=== PATIENT | female | born 1975 | race Caucasian/White ===

== ENCOUNTER → 2020-10-03 13:07 | Outpatient (BNVA) | payer OTHER, SELFPAY | PROVIDERS: PCP Nurse Practitioner Family; Referring Provider Nurse Practitioner Family; Visit Provider Orthopaedic Surgery | DX: M17.0 Bilateral primary osteoarthritis of knee (principal); S52.502D Unspecified fracture of the lower end of left radius, subsequent encounter for closed fracture with routine healing | CPT/HCPCS: 99212 ==

== ENCOUNTER → 2020-11-28 12:47 | Outpatient (REF) | payer OTHER, SELFPAY | LOC: HO.SL 12:47 | PROVIDERS: PCP Registered Nurse; Visit Provider Registered Nurse | DX: G47.30 Sleep apnea, unspecified (principal); G47.19 Other hypersomnia; J45.41 Moderate persistent asthma with (acute) exacerbation; R06.83 Snoring | CPT/HCPCS: 95806 ==

== ENCOUNTER → 2021-01-05 08:27 | Outpatient (BNVA) | payer OTHER, SELFPAY | PROVIDERS: PCP Nurse Practitioner Family; Visit Provider Internal Medicine Gastroenterology ==

== ENCOUNTER → 2021-07-06 08:27 | Outpatient (BNVA) | payer OTHER, SELFPAY | PROVIDERS: PCP Nurse Practitioner Family; Visit Provider Internal Medicine Gastroenterology ==

== ENCOUNTER → 2021-10-23 09:26 | Outpatient (BNVA) | payer OTHER, SELFPAY | PROVIDERS: PCP Nurse Practitioner Family; Visit Provider Internal Medicine Gastroenterology ==

== ENCOUNTER 2022-02-01 12:31 | Outpatient (REF) | payer OTHER, SELFPAY ==
[2022-02-01 16:07] LABS: MANUAL DIFF FLAG NO
[2022-02-01 16:33] LABS: Basophils Percent Auto 0.3 % (0-2); Eosinophils Absolute Auto 0.2 X10*3/uL (0.0-0.4); Eosinophils Percent Auto 1.9 % (0-4); Hematocrit 39.3 % (37.0-47.0); Hemoglobin 12.8 g/dl (12.0-16.0); Imm Gran Abs Auto 0.05 X10*3/uL (0.00-0.03); Imm Gran Pct Auto 0.5 % (0.0-0.4); Lymphocytes Absolute Auto 4.3 X10*3/uL (1.2-4.9); Lymphocytes Percent Auto 39.7 % (20-40); Mean Corpuscular HGB Conc 32.6 g/dl (31.0-35.0); Mean Corpuscular Hemoglobin 28.1 pg (27.0-33.0); Mean Corpuscular Volume 86.4 fL (80.0-98.0); Monocytes Absolute Auto 0.6 X10*3/uL (0.1-1.2); Monocytes Percent Auto 5.4 % (2-11); Neutrophils Absolute Auto 5.7 x10*3/uL (2.0-8.3); Neutrophils Percent Auto 52.2 % (45-73); Platelet Count 266 X10*3/uL (160-400); Red Blood Count 4.55 X10*6/uL (4.20-5.50); Red Cell Distribution Width 13.7 % (11.0-16.0); White Blood Count 10.8 X10*3/uL (4.8-10.8)
[2022-02-01 17:09] LABS: Alanine Aminotransferase 34 U/L (0-31); Albumin Level 4.6 g/dL (3.5-5.0); Alkaline Phosphatase 92 U/L (39-117); Aspartate Amino Transferase 22 U/L (5-31); Bilirubin Direct 0.3 mg/dL (0.0-0.5); Estimated Glomerular Filt Rate 42; Iron 73 mcg/dL (30-160); Percent Iron Saturation 17 % (15-50); Total Iron Binding Capacity 422 mcg/dL (228-428); Total Protein 7.8 g/dL (6.5-8.0); Unsaturated Iron Binding 349 ug/dL
[2022-02-01 17:31] LABS: Ferritin 79 ng/mL (10-250)
== END 2022-02-01 12:32 | disposition home or self-care (01) ==
LOC: HO.LAB 12:31
PROVIDERS: PCP Nurse Practitioner Family; Visit Provider Internal Medicine Gastroenterology
DX: R10.84 Generalized abdominal pain (principal); R13.14 Dysphagia, pharyngoesophageal phase; R14.0 Abdominal distension (gaseous); K59.09 Other constipation; K62.5 Hemorrhage of anus and rectum; K76.0 Fatty (change of) liver, not elsewhere classified
CPT/HCPCS: 36415; 80076; 82565; 82728; 83540; 85025; 99212

== ENCOUNTER 2022-02-05 12:11 | Day surgery (SDC) | payer OTHER, SELFPAY ==
--- NOTE | 2022-02-02 13:43 | P.CONAN_ITS ---
Documented by User: Jemma Robert NP 02/02/22 13:45 HPI - Anesthesia Eval Consult details Narrative: 46yo F for Upper Endoscopy PMFSH Active Problems Active Problems: All Active Problems (Updated 02/01/22 @ 13:27 by James Neil MD) Dysphagia, pharyngoesophageal phase (Acute) Rectal bleeding (Acute) NAFL (nonalcoholic fatty liver) (Acute) Colon cancer screening (Acute) Chronic constipation (Acute) Abdominal bloating (Acute) Generalized abdominal pain (Acute) Patellofemoral arthritis of right knee (Acute) Patellofemoral arthritis of left knee (Acute) Distal radius fracture, left (Acute) Bilateral knee pain (Acute) Past Medical History Medical History Anxiety Bilateral knee pain Depression Distal radius fracture, left Fatty liver GDM (gestational diabetes mellitus) History of Helicobacter pylori infection Hypertension Patellofemoral arthritis of left knee Patellofemoral arthritis of right knee Surgical History Surgical History H/O hand surgery History of back surgery History of eye surgery History of hemorrhoidectomy History of open reduction and internal fixation (ORIF) procedure Social History Social History Household Members: Spouse and Children Alcohol intake: current Alcohol intake frequency: does not drink Patient Tobacco Use Status: Never used Tobacco Use of substances other than those prescribed or required for medical reasons: No Are you DNR?: No Advance Directives: No Advance Directives Information Provided: Yes 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al status: unemployed 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: Right Handed and left handed Meds Allergies Allergy/AdvReac Type Severity Reaction Status Date / Time No Known Allergies Allergy Verified 02/01/22 12:34 [No Known Allergies*] Home Medications Medication Instructions Recorded Confirmed Last Taken Type emollient combination no.114 TOPICAL 09/30/20 02/01/22 Unknown History [Eucerin Advanced Repair] loratadine [Claritin] PO 09/30/20 02/01/22 Unknown History meclizine 25 mg tablet 25 mg PO DAILY 09/30/20 02/01/22 Unknown History melatonin 5 mg capsule mg PO 09/30/20 02/01/22 Unknown History meloxicam 7.5 mg tablet 7.5 mg PO DAILY 09/30/20 02/01/22 Unknown History naproxen 500 mg tablet 500 mg PO BID 09/30/20 02/01/22 Unknown History propranolol 80 mg capsule,24 80 mg PO BEDTIME 09/30/20 02/01/22 Unknown History hr,extended release albuterol sulfate 90 mcg/actuation 2 puff PO Q4-6H PRN 04/12/21 02/01/22 Unknown History aerosol inhaler atorvastatin 40 mg tablet 40 mg PO DAILY 04/12/21 02/01/22 Unknown History budesonide 90 mcg/actuation breath 2 inh PO BID 04/12/21 02/01/22 Unknown History activated powder inhaler lidocaine 5 % topical patch 0 patch TOPICAL 04/12/21 02/01/22 Unknown History loratadine 10 mg tablet 10 mg PO DAILY PRN 04/12/21 02/01/22 Unknown History melatonin 5 mg tablet 5 mg PO BEDTIME PRN 04/12/21 02/01/22 Unknown History Exam Exam Date and Time: February 02, 2022 1343 Pertinent Lab Results Pertinent Lab Results: Laboratory Tests 02/01/22 02/01/22 16:06 16:06 WBC 10.8 Hgb 12.8 Hct 39.3 Plt Count 266 Creatinine 1.34 Assessment and Plan Assessment Anesthesia Assessment: Chart Reviewed Documented by User: Marian Hernandez MD 02/05/22 13:00 [facility] Past Medical History Medical History Anxiety Bilateral knee pain Depression Distal radius fracture, left Fatty liver GDM (gestational diabetes mellitus) History of Helicobacter pylori infection Hypertension Patellofemoral arthritis of left knee Patellofemoral arthritis of right knee Surgical History Surgical History H/O hand surgery History of back surgery History of eye surgery History of hemorrhoidectomy History of open reduction and internal fixation (ORIF) procedure History of Problems with Anesthesia: No Social History Social History Household Members: Spouse and Children Alcohol intake: current Alcohol intake frequency: does not drink Patient Tobacco Use Status: Never used Tobacco Use of substances other than those prescribed or required for medical reasons: No Are you DNR?: No Advance Directives: No Advance Directives Information Provided: Yes 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al status: unemployed 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: Right Handed and left handed Meds Allergies Allergy/AdvReac Type Severity Reaction Status Date / Time No Known Allergies Allergy Verified 02/01/22 12:34 [No Known Allergies*] Home Medications Medication Instructions Recorded Confirmed Last Taken Type emollient combination no.114 TOPICAL 09/30/20 02/01/22 Unknown History [Eucerin Advanced Repair] loratadine [Claritin] PO 09/30/20 02/01/22 Unknown History meclizine 25 mg tablet 25 mg PO DAILY 09/30/20 02/01/22 Unknown History melatonin 5 mg capsule mg PO 09/30/20 02/01/22 Unknown History meloxicam 7.5 mg tablet 7.5 mg PO DAILY 09/30/20 02/01/22 Unknown History naproxen 500 mg tablet 500 mg PO BID 09/30/20 02/01/22 Unknown History propranolol 80 mg capsule,24 80 mg PO BEDTIME 09/30/20 02/01/22 Unknown History hr,extended release albuterol sulfate 90 mcg/actuation 2 puff PO Q4-6H PRN 04/12/21 02/01/22 Unknown History aerosol inhaler atorvastatin 40 mg tablet 40 mg PO DAILY 04/12/21 02/01/22 Unknown History budesonide 90 mcg/actuation breath 2 inh PO BID 04/12/21 02/01/22 Unknown History activated powder inhaler lidocaine 5 % topical patch 0 patch TOPICAL 04/12/21 02/01/22 Unknown History loratadine 10 mg tablet 10 mg PO DAILY PRN 04/12/21 02/01/22 Unknown History melatonin 5 mg tablet 5 mg PO BEDTIME PRN 04/12/21 02/01/22 Unknown History Exam Airway Mallampati Class: II TM Dist: >3cm Neck ROM: Full Loose/Missing/Broken Teeth: No Heart: RRR Lungs: CTA Assessment and Plan Final Anesthetic Review History of Problems with Anesthesia: No NPO: Yes ASA Class: III Final Preanesthetic Review: Meds/Allgs Chart Reviewed, Consent Obtained/Reviewed and Anes Risks/Benef Reviewed Procedure Risk: Low Anesthetic Plan Anesthetic Plan: MAC: Disposition: Standard PACU
[2022-02-05 12:32] VITALS: BP 122/65; PULSE 66; RESP 16; TEMP 36.6; O2SAT 97
[2022-02-05 12:34] LABS: UPreg QC Valid YES; Urine Pregnancy NEGATIVE (NEGATIVE)
[2022-02-05 12:40] VITALS: BMI 42.0
[2022-02-05] MEDS: Lactated Ringers 1,000 ML 100 ML IVCONT (12:52)
--- NOTE | 2022-02-05 12:55 | MHC.SHP ---
Pre-Procedural Eval Section A Date of Service: 02/05/22 The patient is an INPATIENT: No Changes since office visit: Yes Patient answered all questions; No Cold of Flu in the past 2 weeks, No New Medical Problems and No Changes in Medication The History & Physical has been completed within 30 days and I have reviewed it.: Yes Section B Chief Complaint: Dysphagia Allergies: Allergies Allergy/AdvReac Type Severity Reaction Status Date / Time No Known Allergies Allergy Verified 02/01/22 12:34 [No Known Allergies*] Plan I have reviewed the history and physical and performed a pertinent physical examination on my patient. No changes have occurred unless specified.
--- NOTE | 2022-02-05 12:56 | W.PM.OPN ---
Operative Note Operative Note Date of Service: 02/05/22 Narrative: Pre-op diagnosis: GERD, dysphagia, pt complains of nocturnal regurgitation with choking Post-op diagnosis:?other (GERD, dysphagia, gastritis, gastric antral nodule) Procedure: FLEXIBLE TRANSORAL UPPER GASTROINTESTINAL ENDOSCOPY WITH BIOPSIES AND ESOPHAGEAL BALLOON DILATION Consent:?Indications for the procedure and potential complications of bleeding, perforation, reaction to medications and missed diagnosis were discussed with the patient with the help of a Setswana seed core operator and informed consent was obtained. Instrument:?Olympus GIF H 190 mid size upper endoscope Monitoring: Vital signs and clinical assessment, continuous EKG monitoring, Pulse oximetry, Carbon Dioxide monitoring and blood pressure monitoring were done throughout the procedure. Procedure:?The patient was placed in the left lateral decubitis position and pre-procedure medications were administered and a bite block was placed. The endoscope was inserted into the mouth and advanced under direct vision to the third part of duodenum. A careful inspection was made as the upper endoscope was withdrawn including a retroflexed examination of the proximal stomach; Findings and interventions are described below. Findings: Larynx:? Normal Esophagus: Tortuous and mildly dilated esophagus with tertiary contractions without stricture or ring. GE junction at 36 cms. No esophagitis or Chavez's. Esophageal balloon dilation was performed with a 20 mm (60 F) CRE balloon for 60 seconds Stomach: A 1 x 2 cms elongated nodule/fold with central erosion - biopsied. Mild gastric erythema. Biopsies were obtained. Grade 2 flap valve on retroflexed examination of the cardia. Duodenum: Normal bulb and descending duodenum Intervention: Biopsies and esophageal balloon dilation as noted above Impression and Post Procedure Diagnosis: Endoscopy Findings: ESOPHAGUS: Tortuous and mildly dilated esophagus with tertiary contractions without stricture or ring. GE junction at 36 cms. No esophagitis or Chavez's. Esophageal balloon dilation was performed with a 20 mm (60 F) CRE balloon for 60 seconds STOMACH: A 1 x 2 cms elongated nodule/fold with central erosion - biopsied. Mild gastric erythema. Biopsies were obtained. Plan: Await pathology results. Start Sucralfate twice daily for acid reflux. Schedule a barium swallow to rule out severe GERD/achalasia. Patient has an appointment on 04/05/22 in the GI Clinic with James Neil M.D. Above findings were reviewed with the patient and GERD handout was given in the discharge area Surgeon: James Neil MD Anesthesia:?MAC (Dr Hernandez) Was an Traffic Coordinator used for this Procedure?:?No Traffic Coordinator:?Padmini Aranda Estimated blood loss (mL):?0 Pathology:?other (A. gastric antrum, R/O h. pylori? B. gastric nodules bx? C. proximal esophagus bxs, R/O EOE) Condition:?stable Disposition:?PACU
[2022-02-05 13:33] VITALS: BP 102/61; PULSE 71; RESP 18; TEMP 36.2; O2SAT 99
[2022-02-05 13:46] VITALS: BP 123/78; PULSE 72; RESP 18; O2SAT 99
[2022-02-05 14:01] VITALS: BP 137/78; PULSE 66; RESP 16; TEMP 36.3; O2SAT 100
[2022-02-05 14:16] VITALS: BP 142/83; PULSE 66; RESP 16; O2SAT 100
[2022-02-05] MEDS: Acetaminophen 325 MG TABLET 650 MG PO (14:16)
== END 2022-02-05 15:00 | disposition home or self-care (01) ==
PROVIDERS: Nurse Practitioner; PCP Nurse Practitioner Family; Visit Provider Internal Medicine Gastroenterology
PROC: 0DJ08ZZ Inspection of Upper Intestinal Tract, Via Natural or Artificial Opening Endoscopic (ICD-10-PCS; CPT 43235; principal; 2022-02-05 14:30)
DX: R13.10 Dysphagia, unspecified (principal); K22.89 Other specified disease of esophagus; K21.9 Gastro-esophageal reflux disease without esophagitis; K29.50 Unspecified chronic gastritis without bleeding; K31.89 Other diseases of stomach and duodenum; K76.0 Fatty (change of) liver, not elsewhere classified; R11.10 Vomiting, unspecified; F32.9 Major depressive disorder, single episode, unspecified; I10 Essential (primary) hypertension; E78.5 Hyperlipidemia, unspecified; E78.00 Pure hypercholesterolemia, unspecified; Z79.899 Other long term (current) drug therapy
CPT/HCPCS: 43249; 43239; 81025; 88305; 88342; C1726

== ENCOUNTER 2022-02-22 14:21 | Outpatient (REF) | payer OTHER, SELFPAY ==
--- NOTE | ~2022-02-22 | XR_ITS ---
EXAMINATION: UPRIGHT AP BOTH KNEES. PATELLOFEMORAL AND LATERAL VIEW OF THE RIGHT KNEE CLINICAL INFORMATION: Knee pain. COMPARISON: None. TECHNIQUE: AP upright of both knees. Lateral and patellar view of right knee axial. FINDINGS: RIGHT KNEE: Medial compartment: There are marginal osteophytes with minimal subchondral cystic changes in the medial compartment without joint space narrowing indicative of mild osteoarthritis. Lateral compartment: Normal. Patellofemoral compartment: Marginal osteophytes indicative of mild osteoarthritis. Trace joint effusion. LEFT KNEE: Limited AP upright: Marginal osteophytes about the medial compartment with small subchondral cysts indicative of mild osteoarthritis. Lateral compartment normal. Surrounding bone and soft tissues unremarkable. XR/XR knee standing BI IMPRESSION: RIGHT KNEE: Mild osteoarthritis of the patellofemoral compartment and medial compartment. LEFT KNEE LIMITED: Mild osteoarthritis of the medial compartment.
--- NOTE | ~2022-02-22 | XR_ITS ---
EXAMINATION: UPRIGHT AP BOTH KNEES. PATELLOFEMORAL AND LATERAL VIEW OF THE RIGHT KNEE CLINICAL INFORMATION: Knee pain. COMPARISON: None. TECHNIQUE: AP upright of both knees. Lateral and patellar view of right knee axial. FINDINGS: RIGHT KNEE: Medial compartment: There are marginal osteophytes with minimal subchondral cystic changes in the medial compartment without joint space narrowing indicative of mild osteoarthritis. Lateral compartment: Normal. Patellofemoral compartment: Marginal osteophytes indicative of mild osteoarthritis. Trace joint effusion. LEFT KNEE: Limited AP upright: Marginal osteophytes about the medial compartment with small subchondral cysts indicative of mild osteoarthritis. Lateral compartment normal. Surrounding bone and soft tissues unremarkable. XR/XR knee RT 2V IMPRESSION: RIGHT KNEE: Mild osteoarthritis of the patellofemoral compartment and medial compartment. LEFT KNEE LIMITED: Mild osteoarthritis of the medial compartment.
== END 2022-02-22 14:22 | disposition home or self-care (01) ==
LOC: HO.HOSX 14:21
PROVIDERS: Visit Provider Physician Assistant
DX: M17.0 Bilateral primary osteoarthritis of knee (principal)
CPT/HCPCS: 73560; 73565; 99212

== ENCOUNTER → 2022-03-09 14:29 | Outpatient (BNVA) | payer OTHER, SELFPAY | PROVIDERS: PCP Nurse Practitioner Family; Visit Provider Physician Assistant | DX: M17.0 Bilateral primary osteoarthritis of knee (principal) | CPT/HCPCS: 20610; 99212; J1040 ==

== ENCOUNTER → 2022-04-05 09:26 | Outpatient (BNVA) | payer OTHER, SELFPAY | PROVIDERS: PCP Nurse Practitioner Family; Referring Provider Nurse Practitioner Family; Visit Provider Internal Medicine Gastroenterology | DX: Z13.89 Encounter for screening for other disorder (principal) ==

== ENCOUNTER 2022-09-04 15:10 | Outpatient (REF) | payer OTHER, SELFPAY ==
--- NOTE | ~2022-09-04 | XR_ITS ---
EXAMINATION: XR LUMBOSACRAL SPINE WITH OBLIQUES CLINICAL INFORMATION: Low back pain COMPARISON: None TECHNIQUE: AP, both oblique, and lateral views of the lumbar spine. Lateral view of the lumbosacral junction. FINDINGS: There is mild straightening of lumbar lordosis. The vertebral heights and alignment is normal. There is loss of L5-S1 disc height. Rest of the disc heights are normal. No visible acute fracture, dislocation or lytic process seen. The paravertebral soft tissues are normal. XR/XR lumbar spine 4V min IMPRESSION: Degenerative disc changes L5-S1 disc level. No visible acute fracture, dislocation or subluxation seen..
== END 2022-09-04 15:11 | disposition home or self-care (01) ==
LOC: HO.XRAY 15:10
PROVIDERS: Visit Provider Registered Nurse
DX: M54.50 Low back pain, unspecified (principal)
CPT/HCPCS: 72110

== ENCOUNTER 2022-09-13 10:42 | Outpatient (REF) | payer OTHER, SELFPAY ==
--- NOTE | ~2022-09-13 | MM_ITS ---
EXAMINATION: BONE DENSITOMETRY CLINICAL INDICATION: Screening. COMPARISON: None (current study represents initial baseline exam). TECHNIQUE: Using a [employer] DXA System (software version: 13.1) manufactured by [employer], dual-energy x-ray absorptiometry was performed of the lumbar spine and left hip. The images are of good technical quality. Summary results are attached. FINDINGS: AP SPINE L1-L4: BMD 1.115 g/cm2, Z-score -1.4, T-score -0.5, normal. LEFT FEMUR, NECK: BMD 1.050 g/cm2, Z-score 0.6, T-score 0.1, normal. LEFT FEMUR, TOTAL: BMD 1.169 g/cm2, Z-score 0.9, T-score 1.3, normal. IDENTIFIED RISK FACTORS: Menopause, osteoporosis, history of fracture (adult). HISTORY OF FRACTURE: Wrist. MEDICATIONS: Vitamin D. MM/XR DEXA axial skeleton IMPRESSION: 1. DIAGNOSIS: Normal bone density based on the lowest T-score value of -0.5 in the lumbar spine applying World Health Organization criteria. 2. 10-YEAR FRACTURE RISK PREDICTION, FRAX: According to the guidelines, FRAX calculation should only be performed on patients in the osteopenia bone density category. Therefore, FRAX was not performed on this patient. 3. Treatment Recommendations: NOF guidelines recommend consideration for treatment in postmenopausal women and men age 50 and older presenting with the following: -A hip or vertebral (clinical or morphometric) fracture. -T-score less than or equal to -2.5 at the femoral neck or spine after appropriate evaluation to exclude secondary causes. -Low bone mass at the hip or spine and a 10-year fracture probability by FRAX of greater than or equal to 3% for hip fracture or greater than or equal to 20% for major osteoporotic fracture based on the [place] adapted WHO algorithm. 4. Other Recommendations: All treatment decisions require clinical judgment and consideration of individual patient factors, including patient preferences, comorbidities, previous drug use, risk factors not captured in the FRAX model (e.g. frailty, falls, vitamin D deficiency, increased bone turnover, interval significant decline in bone density) and possible under or overestimation of fracture risk by FRAX. FUTURE SCAN RECOMMENDATION: People with diagnosed cases of osteoporosis or at high risk for fracture should have regular bone mineral density tests. For patients eligible for Medicare, routine testing is allowed once every 2 years. The testing frequency can be increased to one year for patients who have rapidly progressing disease, those who are receiving or discontinuing medical therapy to restore bone mass, or have additional risk factors.
== END 2022-09-13 10:43 | disposition home or self-care (01) ==
LOC: HO.MAMMO 10:42
PROVIDERS: PCP Registered Nurse; Visit Provider Registered Nurse
DX: Z13.820 Encounter for screening for osteoporosis (principal); Z78.0 Asymptomatic menopausal state; Z87.81 Personal history of (healed) traumatic fracture
CPT/HCPCS: 77080

== ENCOUNTER → 2022-10-11 09:36 | Outpatient (BNVA) | payer OTHER, SELFPAY | PROVIDERS: PCP Registered Nurse; Visit Provider Physician Assistant | DX: M17.0 Bilateral primary osteoarthritis of knee (principal) | CPT/HCPCS: 20610; 99212; J1040 ==

== ENCOUNTER 2022-12-27 09:35 | Outpatient (REF) | payer OTHER, SELFPAY ==
--- NOTE | ~2022-12-27 | MM_ITS ---
EXAMINATION: MM SCREENING DIGITAL BREAST TOMOSYNTHESIS, BILATERAL CLINICAL INFORMATION: Screening. Asymptomatic. The lifetime risk of breast cancer based on the Tyrer-Cuzick Model is 5.1%. COMPARISON: Mammography: None TECHNIQUE: Digital breast tomosynthesis is performed in both the craniocaudal and mediolateral oblique views along with computer-aided detection (CAD). Synthesized 2D images are generated from the tomosynthesis. FINDINGS: There are scattered areas of fibroglandular density (ACR BI-RADS breast composition Category b). There are no significant masses, abnormal calcifications, or other abnormalities. A few small intramammary lymph nodes are present. MM/MM tomosynthesis screening BI IMPRESSION: No mammographic evidence of malignancy. ASSESSMENT: BI-RADS 1: Negative RECOMMENDATION: Routine annual mammography screening. This patient's information was entered into a reminder system with a target due date for their next mammogram.
== END 2022-12-27 09:36 | disposition home or self-care (01) ==
LOC: HO.MAMMO 09:35
PROVIDERS: Visit Provider Registered Nurse
DX: Z12.31 Encounter for screening mammogram for malignant neoplasm of breast (principal)
CPT/HCPCS: 77063; 77067

== ENCOUNTER 2023-01-04 21:21 | Emergency (ER) | payer OTHER, SELFPAY ==
[2023-01-04 22:16] VITALS: BP 176/101; PULSE 77; RESP 18; TEMP 36.2; O2SAT 100; BMI 39.9
== END 2023-01-04 23:57 | disposition left against medical advice (07) ==
PROVIDERS: Emergency Provider Emergency Medicine
DX: R51.9 Headache, unspecified (principal); M25.511 Pain in right shoulder
CPT/HCPCS: 99281; 99283

== ENCOUNTER 2023-01-07 16:44 | Outpatient (REF) | payer OTHER, SELFPAY ==
--- NOTE | ~2023-01-07 | XR_ITS ---
EXAMINATION: XR SHOULDER, RIGHT CLINICAL INFORMATION: Acute pain right shoulder COMPARISON: Chest radiographs 06/21/2015 TECHNIQUE: Right shoulder is imaged in 4 views. FINDINGS: No fracture, dislocation, destructive process. No visible rotator cuff calcifications. The glenohumeral joint appears normal. The acromioclavicular alignment is normal. There is some minor spurring superior lateral acromium which may be related to origin deltoid. Right lung apex is clear. XR/XR shoulder RT min 2V IMPRESSION: 1. No fracture, dislocation, destructive process. 2. No visible rotator cuff calcifications.
== END 2023-01-07 16:45 | disposition home or self-care (01) ==
LOC: HO.XRAY 16:44
PROVIDERS: PCP Student in an Organized Health Care Education/Training Program; Visit Provider Student in an Organized Health Care Education/Training Program
DX: M25.511 Pain in right shoulder (principal)
CPT/HCPCS: 73030

== ENCOUNTER → 2023-01-10 10:42 | Outpatient (BNVA) | payer OTHER, SELFPAY | PROVIDERS: PCP Student in an Organized Health Care Education/Training Program; Visit Provider Internal Medicine Gastroenterology | DX: K21.9 Gastro-esophageal reflux disease without esophagitis (principal); R14.0 Abdominal distension (gaseous); K59.09 Other constipation; K76.0 Fatty (change of) liver, not elsewhere classified; K62.5 Hemorrhage of anus and rectum; R13.14 Dysphagia, pharyngoesophageal phase; Z86.010 Personal history of colon polyps | CPT/HCPCS: 99212 ==

== ENCOUNTER 2023-01-14 16:16 | Outpatient (REF) | payer OTHER, SELFPAY ==
--- NOTE | ~2023-01-14 | XR_ITS ---
EXAMINATION: XR KNEE, RIGHT CLINICAL INFORMATION: Pain. COMPARISON: Radiograph dated 02/22/2022. TECHNIQUE: AP, lateral and sunrise views of the right knee. FINDINGS: Bones and soft tissues are normal. No fracture or joint effusion. Alignment is anatomic. Joint spaces are well maintained. There is minimal tricompartment osteoarthritic change. No abnormal soft tissue calcification. XR/XR knee RT 3V IMPRESSION: Minimal tricompartment osteoarthritic change of the right knee is seen. There is no fracture, dislocation or joint effusion.
--- NOTE | ~2023-01-14 | XR_ITS ---
EXAMINATION: XR BILATERAL HIPS WITH AP PELVIS CLINICAL INFORMATION: Right hip pain status-post fall. COMPARISON: None TECHNIQUE: AP and frog-leg lateral views of each hip and an AP view of the pelvis. FINDINGS: The bones and soft tissues are normal. No fracture. Sacroiliac and hip joints are normal. Pubic symphysis is normal. No abnormal soft tissue calcifications. XR/XR hip BI w PEL1V IMPRESSION: Normal pelvis and hips.
== END 2023-01-14 16:17 | disposition home or self-care (01) ==
LOC: HO.XRAY 16:16
PROVIDERS: PCP Registered Nurse; Visit Provider Registered Nurse
DX: M25.551 Pain in right hip (principal); M25.561 Pain in right knee
CPT/HCPCS: 73521; 73562

== ENCOUNTER 2023-01-25 19:26 | Emergency (ER) | payer OTHER, SELFPAY ==
--- NOTE | 2023-01-25 | ECG_ITS ---
Test Reason : CHEST PAIN Blood Pressure : / mmHG Vent. Rate : 079 BPM Atrial Rate : 079 BPM P-R Int : 186 ms QRS Dur : 072 ms QT Int : 362 ms P-R-T Axes : 030 017 041 degrees QTc Int : 415 ms Normal sinus rhythm Normal ECG When compared with ECG of 21-JUN-2015 22:05, No significant change was found Referred By: Generic ED Physician Electronically Signed By:JUANCARLOS GRIMM MD
--- NOTE | ~2023-01-25 | XR_ITS ---
EXAMINATION: XR CHEST CLINICAL INFORMATION: Chest pain COMPARISON: None TECHNIQUE: 2 views of the chest were obtained. FINDINGS: No significant abnormality is noted involving the heart, lungs, mediastinum, bony thorax or soft tissues. XR/XR chest 2V IMPRESSION: Unremarkable examination.
--- NOTE | 2023-01-25 19:39 | ED_ITS ---
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 but denies any change in position from sitting to laying down. She denies any fever or chills which has had some mild nausea and otherwise denies any diarrhea/abdominal pain/dysuria. <Marian Skaggs MD - Last Filed: 01/26/23 01:24> Related Data Home Medications: Home Medications Medication Instructions Recorded Confirmed emollient combination no.114 topical 09/30/20 01/10/23 [Eucerin Advanced Repair] loratadine [Claritin] PO 09/30/20 01/10/23 melatonin 5 mg capsule mg PO 09/30/20 01/10/23 meloxicam 7.5 mg tablet 7.5 mg PO DAILY 09/30/20 01/10/23 naproxen 500 mg tablet 500 mg PO BID 09/30/20 01/10/23 propranolol 80 mg capsule,24 80 mg PO BEDTIME 09/30/20 01/10/23 hr,extended release albuterol sulfate 90 mcg/actuation 2 puff PO Q4-6H PRN wheezing 04/12/21 01/10/23 aerosol inhaler atorvastatin 40 mg tablet 40 mg PO DAILY 04/12/21 01/10/23 budesonide 90 mcg/actuation breath 2 inh PO BID 04/12/21 01/10/23 activated powder inhaler lidocaine 5 % topical patch 0 patch topical 04/12/21 01/10/23 loratadine 10 mg tablet 10 mg PO DAILY PRN allergies 04/12/21 01/10/23 melatonin 5 mg tablet 5 mg PO BEDTIME PRN insomnia 04/12/21 01/10/23 bupropion HCl 150 mg 24 hr tablet, 150 mg PO DAILY 08/16/22 01/10/23 extended release Previous Rx's Medication Instructions Recorded psyllium husk 2.6 gram/4.1 gram 1 tbsp PO DAILY 30 days #480 grams 07/06/21 oral powder sucralfate 100 mg/mL oral 10 ml PO BID 30 days #600 mL 02/05/22 suspension (Carafate) cholecalciferol (vitamin D3) 250 250 mcg PO 2XW 90 days #26 caps 01/10/23 mcg (10,000 unit) capsule linaclotide 72 mcg capsule 72 mcg PO QAM 30 days #30 caps 01/10/23 (Linzess) omeprazole 20 mg capsule,delayed 20 mg PO BID 30 days #60 caps 01/10/23 release simethicone 125 mg chewable tablet 125 mg PO BID-QID PRN abdominal 01/10/23 (Gas Relief (simethicone)) distention 30 days #90 tabs ondansetron HCl 4 mg tablet 4 mg PO Q8H PRN nausea and 01/26/23 vomiting 4 days #10 tabs <Iliana Alberto CNP - Last Filed: 01/25/23 19:45> Allergies/Adverse Reactions: Allergies Allergy/AdvReac Type Severity Reaction Status Date / Time No Known Allergies Allergy Verified 01/10/23 10:46 [No Known Allergies*] <Iliana Alberto CNP - Last Filed: 01/25/23 19:45> Review of Systems Review of Systems: Pertinent positives and negatives as stated in HPI <Marian Skaggs MD - Last Filed: 01/26/23 01:24> PMFSH Past Medical History Source: nursing notes reviewed <Marian Skaggs MD - Last Filed: 01/26/23 01:24> Medical History: Medical History Anxiety Bilateral knee pain Depression Distal radius fracture, left Fatty liver GDM (gestational diabetes mellitus) History of Helicobacter pylori infection Hypertension CARITO (obstructive sleep apnea) Patellofemoral arthritis of left knee Patellofemoral arthritis of right knee <Iliana Alberto CNP - Last Filed: 01/25/23 19:45> Surgical History: Surgical History H/O hand surgery History of back surgery History of eye surgery History of hemorrhoidectomy History of open reduction and internal fixation (ORIF) procedure Hx of endoscopy <Iliana Alberto CNP - Last Filed: 01/25/23 19:45> Social History Social History: Social History Household Members: Spouse and Children Alcohol intake: current Alcohol intake frequency: does not drink Patient Tobacco Use Status: Never used Tobacco Advance Directives: No 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al status: unemployed 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: Right Handed <Iliana Alberto CNP - Last Filed: 01/25/23 19:45> Physical Exam Vital Signs: Vital Signs: Last Vital Signs Temp 97.6 F 01/25/23 19:48 Pulse 79 01/25/23 19:48 Resp 20 01/25/23 19:48 BP 134/92 H 01/25/23 19:48 Pulse Ox 96 01/25/23 19:48 O2 Del Method 01/25/23 19:48 BMI result Body Mass Index 39.4 <Iliana Alberto CNP - Last Filed: 01/25/23 19:45> Vital Signs: Last Vital Signs Temp 97.6 F 01/25/23 19:48 Pulse 79 01/25/23 19:48 Resp 20 01/25/23 19:48 BP 134/92 H 01/25/23 19:48 Pulse Ox 96 01/25/23 19:48 O2 Del Method 01/25/23 19:48 BMI result Body Mass Index 39.4 VITAL SIGNS: Reviewed. GENERAL: Elevated BMI, Well developed, well nourished, in no acute distress. HEAD: Normocephalic/atraumatic EYES: PERRLA, EOMI LUNGS: Normal breath sounds. No adventitious sounds or accessory muscle use. SpO2<96> CARDIOVASCULAR: Regular rate and rhythm without noted murmurs, no JVD or lower extremity edema. ABDOMEN: Soft, non-tender, non-distended with bowel sounds. MUSCULOSKELETAL: No tenderness, deformities, or effusions noted on gross inspection. EXTREMITIES: No cyanosis, clubbing or edema. SKIN: Inspection of the skin reveals no rashes NEUROLOGIC: Alert and oriented x 4. Strength and sensation to light touch were grossly intact x 4. <Marian Skaggs MD - Last Filed: 01/26/23 01:24> Course Course Course Narrative: This is an RME: Additional HPI, ROS, PE not included below will be deferred to primary provider. Patient is a 47-year-old female who presents emergency department for evaluation of chest pain. Reports onset of symptoms to be yesterday evening chest pain is radiating into the left arm has associated headache, nausea and vomiting, and reports elevated blood pressure. Denies any personal history of myocardial infarction, DVT/PE, anticoagulant usage. Denies any swelling to the legs, redness, recent surgery or immobilization. Plan: Labs, EKG, viral testing, CXR <Iliana Alberto CNP - Last Filed: 01/25/23 19:45> Medications Administered Discontinued Medications Generic Name Dose Route Start Last Admin Trade Name Freq PRN Reason Stop Dose Admin Acetaminophen 975 mg 01/26/23 00:53 01/26/23 01:00 Acetaminophen 325 Mg Tablet PO 01/26/23 00:54 975 mg ONCE ONE Administration Ibuprofen 400 mg 01/26/23 00:53 01/26/23 01:01 Ibuprofen 400 Mg Tablet PO 01/26/23 00:54 400 mg ONCE ONE Administration Ondansetron HCl 4 mg 01/26/23 00:56 01/26/23 01:00 Ondansetron Odt 4 Mg Tab.Rapdis TRANSLINGU 01/26/23 00:57 4 mg ONCE ONE Administration <Iliana Alberto CNP - Last Filed: 01/25/23 19:45> Medications Administered Discontinued Medications Generic Name Dose Route Start Last Admin Trade Name Freq PRN Reason Stop Dose Admin Acetaminophen 975 mg 01/26/23 00:53 01/26/23 01:00 Acetaminophen 325 Mg Tablet PO 01/26/23 00:54 975 mg ONCE ONE Administration Ibuprofen 400 mg 01/26/23 00:53 01/26/23 01:01 Ibuprofen 400 Mg Tablet PO 01/26/23 00:54 400 mg ONCE ONE Administration Ondansetron HCl 4 mg 01/26/23 00:56 01/26/23 01:00 Ondansetron Odt 4 Mg Tab.Trish CAMACHO 01/26/23 00:57 4 mg ONCE ONE Administration <Marian Skaggs MD - Last Filed: 01/26/23 01:24> Medical Decision Making Medical Decision Making MDM Narrative: 47-year-old female with history and clinical presentation after review of all investigations my interpretation is that patient may have viral illness/costochondritis, is no evidence to suggest pneumonia, cardiac ischemia a nd patient was provided with combination analgesics as well as antinausea medication. She was informed of all results and findings and otherwise discharged home in stable condition with a prescription for antinausea medication and instructions to follow-up with primary care provider. <Marian Skaggs MD - Last Filed: 01/26/23 01:24> Differential Diagnosis See the discussion above <Marian Skaggs MD - Last Filed: 01/26/23 01:24> Lab Data Please see the discussion above <Marian Skaggs MD - Last Filed: 01/26/23 01:24> Result Diagrams: 01/25/23 19:48 01/25/23 19:48 <Iliana Alberto CNP - Last Filed: 01/25/23 19:45> Labs: Lab Results 01/25/23 01/25/23 01/25/23 Range/Units 19:47 19:48 19:48 WBC 9.7 (4.8-10.8) X10*3/uL RBC 4.54 (4.20-5.50) X10*6/uL Hgb 12.8 (12.0-16.0) g/dl Hct 38.3 (37.0-47.0) % MCV 84.4 (80.0-98.0) fL MCH 28.2 (27.0-33.0) pg MCHC 33.4 (31.0-35.0) g/dl RDW 13.2 (11.0-16.0) % Plt Count 276 (160-400) X10*3/uL MPV 10.4 (9.4-12.3) fL Absolute Nucleated RBC 0.000 (0.0-0.012) X10*3/uL Nucleated RBC % (auto) 0.0 (0.0-0.2) /100WBC PT (10.0-13.1) SEC INR (0.9-1.1) Sodium 141 (135-145) mmol/L Potassium 4.2 (3.3-5.1) mmol/L Chloride 105 (96-108) mmol/L Carbon Dioxide 26 (22-29) mmol/L Anion Gap 14 (12-20) BUN 18 H (9-16) mg/dL Creatinine 0.80 (0.5-1.4) mg/dL Estim Creat Clear Calc 94.0 Estimated GFR > 60 Random Glucose 107 (60-115) mg/dL Calcium 9.7 (8.4-10.2) mg/dL Total Bilirubin 0.7 (0.0-1.0) mg/dL AST 25 (5-31) U/L ALT 35 H (0-31) U/L Alkaline Phosphatase 96 (39-117) U/L Troponin I High Sens (<3.5-17.0) ng/L Total Protein 7.3 (6.5-8.0) g/dL Albumin 4.6 (3.5-5.0) g/dL Beta HCG, Quant < 2 mIU/mL Urine Color Urine Appearance Urine pH (5.0-9.0) Ur Specific [place] (1.005-1.025) Urine Protein (Neg-Trace) mg/dL Urine Glucose (UA) (Negative) mg/dL Urine Ketones (Negative) mg/dL Urine Blood (Negative) Urine Nitrite (Negative) Ur Leukocyte Esterase (Negative) COVID-19 ([facility]) (Negative) COVID-19 Clin Com Influenza Type A (PCR) NEGATIVE (Negative) Influenza Type B (PCR) NEGATIVE (Negative) RSV RNA Qual (PCR) NEGATIVE (Negative) SARS-CoV-2 RNA (RT-PCR) NEGATIVE (Negative) 01/25/23 01/25/23 01/25/23 Range/Units 19:48 19:48 19:48 WBC (4.8-10.8) X10*3/uL RBC (4.20-5.50) X10*6/uL Hgb (12.0-16.0) g/dl Hct (37.0-47.0) % MCV (80.0-98.0) fL MCH (27.0-33.0) pg MCHC (31.0-35.0) g/dl RDW (11.0-16.0) % Plt Count (160-400) X10*3/uL MPV (9.4-12.3) fL Absolute Nucleated RBC (0.0-0.012) X10*3/uL Nucleated RBC % (auto) (0.0-0.2) /100WBC PT 10.6 (10.0-13.1) SEC INR 0.9 (0.9-1.1) Sodium (135-145) mmol/L Potassium (3.3-5.1) mmol/L Chloride (96-108) mmol/L Carbon Dioxide (22-29) mmol/L Anion Gap (12-20) BUN (9-16) mg/dL Creatinine (0.5-1.4) mg/dL Estim Creat Clear Calc Estimated GFR Random Glucose (60-115) mg/dL Calcium (8.4-10.2) mg/dL Total Bilirubin (0.0-1.0) mg/dL AST (5-31) U/L ALT (0-31) U/L Alkaline Phosphatase (39-117) U/L Troponin I High Sens < 3.5 (<3.5-17.0) ng/L Total Protein (6.5-8.0) g/dL Albumin (3.5-5.0) g/dL Beta HCG, Quant mIU/mL Urine Color Urine Appearance Urine pH (5.0-9.0) Ur Specific [place] (1.005-1.025) Urine Protein (Neg-Trace) mg/dL Urine Glucose (UA) (Negative) mg/dL Urine Ketones (Negative) mg/dL Urine Blood (Negative) Urine Nitrite (Negative) Ur Leukocyte Esterase (Negative) COVID-19 ([facility]) Negative (Negative) COVID-19 Clin Com See Note Influenza Type A (PCR) (Negative) Influenza Type B (PCR) (Negative) RSV RNA Qual (PCR) (Negative) SARS-CoV-2 RNA (RT-PCR) (Negative) 01/25/23 01/26/23 Range/Units 22:03 00:54 WBC (4.8-10.8) X10*3/uL RBC (4.20-5.50) X10*6/uL Hgb (12.0-16.0) g/dl Hct (37.0-47.0) % MCV (80.0-98.0) fL MCH (27.0-33.0) pg MCHC (31.0-35.0) g/dl RDW (11.0-16.0) % Plt Count (160-400) X10*3/uL MPV (9.4-12.3) fL Absolute Nucleated RBC (0.0-0.012) X10*3/uL Nucleated RBC % (auto) (0.0-0.2) /100WBC PT (10.0-13.1) SEC INR (0.9-1.1) Sodium (135-145) mmol/L Potassium (3.3-5.1) mmol/L Chloride (96-108) mmol/L Carbon Dioxide (22-29) mmol/L Anion Gap (12-20) BUN (9-16) mg/dL Creatinine (0.5-1.4) mg/dL Estim Creat Clear Calc Estimated GFR Random Glucose (60-115) mg/dL Calcium (8.4-10.2) mg/dL Total Bilirubin (0.0-1.0) mg/dL AST (5-31) U/L ALT (0-31) U/L Alkaline Phosphatase (39-117) U/L Troponin I High Sens < 3.5 (<3.5-17.0) ng/L Total Protein (6.5-8.0) g/dL Albumin (3.5-5.0) g/dL Beta HCG, Quant mIU/mL Urine Color Yellow Urine Appearance Clear Urine pH 6.5 (5.0-9.0) Ur Specific [place] 1.015 (1.005-1.025) Urine Protein Negative (Neg-Trace) mg/dL Urine Glucose (UA) Negative (Negative) mg/dL Urine Ketones Negative (Negative) mg/dL Urine Blood Negative (Negative) Urine Nitrite Negative (Negative) Ur Leukocyte Esterase Trace H (Negative) COVID-19 ([facility]) (Negative) COVID-19 Clin Com Influenza Type A (PCR) (Negative) Influenza Type B (PCR) (Negative) RSV RNA Qual (PCR) (Negative) SARS-CoV-2 RNA (RT-PCR) (Negative) <Iliana Alberto, ASSEMBLY LINE LEADER - Last Filed: 01/25/23 19:45> Lab Results 01/25/23 01/25/23 01/25/23 Range/Units 19:47 19:48 19:48 WBC 9.7 (4.8-10.8) X10*3/uL RBC 4.54 (4.20-5.50) X10*6/uL Hgb 12.8 (12.0-16.0) g/dl Hct 38.3 (37.0-47.0) % MCV 84.4 (80.0-98.0) fL MCH 28.2 (27.0-33.0) pg MCHC 33.4 (31.0-35.0) g/dl RDW 13.2 (11.0-16.0) % Plt Count 276 (160-400) X10*3/uL MPV 10.4 (9.4-12.3) fL Absolute Nucleated RBC 0.000 (0.0-0.012) X10*3/uL Nucleated RBC % (auto) 0.0 (0.0-0.2) /100WBC PT (10.0-13.1) SEC INR (0.9-1.1) Sodium 141 (135-145) mmol/L Potassium 4.2 (3.3-5.1) mmol/L Chloride 105 (96-108) mmol/L Carbon Dioxide 26 (22-29) mmol/L Anion Gap 14 (12-20) BUN 18 H (9-16) mg/dL Creatinine 0.80 (0.5-1.4) mg/dL Estim Creat Clear Calc 94.0 Estimated GFR > 60 Random Glucose 107 (60-115) mg/dL Calcium 9.7 (8.4-10.2) mg/dL Total Bilirubin 0.7 (0.0-1.0) mg/dL AST 25 (5-31) U/L ALT 35 H (0-31) U/L Alkaline Phosphatase 96 (39-117) U/L Troponin I High Sens (<3.5-17.0) ng/L Total Protein 7.3 (6.5-8.0) g/dL Albumin 4.6 (3.5-5.0) g/dL Beta HCG, Quant < 2 mIU/mL Urine Color Urine Appearance Urine pH (5.0-9.0) Ur Specific [place] (1.005-1.025) Urine Protein (Neg-Trace) mg/dL Urine Glucose (UA) (Negative) mg/dL Urine Ketones (Negative) mg/dL Urine Blood (Negative) Urine Nitrite (Negative) Ur Leukocyte Esterase (Negative) COVID-19 ([facility]) (Negative) COVID-19 Clin Com Influenza Type A (PCR) NEGATIVE (Negative) Influenza Type B (PCR) NEGATIVE (Negative) RSV RNA Qual (PCR) NEGATIVE (Negative) SARS-CoV-2 RNA (RT-PCR) NEGATIVE (Negative) 01/25/23 01/25/23 01/25/23 Range/Units 19:48 19:48 19:48 WBC (4.8-10.8) X10*3/uL RBC (4.20-5.50) X10*6/uL Hgb (12.0-16.0) g/dl Hct (37.0-47.0) % MCV (80.0-98.0) fL MCH (27.0-33.0) pg MCHC (31.0-35.0) g/dl RDW (11.0-16.0) % Plt Count (160-400) X10*3/uL MPV (9.4-12.3) fL Absolute Nucleated RBC (0.0-0.012) X10*3/uL Nucleated RBC % (auto) (0.0-0.2) /100WBC PT 10.6 (10.0-13.1) SEC INR 0.9 (0.9-1.1) Sodium (135-145) mmol/L Potassium (3.3-5.1) mmol/L Chloride (96-108) mmol/L Carbon Dioxide (22-29) mmol/L Anion Gap (12-20) BUN (9-16) mg/dL Creatinine (0.5-1.4) mg/dL Estim Creat Clear Calc Estimated GFR Random Glucose (60-115) mg/dL Calcium (8.4-10.2) mg/dL Total Bilirubin (0.0-1.0) mg/dL AST (5-31) U/L ALT (0-31) U/L Alkaline Phosphatase (39-117) U/L Troponin I High Sens < 3.5 (<3.5-17.0) ng/L Total Protein (6.5-8.0) g/dL Albumin (3.5-5.0) g/dL Beta HCG, Quant mIU/mL Urine Color Urine Appearance Urine pH (5.0-9.0) Ur Specific [place] (1.005-1.025) Urine Protein (Neg-Trace) mg/dL Urine Glucose (UA) (Negative) mg/dL Urine Ketones (Negative) mg/dL Urine Blood (Negative) Urine Nitrite (Negative) Ur Leukocyte Esterase (Negative) COVID-19 ([facility]) Negative (Negative) COVID-19 Clin Com See Note Influenza Type A (PCR) (Negative) Influenza Type B (PCR) (Negative) RSV RNA Qual (PCR) (Negative) SARS-CoV-2 RNA (RT-PCR) (Negative) 01/25/23 01/26/23 Range/Units 22:03 00:54 WBC (4.8-10.8) X10*3/uL RBC (4.20-5.50) X10*6/uL Hgb (12.0-16.0) g/dl Hct (37.0-47.0) % MCV (80.0-98.0) fL MCH (27.0-33.0) pg MCHC (31.0-35.0) g/dl RDW (11.0-16.0) % Plt Count (160-400) X10*3/uL MPV (9.4-12.3) fL Absolute Nucleated RBC (0.0-0.012) X10*3/uL Nucleated RBC % (auto) (0.0-0.2) /100WBC PT (10.0-13.1) SEC INR (0.9-1.1) Sodium (135-145) mmol/L Potassium (3.3-5.1) mmol/L Chloride (96-108) mmol/L Carbon Dioxide (22-29) mmol/L Anion Gap (12-20) BUN (9-16) mg/dL Creatinine (0.5-1.4) mg/dL Estim Creat Clear Calc Estimated GFR Random Glucose (60-115) mg/dL Calcium (8.4-10.2) mg/dL Total Bilirubin (0.0-1.0) mg/dL AST (5-31) U/L ALT (0-31) U/L Alkaline Phosphatase (39-117) U/L Troponin I High Sens < 3.5 (<3.5-17.0) ng/L Total Protein (6.5-8.0) g/dL Albumin (3.5-5.0) g/dL Beta HCG, Quant mIU/mL Urine Color Yellow Urine Appearance Clear Urine pH 6.5 (5.0-9.0) Ur Specific [place] 1.015 (1.005-1.025) Urine Protein Negative (Neg-Trace) mg/dL Urine Glucose (UA) Negative (Negative) mg/dL Urine Ketones Negative (Negative) mg/dL Urine Blood Negative (Negative) Urine Nitrite Negative (Negative) Ur Leukocyte Esterase Trace H (Negative) COVID-19 ([facility]) (Negative) COVID-19 Clin Com Influenza Type A (PCR) (Negative) Influenza Type B (PCR) (Negative) RSV RNA Qual (PCR) (Negative) SARS-CoV-2 RNA (RT-PCR) (Negative) <Marian Skaggs MD - Last Filed: 01/26/23 01:24> Independent Interpretation I performed an independent interpretation of an: EKG <Marian Skaggs MD - Last Filed: 01/26/23 01:24> Interpretation: Normal sinus rhythm, HR-79, no STEMI, MO/QRS/QTC is within normal limits. <Marian Skaggs MD - Last Filed: 01/26/23 01:24> Radiology Impression Radiologist Impression: My interpretation is in agreement with radiology's impression of the imaging study. <Marian Skaggs MD - Last Filed: 01/26/23 01:24> External Record Review External record reviewed: Outpatient record and Prior outpatient labs <Marian Skaggs MD - Last Filed: 01/26/23 01:24> Chronic Conditions Patient?s care impacted by: Hypertension <Marian Skaggs MD - Last Filed: 01/26/23 01:24> Critical Care Time Critical Care Time Critical Care Time: Yes <Marian Skaggs MD - Last Filed: 01/26/23 01:24> Total Critical Care Time: 30 <Marian Skaggs MD - Last Filed: 01/26/23 01:24> Attestation: I personally attest to this time spent taking care of the patient. <Marian Skaggs MD - Last Filed: 01/26/23 01:24> Discharge Plan Discharge Clinical Impression: Atypical chest pain, Acute costochondritis <Iliana Alberto CNP - Last Filed: 01/25/23 19:45> Patient Disposition: Home, Self-Care <Iliana Alberto CNP - Last Filed: 01/25/23 19:45> Instructions: Costochondritis (ED), Chest Wall Pain (ED) <Iliana Alberto CNP - Last Filed: 01/25/23 19:45> Additional Instructions: 1. Reanudar todos los medicamentos caseros seg?n lo prescrito. 2. Le dobson proporcionado medicamentos contra las n?useas y debe seguir teena dieta blanda y beber solo agua christiano los pr?ximos 1 o 2 d?as. 3. Le recomiendo encarecidamente que humza un seguimiento con hickman proveedor de atenci?n primaria el lunes por la ma?izzy. Regrese a la yosef de emergencias si los s?ntomas empeoran. 1. Resume all home medications as prescribed. 2. You have been provided with antinausea medications and should stick to a bland diet and drink only water for the next 1-2 days. 3. I strongly recommend that you follow-up with your primary care provider on Saturday morning. Return to the ER for any worsening symptoms. <Iliana Alberto CNP - Last Filed: 01/25/23 19:45> Prescriptions: New ondansetron HCl 4 mg tablet 4 mg PO Q8H PRN (Reason: nausea and vomiting) 4 Days Qty: 10 0RF No Action sucralfate [Carafate] 100 mg/mL suspension 10 ml PO BID 30 Days Qty: 600 2RF emollient combination no.114 topical propranolol 80 mg capsule,extended release 24 hr 80 mg PO BEDTIME loratadine PO meloxicam 7.5 mg tablet 7.5 mg PO DAILY melatonin 5 mg capsule PO naproxen 500 mg tablet 500 mg PO BID melatonin 5 mg tablet 5 mg PO BEDTIME PRN (Reason: insomnia) budesonide 90 mcg/actuation aerosol powdr breath activated 2 inh PO BID loratadine 10 mg tablet 10 mg PO DAILY PRN (Reason: allergies) albuterol sulfate 90 mcg/actuation HFA aerosol inhaler 2 puff PO Q4-6H PRN (Reason: wheezing) lidocaine 5 % adhesive patch,medicated 0 patch topical atorvastatin 40 mg tablet 40 mg PO DAILY psyllium husk 2.6 gram/4.1 gram powder 1 tbsp PO DAILY 30 Days Qty: 480 3RF Rx Instructions: mix into at least 8 oz of water or juice before administering bupropion HCl 150 mg tablet extended release 24 hr 150 mg PO DAILY Linzess 72 mcg capsule 72 mcg PO QAM 30 Days Qty: 30 3RF simethicone [Gas Relief (simethicone)] 125 mg tablet,chewable 125 mg PO BID-QID PRN (Reason: abdominal distention) 30 Days Qty: 90 1RF omeprazole 20 mg capsule,delayed release(DR/EC) 20 mg PO BID 30 Days Qty: 60 3RF cholecalciferol (vitamin D3) 250 mcg (10,000 unit) capsule 250 mcg PO 2XW 90 Days Qty: 26 1RF <Iliana Alberto CNP - Last Filed: 01/25/23 19:45> Referrals: Simpson,Constance, MARKETING CLERK [Primary Care Provider] - <Iliana Alberto CNP - Last Filed: 01/25/23 19:45> Print Language: Upper Sorbian <Iliana Alberto CNP - Last Filed: 01/25/23 19:45>
[2023-01-25 19:48] VITALS: BP 134/92; PULSE 79; RESP 20; TEMP 36.4; O2SAT 96; BMI 39.4
[2023-01-25 19:50] LABS: Hematocrit 38.3 % (37.0-47.0); Hemoglobin 12.8 g/dl (12.0-16.0); Mean Corpuscular HGB Conc 33.4 g/dl (31.0-35.0); Mean Corpuscular Hemoglobin 28.2 pg (27.0-33.0); Mean Corpuscular Volume 84.4 fL (80.0-98.0); Mean Platelet Volume 10.4 fL (9.4-12.3); Platelet Count 276 X10*3/uL (160-400); Red Blood Count 4.54 X10*6/uL (4.20-5.50); Red Cell Distribution Width 13.2 % (11.0-16.0); White Blood Count 9.7 X10*3/uL (4.8-10.8)
[2023-01-25 20:04] LABS: INTERNATIONAL NORM RATIO 0.9 (0.9-1.1); Prothrombin Time 10.6 SEC (10.0-13.1)
[2023-01-25 20:06] LABS: Alanine Aminotransferase 35 U/L (0-31); Albumin Level 4.6 g/dL (3.5-5.0); Alkaline Phosphatase 96 U/L (39-117); Anion Gap 14 (12-20); Aspartate Amino Transferase 25 U/L (5-31); Bilirubin Total 0.7 mg/dL (0.0-1.0); Blood Urea Nitrogen 18 mg/dL (9-16); Calcium 9.7 mg/dL (8.4-10.2); Carbon Dioxide 26 mmol/L (22-29); Chloride 105 mmol/L (96-108); Estimated Glomerular Filt Rate > 60; Glucose Random 107 mg/dL (60-115); Potassium 4.2 mmol/L (3.3-5.1); Sodium 141 mmol/L (135-145); Total Protein 7.3 g/dL (6.5-8.0)
[2023-01-25 20:20] LABS: Troponin-I High Sensitivity < 3.5 ng/L (<3.5-17.0)
[2023-01-25 20:30] LABS: COVID-19 Test Negative (Negative); IDNOW Serial# 6674DD1D
[2023-01-25 20:45] LABS: Influenza A PCR NEGATIVE (Negative); Influenza B PCR NEGATIVE (Negative); Resp Syncy Virus RNA Qual PCR NEGATIVE (Negative); SARS COV2 PCR INHOUSE NEGATIVE (Negative)
[2023-01-25 21:01] LABS: HCG Quantitative < 2 mIU/mL
[2023-01-25 22:39] LABS: Troponin-I High Sensitivity < 3.5 ng/L (<3.5-17.0)
[2023-01-26] MEDS: Ondansetron ODT 4 MG TAB.RAPDIS TRANSLINGU (01:00)
[2023-01-26] MEDS: Acetaminophen 325 MG TABLET 975 MG PO (01:00)
[2023-01-26 01:01] LABS: Appearance Urine Clear; Color Urine Yellow; Glucose Urine UA Negative (Negative); Leukocyte Esterase Urine Trace (Negative); Nitrite Urine Negative (Negative); PH 6.5 (5.0-9.0); Specific Gravity - Urine 1.015 (1.005-1.025); UMIC TRIGGER UACC YES; Urine Blood Negative (Negative); Urine Ketones Negative (Negative); Urine Protein Negative (Neg-Trace)
[2023-01-26] MEDS: Ibuprofen 400 MG TABLET PO (01:01)
[2023-01-26 01:15] LABS: Bacteria Urine None Seen (None Seen); Hyaline Casts Urine 0-2 /LPF (0-2); RBC Urine 0-2 /HPF (0-2); Squamous Epithelial Cell Urine 0-2 /HPF (0-2); WBC Urine 0-5 /HPF (0-5)
== END 2023-01-26 02:02 | disposition home or self-care (01) ==
PROVIDERS: Nurse Practitioner Family; Emergency Provider Student in an Organized Health Care Education/Training Program; PCP Registered Nurse
DX: R07.89 Other chest pain (principal); M94.0 Chondrocostal junction syndrome [Tietze]; R06.02 Shortness of breath; Z20.822 Contact with and (suspected) exposure to COVID-19; Z20.828 Contact with and (suspected) exposure to other viral communicable diseases; Z79.899 Other long term (current) drug therapy
CPT/HCPCS: 0241U; 36415; 71046; 80053; 81001; 81003; 84484; 84702; 85027; 85610; 87635; 93005; 99284

== ENCOUNTER → 2023-02-21 10:02 | Outpatient (BNVA) | payer OTHER, SELFPAY | PROVIDERS: PCP Registered Nurse; Visit Provider Internal Medicine Gastroenterology ==

== ENCOUNTER 2023-09-09 08:13 | Day surgery (SDC) | payer OTHER, SELFPAY ==
[2023-09-05 15:11] VITALS: BMI 39.9
[2023-09-05 16:42] VITALS: BMI 39.3
--- NOTE | 2023-09-06 13:48 | HO.ANESPROP2 ---
HPI - Anesthesia Eval Consult details Narrative: 48yo F for Upper Endoscopy and Colonoscopy [facility] Active Problems Active Problems: All Active Problems (Updated 01/27/23 @ 00:00 by Randy Cristina) Bilateral primary osteoarthritis of knee (Acute) GERD (gastroesophageal reflux disease) (Acute) Generalized abdominal pain (Acute) Abdominal bloating (Acute) Chronic constipation (Acute) Colon cancer screening (Acute) NAFL (nonalcoholic fatty liver) (Acute) Rectal bleeding (Acute) Dysphagia, pharyngoesophageal phase (Acute) Patellofemoral arthritis of right knee (Acute) Patellofemoral arthritis of left knee (Acute) Distal radius fracture, left (Acute) Bilateral knee pain (Acute) Past Medical History Medical History Anxiety Bilateral knee pain Depression Distal radius fracture, left Fatty liver GDM (gestational diabetes mellitus) History of Helicobacter pylori infection Hypertension CARITO (obstructive sleep apnea) Patellofemoral arthritis of left knee Patellofemoral arthritis of right knee Surgical History Surgical History H/O hand surgery History of back surgery History of eye surgery History of hemorrhoidectomy History of open reduction and internal fixation (ORIF) procedure Hx of endoscopy History of Problems with Anesthesia: No Social History Social History (Updated 09/05/23 @ 16:40 by Yesenia Michael RN) Household Members: Spouse and Children Are you a primary manager home healthcare to a significant other at home: Yes Do you presently have visiting nurse or other home services: No Alcohol intake: current Alcohol intake frequency: does not drink Patient Tobacco Use Status: Never used Tobacco Use of substances other than those prescribed or required for medical reasons: No Have you been hit, kicked, punched, or otherwise hurt by someone within the past year? 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 Allergies Allergy/AdvReac Type Severity Reaction Status Date / Time No Known Allergies Allergy Verified 02/21/23 10:04 [No Known Allergies*] Home Medications Medication Instructions Recorded Confirmed Last Taken Type emollient combination no.114 topical 09/30/20 02/21/23 Unknown History [Eucerin Advanced Repair Foot] loratadine [Claritin] PO 09/30/20 02/21/23 Unknown History melatonin 5 mg capsule mg PO 09/30/20 02/21/23 Unknown History meloxicam 7.5 mg tablet 7.5 mg PO DAILY 09/30/20 02/21/23 Unknown History naproxen 500 mg tablet 500 mg PO BID 09/30/20 02/21/23 Unknown History propranolol 80 mg capsule,24 80 mg PO BEDTIME 09/30/20 02/21/23 Unknown History hr,extended release albuterol sulfate 90 mcg/actuation 2 puff PO Q4-6H PRN wheezing 04/12/21 09/05/23 Unknown History aerosol inhaler atorvastatin 40 mg tablet 40 mg PO DAILY 04/12/21 09/05/23 Unknown History budesonide 90 mcg/actuation breath 2 inh PO BID 04/12/21 02/21/23 Unknown History activated powder inhaler lidocaine 5 % topical patch 0 patch topical 04/12/21 02/21/23 Unknown History loratadine 10 mg tablet 10 mg PO DAILY PRN allergies 04/12/21 02/21/23 Unknown History melatonin 5 mg tablet 5 mg PO BEDTIME PRN insomnia 04/12/21 09/05/23 Unknown History bupropion HCl 150 mg 24 hr tablet, 150 mg PO DAILY 08/16/22 02/21/23 Unknown History extended release Exam Exam Date and Time: September 06, 2023 1348 Height,Weight and Vital Signs: Height 5 ft 2 in Weight 97.522 kg Assessment and Plan Assessment Anesthesia Assessment: Chart Reviewed Final Anesthetic Review History of Problems with Anesthesia: No
--- NOTE | 2023-09-09 08:44 | P.CONAN_ITS ---
[facility] Active Problems Active Problems: All Active Problems (Updated 01/27/23 @ 00:00 by Randy Cristina) Bilateral primary osteoarthritis of knee (Acute) GERD (gastroesophageal reflux disease) (Acute) Generalized abdominal pain (Acute) Abdominal bloating (Acute) Chronic constipation (Acute) Colon cancer screening (Acute) NAFL (nonalcoholic fatty liver) (Acute) Rectal bleeding (Acute) Dysphagia, pharyngoesophageal phase (Acute) Patellofemoral arthritis of right knee (Acute) Patellofemoral arthritis of left knee (Acute) Distal radius fracture, left (Acute) Bilateral knee pain (Acute) Past Medical History Medical History Anxiety Bilateral knee pain Depression Distal radius fracture, left Fatty liver GDM (gestational diabetes mellitus) History of Helicobacter pylori infection Hypertension CARITO (obstructive sleep apnea) Patellofemoral arthritis of left knee Patellofemoral arthritis of right knee Functional capacity: independent ambulation Patient : No Surgical History Surgical History Hx of endoscopy H/O hand surgery History of open reduction and internal fixation (ORIF) procedure History of eye surgery History of hemorrhoidectomy History of back surgery History of Problems with Anesthesia: No Social History Social History (Updated 09/05/23 @ 16:40 by Yesenia Michael RN) Household Members: Spouse and Children Are you a primary specialist wound care to a significant other at home: Yes Do you presently have visiting nurse or other home services: No Alcohol intake: current Alcohol intake frequency: does not drink Patient Tobacco Use Status: Never used Tobacco 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al status: unemployed 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: Right Handed Meds Allergies Allergy/AdvReac Type Severity Reaction Status Date / Time No Known Allergies Allergy Verified 02/21/23 10:04 [No Known Allergies*] Active Medications: Current Medications Lactated Ringer's (Lr) 1,000 mls @ 100 mls/hr IVCONT .Q10H [facility] Home Medications Medication Instructions Recorded Confirmed Last Taken Type emollient combination no.114 topical 09/30/20 02/21/23 Unknown History [Eucerin Advanced Repair Foot] loratadine [Claritin] PO 09/30/20 02/21/23 Unknown History melatonin 5 mg capsule mg PO 09/30/20 02/21/23 Unknown History meloxicam 7.5 mg tablet 7.5 mg PO DAILY 09/30/20 02/21/23 Unknown History naproxen 500 mg tablet 500 mg PO BID 09/30/20 02/21/23 Unknown History propranolol 80 mg capsule,24 80 mg PO BEDTIME 09/30/20 02/21/23 Unknown History hr,extended release albuterol sulfate 90 mcg/actuation 2 puff PO Q4-6H PRN wheezing 04/12/21 09/05/23 Unknown History aerosol inhaler atorvastatin 40 mg tablet 40 mg PO DAILY 04/12/21 09/05/23 Unknown History budesonide 90 mcg/actuation breath 2 inh PO BID 04/12/21 02/21/23 Unknown History activated powder inhaler lidocaine 5 % topical patch 0 patch topical 04/12/21 02/21/23 Unknown History loratadine 10 mg tablet 10 mg PO DAILY PRN allergies 04/12/21 02/21/23 Unknown History melatonin 5 mg tablet 5 mg PO BEDTIME PRN insomnia 04/12/21 09/05/23 Unknown History bupropion HCl 150 mg 24 hr tablet, 150 mg PO DAILY 08/16/22 02/21/23 Unknown History extended release Exam Exam Date and Time: September 09, 2023 0844 Height,Weight and Vital Signs: Height 5 ft 2 in Weight 97.522 kg Airway Mallampati Class: IV TM Dist: >3cm Neck ROM: Full Heart: RRR Lungs: CTA Assessment and Plan Assessment Anesthesia Assessment: Anesthesia Plan Discussed Final Anesthetic Review History of Problems with Anesthesia: No ASA Class: III Final Preanesthetic Review: Meds/Allgs Chart Reviewed, Consent Obtained/Reviewed and Anes Risks/Benef Reviewed Patient Risk: Intermediate Procedure Risk: Low Anesthetic Plan Disposition: Standard PACU
[2023-09-09 08:46] VITALS: BP 145/80; PULSE 82; RESP 18; TEMP 36.7; O2SAT 99
[2023-09-09 08:47] LABS: UPreg QC Valid YES; Urine Pregnancy NEGATIVE (NEGATIVE)
[2023-09-09] MEDS: Lactated Ringers 1,000 ML 100 ML IVCONT (08:49)
--- NOTE | 2023-09-09 09:08 | MHC.SHP ---
Pre-Procedural Eval Section A Date of Service: 09/09/23 The patient is an INPATIENT: No The History & Physical has been completed within 30 days and I have reviewed it.: No Section B Chief Complaint: Dysphagia, pharyngoesophageal phase, hemorrhage Relevant Family History (Specify if Yes): No Relevant Social History: None Present Medications: see Short Stay Collaborative assessment Medical History: Significant History (Bilateral knee pain Depression Distal radius fracture, left Fatty liver GDM (gestational diabetes mellitus) History of Helicobacter pylori infection Hypertension CARITO (obstructive sleep apnea) Patellofemoral arthritis of left knee Patellofemoral arthritis of right knee) History of Previous Operations: Relevant previous surgery/procedure and date(s) (H/O hand surgery History of back surgery History of eye surgery History of hemorrhoidectomy History of open reduction and internal fixation (ORIF) procedure Hx of endoscopy) Allergies: Allergies Allergy/AdvReac Type Severity Reaction Status Date / Time No Known Allergies Allergy Verified 02/21/23 10:04 [No Known Allergies*] Review of Systems Sugical H&P ROS: Negative: Constitution, Cardiovascular, Respiratory and Gastrointestinal Exam Surgical H&P Exam: Normal: Heart, Normal: Lungs, Normal: Extremities and Normal: Abdomen Plan Diagnosis/Plan: Unchanged I have reviewed the history and physical and performed a pertinent physical examination on my patient. No changes have occurred unless specified. Time Spent With Patient Time: Total time managing care of this patient today ____ minutes.
--- NOTE | 2023-09-09 09:26 | W.PM.OPN ---
Operative Note Operative Note Date of Service: 09/09/23 Narrative: FLEXIBLE TRANSORAL UPPER GASTROINTESTINAL ENDOSCOPY WITH BIOPSIES AND ESOPHAGEAL BALLOON DILATION AND COLONOSCOPY TILL CECUM WITH BIOPSIES Pre-op diagnosis: SCREENING, DYSPHAGIA, GERD Post-op diagnosis: GERD, gastritis, colon polyp, diverticulosis, hemorrhoids? Endoscopist:? James Neil MD Anesthesia:?MAC UPPER ENDOSCOPY Consent: Indications for the procedure and potential complications of bleeding, perforation, reaction to medications and missed diagnosis were discussed with the patient and informed consent was obtained. Instrument: Olympus GIF H 190 mid size upper endoscope Monitoring: Vital signs and clinical assessment, continuous EKG monitoring, Pulse oximetry, Carbon Dioxide monitoring and blood pressure monitoring were done throughout the procedure. Procedure: The patient was placed in the left lateral decubitis position and pre-procedure medications were administered and a bite block was placed. The endoscope was inserted into the mouth and advanced under direct vision to the third part of duodenum. A careful inspection was made as the upper endoscope was withdrawn including a retroflexed examination of the proximal stomach; Findings and interventions are described below. Findings: Larynx: Normal Esophagus: Tortuous and mildly dilated esophagus with tertiary contractions without stricture or ring. GE junction at 37 cms. No esophagitis or Chavez's. Empiric esophageal balloon dilation was performed with a 20 mm (60 F) CRE balloon for 60 seconds Stomach: Mild gastric erythema. Biopsies were obtained. Grade 2 flap valve on retroflexed examination of the cardia. Duodenum: Normal bulb and descending duodenum. Biopsies obtained from 3rd part of duodenum to check for celiac sprue Intervention: Biopsies and esophageal balloon dilation as noted above COLONOSCOPY PROCEDURE NOTE Consent: Indications for the procedure and potential complications of bleeding, perforation, reaction to medications and missed diagnosis were discussed with the patient and informed consent was obtained. Instrument: Olympus PCF H 190 L variable stiffness pediatric colonoscope Monitoring: Vital signs and clinical assessment, intermittent blood pressure monitoring, continuous EKG monitoring, Pulse oximetry and Carbon Dioxide monitoring were done throughout the procedure. Colon withdrawl time was 13 minutes. Procedure: The patient was placed in the left lateral decubitis position and pre-procedure medications were administered. After a digital rectal examination of the ano-rectum, the video colonoscope was inserted into the rectum and advanced through the colon to the ICV. The colonoscope was slowly withdrawn in a retrograde panoramic fashion and the colon mucosa was carefully examined including a retroflexed view of the rectum. Findings and interventions are described below. Procedure Difficulty: colon was long and tortuous and there was recurrent loop formation. Pt was placed in the supine position and LLQ pressure was applied to intubate cecum. Cecum was visualized across the ICV Findings: Terminal Ileum: Not evaluated Cecum: Normal Ascending Colon: Normal Transverse Colon: A 2-3 mm diminutive appearing polyp - removed with a cold biopsy Descending Colon: Moderate diverticulosis Sigmoid Colon: Moderate diverticulosis Rectum: Normal Ano-rectum: Moderate internal hemorrhoids Colon preparation: Good Impression and Post Procedure Diagnosis: Endoscopy Findings: ESOPHAGUS: Tortuous and mildly dilated esophagus with tertiary contractions without stricture or ring. GE junction at 37 cms. No esophagitis or Chavez's. Empiric esophageal balloon dilation was performed with a 20 mm (60 F) CRE balloon for 60 seconds STOMACH: Mild gastric erythema. Biopsies were obtained. DUODENUM: Normal - biopsied to check for celiac sprue Colonoscopy Findings: One small polyp removed Moderate diverticulosis seen in the left colon Moderate hemorrhoids on retroflexed exam. Plan: Await pathology results Patient has an appointment on 09/26/23 in the [facility] with James Neil M.D. Repeat Colonoscopy interval based on path results - in 5 years if polyps are adenomatous and 10 years if polyps are hyperplastic (adult colonoscope for future colonoscopies). Above findings were reviewed with the patient and colon polyps and diverticulosis handouts were given in the discharge area ADDENDUM: Biopsies showed: A. Small bowel, biopsy: Small bowel mucosa within normal limits; preserved villous architecture and no increased intraepithelial lymphocytes seen. B. Stomach, biopsy: Gastric antral mucosa with mild reactive gastropathy; negative for Helicobacter pylori, intestinal metaplasia and dysplasia. C. Colon, transverse, polypectomy: Clinically polypoid colonic mucosa noted; negative for a hyperplastic or neoplastic process.
[2023-09-09 10:03] VITALS: BP 128/86; PULSE 78; RESP 20; TEMP 36.1; O2SAT 100
[2023-09-09 10:18] VITALS: BP 152/104; PULSE 79; RESP 20; O2SAT 98
[2023-09-09 10:32] VITALS: BP 130/102; PULSE 79; RESP 20; O2SAT 97
--- NOTE | 2023-09-09 10:34 | HO.POSTANES ---
Post Anesthesia Evaluation Post Anesthesia Evaluation Date of Service: 09/09/23 Vital Signs: Vital Signs Temp Pulse Resp BP Pulse Ox O2 Del Method O2 Flow Rate 09/09/23 10:32 79 20 130/102 H 97 Room Air 09/09/23 10:18 79 20 152/104 H 98 Room Air 09/09/23 10:03 97 F 78 20 128/86 100 Nasal Cannula 3 09/09/23 08:46 98.1 F 82 18 145/80 H 99 Room Air Anesthesia: Monitored Mental Status: Awake Pain Control: Satisfactory Nausea/Vomiting: None Hydration: Adequate Anesthesia-Related Issues: No Anes. Related Issues
[2023-09-09 10:45] VITALS: BP 151/89; PULSE 75; RESP 20; O2SAT 97
[2023-09-09 11:00] VITALS: BP 165/92; PULSE 72; RESP 20; TEMP 36.2; O2SAT 97
--- NOTE | 2023-09-09 12:08 | HO.POSTANES ---
Post Anesthesia Evaluation Post Anesthesia Evaluation Date of Service: 09/09/23 Vital Signs: Vital Signs Temp Pulse Resp BP Pulse Ox O2 Del Method O2 Flow Rate 09/09/23 11:00 97.1 F 72 20 165/92 H 97 Room Air 09/09/23 10:45 75 20 151/89 H 97 Room Air 09/09/23 10:32 79 20 130/102 H 97 Room Air 09/09/23 10:18 79 20 152/104 H 98 Room Air 09/09/23 10:03 97 F 78 20 128/86 100 Nasal Cannula 3 09/09/23 08:46 98.1 F 82 18 145/80 H 99 Room Air Anesthesia: Monitored Mental Status: Awake Pain Control: Satisfactory Nausea/Vomiting: None Hydration: Adequate Anesthesia-Related Issues: No Anes. Related Issues
== END 2023-09-09 11:35 | disposition home or self-care (01) ==
PROVIDERS: Nurse Practitioner; Visit Provider Internal Medicine Gastroenterology
PROC: (CPT 45380; principal; 2023-09-09 10:10)
DX: Z12.11 Encounter for screening for malignant neoplasm of colon (principal); K63.5 Polyp of colon; K57.30 Diverticulosis of large intestine without perforation or abscess without bleeding; K64.8 Other hemorrhoids; K59.09 Other constipation; K62.5 Hemorrhage of anus and rectum; R13.14 Dysphagia, pharyngoesophageal phase; K21.9 Gastro-esophageal reflux disease without esophagitis; K29.70 Gastritis, unspecified, without bleeding; K76.0 Fatty (change of) liver, not elsewhere classified; R14.0 Abdominal distension (gaseous); I10 Essential (primary) hypertension; E78.00 Pure hypercholesterolemia, unspecified; R42 Dizziness and giddiness; G47.33 Obstructive sleep apnea (adult) (pediatric); F32.A Depression, unspecified; Z79.899 Other long term (current) drug therapy; Z98.890 Other specified postprocedural states
CPT/HCPCS: 45380; 43249; 43239; 81025; 88305; 88342; C1726; J1100

== ENCOUNTER → 2023-09-09 08:13 | Outpatient (BNV) | payer OTHER, SELFPAY | PROVIDERS: Visit Provider Internal Medicine Gastroenterology | DX: Z12.11 Encounter for screening for malignant neoplasm of colon (principal); K63.5 Polyp of colon; K57.90 Diverticulosis of intestine, part unspecified, without perforation or abscess without bleeding; K64.8 Other hemorrhoids; R13.10 Dysphagia, unspecified; K21.9 Gastro-esophageal reflux disease without esophagitis; K29.70 Gastritis, unspecified, without bleeding | CPT/HCPCS: 43239; 43249; 45380 ==

== ENCOUNTER 2023-11-05 11:13 | Outpatient (AMB) | payer OTHER, SELFPAY ==
--- NOTE | 2023-11-05 11:23 | MHC.OFFVIS ---
Intake Vital Signs 11/05/23 11:24 Height 5 ft 2 in Weight 215 lb BMI 39.3 BP 136/82 Blood Pressure Location Lt brachial Position Sitting Pulse 82 Intake Visit Reasons: EGD/Colonoscopy results and bloating Intake Note: Patient follow up for EGD/Colonoscopy results. Patient cc: gerd, constipation,abdominal discomfort and swallowing problems. Personnel Research Psychologist Required: Yes Personnel Research Psychologist Name: Edy [id number] Accompanied by: Spouse Allergies No Known Allergies [No Known Allergies*] Allergy (Verified 11/05/23 11:22) Medication List - Last Reconciled 11/05/23 by James Neil MD albuterol sulfate 90 mcg/actuation 2 puffs PO Q4-6H PRN atorvastatin 40 mg PO DAILY budesonide 90 mcg/actuation 2 inhalations PO BID bupropion HCl 150 mg PO DAILY cholecalciferol (vitamin D3) 250 mcg PO 2XW 90 days emollient combination no.114 (Eucerin Advanced Repair Foot) topical lidocaine 5% 0 patches topical linaclotide (Linzess) 72 mcg PO QAM 30 days loratadine 10 mg PO DAILY PRN loratadine (Claritin) PO melatonin mg PO melatonin 5 mg PO BEDTIME PRN meloxicam 7.5 mg PO DAILY naproxen 500 mg PO BID omeprazole 20 mg PO BID 30 days ondansetron HCl 4 mg PO Q8H PRN 4 days propranolol ER 80 mg PO BEDTIME psyllium husk 1 tbsp PO DAILY 30 days simethicone (Gas Relief (simethicone)) 125 mg PO BID-QID PRN 30 days sucralfate (Carafate) 10 mL PO BID 30 days HPI EGD/Colonoscopy results and bloating HPI Details GI CLINIC VISIT FOR THIS 48-YEAR-OLD CITIZEN OF [place] FOR EVALUATION OF DYSPHAGIA AND FOLLOWUP ABDOMINAL PAIN AND BLOATING. ?CHRONIC ILLNESSES:?hyperlipidemia, depression, vertigo, GERD, hypercholesteroemia, anxiety, HTN ?[facility]?Reviewed 08/27/19 NORMAL CBC, PLT 209, NORMAL LFTS EXCEPT ELEVATED ALT OF 49 ? H PYLORI STOOL ANTIGEN WAS POSITIVE. ? 06/11 SEROLOGIES FOR CELIAC SPRUE WAS NEGATIVE AND STOOL OCCULT BLOOD X 3 WAS NEGATIVE. ?IMAGING STUDIES: 01/22/2020 ABDOMINAL ULTRASOUND SHOWED: ? LIVER: Diffusely increased hepatic parenchymal echogenicity with a few ? areas of focal fatty sparing. Otherwise no discrete hepatic mass. ? GALLBLADDER: Normal. The gallbladder is physiologically distended ? without evidence of stones, sludge, polyps, wall thickening or ? pericholecystic fluid. ?ENDOSCOPIC STUDIES: 09/09/23 EGD AND COLON SHOWED: Endoscopy Findings: ESOPHAGUS: Tortuous and mildly dilated esophagus with tertiary contractions without stricture or ring. GE junction at 37 cms. No esophagitis or Chavez's. Empiric esophageal balloon dilation was performed with a 20 mm (60 F) CRE balloon for 60 seconds STOMACH: Mild gastric erythema. Biopsies were obtained. DUODENUM: Normal - biopsied to check for celiac sprue Colonoscopy Findings: One small polyp removed Moderate diverticulosis seen in the left colon Moderate hemorrhoids on retroflexed exam. Plan: Repeat Colonoscopy interval based on path results - in 5 years if polyps are adenomatous and 10 years if polyps are hyperplastic (adult colonoscope for future colonoscopies). Above findings were reviewed with the patient and colon polyps and diverticulosis handouts were given in the discharge area ADDENDUM: Biopsies showed: A. Small bowel, biopsy: Small bowel mucosa within normal limits; preserved villous architecture and no increased intraepithelial lymphocytes seen. B. Stomach, biopsy: Gastric antral mucosa with mild reactive gastropathy; negative for Helicobacter pylori, intestinal metaplasia and dysplasia. C. Colon, transverse, polypectomy: Clinically polypoid colonic mucosa noted; negative for a hyperplastic or neoplastic process 02/05/22 EGD SHOWED: ESOPHAGUS: Tortuous and mildly dilated esophagus with tertiary contractions without stricture or ring. GE junction at 36 cms. No esophagitis or Chavez's. Esophageal balloon dilation was performed with a 20 mm (60 F) CRE balloon for 60 seconds STOMACH: A 1 x 2 cms elongated nodule/fold with central erosion - biopsied. Mild gastric erythema. Biopsies were obtained. Plan:? Start Sucralfate twice daily for acid reflux. Schedule a barium swallow to rule out severe GERD/achalasia. A.? Stomach, antrum, biopsy:? Gastric antral mucosa with mild chronic inactive gastritis; negative for Helicobacter pylori, intestinal metaplasia and dysplasia. B.? Stomach, nodules, biopsy:? Gastric antral mucosa with reactive gastropathy and patchy mild chronic inflammation; negative for Helicobacter pylori, intestinal metaplasia and dysplasia.? C.? Esophagus, proximal, biopsy:? Squamous mucosa within normal limits; negative for inflammation (including eosinophils), fungal organisms, intestinal metaplasia and dysplasia. ?TODAY'S VISIT: Pt is accompanied by her Patient cc: gerd, constipation,abdominal discomfort and swallowing problems. 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 Feels something pushing when she is sitting or lying down. Pt feels Linzess is too strong - not taking it since she has diarrhea. She would like to try a different medication for constipation PAST VISITS Taking a lower dose of Linzess and continues to have diarrhea with upto 3 BMs a day (sometimes more and sometimes less) Pt was advised to take the Linzess every other day. Notes diarrhea since she started using the Linzess - has multiple BMs from the morning till 3 pm and stops after 3 pm. Having a lot of gas and bloating. Symptoms are affecting her daily life and she is unable to go out. Throat symptoms are better Intermittent dysphagia associated with intake of solid food (mostly meat and chicken) Denies change in constipation. EGD and biopsy results were reviewed with the patient. Noted some pain for a few days after the EGD. Dysphagia has improved since EGD and dilation - only notes mild intermittent dysphagia. Sucralfate is helping with heartburn. Missed appt for barium swallow since she had COVID infection - pt advised to hold off barium swallow for now and reschedule if she noted symptoms of recurrent dysphagia. Having dysphagia with solids or liquids for the past month. Location of dysphagia - Points to the throat Notes frequent symptoms, even with water with some throat pain. Feels the food is still in the throat after she eats. Denies symptoms of dysphagia in the past. Also notes worsening heartburn No change in appetite or wt I am depressed due to bleeding. Stopped taking Senna since she felt it was causing the bleeding. Rectal bleeding subsided when she stopped taking the Senna I am still constipated and I am not bleeding any more Has a BM 1-2 times a day Fibre pills hurts her gastritis a lot. Has a lot of heartburn. Intermittent rectal bleeding associated with straining [facility] Medical History (Updated 11/05/23 @ 11:51 by James Neil MD) CARITO (obstructive sleep apnea) History of Helicobacter pylori infection Patellofemoral arthritis of right knee Patellofemoral arthritis of left knee Distal radius fracture, left Bilateral knee pain Fatty liver GDM (gestational diabetes mellitus) Hypertension Anxiety Depression Surgical History History of esophagogastroduodenoscopy (EGD) Hx of colonoscopy Hx of endoscopy H/O hand surgery History of open reduction and internal fixation (ORIF) procedure History of eye surgery History of hemorrhoidectomy History of back surgery Social History Household Members: Spouse and Children Are you a primary career manager to a significant other at home: Yes Do you presently have visiting nurse or other home services: No Alcohol intake: current Alcohol intake frequency: does not drink Patient Tobacco Use Status: Never used Tobacco 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al status: unemployed 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: Right Handed Review of Systems Const All systems reviewed & are unremarkable except as noted in HPI and below Physical Exam Vital Signs: Last Vital Signs Pulse 82 11/05/23 11:24 BP 136/82 11/05/23 11:24 BMI result Body Mass Index 39.3 Const General: healthy appearing and no acute distress Nutritional Appearance: obese Orientation/consciousness: patient oriented x3 Limitations: language barrier HEENT Head: Yes normal to inspection Ears: hearing grossly normal bilaterally Eyes Sclerae: sclerae normal Pupils: Equal, round and reactive pupils present Neck Neck: Yes normal visual inspection Chest Chest palpation & inspection: normal inspection of the chest Resp Effort & Inspection: normal respiratory effort Auscultation: clear to auscultation bilaterally Cardio Palpation: normal PMI Rate: regular rate Rhythm: regular rhythm Heart sounds: S1 normal heart sound present, S2 normal heart sound present and no murmurs GI Palpation (GI): Soft to palpation, nontender and No hepatosplenomegaly present Auscultation: normal bowel sounds Rectal Exam - Female: deferred Skin General skin exam: no rashes or lesions noted Neuro General: patient oriented x3, gait normal and moves all extremities Cranial nerves: Yes Equal, round and reactive pupils present Psych Appearance: grossly normal Mental Status: mental status grossly normal Assessment & Plan Assessment & Plan (1) GERD (gastroesophageal reflux disease): Code(s): K21.9 - Gastro-esophageal reflux disease without esophagitis (2) Generalized abdominal pain: Code(s): R10.84 - Generalized abdominal pain (3) Abdominal bloating: Code(s): R14.0 - Abdominal distension (gaseous) (4) Chronic constipation: Code(s): K59.09 - Other constipation (5) Colon cancer screening: Comment: 06/20/20 Two polyps were removed during colonoscopy. Colon prep was fair to poor - 60% to 70% of the mucosa was visualized. Pt was advised to have a stool FIT test checked. If FIT test is negative, repeat colonoscopy can be performed in 5 yrs with more aggressive prep and advice to pt to follow prep instructions - action set in [facility] Code(s): Z12.11 - Encounter for screening for malignant neoplasm of colon (6) NAFL (nonalcoholic fatty liver): Code(s): K76.0 - Fatty (change of) liver, not elsewhere classified (7) Rectal bleeding: Code(s): K62.5 - Hemorrhage of anus and rectum (8) Dysphagia, pharyngoesophageal phase: Code(s): R13.14 - Dysphagia, pharyngoesophageal phase Plan 48 YF with hyperlipidemia, depression, vertigo, GERD, hypercholesteroemia, anxiety, HTN seen for evaluation of abdominal pain with bloating, persistent Helicobacter pylori infection and chronic constipation. Abdominal pain and bloating is likely due to Helicobacter pylori gastritis, constipation predominant IBS, small bowel bacterial overgrowth or peptic ulcer disease associated with NSAID use. Patient was advised to stop ibuprofen and switch to acetaminophen. Pt was re- treated for H Pylori infection in Nov, 2019. 06/20/2020 EGD?showed diffuse gastric erythema and multiple 10-12 mm benign appearing nodules with central erosion. Gastric biopsies were negative for Helicobacter pylori and duodenal biopsies were negative for celiac sprue. Two polyps were removed during same-day colonoscopy - biopsies showed prominent lymphoid aggregate without dysplasia. Colon prep was fair to poor - 60% to 70% of the mucosa was visualized. Repeat Colonoscopy is advised in 3 yrs (05/2023) with more aggressive prep and advice to pt to follow prep instructions. Pt complains of worsening heartburn and dysphagia to solids and liquids for the past month. 01/2022 upper endoscopy was performed and findings as noted above Offered further evaluation with a barium swallow in patient would like to hold off for now and follow her symptoms.? 07/2022 Pt was advised a trail of Linzess 145 mcg daily for constipation. 01/10/23 Notes diarrhea since she started using the Linzess - has multiple BMs from the morning till 3 pm and stops after 3 pm. Having a lot of gas and bloating. Symptoms are effecting her daily life and she is unable to go out. Pt advised to decrease Linzess to 72 mcg daily (from 145 mcg) and take simethicone for gas and bloating 02/21/23 Pt was advised to: 1. Take Linzess 72 mcg every other day 2. Increase Simethicone to 2 tab TID for bloating. 3. Schedule an EGD (dysphagia) and colonoscopy since prep during last colonoscopy was suboptimal 11/05/23 Continues to have constipation - has a BM once a week Notes bleeding after a BM. Feels something pushing when she is sitting or lying down. Pt feels Linzess is too strong - not taking it since she has diarrhea. She would like to try a different medication for constipation - she was switched to Trulance 3 mg daily Patient will be scheduled for a barium swallow for evaluation of dysphagia - no stricture was seen on recent EGD. Patient was advised to use hydrocortisone cream for hemorrhoids. FOLLOW-UP IN 6 weeks Orders: Orders [place] barium swallow Today R13.14 - Dysphagia, pharyngoesophageal phase Medications: New cholecalciferol (vitamin D3) 250 mcg PO 2XW 26 caps 1RF 90 days E55.9 - Vitamin D deficiency, unspecified plecanatide (Trulance) 3 mg PO DAILY 30 tabs 0RF 30 days K59.09 - Other constipation hydrocortisone 2.5% 1 appl [place] BID-QID PRN 30 grams 0RF hemorrhoids 15 days K64.8 - Other hemorrhoids Changed From omeprazole 20 mg PO BID 30 days 60 caps 3RF K21.9 - Gastro-esophageal reflux disease without esophagitis To omeprazole 20 mg PO BID 180 caps 1RF 90 days K21.9 - Gastro-esophageal reflux disease without esophagitis Coding Level of Care Code Est Pt Level 4 (37419) Diagnoses GERD (gastroesophageal reflux disease) K21.9 Generalized abdominal pain R10.84 Abdominal bloating R14.0 Chronic constipation K59.09 Colon cancer screening Z12.11 NAFL (nonalcoholic fatty liver) K76.0 Rectal bleeding K62.5 Dysphagia, pharyngoesophageal phase R13.14 Time Spent (min) 21
[2023-11-05 11:24] VITALS: BP 136/82; PULSE 82; BMI 39.3
== END 2023-11-05 12:33 | disposition home or self-care (01) ==
PROVIDERS: Visit Provider Internal Medicine Gastroenterology
DX: K21.9 Gastro-esophageal reflux disease without esophagitis (principal); R10.84 Generalized abdominal pain; R14.0 Abdominal distension (gaseous); K59.09 Other constipation; Z12.11 Encounter for screening for malignant neoplasm of colon; K76.0 Fatty (change of) liver, not elsewhere classified; K62.5 Hemorrhage of anus and rectum; R13.14 Dysphagia, pharyngoesophageal phase
CPT/HCPCS: 99214

== ENCOUNTER → 2023-11-05 11:13 | Outpatient (BNVA) | payer OTHER, SELFPAY | PROVIDERS: Visit Provider Internal Medicine Gastroenterology | DX: Z12.11 Encounter for screening for malignant neoplasm of colon (principal); K21.9 Gastro-esophageal reflux disease without esophagitis; K59.09 Other constipation; K76.0 Fatty (change of) liver, not elsewhere classified; K62.5 Hemorrhage of anus and rectum; R10.84 Generalized abdominal pain; R14.0 Abdominal distension (gaseous); R13.14 Dysphagia, pharyngoesophageal phase | CPT/HCPCS: 99212 ==

== ENCOUNTER 2024-01-16 08:24 | Outpatient (REF) | payer MEDICAID, OTHER, SELFPAY ==
[2024-01-16 11:20] LABS: MANUAL DIFF FLAG NO
[2024-01-16 11:36] LABS: Basophils Percent Auto 0.4 % (0-2); Eosinophils Absolute Auto 0.2 X10*3/uL (0.0-0.4); Hematocrit 40.2 % (37.0-47.0); Hemoglobin 13.2 g/dl (12.0-16.0); Imm Gran Abs Auto 0.02 X10*3/uL (0.00-0.03); Imm Gran Pct Auto 0.3 % (0.0-0.4); Lymphocytes Absolute Auto 2.6 X10*3/uL (1.2-4.9); Lymphocytes Percent Auto 37.4 % (20-40); Mean Corpuscular HGB Conc 32.8 g/dl (31.0-35.0); Mean Corpuscular Hemoglobin 27.8 pg (27.0-33.0); Mean Corpuscular Volume 84.8 fL (80.0-98.0); Mean Platelet Volume 11.1 fL (9.4-12.3); Monocytes Absolute Auto 0.6 X10*3/uL (0.1-1.2); Neutrophils Absolute Auto 3.5 x10*3/uL (2.0-8.3); Neutrophils Percent Auto 49.9 % (45-73); Platelet Count 210 X10*3/uL (160-400); Red Blood Count 4.74 X10*6/uL (4.20-5.50); Red Cell Distribution Width 13.2 % (11.0-16.0)
[2024-01-16 11:50] LABS: Estimated Average Glucose 111 mg/dL; Hemoglobin A1c % 5.5 % (<6.0)
[2024-01-16 12:01] LABS: Alanine Aminotransferase 26 U/L (0-31); Albumin Level 4.4 g/dL (3.5-5.0); Alkaline Phosphatase 89 U/L (39-117); Anion Gap 12 (12-20); Aspartate Amino Transferase 20 U/L (5-31); Bilirubin Total 0.6 mg/dL (0.0-1.0); Blood Urea Nitrogen 17 mg/dL (9-16); Calcium 9.6 mg/dL (8.4-10.2); Carbon Dioxide 26 mmol/L (22-29); Chloride 109 mmol/L (96-108); Cholesterol 224 mg/dL (<200); Estimated Glomerular Filt Rate > 60; Glucose Random 114 mg/dL (60-115); HDL Cholesterol 46 mg/dL (>40); LDL Cholesterol Calculated 121 mg/dL (<100); Potassium 3.8 mmol/L (3.3-5.1); Sodium 143 mmol/L (135-145); Total Protein 7.7 g/dL (6.5-8.0); Triglycerides 285 mg/dL (<150)
[2024-01-16 12:07] LABS: TSH reflex Free T4 3.88 uIU/mL (0.32-4.0); Vitamin D 25-OH Total 49.8 ng/mL (>30)
== END 2024-01-16 08:25 | disposition home or self-care (01) ==
LOC: HO.HHCL 08:24
PROVIDERS: Visit Provider Registered Nurse
DX: E66.01 Morbid (severe) obesity due to excess calories (principal); R73.03 Prediabetes; Z68.41 Body mass index [BMI] 40.0-44.9, adult
CPT/HCPCS: 36415; 80053; 80061; 82306; 83036; 84443; 85025

== ENCOUNTER 2024-01-30 11:58 | Outpatient (AMB) | payer OTHER, SELFPAY ==
--- NOTE | 2024-01-30 12:27 | MHC.OFFVIS ---
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 General Road Production Manager Name: [facility] [place] Accompanied by: Self / Same As Patient Allergies No Known Allergies [No Known Allergies*] Allergy (Verified 01/30/24 12:26) Medication List - Last Reconciled 01/30/24 by James Neil MD albuterol sulfate 90 mcg/actuation 2 puffs PO Q4-6H PRN atorvastatin 40 mg PO DAILY budesonide 90 mcg/actuation 2 inhalations PO BID bupropion HCl 150 mg PO DAILY cholecalciferol (vitamin D3) 250 mcg PO 2XW 90 days emollient combination no.114 (Eucerin Advanced Repair Foot) topical hydrocortisone 2.5% 1 appl [place] BID-QID PRN 15 days lidocaine 5% 0 patches topical linaclotide (Linzess) 72 mcg PO QAM 30 days loratadine 10 mg PO DAILY PRN loratadine (Claritin) PO melatonin 5 mg PO BEDTIME PRN meloxicam 7.5 mg PO DAILY naproxen 500 mg PO BID olmesartan 5 mg PO QAM omeprazole 20 mg PO BID 90 days ondansetron HCl 4 mg PO Q8H PRN 4 days plecanatide (Trulance) 3 mg PO DAILY 30 days propranolol ER 80 mg PO BEDTIME psyllium husk 1 tbsp PO DAILY 30 days simethicone (Gas Relief (simethicone)) 125 mg PO BID-QID PRN 30 days sucralfate (Carafate) 10 mL PO BID 30 days HPI abdominal bloating HPI Details GI CLINIC VISIT FOR THIS 48-YEAR-OLD RWANDAN-SPEAKING FEMALE FOR EVALUATION OF DYSPHAGIA AND FOLLOWUP ABDOMINAL PAIN AND BLOATING. ?CHRONIC ILLNESSES:?hyperlipidemia, depression, vertigo, GERD, hypercholesteroemia, anxiety, HTN ?[facility]:?Reviewed 08/27/19 NORMAL CBC, PLT 209, NORMAL LFTS EXCEPT ELEVATED ALT OF 49 ? H PYLORI STOOL ANTIGEN WAS POSITIVE. ? 06/11 SEROLOGIES FOR CELIAC SPRUE WAS NEGATIVE AND STOOL OCCULT BLOOD X 3 WAS NEGATIVE. ?IMAGING STUDIES: 01/22/2020 ABDOMINAL ULTRASOUND SHOWED: ? LIVER: Diffusely increased hepatic parenchymal echogenicity with a few ? areas of focal fatty sparing. Otherwise no discrete hepatic mass. ? GALLBLADDER: Normal. The gallbladder is physiologically distended ? without evidence of stones, sludge, polyps, wall thickening or ? pericholecystic fluid. ?ENDOSCOPIC STUDIES: 09/09/23 EGD AND COLON SHOWED: Endoscopy Findings: ESOPHAGUS: Tortuous and mildly dilated esophagus with tertiary contractions without stricture or ring. GE junction at 37 cms. No esophagitis or Chavez's. Empiric esophageal balloon dilation was performed with a 20 mm (60 F) CRE balloon for 60 seconds STOMACH: Mild gastric erythema. Biopsies were obtained. DUODENUM: Normal - biopsied to check for celiac sprue Colonoscopy Findings: One small polyp removed Moderate diverticulosis seen in the left colon Moderate hemorrhoids on retroflexed exam. Plan: Repeat Colonoscopy interval based on path results - in 5 years if polyps are adenomatous and 10 years if polyps are hyperplastic (adult colonoscope for future colonoscopies). Above findings were reviewed with the patient and colon polyps and diverticulosis handouts were given in the discharge area ADDENDUM: Biopsies showed: A. Small bowel, biopsy: Small bowel mucosa within normal limits; preserved villous architecture and no increased intraepithelial lymphocytes seen. B. Stomach, biopsy: Gastric antral mucosa with mild reactive gastropathy; negative for Helicobacter pylori, intestinal metaplasia and dysplasia. C. Colon, transverse, polypectomy: Clinically polypoid colonic mucosa noted; negative for a hyperplastic or neoplastic process 02/05/22 EGD SHOWED: ESOPHAGUS: Tortuous and mildly dilated esophagus with tertiary contractions without stricture or ring. GE junction at 36 cms. No esophagitis or Chavez's. Esophageal balloon dilation was performed with a 20 mm (60 F) CRE balloon for 60 seconds STOMACH: A 1 x 2 cms elongated nodule/fold with central erosion - biopsied. Mild gastric erythema. Biopsies were obtained. Plan:? Start Sucralfate twice daily for acid reflux. Schedule a barium swallow to rule out severe GERD/achalasia. A.? Stomach, antrum, biopsy:? Gastric antral mucosa with mild chronic inactive gastritis; negative for Helicobacter pylori, intestinal metaplasia and dysplasia. B.? Stomach, nodules, biopsy:? Gastric antral mucosa with reactive gastropathy and patchy mild chronic inflammation; negative for Helicobacter pylori, intestinal metaplasia and dysplasia.? C.? Esophagus, proximal, biopsy:? Squamous mucosa within normal limits; negative for inflammation (including eosinophils), fungal organisms, intestinal metaplasia and dysplasia. 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 Has not received Trulance from the pharmacy yet - I will ask GI RN to FU Feels bloated. Has a small BM daily in the morning. Has hard stools associated with straining PAST VISITS Pt is accompanied by her Patient cc: gerd, constipation,abdominal discomfort and swallowing problems. 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 Feels something pushing when she is sitting or lying down. Pt feels Linzess is too strong - not taking it since she has diarrhea. She would like to try a different medication for constipation Taking a lower dose of Linzess and continues to have diarrhea with upto 3 BMs a day (sometimes more and sometimes less) Pt was advised to take the Linzess every other day. Notes diarrhea since she started using the Linzess - has multiple BMs from the morning till 3 pm and stops after 3 pm. Having a lot of gas and bloating. Symptoms are affecting her daily life and she is unable to go out. Throat symptoms are better Intermittent dysphagia associated with intake of solid food (mostly meat and chicken) Denies change in constipation. EGD and biopsy results were reviewed with the patient. Noted some pain for a few days after the EGD. Dysphagia has improved since EGD and dilation - only notes mild intermittent dysphagia. Sucralfate is helping with heartburn. Missed appt for barium swallow since she had COVID infection - pt advised to hold off barium swallow for now and reschedule if she noted symptoms of recurrent dysphagia. Having dysphagia with solids or liquids for the past month. Location of dysphagia - Points to the throat Notes frequent symptoms, even with water with some throat pain. Feels the food is still in the throat after she eats. Denies symptoms of dysphagia in the past. Also notes worsening heartburn No change in appetite or wt I am depressed due to bleeding. Stopped taking Senna since she felt it was causing the bleeding. Rectal bleeding subsided when she stopped taking the Senna I am still constipated and I am not bleeding any more Has a BM 1-2 times a day Fibre pills hurts her gastritis a lot. Has a lot of heartburn. Intermittent rectal bleeding associated with straining PFSH Medical History (System 01/17/24 @ 07:52 by Nicole Best) CARITO (obstructive sleep apnea) History of Helicobacter pylori infection Patellofemoral arthritis of right knee Patellofemoral arthritis of left knee Distal radius fracture, left Bilateral knee pain Fatty liver GDM (gestational diabetes mellitus) Hypertension Anxiety Depression Surgical History History of esophagogastroduodenoscopy (EGD) Hx of colonoscopy Hx of endoscopy H/O hand surgery History of open reduction and internal fixation (ORIF) procedure History of eye surgery History of hemorrhoidectomy History of back surgery Social History Household Members: Spouse and Children 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 home: Yes Do you presently have visiting nurse or other home services: No Alcohol intake: current Alcohol intake frequency: does not drink Patient Tobacco Use Status: Never used Tobacco 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al status: unemployed 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: Right Handed Review of Systems Const All systems reviewed & are unremarkable except as noted in HPI and below Physical Exam Vital Signs: Last Vital Signs Pulse 86 01/30/24 12:28 BP 148/99 H 01/30/24 12:28 BMI result Body Mass Index 40.2 Const General: healthy appearing and no acute distress Nutritional Appearance: obese Orientation/consciousness: patient oriented x3 Limitations: language barrier HEENT Head: Yes normal to inspection Ears: hearing grossly normal bilaterally Eyes Sclerae: sclerae normal Pupils: Equal, round and reactive pupils present Neck Neck: Yes normal visual inspection Chest Chest palpation & inspection: normal inspection of the chest Resp Effort & Inspection: normal respiratory effort Auscultation: clear to auscultation bilaterally Cardio Palpation: normal PMI Rate: regular rate Rhythm: regular rhythm Heart sounds: S1 normal heart sound present, S2 normal heart sound present and no murmurs GI Palpation (GI): Soft to palpation, nontender and No hepatosplenomegaly present Auscultation: normal bowel sounds Rectal Exam - Female: deferred Skin General skin exam: no rashes or lesions noted Neuro General: patient oriented x3, gait normal and moves all extremities Cranial nerves: Yes Equal, round and reactive pupils present Psych Appearance: grossly normal Mental Status: mental status grossly normal Assessment & Plan Assessment & Plan (1) Hemorrhoids, internal, with bleeding: Code(s): K64.8 - Other hemorrhoids (2) GERD (gastroesophageal reflux disease): Code(s): K21.9 - Gastro-esophageal reflux disease without esophagitis (3) Generalized abdominal pain: Code(s): R10.84 - Generalized abdominal pain (4) Abdominal bloating: Code(s): R14.0 - Abdominal distension (gaseous) (5) Chronic constipation: Code(s): K59.09 - Other constipation (6) Colon cancer screening: Comment: 06/20/20 Two polyps were removed during colonoscopy. Colon prep was fair to poor - 60% to 70% of the mucosa was visualized. Pt was advised to have a stool FIT test checked. If FIT test is negative, repeat colonoscopy can be performed in 5 yrs with more aggressive prep and advice to pt to follow prep instructions - action set in [facility] Code(s): Z12.11 - Encounter for screening for malignant neoplasm of colon (7) NAFL (nonalcoholic fatty liver): Code(s): K76.0 - Fatty (change of) liver, not elsewhere classified (8) Rectal bleeding: Code(s): K62.5 - Hemorrhage of anus and rectum (9) Dysphagia, pharyngoesophageal phase: Code(s): R13.14 - Dysphagia, pharyngoesophageal phase Plan 48 YF with hyperlipidemia, depression, vertigo, GERD, hypercholesteroemia, anxiety, HTN seen for evaluation of abdominal pain with bloating, persistent Helicobacter pylori infection and chronic constipation. Abdominal pain and bloating is likely due to Helicobacter pylori gastritis, constipation predominant IBS, small bowel bacterial overgrowth or peptic ulcer disease associated with NSAID use. Patient was advised to stop ibuprofen and switch to acetaminophen. Pt was re- treated for H Pylori infection in Nov, 2019. 06/20/2020 EGD?showed diffuse gastric erythema and multiple 10-12 mm benign appearing nodules with central erosion. Gastric biopsies were negative for Helicobacter pylori and duodenal biopsies were negative for celiac sprue. Two polyps were removed during same-day colonoscopy - biopsies showed prominent lymphoid aggregate without dysplasia. Colon prep was fair to poor - 60% to 70% of the mucosa was visualized. Repeat Colonoscopy is advised in 3 yrs (05/2023) with more aggressive prep and advice to pt to follow prep instructions. Pt complains of worsening heartburn and dysphagia to solids and liquids for the past month. 01/2022 upper endoscopy was performed and findings as noted above Offered further evaluation with a barium swallow in patient would like to hold off for now and follow her symptoms.? 07/2022 Pt was advised a trail of Linzess 145 mcg daily for constipation. 01/10/23 Notes diarrhea since she started using the Linzess - has multiple BMs from the morning till 3 pm and stops after 3 pm. Having a lot of gas and bloating. Symptoms are effecting her daily life and she is unable to go out. Pt advised to decrease Linzess to 72 mcg daily (from 145 mcg) and take simethicone for gas and bloating 02/21/23 Pt was advised to: 1. Take Linzess 72 mcg every other day 2. Increase Simethicone to 2 tab TID for bloating. 3. Schedule an EGD (dysphagia) and colonoscopy since prep during last colonoscopy was suboptimal 11/05/23 Continues to have constipation - has a BM once a week Notes bleeding after a BM. Feels something pushing when she is sitting or lying down. Pt feels Linzess is too strong - not taking it since she has diarrhea. She would like to try a different medication for constipation - she was switched to Trulance 3 mg daily Patient will be scheduled for a barium swallow for evaluation of dysphagia - no stricture was seen on recent EGD. Patient was advised to use hydrocortisone cream for hemorrhoids. 01/30/24 Has not received Trulance from the pharmacy yet - I will ask GI RN to FU Feels bloated. Has a small BM daily in the morning. Has hard stools associated with straining Pt was advised to start a clear liquid diet in the am and take Dulcolax 2 tab PO in the am (pt reports good results with Dulcolax in the past). FOLLOW-UP IN 3 months Medications: New bisacodyl (Dulcolax (bisacodyl)) Take 2 tablets at 12 pm once 10 mg (2 x 5 mg) PO ONCE 1 day PRN 4 tabs 0RF constipation Refilled cholecalciferol (vitamin D3) 250 mcg PO 2XW 90 days 26 caps 1RF E55.9 - Vitamin D deficiency, unspecified Coding Level of Care Code Est Pt Level 4 (77749) Diagnoses Hemorrhoids, internal, with bleeding K64.8 GERD (gastroesophageal reflux disease) K21.9 Generalized abdominal pain R10.84 Abdominal bloating R14.0 Chronic constipation K59.09 Colon cancer screening Z12.11 NAFL (nonalcoholic fatty liver) K76.0 Rectal bleeding K62.5 Dysphagia, pharyngoesophageal phase R13.14 Time Spent (min) 18
[2024-01-30 12:28] VITALS: BP 148/99; PULSE 86; BMI 40.2
== END 2024-01-30 13:06 | disposition home or self-care (01) ==
PROVIDERS: Visit Provider Internal Medicine Gastroenterology
DX: K64.8 Other hemorrhoids (principal); K21.9 Gastro-esophageal reflux disease without esophagitis; R10.84 Generalized abdominal pain; R14.0 Abdominal distension (gaseous); K59.09 Other constipation; Z12.11 Encounter for screening for malignant neoplasm of colon; K76.0 Fatty (change of) liver, not elsewhere classified; K62.5 Hemorrhage of anus and rectum; R13.14 Dysphagia, pharyngoesophageal phase
CPT/HCPCS: 99214

== ENCOUNTER → 2024-01-30 11:58 | Outpatient (BNVA) | payer OTHER, SELFPAY | PROVIDERS: Visit Provider Internal Medicine Gastroenterology | DX: Z12.11 Encounter for screening for malignant neoplasm of colon (principal); K64.8 Other hemorrhoids; K21.9 Gastro-esophageal reflux disease without esophagitis; K59.09 Other constipation; K76.0 Fatty (change of) liver, not elsewhere classified; K62.5 Hemorrhage of anus and rectum; R10.84 Generalized abdominal pain; R14.0 Abdominal distension (gaseous); R13.14 Dysphagia, pharyngoesophageal phase | CPT/HCPCS: 99212 ==

== ENCOUNTER 2024-03-19 09:07 | Outpatient (AMB) | payer OTHER, SELFPAY ==
--- NOTE | 2024-03-19 09:18 | A.OFFVIS_ITS ---
Vital Signs 03/19/24 09:25 Height 5 ft 2 in Weight 220 lb BMI 40.2 Intake Visit Reasons: O/V B/L knee s/p injection 10/11/22 Intake Note: Radha a 48 year old female who presents today for a follow up of bilateral knee, last injection 10/11/22. Patient reports she no longer wants injections and would like to discuss surgical intervention. Xrays updated in office. Patient will bring in medication list next visit. Allergies No Known Allergies [No Known Allergies*] Allergy (Verified 03/19/24 09:26) Medication List - Last Reconciled 03/19/24 by Carlene Manning PA-C albuterol sulfate 90 mcg/actuation 2 puffs PO Q4-6H PRN atorvastatin 40 mg PO DAILY bisacodyl (Dulcolax (bisacodyl)) 10 mg (2 x 5 mg) PO ONCE PRN 1 day budesonide 90 mcg/actuation 2 inhalations PO BID bupropion HCl XL 150 mg PO DAILY cholecalciferol (vitamin D3) 250 mcg PO 2XW 90 days emollient combination no.114 (Eucerin Advanced Repair Foot) topical hydrocortisone 2.5% 1 appl [place] BID-QID PRN 15 days linaclotide (Linzess) 72 mcg PO QAM 30 days loratadine 10 mg PO DAILY PRN loratadine (Claritin) PO melatonin 5 mg PO BEDTIME PRN meloxicam 7.5 mg PO DAILY naproxen 500 mg PO BID olmesartan 5 mg PO QAM omeprazole 20 mg PO BID 90 days ondansetron HCl 4 mg PO Q8H PRN 4 days plecanatide (Trulance) 3 mg PO DAILY 30 days propranolol ER 80 mg PO BEDTIME simethicone (Gas Relief (simethicone)) 125 mg PO BID-QID PRN 30 days HPI HPI O/V B/L knee s/p injection 10/11/22: Details: 48-year-old female who returns to the office today for a follow-up of bilateral knee pain. She had her last bilateral knee injection on 10/11/22 which did not provide her any relief. She currently states she has pain and discomfort in her bilateral knees which comes with walking long distances and stair use. She also reports she is unable to walk straight and has to walk sideways due to the pain. She would like to discuss about surgical intervention. [facility] Medical History (System 01/17/24 @ 07:52 by Nicole Best) CARITO (obstructive sleep apnea) History of Helicobacter pylori infection Patellofemoral arthritis of right knee Patellofemoral arthritis of left knee Distal radius fracture, left Bilateral knee pain Fatty liver GDM (gestational diabetes mellitus) Hypertension Anxiety Depression Surgical History History of esophagogastroduodenoscopy (EGD) Hx of colonoscopy Hx of endoscopy H/O hand surgery History of open reduction and internal fixation (ORIF) procedure History of eye surgery History of hemorrhoidectomy History of back surgery Social History Household Members: Spouse and Children 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 She has significant pain with ROM anlong the patella. Crepitus present. Results Reviewed Results Reviewed: Xrays were obtained in the office today and personally reviewed by me of bilat knee show diffuse degenerative changes. Assessment & Plan Assessment & Plan (1) Patellofemoral arthritis of right knee: Code(s): M17.11 - Unilateral primary osteoarthritis, right knee Category: Medical (2) Patellofemoral arthritis of left knee: Code(s): M17.12 - Unilateral primary osteoarthritis, left knee Category: Medical Plan She is quite adamant about having a surgical intervention. I did explain that given her age, she is on the younger side for having a TKA. I recommended her to see pain management to discuss about having a geniculate injection which she is not interested in, therefore I did set up an appointment with Dr. Duenas to dis cuss other treatment options. Orders: Orders XR knee RT 3V Today M17.11 - Unilateral primary osteoarthritis, right knee Patient Instructions: Scribed for Carlene Manning PA-C, by Lewis Guzman, senior medical billing specialist, on 03/19/2024 at 9:30 AM SUSAN. Jose Maria Mcclure-Cara Manning PA-C, have personally reviewed and agree with the information entered by the scribe. Coding Level of Care Code Est Pt Level 3 (65421) Diagnoses Patellofemoral arthritis of right knee M17.11 Patellofemoral arthritis of left knee M17.12
[2024-03-19 09:25] VITALS: BMI 40.2
== END 2024-03-19 09:40 | disposition home or self-care (01) ==
PROVIDERS: Visit Provider Physician Assistant
DX: M17.0 Bilateral primary osteoarthritis of knee (principal)
CPT/HCPCS: 99213

== ENCOUNTER 2024-03-19 09:39 | Outpatient (REF) | payer OTHER, SELFPAY ==
--- NOTE | ~2024-03-19 | XR_ITS ---
EXAMINATION: XR LEFT KNEE XR RIGHT KNEE CLINICAL INFORMATION: Unilateral primary osteoarthritis right knee, pain in left knee. COMPARISON: 01/14/2023, 02/22/2022. TECHNIQUE: AP standing, lateral and sunrise views of each knee. FINDINGS: RIGHT KNEE: Moderate narrowing of the medial compartment. No significant joint effusion. Tiny tricompartmental osteophytes. LEFT KNEE: Moderate narrowing of the medial compartment with small medial marginal osteophytes. Tiny lateral marginal and posterior patellar osteophytes. XR/XR knee LT 3V IMPRESSION: Moderate degenerative changes bilateral knees.
--- NOTE | ~2024-03-19 | XR_ITS ---
EXAMINATION: XR LEFT KNEE XR RIGHT KNEE CLINICAL INFORMATION: Unilateral primary osteoarthritis right knee, pain in left knee. COMPARISON: 01/14/2023, 02/22/2022. TECHNIQUE: AP standing, lateral and sunrise views of each knee. FINDINGS: RIGHT KNEE: Moderate narrowing of the medial compartment. No significant joint effusion. Tiny tricompartmental osteophytes. LEFT KNEE: Moderate narrowing of the medial compartment with small medial marginal osteophytes. Tiny lateral marginal and posterior patellar osteophytes. XR/XR knee RT 3V IMPRESSION: Moderate degenerative changes bilateral knees.
== END 2024-03-19 09:40 | disposition home or self-care (01) ==
LOC: HO.HOSX 09:39
PROVIDERS: Visit Provider Physician Assistant
DX: M17.0 Bilateral primary osteoarthritis of knee (principal)
CPT/HCPCS: 73562; 99212

== ENCOUNTER 2024-03-25 17:14 | Emergency (ER) | payer OTHER, SELFPAY ==
--- NOTE | 2024-03-25 | ECG_ITS ---
Test Reason : CHEST PAIN Blood Pressure : / mmHG Vent. Rate : 081 BPM Atrial Rate : 081 BPM P-R Int : 166 ms QRS Dur : 070 ms QT Int : 392 ms P-R-T Axes : 018 012 022 degrees QTc Int : 455 ms Normal sinus rhythm Normal ECG When compared with ECG of 25-JAN-2023 19:31, No significant change was found Referred By: Generic ED Physician Electronically Signed By:VI YU
[2024-03-25 17:34] LABS: MANUAL DIFF FLAG NO
[2024-03-25 17:36] LABS: Basophils Percent Auto 0.4 % (0-2); Eosinophils Absolute Auto 0.2 X10*3/uL (0.0-0.4); Eosinophils Percent Auto 2.6 % (0-4); Hematocrit 37.5 % (37.0-47.0); Hemoglobin 12.7 g/dl (12.0-16.0); Imm Gran Abs Auto 0.02 X10*3/uL (0.00-0.03); Imm Gran Pct Auto 0.3 % (0.0-0.4); Lymphocytes Absolute Auto 2.6 X10*3/uL (1.2-4.9); Mean Corpuscular HGB Conc 33.9 g/dl (31.0-35.0); Mean Corpuscular Hemoglobin 28.6 pg (27.0-33.0); Mean Corpuscular Volume 84.5 fL (80.0-98.0); Mean Platelet Volume 10.3 fL (9.4-12.3); Monocytes Absolute Auto 0.7 X10*3/uL (0.1-1.2); Monocytes Percent Auto 8.9 % (2-11); Neutrophils Absolute Auto 4.2 x10*3/uL (2.0-8.3); Neutrophils Percent Auto 53.8 % (45-73); Platelet Count 243 X10*3/uL (160-400); Red Blood Count 4.44 X10*6/uL (4.20-5.50); Red Cell Distribution Width 13.3 % (11.0-16.0); White Blood Count 7.7 X10*3/uL (4.8-10.8)
[2024-03-25 17:46] VITALS: BP 174/113; PULSE 87; RESP 18; TEMP 36.1; O2SAT 99; BMI 40.0
--- NOTE | 2024-03-25 17:46 | ED.GENADULT ---
HPI - General Adult General Chief complaint: General Medical Stated complaint: chest pain, high bp, referred by PCP Time Seen by Provider: 03/25/24 21:07 Source: patient Mode of arrival: ambulatory Limitations: language barrier (Croatian-speaking director of logistics utilized) History of Present Illness HPI narrative: Patient is a 48-year-old female who presents emergency department multiple complaints. She states that she had a routine appointment with her primary care doctor today. She expressed her doctor that since yesterday she has been experiencing intermittent dizziness described as feeling weak and tired, nausea without vomiting, intermittent frontal headache, diffuse anterior chest pain, right shoulder pain, body aches. She reports that all of her symptoms in addition to elevated blood pressure reading at her doctor's office prompted their concern and she was advised to come to the emergency department. She does admit that she has not been taking her blood pressure medications for at least 2 days, she quotes I think I may have misplaced it?, she is unaware of the name of the medication that she takes. She denies any known sick contacts. Related Data Home Medications ?Medication ?Instructions ?Recorded ?Confirmed emollient combination no.114 topical 09/30/20 03/19/24 [Eucerin Advanced Repair Foot] loratadine [Claritin] PO 09/30/20 03/19/24 meloxicam 7.5 mg tablet 7.5 mg PO DAILY 09/30/20 03/19/24 naproxen 500 mg tablet 500 mg PO BID 09/30/20 03/19/24 propranolol 80 mg capsule,24 80 mg PO BEDTIME 09/30/20 03/19/24 hr,extended release albuterol sulfate 90 mcg/actuation 2 puff PO Q4-6H PRN wheezing 04/12/21 03/19/24 aerosol inhaler atorvastatin 40 mg tablet 40 mg PO DAILY 04/12/21 03/19/24 budesonide 90 mcg/actuation breath 2 inh PO BID 04/12/21 03/19/24 activated powder inhaler loratadine 10 mg tablet 10 mg PO DAILY PRN allergies 04/12/21 03/19/24 melatonin 5 mg tablet 5 mg PO BEDTIME PRN insomnia 04/12/21 03/19/24 bupropion HCl 150 mg 24 hr tablet, 150 mg PO DAILY 08/16/22 03/19/24 extended release olmesartan 5 mg tablet 5 mg PO QAM 01/30/24 03/19/24 Previous Rx's ?Medication ?Instructions ?Recorded linaclotide 72 mcg capsule 72 mcg PO QAM 30 days #30 caps 01/10/23 (Linzess) simethicone 125 mg chewable tablet 125 mg PO BID-QID PRN abdominal 01/10/23 (Gas Relief (simethicone)) distention 30 days #90 tabs ondansetron HCl 4 mg tablet 4 mg PO Q8H PRN nausea and 01/26/23 vomiting 4 days #10 tabs hydrocortisone 2.5 % topical cream 1 appl TN BID-QID PRN hemorrhoids 11/05/23 with perineal applicator 15 days #30 grams omeprazole 20 mg capsule,delayed 20 mg PO BID 90 days #180 caps 11/05/23 release plecanatide 3 mg tablet (Trulance) 3 mg PO DAILY 30 days #30 tabs 11/05/23 bisacodyl 5 mg tablet,delayed 10 mg (2 x 5 mg) PO ONCE PRN 01/30/24 release (Dulcolax (bisacodyl)) constipation 1 day #4 tabs cholecalciferol (vitamin D3) 250 250 mcg PO 2XW 90 days #26 caps 01/30/24 mcg (10,000 unit) capsule Allergies Allergy/AdvReac Type Severity Reaction Status Date / Time No Known Allergies Allergy Verified 03/25/24 17:49 [No Known Allergies*] Review of Systems Review of Systems: Yes all other systems are reviewed and are negative PMFSH Past Medical History Attestation statement: The following information was validated with the patient. Source: old records reviewed Medical History CARITO (obstructive sleep apnea) History of Helicobacter pylori infection Patellofemoral arthritis of right knee Patellofemoral arthritis of left knee Distal radius fracture, left Bilateral knee pain Fatty liver GDM (gestational diabetes mellitus) Hypertension Anxiety Depression Surgical History History of esophagogastroduodenoscopy (EGD) Hx of colonoscopy Hx of endoscopy H/O hand surgery History of open reduction and internal fixation (ORIF) procedure History of eye surgery History of hemorrhoidectomy History of back surgery Social History Social History Household Members: Spouse and Children Are you a primary care asst to a significant other at home: Yes Do you presently have visiting nurse or other home services: No Alcohol intake: current Alcohol intake frequency: does not drink Patient Tobacco Use Status: Never used Tobacco Smoked in Last 30 Days: No Use of substances other than those prescribed or required for medical reasons: No Advance Directives: No Advance Directives Information Provided: No Do you have a plan to hurt others: No Plan Patient : No 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al status: unemployed 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: Right Handed Physical Exam ED Vital Signs: Vital Signs - 24 hr 03/25/24 17:46 03/25/24 20:45 03/25/24 22:09 Temperature 97 F 97.9 F Pulse Rate 87 87 Respiratory Rate 18 16 Blood Pressure 174/113 H 178/99 H 167/89 H Pulse Oximetry 99 99 Oxygen Delivery Method Room Air Room Air BMI result Body Mass Index 40.0 Appearance: Alert.?Oriented to person, place and time. No acute distress.?Normal affect. Eyes: Pupils equal, round and reactive to light.? ENT: Pharynx normal.?? Neck: Normal inspection.? Neck supple.?? CVS: Heart sounds normal. Normal heart rate and rhythm.? Pulses normal.?? Respiratory: No respiratory distress.? Lung sounds clear to auscultation bilaterally?? Abdomen: Soft and non-tender. Normoactive bowel sounds. ? Skin: Skin warm and dry.? Normal skin color.? Extremities: No lower extremity edema.? No calf ttp. Right scapular tenderness upon palpation, particularly with movement of the right upper extremity. Neuro: Moves all extremities spontaneously. Sensation intact bilaterally. CN II-XII intact. No focal neuro deficits. Ambulates with normal steady gait. Course Course Course Narrative: RME- 48 year old female presents for evaluation of chest pain, back pain, and headache. She reports that she lost her BP meds and has not taken them in two days. Medications Administered Discontinued Medications Generic Name Dose Route Start Last Admin Trade Name Freq PRN Reason Stop Dose Admin Acetaminophen 975 mg 03/25/24 21:45 03/25/24 22:09 Acetaminophen 325 Mg Tablet PO 03/25/24 21:46 975 mg ONCE ONE Administration Valsartan 20 mg 03/25/24 21:46 03/25/24 22:09 Valsartan 40 Mg Tablet PO 03/25/24 21:47 20 mg ONCE ONE Administration Protocol Medical Decision Making Medical Decision Making [facility] Narrative: Patient is a 48-year-old female with past medical history of CARITO, hypertension, anxiety, depression who presents emergency department for evaluation of multiple complaints in addition to hypertension in the setting of recently not taking her antihypertensive medication as per HPI. At the time my examination she appears overall well, though she does seem fatigued. She has no focal neurological deficits, no red flag symptoms to suggest acute intracranial pathology as source of headache. Her abdominal examination is benign, clinically have low suspicion for cholecystitis/ cholelithiasis to suggest a referred pain biliary etiology to be cause for right scapular pain. Was exacerbated with movement of arm, and tender upon palpation, suspect this is most likely musculoskeletal in etiology. I reviewed labs obtained prior to my assumption of care; she has no leukocytosis or anemia. No electrolyte derangement. No MARIA M. Transaminases and lipase are within normal range. Initial troponin her negative, EKG revealing normal sinus rhythm with ventricular rate of 81, QTC 455, no ST elevation, no ST depression, no T-wave inversion, delta troponin negative, unlikely ACS as etiology for symptoms. Viral panel is negative. She states her primary care provider sent a refill for her antihypertensive, I do note that she takes olmesartan 10 mg daily, olmesartan unavailable at this hospital, therefore she was provided with a single dose of valsartan 20 mg orally has approved equivalent through [facility] [place]. Suspect viral syndrome as etiology for her no symptoms since yesterday, discussed conservative treatment, outpatient follow-up with her primary care provider and worrisome signs and symptoms that would warrant re-evaluation in the emergency department. Differential Diagnosis Differential Diagnoses: The differential diagnosis associated with the presentation includes (See narrative above) Admission/Observation Consideration of admission/observation: Escalation of care including admission/observation considered (See narrative above) Lab Data MDM Lab Attestation statement: I reviewed the patient's lab results. (See narrative above) 03/25/24 17:28 03/25/24 17:28 Labs: Lab Results 03/25/24 03/25/24 03/25/24 Range/Units 17:28 21:07 21:28 WBC 7.7 (4.8-10.8) X10*3/uL RBC 4.44 (4.20-5.50) X10*6/uL Hgb 12.7 (12.0-16.0) g/dl Hct 37.5 (37.0-47.0) % MCV 84.5 (80.0-98.0) fL MCH 28.6 (27.0-33.0) pg MCHC 33.9 (31.0-35.0) g/dl RDW 13.3 (11.0-16.0) % Plt Count 243 (160-400) X10*3/uL MPV 10.3 (9.4-12.3) fL Immature Gran % (Auto) 0.3 (0.0-0.4) % Neut % (Auto) 53.8 (45-73) % Lymph % (Auto) 34.0 (20-40) % Mchenry % (Auto) 8.9 (2-11) % Eos % (Auto) 2.6 (0-4) % Baso % (Auto) 0.4 (0-2) % Lymph # (Auto) 2.6 (1.2-4.9) X10*3/uL Mchenry # (Auto) 0.7 (0.1-1.2) X10*3/uL Eos # (Auto) 0.2 (0.0-0.4) X10*3/uL Baso # (Auto) 0.0 (0.0-0.2) X10*3/uL Abs Immat Gran (auto) 0.02 (0.00-0.03) X10*3/uL Absolute Neuts (auto) 4.2 (2.0-8.3) x10*3/uL Absolute Nucleated RBC 0.000 (0.0-0.012) X10*3/uL Nucleated RBC % (auto) 0.0 (0.0-0.2) /100WBC PT 10.4 L (11.1-13.3) SEC INR 0.9 (0.9-1.1) Sodium 143 (135-145) mmol/L Potassium 3.7 (3.3-5.1) mmol/L Chloride 106 (96-108) mmol/L Carbon Dioxide 27 (22-29) mmol/L Anion Gap 14 (12-20) BUN 17 H (9-16) mg/dL Creatinine 0.86 (0.5-1.4) mg/dL Estim Creat Clear Calc 90.4 Estimated GFR > 60 Random Glucose 110 (60-115) mg/dL Calcium 10.0 (8.4-10.2) mg/dL Magnesium 2.3 (1.6-2.6) mg/dL Total Bilirubin 0.5 (0.0-1.0) mg/dL AST 22 (5-31) U/L ALT 31 (0-31) U/L Alkaline Phosphatase 97 (39-117) U/L Troponin I High Sens < 2.7 < 2.7 (<3.5-17.0) ng/L Total Protein 7.8 (6.5-8.0) g/dL Albumin 4.4 (3.5-5.0) g/dL Lipase 26 (8-78) U/L Influenza Type A (PCR) NEGATIVE (Negative) Influenza Type B (PCR) NEGATIVE (Negative) RSV RNA Qual (PCR) NEGATIVE (Negative) SARS-CoV-2 RNA (RT-PCR) NEGATIVE (Negative) Independent Interpretation I performed an independent interpretation of an: EKG (See narrative above) Independent Historian Clinical information obtained from an independent historian. History obtained from or confirmed by: Other (Daughter present who confirms history) External Record Review External record reviewed: Outpatient record Discharge Plan Discharge Clinical Impression: Acute viral syndrome, Hypertension Patient Disposition: Home, Self-Care Instructions: Hypertension (ED), Viral Syndrome (ED) Additional Instructions: Your blood work today was overall very reassuring. We checked troponin, a marker for damage to your heart muscle which was normal twice, and your EKG does not show any evidence of a heart attack. This is very reassuring. Your testing today for COVID, flu, and RSV were negative. Please be sure that you are staying well hydrated over the next few days, you may use Tylenol as needed for management of your headache. Continue taking your high blood pressure medication as prescribed by your primary care doctor. Contact their office tomorrow to arrange for a follow-up visit. You may return back to emergency department with any new or worsening symptoms or concerns. Prescriptions: No Action ondansetron HCl 4 mg tablet 4 mg PO Q8H PRN (Reason: nausea and vomiting) 4 Days Qty: 10 0RF emollient combination no.114 topical propranolol 80 mg capsule,extended release 24 hr 80 mg PO BEDTIME loratadine PO meloxicam 7.5 mg tablet 7.5 mg PO DAILY naproxen 500 mg tablet 500 mg PO BID melatonin 5 mg tablet 5 mg PO BEDTIME PRN (Reason: insomnia) budesonide 90 mcg/actuation aerosol powdr breath activated 2 inh PO BID loratadine 10 mg tablet 10 mg PO DAILY PRN (Reason: allergies) albuterol sulfate 90 mcg/actuation HFA aerosol inhaler 2 puff PO Q4-6H PRN (Reason: wheezing) atorvastatin 40 mg tablet 40 mg PO DAILY bupropion HCl 150 mg tablet extended release 24 hr 150 mg PO DAILY Linzess 72 mcg capsule 72 mcg PO QAM 30 Days Qty: 30 3RF simethicone [Gas Relief (simethicone)] 125 mg tablet,chewable 125 mg PO BID-QID PRN (Reason: abdominal distention) 30 Days Qty: 90 1RF Trulance 3 mg tablet 3 mg PO DAILY 30 Days Qty: 30 0RF omeprazole 20 mg capsule,delayed release(DR/EC) 20 mg PO BID 90 Days Qty: 180 1RF hydrocortisone 2.5 % cream with perineal applicator 1 appl TN BID-QID PRN (Reason: hemorrhoids) 15 Days Qty: 30 0RF olmesartan 5 mg tablet 5 mg PO QAM cholecalciferol (vitamin D3) 250 mcg (10,000 unit) capsule 250 mcg PO 2XW 90 Days Qty: 26 1RF bisacodyl [Dulcolax (bisacodyl)] 5 mg tablet,delayed release (DR/EC) 10 mg PO ONCE PRN (Reason: constipation) 1 Days Qty: 4 0RF Rx Instructions: Take 2 tablets at 12 pm once Referrals: Physician,Unknown J [Primary Care Provider] - Print Language: Croatian
[2024-03-25 17:49] LABS: INTERNATIONAL NORM RATIO 0.9 (0.9-1.1); Prothrombin Time 10.4 SEC (11.1-13.3)
[2024-03-25 17:51] LABS: Alanine Aminotransferase 31 U/L (0-31); Albumin Level 4.4 g/dL (3.5-5.0); Alkaline Phosphatase 97 U/L (39-117); Anion Gap 14 (12-20); Aspartate Amino Transferase 22 U/L (5-31); Bilirubin Total 0.5 mg/dL (0.0-1.0); Blood Urea Nitrogen 17 mg/dL (9-16); Carbon Dioxide 27 mmol/L (22-29); Chloride 106 mmol/L (96-108); Creatinine Clr Calc Pharmacy 90.4; Estimated Glomerular Filt Rate > 60; Glucose Random 110 mg/dL (60-115); Lipase 26 U/L (8-78); Magnesium 2.3 mg/dL (1.6-2.6); Potassium 3.7 mmol/L (3.3-5.1); Sodium 143 mmol/L (135-145); Total Protein 7.8 g/dL (6.5-8.0)
[2024-03-25 18:00] LABS: Troponin-I High Sensitivity < 2.7 ng/L (<3.5-17.0)
[2024-03-25 20:45] VITALS: BP 178/99; PULSE 87; RESP 16; TEMP 36.6; O2SAT 99
[2024-03-25 21:49] LABS: Troponin-I High Sensitivity < 2.7 ng/L (<3.5-17.0)
[2024-03-25 22:09] VITALS: BP 167/89
[2024-03-25] MEDS: Acetaminophen 325 MG TABLET 975 MG PO (22:09)
[2024-03-25] MEDS: Valsartan 40 MG TABLET 20 MG PO (22:09)
[2024-03-25 22:14] LABS: Influenza A PCR NEGATIVE (Negative); Influenza B PCR NEGATIVE (Negative); Resp Syncy Virus RNA Qual PCR NEGATIVE (Negative); SARS COV2 PCR INHOUSE NEGATIVE (Negative)
[2024-03-25 22:44] VITALS: BP 162/90; PULSE 67; RESP 16; TEMP 36.6; O2SAT 97
[2024-03-25 22:56] VITALS: BP 162/90; PULSE 67; RESP 16; TEMP 36.6; O2SAT 97
== END 2024-03-25 22:58 | disposition home or self-care (01) ==
PROVIDERS: Nurse Practitioner Family; Emergency Provider Emergency Medicine
DX: B34.9 Viral infection, unspecified (principal); I10 Essential (primary) hypertension; Z79.02 Long term (current) use of antithrombotics/antiplatelets; Z79.899 Other long term (current) drug therapy; Z03.818 Encounter for observation for suspected exposure to other biological agents ruled out
CPT/HCPCS: 0241U; 36415; 80053; 83690; 83735; 84484; 85025; 85610; 93005; 99283; 99285

== ENCOUNTER → 2024-03-25 17:19 | Outpatient (BNV) | payer OTHER, SELFPAY | PROVIDERS: Emergency Provider Emergency Medicine; Visit Provider Internal Medicine | DX: R07.9 Chest pain, unspecified (principal) | CPT/HCPCS: 93010 ==

== ENCOUNTER 2024-04-02 13:58 | Outpatient (AMB) | payer OTHER, SELFPAY ==
--- NOTE | 2024-04-02 14:06 | A.OFFVIS_ITS ---
Intake Visit Reasons: O/V B/L knee discuss surgery Intake Note: Evon is a 76 year old female who presents today as a new patient with complaints of left knee pain. Patient reports that injections are no longer helpful and she would like to discuss surgical intervention. Allergies No Known Allergies [No Known Allergies*] Allergy (Verified 03/25/24 17:49) HPI HPI O/V B/L knee discuss surgery: Details: Evon is a 76 year old female who presents today as a new patient with complaints of left knee pain. Patient reports that injections are no longer helpful and she would like to discuss surgical intervention. She reports a situation worsening right knee pain. There is also left knee pain but the right seems worse than the left. She describes a situation where she can not extend her flexed knee and in order to do so much sit down and manipulate her knee. This causes pain and she is unable to engage in daily activities for fear of this happening fear of falling. [facility] Medical History CARITO (obstructive sleep apnea) History of Helicobacter pylori infection Patellofemoral arthritis of right knee Patellofemoral arthritis of left knee Distal radius fracture, left Bilateral knee pain Fatty liver GDM (gestational diabetes mellitus) Hypertension Anxiety Depression Surgical History History of esophagogastroduodenoscopy (EGD) Hx of colonoscopy Hx of endoscopy H/O hand surgery History of open reduction and internal fixation (ORIF) procedure History of eye surgery History of hemorrhoidectomy History of back surgery Social History Household Members: Spouse and Children Are you a primary care director to a significant other at home: Yes Do you presently have visiting nurse or other home services: No Alcohol intake: current Alcohol intake frequency: does not drink Patient Tobacco Use Status: Never used Tobacco 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al status: unemployed 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: Right Handed Physical Exam Const General: cooperative, healthy appearing, no acute distress, well developed and alert HEENT Head: Yes normal to inspection, Yes normocephalic and Yes atraumatic Mouth: moist mucous membranes Eyes General: appearance normal, both eyes and all related structures EOM: EOMs intact bilaterally Chest Other: no audible wheezing. Resp Other: No audible wheezing Effort & Inspection: normal respiratory effort Back/Spine/Pelvis Cervical Spine: normal cervical lordosis Skin General skin exam: no rashes or lesions noted Neuro General: no focal motor deficits Extrem Other: Tenderness to palpation medial compartment bilateral knees positive medial Sam's. Negative Sridhar's. Mild bilateral knee effusions. Psych Appearance: grossly normal and well kempt Mental Status: mental status grossly normal Speech and movement: Normal speech and movement present Affect: normal affect Attitude: cooperative Results Reviewed Results Reviewed: I personally reviewed relevant radiographs. There is mild right knee osteoarthritis and bqwy-zl-[id number] left knee osteoarthritis. This is affecting medial and patellofemoral compartments predominantly. Assessment & Plan Assessment & Plan (1) Locking of right knee: Code(s): M23.91 - Unspecified internal derangement of right knee Category: Medical Plan: This is a 48-year-old woman with bilateral knee osteoarthritis. It is mild on right [id number] on the left. Her primary complaint however is locking of the knee. She is difficulty extending it from 90 degrees of flexion into terminal extension. This is not all the time it happens several times throughout the month. She discussed her diagnosis of arthritis but also the mechanical symptoms are worrisome and I recommend an MRI of the right knee. (2) Bilateral primary osteoarthritis of knee: Code(s): M17.0 - Bilateral primary osteoarthritis of knee Category: Medical Plan Orders: Orders MR knee RT wo con Today M23.91 - Unspecified internal derangement of right knee Coding Level of Care Code Est Pt Level 4 (02386) Diagnoses Locking of right knee M23.91 Bilateral primary osteoarthritis of knee M17.0
== END 2024-04-02 16:25 | disposition home or self-care (01) ==
PROVIDERS: Visit Provider Orthopaedic Surgery
DX: M23.91 Unspecified internal derangement of right knee (principal); M17.0 Bilateral primary osteoarthritis of knee
CPT/HCPCS: 99213

== ENCOUNTER → 2024-04-02 13:58 | Outpatient (BNVA) | payer OTHER, SELFPAY | PROVIDERS: Visit Provider Orthopaedic Surgery | DX: M17.0 Bilateral primary osteoarthritis of knee (principal); M23.91 Unspecified internal derangement of right knee | CPT/HCPCS: 99212 ==

== ENCOUNTER 2024-04-27 13:06 | Outpatient (REF) | payer OTHER, SELFPAY ==
[2024-04-27 16:01] LABS: MANUAL DIFF FLAG NO
[2024-04-27 16:16] LABS: Basophils Percent Auto 0.3 % (0-2); Eosinophils Absolute Auto 0.3 X10*3/uL (0.0-0.4); Eosinophils Percent Auto 3.3 % (0-4); Hematocrit 38.2 % (37.0-47.0); Hemoglobin 12.7 g/dl (12.0-16.0); Imm Gran Abs Auto 0.02 X10*3/uL (0.00-0.03); Imm Gran Pct Auto 0.3 % (0.0-0.4); Lymphocytes Percent Auto 39.5 % (20-40); Mean Corpuscular HGB Conc 33.2 g/dl (31.0-35.0); Mean Corpuscular Hemoglobin 28.6 pg (27.0-33.0); Mean Platelet Volume 10.7 fL (9.4-12.3); Monocytes Absolute Auto 0.6 X10*3/uL (0.1-1.2); Neutrophils Absolute Auto 3.6 x10*3/uL (2.0-8.3); Neutrophils Percent Auto 48.6 % (45-73); Platelet Count 254 X10*3/uL (160-400); Red Blood Count 4.44 X10*6/uL (4.20-5.50); Red Cell Distribution Width 13.6 % (11.0-16.0); White Blood Count 7.5 X10*3/uL (4.8-10.8)
[2024-04-27 16:39] LABS: Alanine Aminotransferase 30 U/L (0-31); Albumin Level 4.4 g/dL (3.5-5.0); Alkaline Phosphatase 89 U/L (39-117); Anion Gap 10 (12-20); Aspartate Amino Transferase 24 U/L (5-31); Bilirubin Total 0.6 mg/dL (0.0-1.0); Blood Urea Nitrogen 17 mg/dL (9-16); Calcium 9.7 mg/dL (8.4-10.2); Carbon Dioxide 28 mmol/L (22-29); Chloride 108 mmol/L (96-108); Estimated Glomerular Filt Rate > 60; Glucose Random 108 mg/dL (60-115); Potassium 3.4 mmol/L (3.3-5.1); Sodium 143 mmol/L (135-145); Total Protein 7.5 g/dL (6.5-8.0)
[2024-04-27 16:46] LABS: Vitamin D 25-OH Total 40.2 ng/mL (>30)
[2024-04-27 17:00] LABS: Folate 12.2 ng/mL (> or = 4.0); Vitamin B12 503 pg/mL (200-900)
[2024-04-27 17:28] LABS: CT PCR NOT DETECTED (Not Detect.); NG PCR NOT DETECTED (Not Detect.)
[2024-05-08 03:49] LABS: HPV mRNA E6/E7 rflx Not Detected (Not Detected)
== END 2024-04-27 13:07 | disposition home or self-care (01) ==
LOC: HO.HHCL 13:06
PROVIDERS: Visit Provider Registered Nurse
DX: I10 Essential (primary) hypertension (principal); Z12.4 Encounter for screening for malignant neoplasm of cervix; R60.0 Localized edema
CPT/HCPCS: 0353U; 36415; 80053; 82306; 82607; 82746; 85025; 87624; 88142

== ENCOUNTER 2024-06-01 12:37 | Outpatient (REF) | payer OTHER, SELFPAY ==
--- NOTE | ~2024-06-01 | XR_ITS ---
EXAMINATION: XR SHOULDER, RIGHT CLINICAL INFORMATION: Acute on chronic pain. COMPARISON: X-ray 01/07/2023. TECHNIQUE: 5 views of the right shoulder. FINDINGS: Mild acromioclavicular arthritis. Mild inferior humeral head spurring. Glenohumeral joint space is maintained. No evidence of acute fracture or dislocation. No abnormal soft tissue calcification. Study presented for dictation on 06/17/2024. XR/XR shoulder RT min 2V IMPRESSION: No visible acute fracture or dislocation. Mild arthritis as above.
== END 2024-06-01 12:38 | disposition home or self-care (01) ==
LOC: HO.HHCX 12:37
PROVIDERS: Visit Provider Registered Nurse
DX: M25.511 Pain in right shoulder (principal); G89.29 Other chronic pain
CPT/HCPCS: 73030

== ENCOUNTER 2024-06-18 17:43 | Outpatient (REF) | payer OTHER, SELFPAY ==
--- NOTE | ~2024-06-18 | MR_ITS ---
EXAMINATION: MR KNEE WITHOUT CONTRAST, RIGHT CLINICAL INFORMATION: Internal derangement of the right knee. Right knee pain. COMPARISON: Radiograph dated 03/19/2024. TECHNIQUE: MRI of the knee without contrast was performed using routine sequences on a high-field scanner. FINDINGS: MENISCI: Medial Meniscus: A complex tear of the posterior horn has a dominant radial component involving the inner half of the meniscal cross-section as well as a horizontal cleavage component extending to the free edge. A small multilocular parameniscal cyst is suspected posteriorly, measuring 1.8 cm in length and 0.3 x 0.2 cm in cross-section. Parameniscal soft tissues are edematous. Lateral Meniscus: Intact. LIGAMENTS: Cruciate: Intact. Collateral: Intact. EXTENSOR MECHANISM: Intact. ARTICULAR CARTILAGE/BONE: Patellofemoral Compartment: Moderate nonuniform articular cartilage loss is present at the patella diffusely, more pronounced the median ridge and medial facet. Additional moderate nonuniform cartilage loss is present at the trochlea, most pronounced in the central trochlear groove. Full-thickness chondral fissuring is present at the medial trochlear facet. Obckd-fm-lcdmniyb-sized marginal osteophytes Medial Compartment: A broad area of full-thickness articular cartilage loss at the medial femoral condyle is most notable at the anterior weightbearing surface, measuring 1.7 x 2 cm in area. Additional moderate high-grade cartilage loss is present at the anterior weightbearing surface of the medial tibial plateau with full-thickness chondral fissures, cortical irregularity, and subcortical edema. Moderate-sized marginal osteophytes. Lateral Compartment: Small marginal osteophytes. Minimal chondral thinning along the lateral tibial plateau posteriorly and at the lateral tibial spine. JOINT FLUID AND BURSAE: Moderate-sized joint effusion. No Narvaez's cyst. MR/MR knee RT wo con IMPRESSION: 1. Complex tear of the posterior horn of the medial meniscus with a dominant radial component. 2. Moderate medial and patellofemoral compartment osteoarthritis. 3. Minimal lateral compartment osteoarthritis. 4. Moderate-sized joint effusion.
== END 2024-06-18 17:44 | disposition home or self-care (01) ==
LOC: HO.MRI 17:43
PROVIDERS: Visit Provider Orthopaedic Surgery
DX: M23.91 Unspecified internal derangement of right knee (principal)
CPT/HCPCS: 73721

== ENCOUNTER 2024-08-13 12:32 | Outpatient (AMB) | payer OTHER, SELFPAY ==
--- NOTE | 2024-08-13 12:44 | A.OFFVIS_ITS ---
Intake Visit Reasons: OV- Right Knee MRI review Intake Note: Radha is a 49 year old female who presents today for an MRI review of her right knee. Patient has bilateral knee OA, but was also having concerns of locking from 90 degrees flexion to full extension. IMPRESSION: 1. Complex tear of the posterior horn of the medial meniscus with a dominant radial component. 2. Moderate medial and patellofemoral compartment osteoarthritis. 3. Minimal lateral compartment osteoarthritis. 4. Moderate-sized joint effusion. Allergies No Known Allergies [No Known Allergies*] Allergy (Verified 03/25/24 17:49) HPI HPI OV- Right Knee MRI review: Details: Radha is a 49 year old female who presents today for an MRI review of her right knee. Patient has bilateral knee OA, but was also having concerns of locking from 90 degrees flexion to full extension. She feels like she falls frequently and is worried that she is going to further injure herself. Injections have been briefly helpful. She comes in today for MRI review. [facility] Medical History CARITO (obstructive sleep apnea) History of Helicobacter pylori infection Patellofemoral arthritis of right knee Patellofemoral arthritis of left knee Distal radius fracture, left Bilateral knee pain Fatty liver GDM (gestational diabetes mellitus) Hypertension Anxiety Depression Surgical History History of esophagogastroduodenoscopy (EGD) Hx of colonoscopy Hx of endoscopy H/O hand surgery History of open reduction and internal fixation (ORIF) procedure History of eye surgery History of hemorrhoidectomy History of back surgery Social History Household Members: Spouse and Children Are you a primary critical care unit manager to a significant other at home: Yes Do you presently have visiting nurse or other home services: No Alcohol intake: current Alcohol intake frequency: does not drink Patient Tobacco Use Status: Never used Tobacco 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al status: unemployed 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: Right Handed Physical Exam Extrem Other: On exam she has tenderness to palpation medial compartment. She has a positive medial Sam's. 0290 degrees. Results Reviewed Results Reviewed: I personally reviewed the MR images. IMPRESSION: 1. Complex tear of the posterior horn of the medial meniscus with a dominant radial component. 2. Moderate medial and patellofemoral compartment osteoarthritis. 3. Minimal lateral compartment osteoarthritis. 4. Moderate-sized joint effusion. Assessment & Plan Assessment & Plan (1) Locking of right knee: Code(s): M23.91 - Unspecified internal derangement of right knee Category: Medical Plan: This is a 49-year-old woman with locking of her right knee. She has a meniscal tear and arthritis her mechanical symptoms are becoming an obstacle to daily activities. I discussed this with her and I recommend right knee arthroscopy with medial meniscectomy. I discussed with her the risks, benefits and alternatives including, but not limited to, incomplete symptom resolution, stiffness, infection, need for further surgery, pain, as well as medical complications. She expressed understanding and we will proceed forward accordingly. (2) Patellofemoral arthritis of right knee: Code(s): M17.11 - Unilateral primary osteoarthritis, right knee Category: Medical Plan: (3) Medial meniscus tear: Code(s): S83.249A - Other tear of medial meniscus, current injury, unspecified knee, initial encounter Category: Medical Plan: Coding Level of Care Code Est Pt Level 4 (61659) Diagnoses Locking of right knee M23.91 Patellofemoral arthritis of right knee M17.11 Medial meniscus tear S83.249A
== END 2024-08-13 13:11 | disposition home or self-care (01) ==
PROVIDERS: Visit Provider Orthopaedic Surgery
DX: M23.91 Unspecified internal derangement of right knee (principal); M17.11 Unilateral primary osteoarthritis, right knee; S83.249A Other tear of medial meniscus, current injury, unspecified knee, initial encounter
CPT/HCPCS: 99214

== ENCOUNTER → 2024-08-13 12:32 | Outpatient (BNVA) | payer OTHER, SELFPAY | PROVIDERS: Visit Provider Orthopaedic Surgery | DX: M17.11 Unilateral primary osteoarthritis, right knee (principal); M23.91 Unspecified internal derangement of right knee; S83.249A Other tear of medial meniscus, current injury, unspecified knee, initial encounter | CPT/HCPCS: 99212 ==

== ENCOUNTER 2024-08-19 12:17 | Day surgery (SDC) | payer OTHER, SELFPAY ==
--- NOTE | 2024-08-18 09:50 | HO.ANESPROP2 ---
Documented by User: Jemma Robert NP 08/18/24 09:52 HPI - Anesthesia Eval Consult details Narrative: 49yo F for Right Knee Arthroscopy PMFSH Active Problems Active Problems: All Active Problems Medial meniscus tear (Acute) Locking of right knee (Acute) Hemorrhoids, internal, with bleeding (Acute) Bilateral primary osteoarthritis of knee (Acute) GERD (gastroesophageal reflux disease) (Acute) Generalized abdominal pain (Acute) Abdominal bloating (Acute) Chronic constipation (Acute) Colon cancer screening (Acute) NAFL (nonalcoholic fatty liver) (Acute) Rectal bleeding (Acute) Dysphagia, pharyngoesophageal phase (Acute) Patellofemoral arthritis of right knee (Acute) Patellofemoral arthritis of left knee (Acute) Distal radius fracture, left (Acute) Bilateral knee pain (Acute) Past Medical History Medical History CARITO (obstructive sleep apnea) History of Helicobacter pylori infection Patellofemoral arthritis of right knee Patellofemoral arthritis of left knee Distal radius fracture, left Bilateral knee pain Fatty liver GDM (gestational diabetes mellitus) Hypertension Anxiety Depression Surgical History Surgical History History of esophagogastroduodenoscopy (EGD) Hx of colonoscopy Hx of endoscopy H/O hand surgery History of open reduction and internal fixation (ORIF) procedure History of eye surgery History of hemorrhoidectomy History of back surgery History of Problems with Anesthesia: No Social History Social History Household Members: Spouse and Children Are you a primary caretaker resort to a significant other at home: Yes Do you presently have visiting nurse or other home services: No Alcohol intake: current Alcohol intake frequency: does not drink Patient Tobacco Use Status: Never used Tobacco Have you been hit, kicked, punched, or otherwise hurt by someone within the past year? 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: Right Handed Meds Allergies Allergy/AdvReac Type Severity Reaction Status Date / Time No Known Allergies Allergy Verified 03/25/24 17:49 [No Known Allergies*] Home Medications ?Medication ?Instructions ?Recorded ?Confirmed ?Last Taken ?Type loratadine [Claritin] PO 09/30/20 03/19/24 Unknown History meloxicam 7.5 mg tablet 7.5 mg PO DAILY 09/30/20 03/19/24 Unknown History naproxen 500 mg tablet 500 mg PO BID 09/30/20 03/19/24 Unknown History propranolol 80 mg capsule,24 80 mg PO BEDTIME 09/30/20 03/19/24 Unknown History hr,extended release albuterol sulfate 90 mcg/actuation 2 puff PO Q4-6H PRN wheezing 04/12/21 03/19/24 Unknown History aerosol inhaler atorvastatin 40 mg tablet 40 mg PO DAILY 04/12/21 03/19/24 Unknown History budesonide 90 mcg/actuation breath 2 inh PO BID 04/12/21 03/19/24 Unknown History activated powder inhaler loratadine 10 mg tablet 10 mg PO DAILY PRN allergies 04/12/21 03/19/24 Unknown History bupropion HCl 150 mg 24 hr tablet, 150 mg PO DAILY 08/16/22 03/19/24 Unknown History extended release olmesartan 5 mg tablet 5 mg PO QAM 01/30/24 03/19/24 Unknown History hydrochlorothiazide 25 mg tablet 25 mg PO DAILY 08/19/24 08/19/24 Unknown History losartan 25 mg tablet 25 mg PO DAILY 08/19/24 08/19/24 Unknown History Exam Pertinent Lab Results Pertinent Lab Results: Laboratory Tests 04/27/24 13:09 WBC 7.5 Hgb 12.7 Hct 38.2 Plt Count 254 Sodium 143 Potassium 3.4 Chloride 108 Carbon Dioxide 28 BUN 17 H Creatinine 0.80 Narrative Narrative: EKG 03/2024 Vent. Rate : 081 BPM Atrial Rate : 081 BPM P-R Int : 166 ms QRS Dur : 070 ms QT Int : 392 ms P-R-T Axes : 018 012 022 degrees QTc Int : 455 ms Normal sinus rhythm Normal ECG When compared with ECG of 25-JAN-2023 19:31, No significant change was found Assessment and Plan Assessment Anesthesia Assessment: Chart Reviewed Final Anesthetic Review History of Problems with Anesthesia: No Documented by User: Martha Hay MD 08/19/24 13:04 [facility] Past Medical History Medical History CARITO (obstructive sleep apnea) History of Helicobacter pylori infection Patellofemoral arthritis of right knee Patellofemoral arthritis of left knee Distal radius fracture, left Bilateral knee pain Fatty liver GDM (gestational diabetes mellitus) Hypertension Anxiety Depression Family History Family history of problems with anesthesia: No Surgical History Surgical History History of esophagogastroduodenoscopy (EGD) Hx of colonoscopy Hx of endoscopy H/O hand surgery History of open reduction and internal fixation (ORIF) procedure History of eye surgery History of hemorrhoidectomy History of back surgery Social History Social History Household Members: Spouse and Children Are you a primary caretaker resort to a significant other at home: Yes Do you presently have visiting nurse or other home services: No Alcohol intake: current Alcohol intake frequency: does not drink Patient Tobacco Use Status: Never used Tobacco Have you been hit, kicked, punched, or otherwise hurt by someone within the past year? 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: Right Handed Meds Allergies Allergy/AdvReac Type Severity Reaction Status Date / Time No Known Allergies Allergy Verified 03/25/24 17:49 [No Known Allergies*] Home Medications ?Medication ?Instructions ?Recorded ?Confirmed ?Last Taken ?Type loratadine [Claritin] PO 09/30/20 03/19/24 Unknown History meloxicam 7.5 mg tablet 7.5 mg PO DAILY 09/30/20 03/19/24 Unknown History naproxen 500 mg tablet 500 mg PO BID 09/30/20 03/19/24 Unknown History propranolol 80 mg capsule,24 80 mg PO BEDTIME 09/30/20 03/19/24 Unknown History hr,extended release albuterol sulfate 90 mcg/actuation 2 puff PO Q4-6H PRN wheezing 04/12/21 03/19/24 Unknown History aerosol inhaler atorvastatin 40 mg tablet 40 mg PO DAILY 04/12/21 03/19/24 Unknown History budesonide 90 mcg/actuation breath 2 inh PO BID 04/12/21 03/19/24 Unknown History activated powder inhaler loratadine 10 mg tablet 10 mg PO DAILY PRN allergies 04/12/21 03/19/24 Unknown History bupropion HCl 150 mg 24 hr tablet, 150 mg PO DAILY 08/16/22 03/19/24 Unknown History extended release olmesartan 5 mg tablet 5 mg PO QAM 01/30/24 03/19/24 Unknown History hydrochlorothiazide 25 mg tablet 25 mg PO DAILY 08/19/24 08/19/24 Unknown History losartan 25 mg tablet 25 mg PO DAILY 08/19/24 08/19/24 Unknown History Exam Airway Mallampati Class: III TM Dist: <=3cm Neck ROM: Full Heart: rrr Lungs: cta Assessment and Plan Assessment Anesthesia Assessment: Anesthesia Plan Discussed Final Anesthetic Review Family History of Problems with Anesthesia: No NPO: Yes ASA Class: III Final Preanesthetic Review: No Changes in Pt Med Stat, Meds/Allgs Chart Reviewed, Consent Obtained/Reviewed and Anes Risks/Benef Reviewed Patient Risk: Intermediate Procedure Risk: Low Anesthetic Plan Anesthetic Plan: GA Disposition: Standard PACU
[2024-08-19] VITALS (10 sets, daily range): BP systolic 135–160; BP diastolic 82–97; PULSE 73–91; RESP 14–19; TEMP 36.2–36.4; O2SAT 94–100; BMI 39.7
--- NOTE | 2024-08-19 12:33 | MHC.SHP ---
Pre-Procedural Eval Section A - 24 Hr Update-Section A only Date of Service: 08/19/24 The patient is an INPATIENT: No Changes since office visit: No Cold of Flu in the past 2 weeks, No New Medical Problems, No Changes in Medication and No Patient answered all questions The patient has been examined within 24 hours of the surgical procedure. The History & Physical has been completed within 30 days and I have reviewed it.: Yes Section B - Complete if H&P > 30 days Chief Complaint: Complex tear of medial meniscus, current injury, Allergies: Allergies Allergy/AdvReac Type Severity Reaction Status Date / Time No Known Allergies Allergy Verified 03/25/24 17:49 [No Known Allergies*] Plan I have reviewed the history and physical and performed a pertinent physical examination on my patient. No changes have occurred unless specified. Time Spent With Patient Time: Total time managing care of this patient today ____ minutes.
--- NOTE | 2024-08-19 14:48 | PM.OP ---
Brief Operative Note Date of Service: 08/19/24 Pre-op diagnosis: Right knee MMT Post-op diagnosis: same Procedure: right knee with chondroplasty and partial medial meniscectomy Implants: none Surgeon: Migel Duenas MD Anesthesia: GLMA and local Was an Middle [employer] Math Teacher used for this Procedure?: No Estimated blood loss (mL): 5 Tourniquet time (min): 20 Pathology: none sent Condition: stable Disposition: PACU
[2024-08-19] MEDS: fentaNYL citrate/PF 100 MCG/2 ML VIAL 50 MCG IVPUSH ×2 (15:00→15:10)
--- NOTE | 2024-08-19 15:30 | W.PM.OPN ---
Operative Note Operative Note Date of Service: 08/19/24 Narrative: Date of Service: 08/19/24 Pre-op diagnosis: Right knee MMT Post-op diagnosis: same Procedure: right knee with chondroplasty and partial medial meniscectomy Implants: none Surgeon: Migel Duenas MD Anesthesia: GLMA and local Was an Director Of Physiotherapy Services used for this Procedure?: No Estimated blood loss (mL): 5 Tourniquet time (min): 20 Pathology: none sent Condition: stable Disposition: PACU Procedure in detail: Patient was brought to the operating room placed supine on the arthroscopic table and prepped and draped in standard sterile fashion. A time-out was called to identify proper site proper procedure proper surgeon and IV antibiotics per weight were administered. I began by exsanguinating the limb and insufflating tourniquet to 300 mm Hg. Then made a standard anterolateral stab incision. The knee was insufflated with water and 30 degree arthroscope was placed. There was grade 2 fibrillations of the patella and trochlea but overall suprapatellar pouch and the gutters were clean. I descended into the medial compartment where I made my medial portal under direct visualization. There was obvious of complex tear of the posterior horn of the medial meniscus. The root was intact and there was grade 2-3 changes in the medial femoral condyle and g2 of the tibial plateau. I used a combination of biter shaver and cautery to remove unstable portions of the meniscus. Approximately 30% meniscal volume was removed. Once I was satsfied with this the ACL was examined and found to be intact and the lateral compartment also was without the need for intervention. I then removed all instrumentation and closed the portals with skin glue. 25 mL of 2% Marcaine with epinephrine was injected into the joint and the surrounding soft tissues. Patient was then placed in sterile dressing extubated brought recovery room stable condition. There were no known complications.
== END 2024-08-19 16:36 | disposition home or self-care (01) ==
LOC: HO.SSS 12:18
PROVIDERS: Visit Provider Orthopaedic Surgery
PROC: (CPT 29870; principal; 2024-08-19 18:50)
DX: S83.231A Complex tear of medial meniscus, current injury, right knee, initial encounter (principal); X58.XXXA Exposure to other specified factors, initial encounter; Y93.9 Activity, unspecified; Y92.9 Unspecified place or not applicable; Y99.9 Unspecified external cause status; M17.11 Unilateral primary osteoarthritis, right knee; M23.91 Unspecified internal derangement of right knee; M25.461 Effusion, right knee; G47.33 Obstructive sleep apnea (adult) (pediatric); I10 Essential (primary) hypertension; K76.0 Fatty (change of) liver, not elsewhere classified; F32.A Depression, unspecified; F41.9 Anxiety disorder, unspecified; Z79.1 Long term (current) use of non-steroidal anti-inflammatories (NSAID); Z79.899 Other long term (current) drug therapy; Z98.890 Other specified postprocedural states; Z56.0 Unemployment, unspecified
CPT/HCPCS: 29881; J0131; J0690; J1100; J1885; J2371; J2405; J2704; J2795; J3010

== ENCOUNTER → 2024-08-19 12:17 | Outpatient (BNV) | payer OTHER, SELFPAY | PROVIDERS: Visit Provider Orthopaedic Surgery | DX: S83.231A Complex tear of medial meniscus, current injury, right knee, initial encounter (principal) | CPT/HCPCS: 29881 ==

== ENCOUNTER 2024-08-27 13:51 | Outpatient (AMB) | payer OTHER, SELFPAY ==
--- NOTE | 2024-08-27 13:54 | MHC.OFFVIS ---
Intake Visit Reasons: PO RT knee 08/19/24 NE Intake Note: Radha is 49 year old female who presents today for a post op appointment s/p RT knee 08/19/24 NE. Patient reports she is getter better, but she is still in a lot of pain. Installment Agent Required: Yes Installment Agent Language: Technical Services Rep Name: Domo [email or web address], Abdulkadir,RMA/LM Allergies No Known Allergies [No Known Allergies*] Allergy (Verified 08/27/24 13:59) HPI HPI PO RT knee 08/19/24 NE: Details: 49-year-old female, who is Danish speaking, presents in the office today for 8 days status post right knee arthroscopy with chondroplasty and partial medial meniscectomy which was performed on 08/19/[address] Duenas. While in the office today, the patient reports she is improving; however, she continues to have severe right knee pain. She claims to have right knee edema. [facility] Medical History CARITO (obstructive sleep apnea) History of Helicobacter pylori infection Patellofemoral arthritis of right knee Patellofemoral arthritis of left knee Distal radius fracture, left Bilateral knee pain Fatty liver GDM (gestational diabetes mellitus) Hypertension Anxiety Depression Surgical History History of esophagogastroduodenoscopy (EGD) Hx of colonoscopy Hx of endoscopy H/O hand surgery History of open reduction and internal fixation (ORIF) procedure History of eye surgery History of hemorrhoidectomy History of back surgery Social History Household Members: Spouse and Children Are you a primary grounds caretaker to a significant other at home: Yes Do you presently have visiting nurse or other home services: No Alcohol intake: current Alcohol intake frequency: does not drink Patient Tobacco Use Status: Never used Tobacco 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al status: unemployed 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: Right Handed Review of Systems Const All systems reviewed & are unremarkable except as noted in HPI and below Physical Exam Const General: cooperative, healthy appearing and no acute distress Resp Effort & Inspection: normal respiratory effort and able to speak in complete sentences Cardio Rate: regular rate Peripheral pulses: Peripheral pulses 2+ throughout GI Palpation (GI): Soft to palpation Skin Lesions: no lesions Rashes: no rashes Extrem Other: Right knee: Incision sites are clean, dry, and intact. No surrounding erythema or drainage. No signs of infection. ROM is 0-90 degrees. NVI. Assessment & Plan Assessment & Plan (1) Medial meniscus tear: Code(s): S83.249A - Other tear of medial meniscus, current injury, unspecified knee, initial encounter Category: Medical (2) Osteoarthritis: Code(s): M19.90 - Unspecified osteoarthritis, unspecified site Category: Medical Plan Ms. Garcia is a 49-year-old female, who is Danish speaking, presents in the office today for 8 days status post right knee arthroscopy with chondroplasty and partial medial meniscectomy which was performed on 08/19/[address] Duenas. While in the office today, the patient reports she is improving; however, she continues to have severe right knee pain. She claims to have right knee edema. Sutures were removed, and steri-strips were applied. The patient was referred to physical therapy. She continues to have pain and edema, likely from an arthritic flare up after the partial medial meniscectomy and chondroplasty. Follow-up will be in 4 weeks, or sooner if needed. Orders: Orders PT Evaluation and Treatment Today M19.90 - Unspecified osteoarthritis, unspecified site, S83.249A - Other tear of medial meniscus, current injury, unspecified knee, initial encounter Patient Instructions: Scribed by Ashley Drake emergency medical services coordinator, for Dang Larkin PA-C on 08/27/24 at 2:20 pm EST. Coding Level of Care Code Global (09495) Diagnoses Medial meniscus tear S83.249A Osteoarthritis M19.90
== END 2024-08-27 14:25 | disposition home or self-care (01) ==
PROVIDERS: Visit Provider Physician Assistant
DX: S83.249A Other tear of medial meniscus, current injury, unspecified knee, initial encounter (principal); M19.90 Unspecified osteoarthritis, unspecified site
CPT/HCPCS: 99024

== ENCOUNTER → 2024-08-27 13:51 | Outpatient (BNVA) | payer OTHER, SELFPAY | PROVIDERS: Visit Provider Physician Assistant | DX: S83.249D Other tear of medial meniscus, current injury, unspecified knee, subsequent encounter (principal); M19.90 Unspecified osteoarthritis, unspecified site; Z98.890 Other specified postprocedural states | CPT/HCPCS: 99212 ==

== ENCOUNTER 2024-09-24 12:22 | Outpatient (AMB) | payer OTHER, SELFPAY ==
--- NOTE | 2024-09-24 12:33 | A.OFFVIS_ITS ---
Intake Visit Reasons: PO RT knee 08/19/24 NE Intake Note: Radha is a 49 year old female who presents today for a post op appointment s/p RT knee 08/19/24 NE. Patient reports she continuous to have pain in her knee even with PT. Allergies No Known Allergies [No Known Allergies*] Allergy (Verified 09/24/24 12:43) HPI HPI PO RT knee 08/19/24 NE: Details: 49-year-old female, who is Canadian speaking, presents in the office today for 5 weeks status post right knee arthroscopy with chondroplasty and medial meniscectomy, which was performed on 08/19/[address] Duenas. I last saw the patient in the office on 08/27/2024 when she was referred to physical therapy and informed about the right knee pain and edema, likely from an arthritic flare-up. While in the office today, the patient reports persistent right knee pain. She attended physical therapy; however, still she continues to have pain. [facility] Medical History CARITO (obstructive sleep apnea) History of Helicobacter pylori infection Patellofemoral arthritis of right knee Patellofemoral arthritis of left knee Distal radius fracture, left Bilateral knee pain Fatty liver GDM (gestational diabetes mellitus) Hypertension Anxiety Depression Surgical History History of esophagogastroduodenoscopy (EGD) Hx of colonoscopy Hx of endoscopy H/O hand surgery History of open reduction and internal fixation (ORIF) procedure History of eye surgery History of hemorrhoidectomy History of back surgery Social History Household Members: Spouse and Children Are you a primary adult live in caregiver to a significant other at home: Yes Do you presently have visiting nurse or other home services: No Alcohol intake: current Alcohol intake frequency: does not drink Patient Tobacco Use Status: Never used Tobacco 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al status: unemployed 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: Right Handed Review of Systems Const All systems reviewed & are unremarkable except as noted in HPI and below Physical Exam Const General: cooperative, healthy appearing and no acute distress Resp Effort & Inspection: normal respiratory effort and able to speak in complete sentences Cardio Rate: regular rate Peripheral pulses: Peripheral pulses 2+ throughout GI Palpation (GI): Soft to palpation Skin Lesions: no lesions Rashes: no rashes Extrem Other: Right knee: Incision sites are clean, dry, and intact. No surrounding erythema or drainage. No signs of infection. ROM is 0-90 degrees. NVI. Assessment & Plan Assessment & Plan (1) Medial meniscus tear: Code(s): S83.249A - Other tear of medial meniscus, current injury, unspecified knee, initial encounter Category: Medical (2) Osteoarthritis: Code(s): M19.90 - Unspecified osteoarthritis, unspecified site Category: Medical Plan Ms. Garcia is a 49-year-old female, who is Canadian speaking, presents in the office today for 5 weeks status post right knee arthroscopy with chondroplasty and medial meniscectomy, which was performed on 08/19/[address] Duenas. I last saw the patient in the office on 08/27/2024 when she was referred to physical therapy and informed about the right knee pain and edema, likely from an arthritic flare-up. While in the office today, the patient reports persistent right knee pain. She attended physical therapy; however, still she continues to have pain. The patient will continue to attend physical therapy. She may take Tylenol or ibuprofen PRN for pain. She is using a cane to assist with the ambulation. Follow-up will be in 6 weeks, or sooner if needed. Patient Instructions: Scribed by Ashley Drake paramedical aide, for Dang Larkin PA-C on 09/24/24 at 12:35 pm EST. Coding Level of Care Code Global (75746) Diagnoses Medial meniscus tear S83.249A Osteoarthritis M19.90
== END 2024-09-24 12:43 | disposition home or self-care (01) ==
LOC: HO.HOS 12:22
PROVIDERS: Visit Provider Physician Assistant
DX: S83.249A Other tear of medial meniscus, current injury, unspecified knee, initial encounter (principal); M19.90 Unspecified osteoarthritis, unspecified site
CPT/HCPCS: 99024

== ENCOUNTER → 2024-09-24 12:22 | Outpatient (BNVA) | payer OTHER, SELFPAY | PROVIDERS: Visit Provider Physician Assistant | DX: S83.241A Other tear of medial meniscus, current injury, right knee, initial encounter (principal); X58.XXXA Exposure to other specified factors, initial encounter; Y93.9 Activity, unspecified; Y92.9 Unspecified place or not applicable; Y99.9 Unspecified external cause status; M17.11 Unilateral primary osteoarthritis, right knee | CPT/HCPCS: 99212 ==

== ENCOUNTER 2024-11-05 14:45 | Outpatient (AMB) | payer OTHER, SELFPAY ==
--- NOTE | 2024-11-05 14:47 | MHC.OFFVIS ---
Intake Visit Reasons: PO RT knee 08/19/24 NE Intake Note: Radha is a 49 year old female who presents today for a post op appointment s/p RT knee 08/19/24 NE. Patient reports she is still having a lot of pain and still having some swelling on her knee. Allergies No Known Allergies [No Known Allergies*] Allergy (Verified 11/05/24 14:50) HPI HPI PO RT knee 08/19/24 NE: Details: 49-year-old female who presents in the office today 2 months status post right knee arthroscopy with chondroplasty and medial meniscectomy, which was performed on 08/19/[address] Duenas. I last saw the patient in the office on 09/24/24, when she was recommended to continue working with the physical therapy. She may take Tylenol or ibuprofen PRN for pain relief. She was using the cane to assist with the ambulation. While in the office today, the patient reports persistent severe pain and edema on her right knee. [facility] Medical History CARITO (obstructive sleep apnea) History of Helicobacter pylori infection Patellofemoral arthritis of right knee Patellofemoral arthritis of left knee Distal radius fracture, left Bilateral knee pain Fatty liver GDM (gestational diabetes mellitus) Hypertension Anxiety Depression Surgical History History of esophagogastroduodenoscopy (EGD) Hx of colonoscopy Hx of endoscopy H/O hand surgery History of open reduction and internal fixation (ORIF) procedure History of eye surgery History of hemorrhoidectomy History of back surgery Social History Household Members: Spouse and Children Are you a primary healthcare recruiter to a significant other at home: Yes Do you presently have visiting nurse or other home services: No Alcohol intake: current Alcohol intake frequency: does not drink Patient Tobacco Use Status: Never used Tobacco 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al status: unemployed 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: Right Handed Review of Systems Const All systems reviewed & are unremarkable except as noted in HPI and below Physical Exam Const General: cooperative, healthy appearing and no acute distress Resp Effort & Inspection: normal respiratory effort and able to speak in complete sentences Cardio Rate: regular rate Peripheral pulses: Peripheral pulses 2+ throughout GI Palpation (GI): Soft to palpation Skin Lesions: no lesions Rashes: no rashes Extrem Other: Right knee: Normal to inspection. No ecchymosis, erythema, or edema. ROM is 0-110 degrees. Tenderness to palpation over the medial joint line. Crepitus felt with ROM. NVI. Assessment & Plan Assessment & Plan (1) Medial meniscus tear: Code(s): S83.249A - Other tear of medial meniscus, current injury, unspecified knee, initial encounter Category: Medical (2) Osteoarthritis: Code(s): M19.90 - Unspecified osteoarthritis, unspecified site Category: Medical Plan Ms. Garcia is a 49-year-old female, who is Cymro speaking, presents in the office today 2 months status post right knee arthroscopy with chondroplasty and medial meniscectomy, which was performed on 08/19/[address] Duenas. I last saw the patient in the office on 09/24/24, when she was recommended to continue working with the physical therapy. She may take Tylenol or ibuprofen PRN for pain relief. She was using the cane to assist with the ambulation. While in the office today, the patient reports persistent severe pain and edema on her right knee. We discussed the role of gel injection versus follow-up with Dr. Duenas to discuss the additional surgical intervention. The patient is apprehensive to move forward with gel injection due to the history of receiving cortisone injection in the past without any relief. We also discussed the role of the genicular nerve block which was also discussed with my colleague Carlene HENDRICKS; however, the patient is not interested in either of these. The patient would like to discuss surgical intervention regarding a total knee arthroplasty. I did discuss with the patient that she is a bit young for this as previously discussed with Carlene HENDRICKS. The patient still would like to be seen by Dr. Duenas for further discussion. Follow-up will be with Dr. Duenas, or sooner if needed. Patient Instructions: Scribed by Ashley Drake medical sonographer, for Dang Larkin PA-C on 11/05/24 at 3:16 pm EST. Coding Level of Care Code Est Pt Level 4 (07913) Diagnoses Medial meniscus tear S83.249A Osteoarthritis M19.90
== END 2024-11-05 15:27 | disposition home or self-care (01) ==
PROVIDERS: Visit Provider Physician Assistant
DX: S83.241A Other tear of medial meniscus, current injury, right knee, initial encounter (principal); M17.0 Bilateral primary osteoarthritis of knee
CPT/HCPCS: 99024

== ENCOUNTER → 2024-11-05 14:45 | Outpatient (BNVA) | payer OTHER, SELFPAY | PROVIDERS: Visit Provider Physician Assistant | DX: S83.249D Other tear of medial meniscus, current injury, unspecified knee, subsequent encounter (principal); M19.90 Unspecified osteoarthritis, unspecified site | CPT/HCPCS: 99212 ==

== ENCOUNTER 2024-11-14 18:41 | Emergency (ER) | payer OTHER, SELFPAY ==
--- NOTE | ~2024-11-14 | CT_ITS ---
EXAMINATION: CT CHEST WITHOUT CONTRAST CLINICAL INFORMATION: foreign body esophagus? hx dilation COMPARISON: None available. TECHNIQUE: Multidetector volumetric CT imaging of the chest was done. Axial MIP volume rendering provided. Sagittal and coronal reformatted images were obtained. This CT examination was performed using dose optimization techniques as appropriate, variously including the following: *Automated exposure control *Adjustment of mA and/or kV according to patient size (this includes techniques or standardized protocols for targeted exams where dose is matched to indication/reason for exam; i.e. extremities or head) *Use of iterative reconstruction technique DLP: 361 mGy-cm FINDINGS: LUNGS: Central airways are patent. No suspicious pulmonary nodule. Left lung base calcified granuloma. No focal consolidation or mass. Dependent and bibasilar atelectasis. MEDIASTINUM: The heart is globally normal without pericardial effusion. Calcified left hilar lymph node. No mediastinal or hilar lymphadenopathy. Central vasculature is normal. Normal thyroid. CORONARY ARTERY CALCIFICATION: None visualized on this study. PLEURA: There is no pleural effusion. No pleural mass or thickening. No pneumothorax. AXILLA: No lymphadenopathy. UPPER ABDOMEN: Hepatic steatosis. OSSEOUS STRUCTURES: No acute or suspicious osseous abnormality. Mild multilevel thoracic spondylosis. CT/CT chest wo IV con IMPRESSION: 1. No radiopaque foreign body within the esophagus or visualized upper GI tract. 2. Hepatic steatosis. Fleischner guidelines were followed. Electronically signed by: Lani Lindquist DO 11/14/2024 11:04 PM [facility] Workstation: [id number]
[2024-11-14 18:55] VITALS: BP 179/90; PULSE 84; RESP 18; TEMP 36.4; O2SAT 100; BMI 41.9
--- NOTE | 2024-11-14 18:56 | ED_ITS ---
HPI - Abdominal Pain General Chief Complaint: General Medical Stated Complaint: Trouble swallowing and upper abdominal pain Time Seen by Provider: 11/14/24 20:52 Source: patient Mode of arrival: ambulatory Limitations: no limitations History of Present Illness ED Provider: Dr. Silvana Shields HPI narrative: Patient comes to the emergency room complaining of a foreign body sensation in the lower esophagus. Patient states that she has had esophageal dilations x2. Patient states that earlier today she has swallowed an ibuprofen pill in believes he got stuck. Patient states that she tried to make herself vomit but nothing came out. Patient states that any time that she eats or drinks, it feels like it the foot moves very slowly down the esophagus. Patient states that she is able to drink fluid but it feels like it gets stuck as well Related Data Home Medications ?Medication ?Instructions ?Recorded ?Confirmed loratadine [Claritin] PO 09/30/20 03/19/24 meloxicam 7.5 mg tablet 7.5 mg PO DAILY 09/30/20 03/19/24 naproxen 500 mg tablet 500 mg PO BID 09/30/20 03/19/24 propranolol 80 mg capsule,24 80 mg PO BEDTIME 09/30/20 03/19/24 hr,extended release albuterol sulfate 90 mcg/actuation 2 puff PO Q4-6H PRN wheezing 04/12/21 03/19/24 aerosol inhaler atorvastatin 40 mg tablet 40 mg PO DAILY 04/12/21 03/19/24 budesonide 90 mcg/actuation breath 2 inh PO BID 04/12/21 03/19/24 activated powder inhaler loratadine 10 mg tablet 10 mg PO DAILY PRN allergies 04/12/21 03/19/24 bupropion HCl 150 mg 24 hr tablet, 150 mg PO DAILY 08/16/22 03/19/24 extended release olmesartan 5 mg tablet 5 mg PO QAM 01/30/24 03/19/24 hydrochlorothiazide 25 mg tablet 25 mg PO DAILY 08/19/24 08/19/24 losartan 25 mg tablet 25 mg PO DAILY 08/19/24 08/19/24 Previous Rx's ?Medication ?Instructions ?Recorded linaclotide 72 mcg capsule 72 mcg PO QAM 30 days #30 caps 01/10/23 (Linzess) omeprazole 20 mg capsule,delayed 20 mg PO BID 90 days #180 caps 11/05/23 release plecanatide 3 mg tablet (Trulance) 3 mg PO DAILY 30 days #30 tabs 11/05/23 hydrocodone 5 mg-acetaminophen 325 1 tab PO Q8H PRN pain 7 days #21 08/19/24 mg tablet tabs acetaminophen 500 mg/15 mL oral 500 mg (15 mL) PO QID PRN fever or 11/14/24 liquid pain #237 mL Allergies Allergy/AdvReac Type Severity Reaction Status Date / Time No Known Allergies Allergy Verified 11/14/24 19:03 [No Known Allergies*] Review of Systems Review of Systems Constitutional : No Weight loss, No Fever, No Chills, No Night Sweats, No Fatigue, No Malaise ENT/Mouth : Complaining of a foreign body sensation in the esophagus, No Hearing loss, No Ear Pain, No Nasal Congestion, No Sinus Pain, No Hoarseness, No sore throat, No Rhinorrhea, No Swallowing Difficulty Eyes: No Eye Pain, No Swelling, No Redness, No Foreign Body, No Discharge, No Vision Changes Cardiovascular : No Chest Pain, No SOB, No Dyspnea on Exertion, No Orthopnea, No Edema, No Palpitations Respiratory : No Cough, No Sputum, No Wheezing, No Smoke Exposure, No Dyspnea Gastrointestinal : No Nausea, No Vomiting, No Diarrhea, No Constipation, No abdominal Pain, No Hematochezia, No Melena Genitourinary : no irregular bleeding, No Dysuria, No Urinary Frequency, No Hematuria, No Urinary Incontinence, No Urgency, No Flank Pain, No Urinary Flow Changes, No Hesitancy Musculoskeletal : No joint pain, No Myalgias, No Joint Swelling Skin : No Skin Lesions, No rash Neuro : No Weakness, No Numbness, No Paresthesias, No Loss of Consciousness, No Dizziness, No Headache Psych : No Anxiety/Panic, No Depression, No SI/HI/AH/VH, No Social Issues, Heme/Lymph: No Bruising, No Bleeding,No Lymphadenopathy Endocrine : No Polyuria, No Polydipsia, No Temperature Intolerance [facility] Past Medical History Medical History CARITO (obstructive sleep apnea) History of Helicobacter pylori infection Patellofemoral arthritis of right knee Patellofemoral arthritis of left knee Distal radius fracture, left Bilateral knee pain Fatty liver GDM (gestational diabetes mellitus) Hypertension Anxiety Depression Surgical History History of esophagogastroduodenoscopy (EGD) Hx of colonoscopy Hx of endoscopy H/O hand surgery History of open reduction and internal fixation (ORIF) procedure History of eye surgery History of hemorrhoidectomy History of back surgery Social History Social History Household Members: Spouse and Children Are you a primary home care companion to a significant other at home: Yes Do you presently have visiting nurse or other home services: No Alcohol intake: current Alcohol intake frequency: does not drink Patient Tobacco Use Status: Never used Tobacco Smoked in Last 30 Days: No Use of substances other than those prescribed or required for medical reasons: No Advance Directives: No Advance Directives Information Provided: No Patient : No 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al status: unemployed 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: Right Handed Physical Exam ED Vital Signs: Vital Signs - 24 hr 11/14/24 18:55 11/14/24 20:11 11/14/24 21:46 Temperature 97.6 F 97.8 F 97.8 F Pulse Rate 84 79 80 Respiratory Rate 18 16 16 Blood Pressure 179/90 H 154/98 H 151/91 H Pulse Oximetry 100 99 99 Oxygen Delivery Method Room Air Room Air Room Air BMI result Body Mass Index 41.9 Const Other: Appearance: Alert. Oriented X3. No acute distress. Well-appearing Eyes: Pupils equal, round and reactive to light. ENT: Pharynx normal. Neck: Normal inspection. Neck supple. No lymph nodes noted. No crepitus CVS: Normal heart rate and rhythm. Pulses normal. Normal S1 and S2 Respiratory: No respiratory distress. Breath sounds normal. No Wheezing. No rales Abdomen: Soft and nontender. No rigidity. No distention. Skin: Skin warm and dry. Normal skin color. Normal skin turgor. Extremities: No lower extremity edema. No Lacerations. No Rash Neuro: Oriented X 3. No motor deficit. No sensory deficit. Moving all extremities. No slurred speech. CN 2 through 12 grossly intact Psych: calm, cooperative, normal affect Course Course Course Narrative: This is a Rapid Medical Exam performed in triage by Peggy León PA-C. Full HPI, ROS and PE to be performed by primary ED provider. 49-year-old Faroese-speaking female with a past medical history of NAFL, dysphagia, GERD presenting to the ED c/o epigastric abdominal pain and difficulty swallowing x3 wks. Follows with GI Dr. Neil & has had esophageal dilations in the past. Feels like the last procedure was not done enough/correctly and is choking on her food/unable to swallow. PE: Talking in complete sentences, no respiratory distress, nontoxic appearing Plan: EKG, labs Medical Decision Making Medical Decision Making [facility] Narrative: Patient's hematology and chemistry unremarkable. Lipase normal -CT scan does not show any acute abnormality. 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 Neil -I reviewed Dr. Neil's last note of January of 2024, patient had endoscopy done in August of 2023 which showed tortuous and mildly dilated esophagus with tertiary contractions without strictures or ring, and empiric esophageal balloon dilation was performed Most likely, patient is having esophageal spasms Patient states that sometimes she has aches and pains, takes ibuprofen will get stuck, patient requesting if I can sent to her pharmacy a prescription of acetaminophen liquid form Differential Diagnosis Differential Diagnoses: The differential diagnosis associated with the presentation includes (Achalasia, esophageal narrowing, foreign body in esophagus) Admission/Observation Consideration of admission/observation: Escalation of care including admission/observation considered (Given patient's initial complaints, observation/GI consult considered) Lab Data [facility] Lab Attestation statement: I reviewed the patient's lab results. 11/14/24 19:50 11/14/24 19:50 Labs: Lab Results 11/14/24 11/14/24 Range/Units 19:50 20:24 WBC 7.5 (4.8-10.8) X10*3/uL RBC 4.52 (4.20-5.50) X10*6/uL Hgb 12.7 (12.0-16.0) g/dl Hct 37.5 (37.0-47.0) % MCV 83.0 (80.0-98.0) fL MCH 28.1 (27.0-33.0) pg MCHC 33.9 (31.0-35.0) g/dl RDW 13.1 (11.0-16.0) % Plt Count 246 (160-400) X10*3/uL MPV 9.7 (9.4-12.3) fL Immature Gran % (Auto) 0.4 (0.0-0.4) % Neut % (Auto) 51.3 (45-73) % Lymph % (Auto) 36.0 (20-40) % [place] % (Auto) 8.6 (2-11) % Eos % (Auto) 3.3 (0-4) % Baso % (Auto) 0.4 (0-2) % Lymph # (Auto) 2.7 (1.2-4.9) X10*3/uL [place] # (Auto) 0.6 (0.1-1.2) X10*3/uL Eos # (Auto) 0.3 (0.0-0.4) X10*3/uL Baso # (Auto) 0.0 (0.0-0.2) X10*3/uL Abs Immat Gran (auto) 0.03 (0.00-0.03) X10*3/uL Absolute Neuts (auto) 3.8 (2.0-8.3) x10*3/uL Absolute Nucleated RBC 0.000 (0.0-0.012) X10*3/uL Nucleated RBC % (auto) 0.0 (0.0-0.2) /100WBC Sodium 142 (135-145) mmol/L Potassium 3.8 (3.3-5.1) mmol/L Chloride 108 (96-108) mmol/L Carbon Dioxide 27 (22-29) mmol/L Anion Gap 11 L (12-20) BUN 14 (9-16) mg/dL Creatinine 0.75 (0.5-1.4) mg/dL Estim Creat Clear Calc 101.4 Estimated GFR > 60 Random Glucose 97 (60-115) mg/dL Calcium 9.3 (8.4-10.2) mg/dL Magnesium 2.4 (1.6-2.6) mg/dL Total Bilirubin 0.8 (0.0-1.0) mg/dL Direct Bilirubin 0.2 (0.0-0.5) mg/dL AST 37 H (5-31) U/L ALT 52 H (0-31) U/L Alkaline Phosphatase 102 (39-117) U/L Total Protein 7.7 (6.5-8.0) g/dL Albumin 4.5 (3.5-5.0) g/dL Lipase 16 (8-78) U/L Urine Color Yellow Urine Appearance Clear Urine pH 6.0 (5.0-9.0) Ur Specific [place] 1.010 (1.005-1.025) Urine Protein Negative (Neg-Trace) mg/dL Urine Glucose (UA) Negative (Negative) mg/dL Urine Ketones Negative (Negative) mg/dL Urine Blood Negative (Negative) Urine Nitrite Negative (Negative) Ur Leukocyte Esterase Small (1+) H (Negative) Urine RBC 0-2 (0-2) /HPF Urine WBC 0-5 (0-5) /HPF Ur Squamous Epith Cells 0-2 (0-2) /HPF Urine Bacteria None Seen (None Seen) Hyaline Casts 0-2 (0-2) /LPF Independent Interpretation I performed an independent interpretation of an: CT Scan Radiology Impression Discussion of test interpretation with radiology: I have reviewed the radiologist's reading. Radiologist Impression: LUNGS: Central airways are patent. No suspicious pulmonary nodule. Left lung base calcified granuloma. No focal consolidation or mass. Dependent and bibasilar atelectasis. MEDIASTINUM: The heart is globally normal without pericardial effusion. Calcified left hilar lymph node. No mediastinal or hilar lymphadenopathy. Central vasculature is normal. Normal thyroid. CORONARY ARTERY CALCIFICATION: None visualized on this study. PLEURA: There is no pleural effusion. No pleural mass or thickening. No pneumothorax. AXILLA: No lymphadenopathy. UPPER ABDOMEN: Hepatic steatosis. OSSEOUS STRUCTURES: No acute or suspicious osseous abnormality. Mild multilevel thoracic spondylosis. CT/CT chest wo IV con IMPRESSION: 1. No radiopaque foreign body within the esophagus or visualized upper GI tract. 2. Hepatic steatosis. Discharge Plan Discharge Clinical Impression: Esophageal spasm Patient Disposition: Home, Self-Care Instructions: Esophageal Spasm (ED) Additional Instructions: Please follow-up with your primary care physician tomorrow. If you have any worsening or new symptoms, please return to the emergency room or call 911 Prescriptions: New acetaminophen 500 mg/15 mL liquid 500 mg PO QID PRN (Reason: fever or pain) Qty: 237 1RF No Action losartan 25 mg tablet 25 mg PO DAILY hydrochlorothiazide 25 mg tablet 25 mg PO DAILY hydrocodone-acetaminophen 5-325 mg tablet 1 tab PO Q8H PRN (Reason: pain) 7 Days Qty: 21 0RF Rx Instructions: Partial Fill upon patient request. propranolol 80 mg capsule,extended release 24 hr 80 mg PO BEDTIME loratadine PO meloxicam 7.5 mg tablet 7.5 mg PO DAILY naproxen 500 mg tablet 500 mg PO BID budesonide 90 mcg/actuation aerosol powdr breath activated 2 inh PO BID loratadine 10 mg tablet 10 mg PO DAILY PRN (Reason: allergies) albuterol sulfate 90 mcg/actuation HFA aerosol inhaler 2 puff PO Q4-6H PRN (Reason: wheezing) atorvastatin 40 mg tablet 40 mg PO DAILY bupropion HCl 150 mg tablet extended release 24 hr 150 mg PO DAILY Linzess 72 mcg capsule 72 mcg PO QAM 30 Days Qty: 30 3RF Trulance 3 mg tablet 3 mg PO DAILY 30 Days Qty: 30 0RF omeprazole 20 mg capsule,delayed release(DR/EC) 20 mg PO BID 90 Days Qty: 180 1RF olmesartan 5 mg tablet 5 mg PO QAM Referrals: James Neil MD [Physician] - 11/17/24 Print Language: Faroese
--- NOTE | 2024-11-14 19:03 | ECG_ITS ---
Test Reason : ABD PAIN Blood Pressure : / mmHG Vent. Rate : 086 BPM Atrial Rate : 086 BPM P-R Int : 184 ms QRS Dur : 072 ms QT Int : 372 ms P-R-T Axes : 033 009 020 degrees QTc Int : 445 ms Normal sinus rhythm Normal ECG When compared with ECG of 25-MAR-2024 17:19, No significant change was found Referred By: Peggy León Electronically Signed By:VI YU
--- NOTE | 2024-11-14 19:46 | MHC.EDTECH ---
EKG delayed due to uncooperative previous patient
[2024-11-14 19:54] LABS: MANUAL DIFF FLAG NO
[2024-11-14 19:56] LABS: Basophils Percent Auto 0.4 % (0-2); Eosinophils Absolute Auto 0.3 X10*3/uL (0.0-0.4); Eosinophils Percent Auto 3.3 % (0-4); Hematocrit 37.5 % (37.0-47.0); Hemoglobin 12.7 g/dl (12.0-16.0); Imm Gran Abs Auto 0.03 X10*3/uL (0.00-0.03); Imm Gran Pct Auto 0.4 % (0.0-0.4); Lymphocytes Absolute Auto 2.7 X10*3/uL (1.2-4.9); Mean Corpuscular HGB Conc 33.9 g/dl (31.0-35.0); Mean Corpuscular Hemoglobin 28.1 pg (27.0-33.0); Mean Platelet Volume 9.7 fL (9.4-12.3); Monocytes Absolute Auto 0.6 X10*3/uL (0.1-1.2); Monocytes Percent Auto 8.6 % (2-11); Neutrophils Absolute Auto 3.8 x10*3/uL (2.0-8.3); Neutrophils Percent Auto 51.3 % (45-73); Platelet Count 246 X10*3/uL (160-400); Red Blood Count 4.52 X10*6/uL (4.20-5.50); Red Cell Distribution Width 13.1 % (11.0-16.0); White Blood Count 7.5 X10*3/uL (4.8-10.8)
[2024-11-14 20:10] LABS: Alanine Aminotransferase 52 U/L (0-31); Albumin Level 4.5 g/dL (3.5-5.0); Alkaline Phosphatase 102 U/L (39-117); Anion Gap 11 (12-20); Aspartate Amino Transferase 37 U/L (5-31); Bilirubin Direct 0.2 mg/dL (0.0-0.5); Bilirubin Total 0.8 mg/dL (0.0-1.0); Blood Urea Nitrogen 14 mg/dL (9-16); Calcium 9.3 mg/dL (8.4-10.2); Carbon Dioxide 27 mmol/L (22-29); Chloride 108 mmol/L (96-108); Creatinine Clr Calc Pharmacy 101.4; Estimated Glomerular Filt Rate > 60; Glucose Random 97 mg/dL (60-115); Lipase 16 U/L (8-78); Magnesium 2.4 mg/dL (1.6-2.6); Potassium 3.8 mmol/L (3.3-5.1); Sodium 142 mmol/L (135-145); Total Protein 7.7 g/dL (6.5-8.0)
[2024-11-14 20:11] VITALS: BP 154/98; PULSE 79; RESP 16; TEMP 36.6; O2SAT 99
[2024-11-14 20:37] LABS: Appearance Urine Clear; Color Urine Yellow; Glucose Urine UA Negative (Negative); Leukocyte Esterase Urine Small (1+) (Negative); Nitrite Urine Negative (Negative); UMIC TRIGGER UACC YES; Urine Blood Negative (Negative); Urine Ketones Negative (Negative); Urine Protein Negative (Neg-Trace)
[2024-11-14 20:55] LABS: Bacteria Urine None Seen (None Seen); Hyaline Casts Urine 0-2 /LPF (0-2); RBC Urine 0-2 /HPF (0-2); Squamous Epithelial Cell Urine 0-2 /HPF (0-2); UACC Culture Trigger YES; WBC Urine 0-5 /HPF (0-5)
[2024-11-14 21:46] VITALS: BP 151/91; PULSE 80; RESP 16; TEMP 36.6; O2SAT 99
[2024-11-14 23:44] VITALS: BP 158/92; PULSE 72; RESP 17; TEMP 36.7; O2SAT 97
[2024-11-14 23:48] VITALS: BP 158/92; PULSE 72; RESP 17; TEMP 36.7; O2SAT 97
== END 2024-11-14 23:48 | disposition home or self-care (01) ==
PROVIDERS: Physician Assistant; Emergency Provider Emergency Medicine
DX: K22.4 Dyskinesia of esophagus (principal); I10 Essential (primary) hypertension; Z79.899 Other long term (current) drug therapy
CPT/HCPCS: 36415; 71250; 80048; 80076; 81001; 83690; 83735; 85025; 87086; 93005; 99284

== ENCOUNTER → 2024-11-14 19:03 | Outpatient (BNV) | payer OTHER, SELFPAY | PROVIDERS: Emergency Provider Emergency Medicine; Visit Provider Internal Medicine | DX: R10.9 Unspecified abdominal pain (principal) | CPT/HCPCS: 93010 ==

== ENCOUNTER 2024-11-27 11:22 | Outpatient (REF) | payer OTHER, SELFPAY ==
[2024-11-27 13:04] LABS: MANUAL DIFF FLAG NO
[2024-11-27 13:08] LABS: Basophils Percent Auto 0.5 % (0-2); Eosinophils Absolute Auto 0.2 X10*3/uL (0.0-0.4); Eosinophils Percent Auto 3.8 % (0-4); Hematocrit 39.2 % (37.0-47.0); Hemoglobin 12.9 g/dl (12.0-16.0); Imm Gran Abs Auto 0.03 X10*3/uL (0.00-0.03); Imm Gran Pct Auto 0.5 % (0.0-0.4); Lymphocytes Absolute Auto 2.8 X10*3/uL (1.2-4.9); Lymphocytes Percent Auto 43.2 % (20-40); Mean Corpuscular HGB Conc 32.9 g/dl (31.0-35.0); Mean Corpuscular Hemoglobin 27.6 pg (27.0-33.0); Mean Corpuscular Volume 83.8 fL (80.0-98.0); Mean Platelet Volume 10.7 fL (9.4-12.3); Monocytes Absolute Auto 0.7 X10*3/uL (0.1-1.2); Monocytes Percent Auto 10.5 % (2-11); Neutrophils Absolute Auto 2.6 x10*3/uL (2.0-8.3); Neutrophils Percent Auto 41.5 % (45-73); Platelet Count 250 X10*3/uL (160-400); Red Blood Count 4.68 X10*6/uL (4.20-5.50); Red Cell Distribution Width 13.4 % (11.0-16.0); White Blood Count 6.4 X10*3/uL (4.8-10.8)
[2024-11-27 13:22] LABS: Estimated Average Glucose 117 mg/dL; Hemoglobin A1C 124.4921 umol/L; Hemoglobin A1c % 5.7 % (<6.0); Total Hemoglobin (HGBA1C) 3212.0332 umol/L
[2024-11-27 13:32] LABS: Albumin Level 4.5 g/dL (3.5-5.0); Alkaline Phosphatase 99 U/L (39-117); Anion Gap 9 (12-20); Aspartate Amino Transferase 37 U/L (5-31); Bilirubin Total 0.4 mg/dL (0.0-1.0); Blood Urea Nitrogen 16 mg/dL (9-16); C Reactive Protein < 0.10 mg/dL (< or = 0.50); Calcium 9.3 mg/dL (8.4-10.2); Carbon Dioxide 26 mmol/L (22-29); Chloride 110 mmol/L (96-108); Cholesterol 225 mg/dL (<200); Estimated Glomerular Filt Rate > 60; Glucose Random 104 mg/dL (60-115); HDL Cholesterol 44 mg/dL (>40); LDL Cholesterol Calculated 121 mg/dL (<100); Potassium 3.8 mmol/L (3.3-5.1); Sodium 141 mmol/L (135-145); Total Protein 7.6 g/dL (6.5-8.0); Triglycerides 300 mg/dL (<150)
[2024-11-27 13:41] LABS: Alanine Aminotransferase 62 U/L (0-31)
[2024-11-27 13:45] LABS: Erythrocyte Sedimentation Rate 15 MM/HR (0-20)
[2024-11-27 13:52] LABS: Rheumatoid Factor < 13.0 IU/mL (<15.0)
[2024-11-27 14:11] LABS: TSH reflex Free T4 2.78 uIU/mL (0.32-4.0); Vitamin D 25-OH Total 40.9 ng/mL (>30)
[2024-12-03 19:53] LABS: Cyclic Citrullinated Peptide <16 UNITS
== END 2024-11-27 11:23 | disposition home or self-care (01) ==
LOC: HO.HHCL 11:22
PROVIDERS: Visit Provider Registered Nurse
DX: E66.01 Morbid (severe) obesity due to excess calories (principal); Z68.41 Body mass index [BMI] 40.0-44.9, adult; R73.03 Prediabetes; M25.50 Pain in unspecified joint
CPT/HCPCS: 36415; 80053; 80061; 82306; 83036; 84443; 85025; 85652; 86140; 86200; 86431

== ENCOUNTER 2024-11-30 07:21 | Outpatient (AMB) | payer OTHER, SELFPAY ==
--- NOTE | 2024-11-30 07:24 | A.OFFVIS_ITS ---
Vital Signs 11/30/24 07:38 Height 5 ft 2 in Weight 227 lb BMI 41.5 BP 164/87 H Blood Pressure Location Lt brachial Position Sitting Pulse 69 Intake Visit Reasons: swallowing problems Intake Note: Patient ER follow up for abd pain with vomit and swallowing problems. Patient cc: swallowing problems with acid reflex. Denies any abdominal pain and vomit or any other GI issues for today visit. Patient needed refill for Omeprazole and Vit D to be send to the pharmacy.. Dethistler Operator Required: Yes Dethistler Operator Name: Drea [id number] Accompanied by: Family/Other Allergies No Known Allergies [No Known Allergies*] Allergy (Verified 11/30/24 07:26) Medication List - Last Reconciled 11/30/24 by James Neil MD acetaminophen 500 mg (15 mL) PO QID PRN albuterol sulfate 90 mcg/actuation 2 puffs PO Q4-6H PRN atorvastatin 40 mg PO DAILY budesonide 90 mcg/actuation 2 inhalations PO BID bupropion HCl XL 150 mg PO DAILY celecoxib (Celebrex) 200 mg PO BID 30 days hydrochlorothiazide 25 mg PO DAILY hydrocodone-acetaminophen 5-325 mg 1 tab PO Q8H PRN 7 days loratadine 10 mg PO DAILY PRN naproxen 500 mg PO BID olmesartan 5 mg PO QAM omeprazole 20 mg PO BID 90 days HPI HPI swallowing problems: Details: GI CLINIC VISIT FOR THIS 49-YEAR-OLD ALBANIAN-SPEAKING FEMALE FOR EVALUATION OF DYSPHAGIA AND FOLLOWUP ABDOMINAL PAIN AND BLOATING. ?CHRONIC ILLNESSES:?hyperlipidemia, depression, vertigo, GERD, hypercholesteroemia, anxiety, HTN ??TODAY'S VISIT[place] [facility] [place] [employer], Tiffani. Patient cc: swallowing problems with acid reflex. Denies any abdominal pain and vomit or any other GI issues for today visit. Patient needed refill for Omeprazole and Vit D to be send to the pharmacy. Pt is accompanied by her SO. Complains of dysphagia for the past 2 months - predominantly with solids. Notes food get moves slowly and gets stuck in the upper esophagus. Had two episodes of regurgitation for relief of dysphagia. Denies constipation at present. PAST VISITS Has not received Trulance from the pharmacy yet - I will ask GI RN to FU Feels bloated. Has a small BM daily in the morning. Has hard stools associated with straining Pt is accompanied by her Patient cc: gerd, constipation,abdominal discomfort and swallowing problems. 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 Feels something pushing when she is sitting or lying down. Pt feels Linzess is too strong - not taking it since she has diarrhea. She would like to try a different medication for constipation Taking a lower dose of Linzess and continues to have diarrhea with upto 3 BMs a day (sometimes more and sometimes less) Pt was advised to take the Linzess every other day. Notes diarrhea since she started using the Linzess - has multiple BMs from the morning till 3 pm and stops after 3 pm. Having a lot of gas and bloating. Symptoms are affecting her daily life and she is unable to go out. Throat symptoms are better Intermittent dysphagia associated with intake of solid food (mostly meat and chicken) Denies change in constipation. EGD and biopsy results were reviewed with the patient. Noted some pain for a few days after the EGD. Dysphagia has improved since EGD and dilation - only notes mild intermittent dysphagia. Sucralfate is helping with heartburn. Missed appt for barium swallow since she had COVID infection - pt advised to hold off barium swallow for now and reschedule if she noted symptoms of recurrent dysphagia. Having dysphagia with solids or liquids for the past month. Location of dysphagia - Points to the throat Notes frequent symptoms, even with water with some throat pain. Feels the food is still in the throat after she eats. Denies symptoms of dysphagia in the past. Also notes worsening heartburn No change in appetite or wt I am depressed due to bleeding. Stopped taking Senna since she felt it was causing the bleeding. Rectal bleeding subsided when she stopped taking the Senna I am still constipated and I am not bleeding any more Has a BM 1-2 times a day Fibre pills hurts her gastritis a lot. Has a lot of heartburn. Intermittent rectal bleeding associated with straining [facility]?Reviewed 08/27/19 NORMAL CBC, PLT 209, NORMAL LFTS EXCEPT ELEVATED ALT OF 49 ? H PYLORI STOOL ANTIGEN WAS POSITIVE. ? 06/11 SEROLOGIES FOR CELIAC SPRUE WAS NEGATIVE AND STOOL OCCULT BLOOD X 3 WAS NEGATIVE. ?IMAGING STUDIES: 01/22/2020 ABDOMINAL ULTRASOUND SHOWED: ? LIVER: Diffusely increased hepatic parenchymal echogenicity with a few ? areas of focal fatty sparing. Otherwise no discrete hepatic mass. ? GALLBLADDER: Normal. The gallbladder is physiologically distended ? without evidence of stones, sludge, polyps, wall thickening or ? pericholecystic fluid. ?ENDOSCOPIC STUDIES: 09/09/23 EGD AND COLON SHOWED: Endoscopy Findings: ESOPHAGUS: Tortuous and mildly dilated esophagus with tertiary contractions without stricture or ring. GE junction at 37 cms. No esophagitis or Chavez's. Empiric esophageal balloon dilation was performed with a 20 mm (60 F) CRE balloon for 60 seconds STOMACH: Mild gastric erythema. Biopsies were obtained. DUODENUM: Normal - biopsied to check for celiac sprue Colonoscopy Findings: One small polyp removed Moderate diverticulosis seen in the left colon Moderate hemorrhoids on retroflexed exam. Plan: Repeat Colonoscopy interval based on path results - in 5 years if polyps are adenomatous and 10 years if polyps are hyperplastic (adult colonoscope for future colonoscopies). Above findings were reviewed with the patient and colon polyps and diverticulosis handouts were given in the discharge area ADDENDUM: Biopsies showed: A. Small bowel, biopsy: Small bowel mucosa within normal limits; preserved v illous architecture and no increased intraepithelial lymphocytes seen. B. Stomach, biopsy: Gastric antral mucosa with mild reactive gastropathy; negative for Helicobacter pylori, intestinal metaplasia and dysplasia. C. Colon, transverse, polypectomy: Clinically polypoid colonic mucosa noted; negative for a hyperplastic or neoplastic process 02/05/22 EGD SHOWED: ESOPHAGUS: Tortuous and mildly dilated esophagus with tertiary contractions without stricture or ring. GE junction at 36 cms. No esophagitis or Chavez's. Esophageal balloon dilation was performed with a 20 mm (60 F) CRE balloon for 60 seconds STOMACH: A 1 x 2 cms elongated nodule/fold with central erosion - biopsied. Mild gastric erythema. Biopsies were obtained. Plan:? Start Sucralfate twice daily for acid reflux. Schedule a barium swallow to rule out severe GERD/achalasia. A.? Stomach, antrum, biopsy:? Gastric antral mucosa with mild chronic inactive gastritis; negative for Helicobacter pylori, intestinal metaplasia and dysplasia. B.? Stomach, nodules, biopsy:? Gastric antral mucosa with reactive gastropathy and patchy mild chronic inflammation; negative for Helicobacter pylori, int estinal metaplasia and dysplasia.? C.? Esophagus, proximal, biopsy:? Squamous mucosa within normal limits; negative for inflammation (including eosinophils), fungal organisms, intestinal metaplasia and dysplasia. [facility] Medical History CARITO (obstructive sleep apnea) History of Helicobacter pylori infection Patellofemoral arthritis of right knee Patellofemoral arthritis of left knee Distal radius fracture, left Bilateral knee pain Fatty liver GDM (gestational diabetes mellitus) Hypertension Anxiety Depression Surgical History History of esophagogastroduodenoscopy (EGD) Hx of colonoscopy Hx of endoscopy H/O hand surgery History of open reduction and internal fixation (ORIF) procedure History of eye surgery History of hemorrhoidectomy History of back surgery Social History Household Members: Spouse and Children Are you a primary healthcare or medical to a significant other at home: Yes Do you presently have visiting nurse or other home services: No Alcohol intake: current Alcohol intake frequency: does not drink Patient Tobacco Use Status: Never used Tobacco 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al status: unemployed 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: Right Handed Review of Systems Const All systems reviewed & are unremarkable except as noted in HPI and below Physical Exam Vital Signs: Last Vital Signs Pulse 69 11/30/24 07:38 BP 164/87 H 11/30/24 07:38 BMI result Body Mass Index 41.5 Const General: healthy appearing and no acute distress Nutritional Appearance: obese Orientation/consciousness: patient oriented x3 Limitations: language barrier HEENT Head: Yes normal to inspection Ears: hearing grossly normal bilaterally Eyes Sclerae: sclerae normal Pupils: Equal, round and reactive pupils present Neck Neck: Yes normal visual inspection Chest Chest palpation & inspection: normal inspection of the chest Resp Effort & Inspection: normal respiratory effort Auscultation: clear to auscultation bilaterally Cardio Palpation: normal PMI Rate: regular rate Rhythm: regular rhythm Heart sounds: S1 normal heart sound present, S2 normal heart sound present and no murmurs GI Palpation (GI): Soft to palpation, nontender and No hepatosplenomegaly present Auscultation: normal bowel sounds Rectal Exam - Female: deferred Skin General skin exam: no rashes or lesions noted Neuro General: patient oriented x3, gait normal and moves all extremities Cranial nerves: Yes Equal, round and reactive pupils present Psych Appearance: grossly normal Mental Status: mental status grossly normal Assessment & Plan Assessment & Plan (1) Hemorrhoids, internal, with bleeding: Code(s): K64.8 - Other hemorrhoids Category: Medical (2) GERD (gastroesophageal reflux disease): Code(s): K21.9 - Gastro-esophageal reflux disease without esophagitis Category: Medical (3) Generalized abdominal pain: Code(s): R10.84 - Generalized abdominal pain Category: Medical (4) Abdominal bloating: Code(s): R14.0 - Abdominal distension (gaseous) Category: Medical (5) Colon cancer screening: Comment: 06/20/20 Two polyps were removed during colonoscopy. Colon prep was fair to poor - 60% to 70% of the mucosa was visualized. Pt was advised to have a stool FIT test checked. If FIT test is negative, repeat colonoscopy can be performed in 5 yrs with more aggressive prep and advice to pt to follow prep instructions - action set in [facility] Code(s): Z12.11 - Encounter for screening for malignant neoplasm of colon Category: Medical (6) Chronic constipation: Code(s): K59.09 - Other constipation Category: Medical (7) NAFL (nonalcoholic fatty liver): Code(s): K76.0 - Fatty (change of) liver, not elsewhere classified Category: Medical (8) Dysphagia, pharyngoesophageal phase: Code(s): R13.14 - Dysphagia, pharyngoesophageal phase Category: Medical Plan 49 YF with hyperlipidemia, depression, vertigo, GERD, hypercholesteroemia, anxiety, HTN seen for evaluation of abdominal pain with bloating, persistent Helicobacter pylori infection and chronic constipation. Abdominal pain and bloating is likely due to Helicobacter pylori gastritis, constipation predominant IBS, small bowel bacterial overgrowth or peptic ulcer disease associated with NSAID use. Patient was advised to stop ibuprofen and switch to acetaminophen. Pt was re- treated for H Pylori infection in Nov, 2019. 06/20/2020 EGD?showed diffuse gastric erythema and multiple 10-12 mm benign appearing nodules with central erosion. Gastric biopsies were negative for Helicobacter pylori and duodenal biopsies were negative for celiac sprue. Two polyps were removed during same-day colonoscopy - biopsies showed prominent lymphoid aggregate without dysplasia. Colon prep was fair to poor - 60% to 70% of the mucosa was visualized. Repeat Colonoscopy is advised in 3 yrs (05/2023) with more aggressive prep and advice to pt to follow prep instructions. Pt complains of worsening heartburn and dysphagia to solids and liquids for the past month. 01/2022 upper endoscopy was performed and findings as noted above Offered further evaluation with a barium swallow in patient would like to hold off for now and follow her symptoms.? 07/2022 Pt was advised a trail of Linzess 145 mcg daily for constipation. 01/10/23 Notes diarrhea since she started using the Linzess - has multiple BMs from the morning till 3 pm and stops after 3 pm. Having a lot of gas and bloating. Symptoms are effecting her daily life and she is unable to go out. Pt advised to decrease Linzess to 72 mcg daily (from 145 mcg) and take simethicone for gas and bloating 02/21/23 Pt was advised to: 1. Take Linzess 72 mcg every other day 2. Increase Simethicone to 2 tab TID for bloating. 3. Schedule an EGD (dysphagia) and colonoscopy since prep during last colonosc opy was suboptimal 11/05/23 Continues to have constipation - has a BM once a week Notes bleeding after a BM. Feels something pushing when she is sitting or lying down. Pt feels Linzess is too strong - not taking it since she has diarrhea. She would like to try a different medication for constipation - she was switched to Trulance 3 mg daily Patient will be scheduled for a barium swallow for evaluation of dysphagia - no stricture was seen on recent EGD. Patient was advised to use hydrocortisone cream for hemorrhoids. 01/30/24 Has not received Trulance from the pharmacy yet - I will ask GI RN to FU Feels bloated. Has a small BM daily in the morning. Has hard stools associated with straining Pt was advised to start a clear liquid diet in the am and take Dulcolax 2 tab PO in the am (pt reports good results with Dulcolax in the past). 11/30/24 - schedule barium swallow for evaluation of dysphagia EGD FOLLOW-UP IN 10 WEEKS - HAS APPT ON 02/18/25 Orders: Orders [place] barium swallow Today R13.14 - Dysphagia, pharyngoesophageal phase Medications: New cholecalciferol (vitamin D3) 250 mcg PO 2XW 90 days 26 caps 1RF E55.9 - Vitamin D deficiency, unspecified Refilled omeprazole 20 mg PO BID 90 days 180 caps 1RF K21.9 - Gastro-esophageal reflux disease without esophagitis Coding Level of Care Code Est Pt Level 4 (96607) Diagnoses Hemorrhoids, internal, with bleeding K64.8 GERD (gastroesophageal reflux disease) K21.9 Generalized abdominal pain R10.84 Abdominal bloating R14.0 Colon cancer screening Z12.11 Chronic constipation K59.09 NAFL (nonalcoholic fatty liver) K76.0 Dysphagia, pharyngoesophageal phase R13.14 Time Spent (min) 24
[2024-11-30 07:38] VITALS: BP 164/87; PULSE 69; BMI 41.5
== END 2024-11-30 08:16 | disposition home or self-care (01) ==
PROVIDERS: Visit Provider Internal Medicine Gastroenterology
DX: R13.14 Dysphagia, pharyngoesophageal phase (principal); K64.8 Other hemorrhoids; K21.9 Gastro-esophageal reflux disease without esophagitis; R10.84 Generalized abdominal pain; R14.0 Abdominal distension (gaseous); K59.09 Other constipation; K76.0 Fatty (change of) liver, not elsewhere classified
CPT/HCPCS: 99214

== ENCOUNTER → 2024-11-30 07:21 | Outpatient (BNVA) | payer OTHER, SELFPAY | PROVIDERS: Visit Provider Internal Medicine Gastroenterology | DX: Z12.11 Encounter for screening for malignant neoplasm of colon (principal); K64.8 Other hemorrhoids; K21.9 Gastro-esophageal reflux disease without esophagitis; K59.09 Other constipation; K76.0 Fatty (change of) liver, not elsewhere classified; R10.84 Generalized abdominal pain; R14.0 Abdominal distension (gaseous); R13.14 Dysphagia, pharyngoesophageal phase | CPT/HCPCS: 99212 ==

== ENCOUNTER 2024-12-07 13:27 | Outpatient (AMB) | payer OTHER, SELFPAY ==
--- NOTE | 2024-12-07 13:30 | A.OFFVIS_ITS ---
Intake Visit Reasons: OV- Right Knee OA - Discuss TKA Intake Note: Radha is a 49 year old female who presents today for a follow up of her right knee, History of Right knee 08/19/24 NE. Patient was previously offered and declined Gel Injections as well a Geniculate Nerve Blocks. Patient would like to discuss Right TKA today. Patient has been going to PT which has been helpful. She is using a cane to aid with ambulation. Patient states it is most painful to walk and use stairs. 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 Patient was previously offered and declined Gel Injections as well a Geniculate Nerve Blocks. Patient would like to discuss Right TKA today. Patient has been going to PT which has been helpful. She is using a cane to aid with ambulation. Patient states it is most painful to walk and use stairs. The surgery we performed on her right knee was very helpful with respect to the sharp medial meniscal type pain but she still has swelling and pain that relates to the osteoarthritis. She states this causes her difficulty sleeping night and pain with walking. She does, however, feel much better than she did before the surgery. With respect to her left knee she has been having sharp medial-sided left knee pain for the last 6 months as well. [facility] Medical History CARITO (obstructive sleep apnea) History of Helicobacter pylori infection Patellofemoral arthritis of right knee Patellofemoral arthritis of left knee Distal radius fracture, left Bilateral knee pain Fatty liver GDM (gestational diabetes mellitus) Hypertension Anxiety Depression Surgical History History of esophagogastroduodenoscopy (EGD) Hx of colonoscopy Hx of endoscopy H/O hand surgery History of open reduction and internal fixation (ORIF) procedure History of eye surgery History of hemorrhoidectomy History of back surgery Social History Household Members: Spouse and Children 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 Mild effusion. Negative Sam's. Left knee with tenderness to palpation medial joint line and positive medial Sam's. Assessment & Plan Assessment & Plan (1) Internal derangement of left knee: Code(s): M23.92 - Unspecified internal derangement of left knee Category: Medical Plan: Internal derangement of the left knee. She has had injections and therapy and it is persistent and I recommend an MRI of her left knee. (2) Osteoarthritis of right knee: Code(s): M17.11 - Unilateral primary osteoarthritis, right knee Category: Medical Plan: Intraoperative findings of arthritis. Meniscal pain is gone after surgery. I recommend viscosupplementation as steroid injections have not been helpful. Orders: Orders MR knee LT wo con Today M23.92 - Unspecified internal derangement of left knee Coding Level of Care Code Est Pt Level 4 (12315) Diagnoses Internal derangement of left knee M23.92 Osteoarthritis of right knee M17.11
== END 2024-12-07 14:09 | disposition home or self-care (01) ==
PROVIDERS: Visit Provider Orthopaedic Surgery
DX: M23.92 Unspecified internal derangement of left knee (principal); M17.11 Unilateral primary osteoarthritis, right knee
CPT/HCPCS: 99214

== ENCOUNTER → 2024-12-07 13:27 | Outpatient (BNVA) | payer OTHER, SELFPAY | PROVIDERS: Visit Provider Orthopaedic Surgery | DX: M23.92 Unspecified internal derangement of left knee (principal); M17.11 Unilateral primary osteoarthritis, right knee | CPT/HCPCS: 99212 ==

== ENCOUNTER 2024-12-08 19:39 | Outpatient (REF) | payer OTHER, SELFPAY ==
--- NOTE | ~2024-12-08 | MR_ITS ---
CLINICAL HISTORY: M23.92 - Unspecified internal derangement of left knee MR left knee without gadolinium Comparison: Knee radiographs 03/19/2024 Findings: No fractures. No pathologic bone lesions. The anterior cruciate, posterior cruciate , medial and lateral collateral ligaments are intact There is significant osteoarthrosis within the medial compartment of the knee with medial tibial plateau and medial femoral articular and likely osteochondral defects. There is minimal subchondral marrow edema. There are medial compartmental osteophytes. There is deformity with complex increased signal within the posterior horn of the medial meniscus which extends to the articular surface. There is also deformity flattening mild complex increased signal within the anterior horn. There are small osteophytes within the lateral compartment. There are likely small lateral tibial plateau and femoral articular defects. There is minimal small subchondral marrow edema within the lateral tibial plateau , possible small osteochondral defect. There is increased signal within the anterior and posterior horns of the lateral meniscus with increased signal within the anterior horn extending towards the inferior articular surface. There is mild increased T2 signal within the medial collateral ligament. There is also increased T2 signal deep to the medial collateral ligament and adjacent to the medial collateral ligament within the soft tissues. There are large patellar cartilage defects which extends to the subchondral bone with minimal subchondral marrow edema. There are patellar osteophytes. There are small opposing femoral osteophytes. The medial and lateral patellar retinaculum are intact. There is mild prepatellar subcutaneous edema. There is a small suprapatellar effusion. There is increased T2 signal within Hoffa's fat pad and mild stranding. There is small suprapatellar effusion. There are several benign cysts and cyst-like fluid collections within the medial and lateral compartments of the knee. There is likely parameniscal cyst contiguous to the posterior horn lateral meniscus and/or ganglion cyst which extends posterolateral to the tibia There is popliteal cyst, likely dissecting popliteal cyst . There is likely medial collateral ligament bursitis, likely semimembranous tibial collateral ligament bursitis possible small ganglion cyst within the medial compartment as well IMPRESSION: Moderate osteoarthrosis within the medial compartment of the knee with osteophyte formation articular and likely small osteochondral lesions of the medial femoral condyle and medial tibial plateau Significant degeneration of the anterior and posterior horns medial meniscus with complex degenerative tear posterior horn medial meniscus likely degenerative tear anterior horn medial meniscus Degeneration anterior and posterior horns of the lateral meniscus possible tear anterior horn lateral meniscus [id number] osteoarthrosis within the lateral compartment with articular defects distal tibia and adjacent femur possible small osteochondral defects lateral tibial plateau, Grade 4 chondromalacia patella Mild prepatellar edema possible mild prepatellar bursitis small suprapatellar effusion Mild edema and stranding within the Hoffa's fat pad likely hoffitis Benign cysts and cyst-like lesions within the medial and lateral compartments of the knee as above This document has been electronically signed by: Jorge Villeda MD on 12/10/2024 05:32:58
== END 2024-12-08 19:40 | disposition home or self-care (01) ==
LOC: HO.MRI 19:39
PROVIDERS: PCP Registered Nurse; Visit Provider Orthopaedic Surgery
DX: M23.92 Unspecified internal derangement of left knee (principal)
CPT/HCPCS: 73721

== ENCOUNTER → 2024-12-08 19:54 | Outpatient (BNV) | payer OTHER, SELFPAY | PROVIDERS: PCP Registered Nurse; Visit Provider Radiology Diagnostic Radiology | DX: M17.12 Unilateral primary osteoarthritis, left knee (principal); M25.762 Osteophyte, left knee; M22.42 Chondromalacia patellae, left knee | CPT/HCPCS: 73721 ==

== ENCOUNTER 2024-12-17 15:09 | Outpatient (REF) | payer OTHER, SELFPAY ==
[2024-12-21 03:23] LABS: TS Negative Control Passed; TS Panel A 0; TS Panel B 0; TS Positive Control Passed; TSpotTB Negative (Negative)
== END 2024-12-17 15:10 | disposition home or self-care (01) ==
LOC: HO.HHCL 15:09
PROVIDERS: Visit Provider Internal Medicine
DX: Z11.1 Encounter for screening for respiratory tuberculosis (principal)
CPT/HCPCS: 36415; 86481

== ENCOUNTER 2025-01-14 11:15 | Outpatient (RCR) | payer OTHER, SELFPAY ==
--- NOTE | 2025-02-04 11:41 | MHC.PT.DC ---
[facility] [place] Office [place] Office [place] Office [address] Booker Jones [address] [phone] F: [phone] F: [phone] F: [phone] F: [phone] Physical Therapy Discharge Report Diagnosis: S/P RIGHT CHONROPLASTY AND PARTIAL MEDIAL MENISCECTOMY BY NE (JENNIFER) Date of Surgery: 08/19/24 Date of Evaluation: 09/03/24 Date of Discharge: 01/25/25 Treatments to Date: 18 Cancellations to Date: 2 No Shows to Date: 1 Discharge Status: Discharge Summary: Pt had been progressing with ROM and strength in PT although pain levels remained high. Contralateral knee also with increasing pain. Pt was encouraged to follow up with ortho has appropriate, Cancelled/No showed for last two scheduled visits Electronically signed by: Luzmaria Lemus PT DPT Please sign and return to therapist. Thank you for your referral.
== END 2025-02-04 11:41 | disposition home or self-care (01) ==
LOC: HO.PT 11:15
PROVIDERS: PCP Registered Nurse; Visit Provider Physician Assistant
DX: S83.241D Other tear of medial meniscus, current injury, right knee, subsequent encounter (principal)
CPT/HCPCS: 97014; 97110; 97116; 97140; 97161; 97530; 97535

== ENCOUNTER 2025-02-15 09:37 | Outpatient (REF) | payer OTHER, SELFPAY ==
--- NOTE | ~2025-02-15 | FL_ITS ---
EXAMINATION: XR FLUOROSCOPY ESOPHAGRAM CLINICAL INFORMATION: 49-year-old female complaining of episodic dysphasia, pharyngeal esophageal phase. History of esophageal dilatation. Patient states episode of pills getting stuck in the mid esophagus. COMPARISON: No prior available for direct comparison. Correlation made with CT chest 11/14/2024. TECHNIQUE: Fluoroscopic air contrast upper GI examination was performed utilizing standard techniques with thin and thick barium and effervescent granules. Numerous spot images were obtained. Several fluoroscopic image hold cine sequences were also obtained. FINDINGS: UPPER GI SERIES: Lateral cine images of the oropharynx and hypopharynx demonstrate normal swallow mechanism with normal epiglottic inversion and soft palate elevation. No tracheal penetration, glottic or subglottic aspiration identified. No nasopharyngeal reflux present. Hypopharyngeal structures appear normal without evidence of mass or diverticulum. There was no significant cricopharyngeal achalasia. Dual and single contrast images of the esophagus demonstrate normal caliber, contour, and mucosal pattern. No evidence of stricture, mass, or ulcerations identified. Esophageal peristalsis was moderately disordered. No evidence of hiatus hernia identified. GE junction has a normal appearance. There was mild gastroesophageal reflux identified during the exam. Dual contrast and single contrast images of the stomach demonstrated normal rugal fold pattern, normal contour and mucosal pattern without evidence of mass, ulceration, or other abnormality. Contrast freely passed into the gastric antrum and duodenal bulb without delay. Single and air-contrast images of the duodenal bulb demonstrate no abnormality. The duodenal sweep has a normal appearance, course, and mucosal fold appearance. Incidental note made of mild to moderately elevated right hemidiaphragm. FLUOROSCOPY TIME: 3 minutes, 35 seconds Number of Spot Images:11 Number of cines obtained: 18 DOSE AREA PRODUCT: [id number] uGy-m2 (microgray-meter squared) FL/FL barium swallow with air IMPRESSION: 1. Moderately disordered esophageal peristalsis. No esophageal stricture identified. 2. Mild gastroesophageal reflux identified during the course of the exam. 3. Otherwise, normal esophagram. Electronically signed by: Kirit Peterson MD 02/15/2025 10:56 AM EDT
== END 2025-02-15 09:38 | disposition home or self-care (01) ==
LOC: HO.XRAY 09:37
PROVIDERS: PCP Registered Nurse; Visit Provider Internal Medicine Gastroenterology
DX: R13.14 Dysphagia, pharyngoesophageal phase (principal)
CPT/HCPCS: 74221

== ENCOUNTER → 2025-02-15 09:38 | Outpatient (BNV) | payer OTHER, SELFPAY | PROVIDERS: PCP Registered Nurse; Visit Provider Radiology Diagnostic Radiology | DX: R13.10 Dysphagia, unspecified (principal) | CPT/HCPCS: 74221 ==

== ENCOUNTER 2025-02-15 12:41 | Outpatient (AMB) | payer OTHER, SELFPAY ==
[2025-02-15 13:09] VITALS: BMI 41.5
--- NOTE | 2025-02-15 13:09 | MHC.OFFVIS ---
Vital Signs 02/15/25 13:09 Height 5 ft 2 in Weight 227 lb BMI 41.5 Intake Visit Reasons: OV- Left knee MRI review, s/p PT Intake Note: Radha is a 49 year old female who presents today for a Left knee MRI Review. She has tried and failed injections and PT. IMPRESSION: Moderate osteoarthrosis within the medial compartment of the knee with osteophyte formation articular and likely small osteochondral lesions of the medial femoral condyle and medial tibial plateau Significant degeneration of the anterior and posterior horns medial meniscus with complex degenerative tear posterior horn medial meniscus likely degenerative tear anterior horn medial meniscus Degeneration anterior and posterior horns of the lateral meniscus possible tear anterior horn lateral meniscus [id number] osteoarthrosis within the lateral compartment with articular defects distal tibia and adjacent femur possible small osteochondral defects lateral tibial plateau, Grade 4 chondromalacia patella Mild prepatellar edema possible mild prepatellar bursitis small suprapatellar effusion Mild edema and stranding within the Hoffa's fat pad likely hoffitis Benign cysts and cyst-like lesions within the medial and lateral compartments of the knee as above Allergies No Known Allergies [No Known Allergies*] Allergy (Verified 02/15/25 13:09) HPI HPI OV- Left knee MRI review, s/p PT: Details: Radha is a 49 year old female who presents today for a Left knee MRI Review. She has tried and failed injections and PT. she continues to have sharp medial sided left knee pain. She has pain with twisting. She had a right knee arthroscopy done in the past which was extremely helpful. FORMERLY [facility] Medical History CARITO (obstructive sleep apnea) History of Helicobacter pylori infection Patellofemoral arthritis of right knee Patellofemoral arthritis of left knee Distal radius fracture, left Bilateral knee pain Fatty liver GDM (gestational diabetes mellitus) Hypertension Anxiety Depression Surgical History History of esophagogastroduodenoscopy (EGD) Hx of colonoscopy Hx of endoscopy H/O hand surgery History of open reduction and internal fixation (ORIF) procedure History of eye surgery History of hemorrhoidectomy History of back surgery Social History Household Members: Spouse and Children Are you a primary long term care administrator to a significant other at home: Yes Do you presently have visiting nurse or other home services: No Alcohol intake: current Alcohol intake frequency: does not drink Patient Tobacco Use Status: Never used Tobacco 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al status: unemployed 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: Right Handed Physical Exam Vital Signs: BMI result Body Mass Index 41.5 Extrem Other: Portals clean dry and intact right knee. Mild effusion. Negative Sam's. Left knee with tenderness to palpation medial joint line and positive medial Sam's. Results Reviewed Results Reviewed: I personally reviewed the MR images. IMPRESSION: Moderate osteoarthrosis within the medial compartment of the knee with osteophyte formation articular and likely small osteochondral lesions of the medial femoral condyle and medial tibial plateau Significant degeneration of the anterior and posterior horns medial meniscus with complex degenerative tear posterior horn medial meniscus likely degenerative tear anterior horn medial meniscus Degeneration anterior and posterior horns of the lateral meniscus possible tear anterior horn lateral meniscus [id number] osteoarthrosis within the lateral compartment with articular defects distal tibia and adjacent femur possible small osteochondral defects lateral tibial plateau, Grade 4 chondromalacia patella Mild prepatellar edema possible mild prepatellar bursitis small suprapatellar effusion Mild edema and stranding within the Hoffa's fat pad likely hoffitis Benign cysts and cyst-like lesions within the medial and lateral compartments of the knee as above Assessment & Plan Assessment & Plan (1) Medial meniscus tear: Code(s): S83.249A - Other tear of medial meniscus, current injury, unspecified knee, initial encounter Category: Medical Plan: This is a 49-year-old woman with a left knee medial meniscus tear in the setting of degenerative [id number] osteoarthritis. I discussed with her treatment options. She feels strongly that she would benefit from arthroscopy as she had a similar situation on the contralateral knee and did very well. I did discuss with her that our knee arthroscopy in the setting of arthritis may not be beneficial but her symptoms are medial and they do seem related to the meniscus (IE sharp with twisting). I discussed the risks, benefits and alternatives including to, but not limited to, the risk of incomplete symptom resolution, swelling, pain, need for additional surgery as well as medical complications associated with surgery. This is a knee arthroscopy so I anticipate relatively low risk. She expressed understanding and we will proceed forward accordingly. Coding Level of Care Code Est Pt Level 4 (00997) Diagnoses Medial meniscus tear S83.108G
== END 2025-02-15 13:51 | disposition home or self-care (01) ==
LOC: HO.HOS 12:41
PROVIDERS: PCP Registered Nurse; Visit Provider Orthopaedic Surgery
DX: S83.242A Other tear of medial meniscus, current injury, left knee, initial encounter (principal)
CPT/HCPCS: 99214

== ENCOUNTER 2025-02-18 07:40 | Outpatient (AMB) | payer OTHER, SELFPAY ==
--- NOTE | 2025-02-18 07:44 | MHC.OFFVIS ---
Vital Signs 02/18/25 07:45 Height 5 ft 2 in Weight 228 lb BMI 41.7 BP 148/92 H Blood Pressure Location Lt brachial Position Sitting Pulse 72 Intake Visit Reasons: follow up Esophageal spasm Intake Note: Patient follow up for abdominal bloating and Barrium swallow results. Patient cc: acid reflex with burning sensation. Denies any other GI issues. Montessori Paraprofessional Required: No Montessori Paraprofessional Name: daughter Accompanied by: Self / Same As Patient Allergies No Known Allergies (No Known Allergies*) Allergy (Verified 12/02/25 09:57) Medication List - Last Reconciled 02/18/25 by James Neil MD acetaminophen 500 mg (15 mL) PO QID PRN albuterol sulfate 90 mcg/actuation 2 puffs PO Q4-6H PRN atorvastatin 40 mg PO DAILY budesonide 90 mcg/actuation 2 inhalations PO BID bupropion HCl XL 150 mg PO DAILY celecoxib (Celebrex) 200 mg PO BID 30 days cholecalciferol (vitamin D3) 250 mcg PO 2XW 90 days hydrochlorothiazide 25 mg PO DAILY loratadine 10 mg PO DAILY PRN olmesartan 5 mg PO QAM omeprazole 20 mg PO BID 90 days HPI HPI follow up Esophageal spasm: Details: GI CLINIC VISIT FOR THIS 49-YEAR-OLD DUTCH-SPEAKING FEMALE FOR EVALUATION OF DYSPHAGIA AND FOLLOWUP ABDOMINAL PAIN AND BLOATING. CHRONIC ILLNESSES:?hyperlipidemia, depression, vertigo, GERD, hypercholesteroemia, anxiety, HTN TODAY'S VISIT: [facility] [facility]. Patient follow up for abdominal bloating and Barrium swallow results. Patient reports acid reflex with burning sensation. Pt is accompanied by her SO. Complains of dysphagia for the past 2 months - predominantly with solids. Notes food get moves slowly and gets stuck in the upper esophagus. Had two episodes of regurgitation for relief of dysphagia. Denies constipation at present. PAST VISITS Patient reports swallowing problems with acid reflex. Denies abdominal pain and vomitting for today visit. Patient needed refill for Omeprazole and Vit D to be send to the pharmacy. Has not received Trulance from the pharmacy yet - I will ask GI RN to FU Feels bloated. Has a small BM daily in the morning. Has hard stools associated with straining Pt is accompanied by her Patient cc: gerd, constipation,abdominal discomfort and swallowing problems. 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 Feels something pushing when she is sitting or lying down. Pt feels Linzess is too strong - not taking it since she has diarrhea. She would like to try a different medication for constipation Taking a lower dose of Linzess and continues to have diarrhea with upto 3 BMs a day (sometimes more and sometimes less) Pt was advised to take the Linzess every other day. Notes diarrhea since she started using the Linzess - has multiple BMs from the morning till 3 pm and stops after 3 pm. Having a lot of gas and bloating. Symptoms are affecting her daily life and she is unable to go out. Throat symptoms are better Intermittent dysphagia associated with intake of solid food (mostly meat and chicken) Denies change in constipation. EGD and biopsy results were reviewed with the patient. Noted some pain for a few days after the EGD. Dysphagia has improved since EGD and dilation - only notes mild intermittent dysphagia. Sucralfate is helping with heartburn. Missed appt for barium swallow since she had COVID infection - pt advised to hold off barium swallow for now and reschedule if she noted symptoms of recurrent dysphagia. Having dysphagia with solids or liquids for the past month. Location of dysphagia - Points to the throat Notes frequent symptoms, even with water with some throat pain. Feels the food is still in the throat after she eats. Denies symptoms of dysphagia in the past. Also notes worsening heartburn No change in appetite or wt I am depressed due to bleeding. Stopped taking Senna since she felt it was causing the bleeding. Rectal bleeding subsided when she stopped taking the Senna I am still constipated and I am not bleeding any more Has a BM 1-2 times a day Fibre pills hurts her gastritis a lot. Has a lot of heartburn. Intermittent rectal bleeding associated with straining ?LABS IN [facility]:?Reviewed 08/27/19 NORMAL CBC, PLT 209, NORMAL LFTS EXCEPT ELEVATED ALT OF 49 ? H PYLORI STOOL ANTIGEN WAS POSITIVE. ? 06/11 SEROLOGIES FOR CELIAC SPRUE WAS NEGATIVE AND STOOL OCCULT BLOOD X 3 WAS NEGATIVE. ?IMAGING STUDIES: 01/22/2020 ABDOMINAL ULTRASOUND SHOWED: ? LIVER: Diffusely increased hepatic parenchymal echogenicity with a few ? areas of focal fatty sparing. Otherwise no discrete hepatic mass. ? GALLBLADDER: Normal. The gallbladder is physiologically distended ? without evidence of stones, sludge, polyps, wall thickening or ? pericholecystic fluid. ?ENDOSCOPIC STUDIES: 09/09/23 EGD AND COLON SHOWED: Endoscopy Findings: ESOPHAGUS: Tortuous and mildly dilated esophagus with tertiary contractions without stricture or ring. GE junction at 37 cms. No esophagitis or Chavez's. Empiric esophageal balloon dilation was performed with a 20 mm (60 F) CRE balloon for 60 seconds STOMACH: Mild gastric erythema. Biopsies were obtained. DUODENUM: Normal - biopsied to check for celiac sprue Colonoscopy Findings: One small polyp removed Moderate diverticulosis seen in the left colon Moderate hemorrhoids on retroflexed exam. Plan: Repeat Colonoscopy interval based on path results - in 5 years if polyps are adenomatous and 10 years if polyps are hyperplastic (adult colonoscope for future colonoscopies). Above findings were reviewed with the patient and colon polyps and diverticulosis handouts were given in the discharge area ADDENDUM: Biopsies showed: A. Small bowel, biopsy: Small bowel mucosa within normal limits; preserved villous architecture and no increased intraepithelial lymphocytes seen. B. Stomach, biopsy: Gastric antral mucosa with mild reactive gastropathy; negative for Helicobacter pylori, intestinal metaplasia and dysplasia. C. Colon, transverse, polypectomy: Clinically polypoid colonic mucosa noted; negative for a hyperplastic or neoplastic process 02/05/22 EGD SHOWED: ESOPHAGUS: Tortuous and mildly dilated esophagus with tertiary contractions without stricture or ring. GE junction at 36 cms. No esophagitis or Chavez's. Esophageal balloon dilation was performed with a 20 mm (60 F) CRE balloon for 60 seconds STOMACH: A 1 x 2 cms elongated nodule/fold with central erosion - biopsied. Mild gastric erythema. Biopsies were obtained. Plan:? Start Sucralfate twice daily for acid reflux. Schedule a barium swallow to rule out severe GERD/achalasia. A.? Stomach, antrum, biopsy:? Gastric antral mucosa with mild chronic inactive gastritis; negative for Helicobacter pylori, intestinal metaplasia and dysplasia. B.? Stomach, nodules, biopsy:? Gastric antral mucosa with reactive gastropathy and patchy mild chronic inflammation; negative for Helicobacter pylori, intestinal metaplasia and dysplasia.? C.? Esophagus, proximal, biopsy:? Squamous mucosa within normal limits; negative for inflammation (including eosinophils), fungal organisms, intestinal metaplasia and dysplasia PFSH Medical History CARITO (obstructive sleep apnea) History of Helicobacter pylori infection Patellofemoral arthritis of right knee Patellofemoral arthritis of left knee Distal radius fracture, left Bilateral knee pain Fatty liver GDM (gestational diabetes mellitus) Hypertension Anxiety Depression Surgical History History of esophagogastroduodenoscopy (EGD) Hx of colonoscopy Hx of endoscopy H/O hand surgery History of open reduction and internal fixation (ORIF) procedure History of eye surgery History of hemorrhoidectomy History of back surgery Social History Household Members: Spouse and Children Are you a primary animal caregiver to a significant other at home: No Do you presently have visiting nurse or other home services: No Alcohol intake: current Alcohol intake frequency: does not drink Patient Tobacco Use Status: Never used Tobacco 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al status: unemployed 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: Right Handed Review of Systems Const All systems reviewed & are unremarkable except as noted in HPI and below Physical Exam Vital Signs: Last Vital Signs Pulse 72 02/18/25 07:45 BP 148/92 H 02/18/25 07:45 BMI result Body Mass Index 41.7 Const General: no acute distress Nutritional Appearance: obese Orientation/consciousness: patient oriented x3 Limitations: language barrier HEENT Head: Yes normal to inspection Ears: hearing grossly normal bilaterally Eyes Sclerae: sclerae normal Pupils: Equal, round and reactive pupils present Neck Neck: Yes normal visual inspection Chest Chest palpation & inspection: normal inspection of the chest Resp Effort & Inspection: normal respiratory effort Auscultation: clear to auscultation bilaterally Cardio Palpation: normal PMI Rate: regular rate Rhythm: regular rhythm Heart sounds: S1 normal heart sound present, S2 normal heart sound present and no murmurs GI Palpation (GI): Soft to palpation, nontender and No hepatosplenomegaly present Auscultation: normal bowel sounds Rectal Exam - Female: deferred Skin General skin exam: no rashes or lesions noted Neuro General: patient oriented x3, gait normal and moves all extremities Cranial nerves: Yes Equal, round and reactive pupils present Psych Appearance: grossly normal Mental Status: mental status grossly normal Assessment & Plan Assessment & Plan (1) Generalized abdominal pain: Code(s): R10.84 - Generalized abdominal pain Category: Medical (2) Abdominal bloating: Code(s): R14.0 - Abdominal distension (gaseous) Category: Medical (3) Chronic constipation: Code(s): K59.09 - Other constipation Category: Medical (4) Colon cancer screening: Comment: 06/20/20 Two polyps were removed during colonoscopy. Colon prep was fair to poor - 60% to 70% of the mucosa was visualized. Pt was advised to have a stool FIT test checked. If FIT test is negative, repeat colonoscopy can be performed in 5 yrs with more aggressive prep and advice to pt to follow prep instructions - action set in [facility] 08/2023 EGD and colonoscopy was performed. One small diminutive appearing polyp was removed - biopsies showed normal mucosa. FU colon in 5 years due to hx of colon polyps (due 08/2028) Code(s): Z12.11 - Encounter for screening for malignant neoplasm of colon Category: Medical (5) NAFL (nonalcoholic fatty liver): Code(s): K76.0 - Fatty (change of) liver, not elsewhere classified Category: Medical (6) Dysphagia, pharyngoesophageal phase: Code(s): R13.14 - Dysphagia, pharyngoesophageal phase Category: Medical (7) GERD (gastroesophageal reflux disease): Code(s): K21.9 - Gastro-esophageal reflux disease without esophagitis Category: Medical (8) Hemorrhoids, internal, with bleeding: Code(s): K64.8 - Other hemorrhoids Category: Medical Plan 49 YF with hyperlipidemia, depression, vertigo, GERD, hypercholesteroemia, anxiety, HTN seen for evaluation of abdominal pain with bloating, persistent Helicobacter pylori infection and chronic constipation. Abdominal pain and bloating is likely due to Helicobacter pylori gastritis, constipation predominant IBS, small bowel bacterial overgrowth or peptic ulcer disease associated with NSAID use. Patient was advised to stop ibuprofen and switch to acetaminophen. Pt was re- treated for H Pylori infection in Nov, 2019. 06/20/2020 EGD?showed diffuse gastric erythema and multiple 10-12 mm benign appearing nodules with central erosion. Gastric biopsies were negative for Helicobacter pylori and duodenal biopsies were negative for celiac sprue. Two polyps were removed during same-day colonoscopy - biopsies showed prominent lymphoid aggregate without dysplasia. Colon prep was fair to poor - 60% to 70% of the mucosa was visualized. Repeat Colonoscopy is advised in 3 yrs (05/2023) with more aggressive prep and advice to pt to follow prep instructions. Pt complains of worsening heartburn and dysphagia to solids and liquids for the past month. 01/2022 upper endoscopy was performed and findings as noted above Offered further evaluation with a barium swallow in patient would like to hold off for now and follow her symptoms.? 07/2022 Pt was advised a trail of Linzess 145 mcg daily for constipation. 01/10/23 Notes diarrhea since she started using the Linzess - has multiple BMs from the morning till 3 pm and stops after 3 pm. Having a lot of gas and bloating. Symptoms are effecting her daily life and she is unable to go out. Pt advised to decrease Linzess to 72 mcg daily (from 145 mcg) and take simethicone for gas and bloating 02/21/23 Pt was advised to: 1. Take Linzess 72 mcg every other day 2. Increase Simethicone to 2 tab TID for bloating. 3. Schedule an EGD (dysphagia) and colonoscopy since prep during last colonoscopy was suboptimal 11/05/23 Continues to have constipation - has a BM once a week Notes bleeding after a BM. Feels something pushing when she is sitting or lying down. Pt feels Linzess is too strong - not taking it since she has diarrhea. She would like to try a different medication for constipation - she was switched to Trulance 3 mg daily Patient will be scheduled for a barium swallow for evaluation of dysphagia - no stricture was seen on recent EGD. Patient was advised to use hydrocortisone cream for hemorrhoids. 01/30/24 Has not received Trulance from the pharmacy yet - I will ask GI RN to FU Feels bloated. Has a small BM daily in the morning. Has hard stools associated with straining Pt was advised to start a clear liquid diet in the am and take Dulcolax 2 tab PO in the am (pt reports good results with Dulcolax in the past). 11/30/24 - schedule barium swallow for evaluation of dysphagia EGD 02/15/25 BARIUM SWALLOW SHOWED: 1. Moderately disordered esophageal peristalsis. No esophageal stricture identified. 2. Mild gastroesophageal reflux identified during the course of the exam. 02/18/25 Complains of dysphagia for the past 2 months - predominantly with solids. Dysphagia is likley due to esophageal motility disorder. Notes food get moves slowly and gets stuck in the upper esophagus. Had two episodes of regurgitation for relief of dysphagia. FU in 4 months Medications: New plecanatide (Trulance) 3 mg PO DAILY 30 tabs 3RF 30 days K59.09 - Other constipation Refilled omeprazole 20 mg PO BID 180 caps 1RF 90 days K21.9 - Gastro-esophageal reflux disease without esophagitis Coding Level of Care Code Est Pt Level 4 (77233) Diagnoses Generalized abdominal pain R10.84 Abdominal bloating R14.0 Chronic constipation K59.09 Colon cancer screening Z12.11 NAFL (nonalcoholic fatty liver) K76.0 Dysphagia, pharyngoesophageal phase R13.14 GERD (gastroesophageal reflux disease) K21.9 Hemorrhoids, internal, with bleeding K64.8 Time Spent (min) 21
[2025-02-18 07:45] VITALS: BP 148/92; PULSE 72; BMI 41.7
== END 2025-02-18 14:31 | disposition home or self-care (01) ==
LOC: HO.HGI 07:40
PROVIDERS: Visit Provider Internal Medicine Gastroenterology
DX: R10.84 Generalized abdominal pain (principal); R14.0 Abdominal distension (gaseous); K59.09 Other constipation; Z12.11 Encounter for screening for malignant neoplasm of colon; K76.0 Fatty (change of) liver, not elsewhere classified; R13.14 Dysphagia, pharyngoesophageal phase; K21.9 Gastro-esophageal reflux disease without esophagitis; K64.8 Other hemorrhoids
CPT/HCPCS: 99499

== ENCOUNTER 2025-03-16 08:23 | Outpatient (AMB) | payer OTHER, SELFPAY ==
--- NOTE | 2025-03-16 08:03 | MHC.OFFVIS ---
Intake Visit Reasons: Preop LT knee 03/24/25 NE Intake Note: Radha is a 49 year old female who presents today for a preoperative visit for her LT knee 03/24/25 NE. Pain management agreement reviewed and signed. Allergies No Known Allergies [No Known Allergies*] Allergy (Verified 03/16/25 08:37) HPI HPI Preop LT knee 03/24/25 NE: Details: Ms. Jose ha is a 49-year-old female who presents to the office today for her history and physical exam pending left knee arthroscopy scheduled for 03/24/[address] Duenas. She has a past medical history significant for obstructive sleep apnea, fatty liver disease, hypertension, anxiety and depression. She has had multiple past surgical procedures including most recently a right knee arthroscopy performed on 08/19/[address] Duenas. She has had no complications with anesthesia. [facility] Medical History CARITO (obstructive sleep apnea) History of Helicobacter pylori infection Patellofemoral arthritis of right knee Patellofemoral arthritis of left knee Distal radius fracture, left Bilateral knee pain Fatty liver GDM (gestational diabetes mellitus) Hypertension Anxiety Depression Surgical History History of esophagogastroduodenoscopy (EGD) Hx of colonoscopy Hx of endoscopy H/O hand surgery History of open reduction and internal fixation (ORIF) procedure History of eye surgery History of hemorrhoidectomy History of back surgery Social History Household Members: Spouse and Children Are you a primary primary care sales representative to a significant other at home: Yes Do you presently have visiting nurse or other home services: No Alcohol intake: current Alcohol intake frequency: does not drink Patient Tobacco Use Status: Never used Tobacco 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al status: unemployed 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: Right Handed Review of Systems Const All systems reviewed & are unremarkable except as noted in HPI and below Physical Exam Const General: cooperative, healthy appearing, comfortable, no acute distress, well developed, alert and awake Orientation/consciousness: patient oriented x3 HEENT Head: Yes normal to inspection, Yes normocephalic and Yes atraumatic Eyes General: appearance normal, both eyes and all related structures Neck Neck: Yes normal visual inspection and Yes no lymphadenopathy Resp Effort & Inspection: normal respiratory effort and able to speak in complete sentences Cardio Rate: regular rate Peripheral pulses: Peripheral pulses 2+ throughout GI Inspection: Yes normal to inspection Palpation (GI): Soft to palpation Skin General skin exam: no rashes or lesions noted Neuro General: patient oriented x3 Extrem Other: Left knee with tenderness to palpation medial joint line and positive medial Sam's. Psych Mental Status: mental status grossly normal Assessment & Plan Assessment & Plan (1) Patellofemoral arthritis of left knee: Code(s): M17.12 - Unilateral primary osteoarthritis, left knee Category: Medical (2) Medial meniscus tear: Code(s): S83.249A - Other tear of medial meniscus, current injury, unspecified knee, initial encounter Category: Medical Plan I discussed in detail the procedure and what to expect pre and post operatively. We discussed the risks, benefits and alternatives to the surgery as well as the rehabilitation course. The risks; which include, but are not limited to infection, bleeding, nerve injury, ongoing pain, swelling, and stiffness, perioperative risk of injury to bones and soft tissues, and blood clots. Additionally, I have sent?hydrocodone-acetaminophen 5-325 mg (Vicodin) PO Q8H PRN, quantity 28 tabs for 7 days. The patient was instructed that?she?should obtain the prescription prior to surgery but should not consume until after the procedure; as these should only be taken for postoperative pain management. Should the patient take these medications before surgery, a refill will not be sent to the pharmacy until their scheduled refill date.?? I?ve answered all questions and with their understanding they have consented to move forward with left knee arthroscopy with Dr. Duenas. Follow-up will be at the post operative appointment on 04-01-25, sooner if needed Medications: New hydrocodone-acetaminophen 5-325 mg Partial Fill upon patient request. 1 tab PO Q8H PRN 21 tabs 0RF pain 7 days Coding Level of Care Code Global (71977) Diagnoses Patellofemoral arthritis of left knee M17.12 Medial meniscus tear S83.249A
--- OUTSIDE RECORDS SUMMARY | 2025-03-16 08:44 | XMS_ITS | Encounter Summary ---
Author Organization [facility] [facility] Address [address] [facility] [address] [place] [address] Care Team Providers Care Predatory Hunter Name Role Phone Constance Oakes CONGRESSIONAL ASSISTANT Primary Care Provider [phone] Encounter Details Date Type Department Care Team (Late st Contact Info) Description 10/11/2023 Abstract [facility] [address] [place], [place] [id number] Angela Dick Social History Tobacco Use Types Packs/Day Years Used Date Smoking Tobacco: Never Passive Smoke Exposure: Never Smokeless Tobacco: Never Alcohol Use Standard Drinks/Week Comments Never 0 (1 standard drink = 0.6 oz pur e alcohol) Depression Answer Date Recorded Patient Health Questionnaire-9 Score 0 01/10/2023 Housing Stability Answer Date Recorded What is your housing situation today? I have yudy oswald 09/09/[address] you li ve. Do you have problems with any of the following? None of the above 09/09/2023 Food Insecurity Answer Date Recorded Within the past 12 months, y ou worried that your food would run out before you got money to buy more: Never True 09/09/2023 Within the past 12 months,th e food you bought just didn't last and you didn't have enough money to get more: Never True Transportation Answer Date Recorded In the past 12 months, has l ack of transportation kept you from medical appts, meetings, work or from getting things needed for daily living? No 09/09/2023 Utilities Answer Date Recorded In the past 12 months, has t he electric, gas, oil or water company threatened to shut off services in your home? No 09/09/2023 Depression Answer Date Recorded Patient Health Questionnaire-2 Score 0 01/10/2023 Comments Unknown Sex and Gender Information Value Date Recorded Sex Assigned at Female 09/24/2022 10:15 AM EDT Legal Sex Female 10:15 AM EDT Gender Identity Female 09/24/2022 10:15 AM EDT Sexual Orientation Choose not to disclose 2021 10:15 AM EDT documented as of this encounter Plan of Treatment Upcoming Encounters Date Type Department Care Team (Late st Contact Info) Description 06/17/2025 11:00 AM EDT Immunization [facility] [address] [place] [address] documented as of this encounter Visit Diagnoses Not on filedocumented in this encounter Additional Health Concerns Assessment Noted Time PHQ-9 Depression Total Score: 0 01/10/20 23 9:23 AM EST documented as of this encounter Care Teams Predatory Hunter Relationship Specialty Start Date End Date Constance Oakes FNP [address] [place] [address] PCP - General Family Medicine 07/17/22 documented as of this encounter
--- OUTSIDE RECORDS SUMMARY | 2025-03-16 08:45 | XMS_ITS | Encounter Summary ---
Author Organization [employer] Address [address] [facility] [address] [place] [address] Care Team Providers Care Licensed Staff Mft Name Role Phone Constance Oakes COMPUTER NETWORKING INSTRUCTOR ADJUNCT Primary Care Provider [phone] Encounter Details Date Type Department Care Team (Late st Contact Info) Description 03/04/2024 Orders Only [facility] [address] [place] [address] ProviderMeenakshi MD Social History Tobacco Use Types Packs/Day Years Used Date Smoking Tobacco: Never Passive Smoke Exposure: Never Smokeless Tobacco: Never Alcohol Use Standard Drinks/Week Comments Never 0 (1 standard drink = 0.6 oz pur e alcohol) Alcohol Answer Date Recorded Frequency of Alcohol Consumption Not on file 01/15/2024 Average Number of Drinks Not on file 024 Frequency of Binge Drinking Not on file 12/27 Score 0 01/15/2024 Depression Answer Date Recorded Patient Health Questionnaire-9 Score 0 01/15/2024 Patient Health Questionnaire-9 Score 0 01/15/2024 Last PHQ-9: Questionnaire Data Not on file 0 01/15/2024 Housing Stability Answer Date Recorded What is your housing situation today? I have yudy oswald 01/03/[address] you li ve. Do you have problems with any of the following? None of the above 01/03/2024 Food Insecurity Answer Date Recorded Within the past 12 months, y ou worried that your food would run out before you got money to buy more: Never True 01/03/2024 Within the past 12 months,th e food you bought just didn't last and you didn't have enough money to get more: Never True 07/2024 Transportation Answer Date Recorded In the past 12 months, has l ack of transportation kept you from medical appts, meetings, work or from getting things needed for daily living? No 01/15/2024 Utilities Answer Date Recorded In the past 12 months, has t he electric, gas, oil or water company threatened to shut off services in your home? No 01/15/2024 Depression Answer Date Recorded Patient Health Questionnaire-2 Score 0 01/15/2024 Comments Unknown Sex and Gender Information Value [...] Info) Description 06/17/2025 11:00 AM EDT Immunization [facility] [address] [place] [address] documented as of this encounter Procedures Procedure Name Priority Date/Time Associated Diagnosis Comments VITAMIN D,25-OH,TOTAL,IA Routine 11/27/2024 11:26 AM EST TSH W/REFLEX TO FT4 Routine 11/27/2024 1 1:26 AM EST CBC WITH AUTO DIFFERENTIAL Routine 11/27/2024 11:26 AM EST HEMOGLOBIN A1C Routine 11/27/2024 11:26 AM EST LIPID PANEL, STANDARD Routine 11/27/2024 11:26 AM EST COMPREHENSIVE METABOLIC PANEL Routine 11/27/2024 11:26 AM EST HPV MRNA E6/E7 REFLEX TO HPV 16, 18/45 Routine 2024 12:30 PM EDT HM COLONOSCOPY Routine 06/20/2020 7:49 AM EDT documented in this encounter Results * TSH with Reflex to Free T4 (11/27/2024 11:26 AM EST) TSH reflex Free T4 2.78 0.32 - 4.0 uIU/mL [facility] 11/27/2024 11:2 6 AM EST 11/27/2024 12:58 PM EST [facility] BLOOD ORDERABLES Final Re sult Performing Organization Address [facility]/ZIP Co de Phone Number [facility] [address] [place] [address] [phone] * Vitamin D, 25-Hydroxy, Total, Immunoassay (11/27/2024 11:26 AM EST) Vitamin D 25-OH Total 40.9 >30 ng/mL [facility] Comment:Health Based Referen ce Values*< 20 ng/mL Bdlpuzorz57-85 ng/mL Insufficient> 30 ng/mL Sufficient*Regla BROWN. N Engl J Med. 2007;357:266-280Care must be taken in interpreting Vitamin D results fromdifferent laboratories and methodologies. Published datademonstrated that results from patients undergoinghemodialysis may show a negative bias when tested withvarious automated 25-OH vitamin D assays when compared toLC-MS/MS.When testing samples from patients whose predominant form ofVitamin D is Vitamin D2, such as patients receiving VitaminD2 supplementation, results that are subtherapeutic shouldbe confirmed with another method such as LC-MS/MS. 11/27/2024 11:2 6 AM EST 11/27/2024 12:58 PM EST [facility] BLOOD ORDERABLES Final Re sult Performing Organization Address [facility]/ZIP Co de Phone Number [facility] [address] [place] [address] [phone] * (ABNORMAL) Lipid Panel, Standard (11/27/2024 11:26 AM EST) Triglycerides 300(H) <150 mg/dL [facility] Comment:Desirable Triglyceri de: less than 150 mg/dLBorderline High Triglyceride 150-199 mg/dLHigh Triglyceride: 200-499 mg/dLVery High Triglyceride: greater than or equal to 5OO mg/dL Cholesterol 225(H) <200 mg/dL [facility] Comment:Desirable Cholestero l: less than 200 mg/dLBorderline High Cholesterol: 200-239 mg/dLHigh Cholesterol: greater than 239 mg/dL LDL Cholesterol Calculated 121(H) <100 mg/dL [facility] Comment:Desirable LDL: less than 100 mg/dLNear Optimal/Above Optimal LDL: 110- 129 mg/dLBorderline High LDL: 130-159 mg/dLHigh LDL: 160-189 mg/dLVery High LDL: greater than or equal to 190 mg/dL HDL Cholesterol 44 >40 mg/dL [facility] Comment:Desirable HDL: great er than 40 mg/dL Note: This HDL assay may give artificially low results in patients with liver disease. 11/27/2024 11:2 6 AM EST 11/27/2024 12:58 PM EST [facility] BLOOD ORDERABLES Final Re sult [facility] [address] [place] [phone] * (ABNORMAL) Comprehensive Metabolic Panel (11/27/2024 11:26 AM EST) Sodium 141 135 - 145 mmol/L [facility] Potassium 3.8 3.3 - 5.1 mmol/L [facility] Chloride 110(H) 96 - 108 mmol/L [facility] Carbon Dioxide 26 22 - 29 mmol/L [facility] Anion Gap 9(L) 12 - 20 [facility] Urea Nitrogen (BUN) 16 9 - 16 mg/dL [facility] Creatinine, Serum 0.73 0.5 - 1.4 mg/dL [facility] Estimated Glomerular Filt Rate >60 [facility] Comment:Chronic Kidney Disea se: Estimated GFR < 60 mL/min/[id number] Kidney Disease: Estimated GFR < 15 mL/min/1.73m2 Glucose 104 60 - 115 mg/dL [facility] Calcium 9.3 8.4 - 10.2 mg/dL [facility] Bilirubin, Total 0.4 0.0 - 1.0 mg/dL [facility] Aspartate Amino Transferase 37(H) 5 - 31 U/L [facility] Alanine Aminotransferase 62(H) 0 - 31 U/L [facility] Total Protein 7.6 6.5 - 8.0 g/dL [facility] Albumin Level 4.5 3.5 - 5.0 g/dL [facility] Alkaline Phosphatase 99 39 - 117 U/L [facility] 11/27/2024 11:2 6 AM EST 11/27/2024 12:58 PM EST [facility] BLOOD ORDERABLES Final Re sult Performing Organization Address [facility] Co de Phone Number [facility] [address] [place] [phone] * Hemoglobin A1c (11/27/2024 11:26 AM EST) Hemoglobin A1c 5.7 <6.0 % [facility] Comment:Hemoglobin A1C Refer ence Range Adults: 4.8 - 6.0 % Non diabetic: < 6.0 % Goal: < 7.0 %Additional Action Suggested: > 8.0 %Note: Hemoglobin A1c results are invalid for patients with abnormal amounts of HbF. Blood transfusions may impact the HbA1c concentration in the patient sample. Estimated Average Glucose 117 mg/dL [facility] Comment:eAG = Estimated ave rage glucose which is %A1C expressed asaverage glucose, using the formula of the W7S-YfkrbmjEjnlvcg Glucose study (ADAG), Diabetes Care, Vol.31,#8,2007 11/27/2024 11:2 6 AM EST 11/27/2024 12:58 PM EST [facility] BLOOD ORDERABLES Final Re sult Performing Organization Address [facility] Co de Phone Number [facility] [address] [place] [phone] * (ABNORMAL) CBC auto differential (11/27/2024 11:26 AM EST) White Blood Count 6.4 4.8 - 10.8 X10*3/uL [facility] Red Blood Count 4.68 4.20 - 5.50 X10*6/uL [facility] Hemoglobin 12.9 12.0 - 16.0 g/dl [facility] Hematocrit 39.2 37.0 - 47.0 % [facility] Mean Corpuscular Volume 83.8 80.0 - 98.0 fL [facility] Mean Corpuscular Hemoglobin 27.6 27.0 - 33.0 pg [facility] Mean Corpuscular HGB Conc 32.9 31.0 - 35.0 g/dl [facility] Red Cell Distribution Width 13.4 11.0 - 16.0 % [facility] Platelet Count 250 160 - 400 X10*3/uL [facility] Mean Platelet Volume 10.7 9.4 - 12.3 fL [facility] Neutrophils Percent Auto 41.5(L) 45 - 73 % [facility] Imm Gran Pct Auto 0.5(H) 0.0 - 0.4 % [facility] Lymphocytes Percent Auto 43.2(H) 20 - 40 % [facility] Monocytes Percent Auto 10.5 2 - 11 % [facility] Eosinophils Percent Auto 3.8 0 - 4 % [facility] Basophils Percent Auto 0.5 0 - 2 % [facility] NRBC Pct Auto 0.0 0.0 - 0.2 /100WBC [facility] Neutrophils Absolute Auto 2.6 2.0 - 8.3 x10*3/uL [facility] Imm Gran Abs Auto 0.03 0.00 - 0.03 X10*3/uL [facility] Lymphocytes Absolute Auto 2.8 1.2 - 4.9 X10*3/uL [facility] Monocytes Absolute Auto 0.7 0.1 - 1.2 X10*3/uL [facility] Eosinophils Absolute Auto 0.2 0.0 - 0.4 X10*3/uL [facility] Basophils Absolute Auto 0.0 0.0 - 0.2 X10*3/uL [facility] NRBC Abs Auto 0.000 0.0 - 0.012 X10*3/uL [facility] 11/27/2024 11:2 6 AM EST 11/27/2024 12:58 PM EST [facility] BLOOD ORDERABLES Final Re sult [facility] [address] [place] [phone] * HPV mRNA E6/E7 w/Reflex to HPV Genotypes 16, 18/45 (2024 12:30 PM EDT) HPV nRNA E6/E7 Not Detected Not Detected [facility] Comment:Methodology: Transcr iption-Mediated AmplificationThis assay detects E6/E7 viral messenger RNA (mRNA) from 14high-risk HPV types (16,18,31,33,35,39,45,51,52,56,58,59,66,68).Cervical sources are required for HPV testing.If a vaginal source from a patient who has had atotal hysterectomy with removal of cervix wassubmitted, please contact the testing laboratoryfor alternative testing options.For additional information, please refer [email or web address].TrekkSoft/faq/VKD286x1(This link if provided for information/educational purposes only.)THIS TEST WAS PERFORMED AT:[facility] [place] [phone] ROSARIO MD HPV mRNA E6/E7 [facility] HPV 16 RNA [facility] HPV 18/45 RNA [facility] 2024 12:3 0 PM EDT 05/06/2024 11:47 AM EDT [facility] CYTOLOGY ORDERABLES Final Result [facility] [address] [place] [phone] [phone] * Hm Colonoscopy (06/20/2020 7:49 AM EDT) us Historical Provider HEALTH MAINTENANCE Final Result documented in this encounter Visit Diagnoses Not on filedocumented in this encounter Additional Health Concerns Assessment Noted Time PHQ-9 Depression Total Score: 0 01/15/20 24 4:04 PM EST documented as of this encounter Care Teams Licensed Staff Mft Relationship Specialty Start Date End Date Constance Oakes FNP [address] [place] [phone] PCP - General Family Medicine 07/17/22 documented as of this encounter
--- OUTSIDE RECORDS SUMMARY | 2025-03-16 08:45 | XMS_ITS | Clinical Summary ---
Author Organization [employer] Address [address] [facility] [address] [place] [address] Care Team Providers Care [employer] Research Scientist Name Role Phone Constance Oakes [facility] Primary Care Provider [phone] Allergies No known active allergies Medications * This document contains information received from the source organization and may not represent a complete record from that organization. sucralfate (Carafate) 1 GM/10ML suspension take 10 milliliter by oral route 4 times every day on an empty stomach 1 hour before meals and at bedtime Active Reguloid 28.3 % powder DISSOLVE 1 TABLESPOONFUL IN 8 OUNCES WATER OR JUICE AND DRINK ONCE DAILY DIRECTED Active ondansetron ODT (Zofran-ODT) 4 MG disintegrating tablet Take 1 tablet (4 mg total) by mouth every 6 (six) hours as needed. Active omeprazole (PriLOSEC) [address] capsule take 1 capsule by oral route twice every day before a meal for stomach pain Active Multiple Vitamins-Minerals (CertaVite/Antiox idants) tablet Take with food. Active hydrocortisone 2.5 % cream APPLY A THIN LAYER TOPICALLY AFFECTED AREA(S) TWICE DAILY NEEDED Active Linzess 145 MCG capsule TAKE 1 CAPSULE BY MOUTH EVERY DAY IN THE MORNING Active ibuprofen 600 MG tabletIndications :Chronic low back pain, unspecified back pain laterality, unspecified whether sciatica present Take 1 tablet (600 mg) by mouth every 8 (eight) hours if needed for mild pain. 30 tablet 024 Active olmesartan (Benicar) 5 MG tabletIndications :Essential hypertension Take 1 tablet (5 mg) by mouth Once per day. 90 tablet Active Blood Pressure Monitoring (Omron 3 Series BP Monitor) deviceIndications :Essential hypertension USE DIRECTED 1-2 TIMES EVERY DAY 1 each Active hydroCHLOROthiazi de (HYDRODiuril) 25 MG tabletIndications :Essential hypertension Take 1 tablet (25 mg) by mouth Once per day. 30 tablet 11 024 2024 Active albuterol 108 (90 Base) MCG/ACT inhalerIndication s:Mild intermittent asthma without complication Use every 4 hours as directed 18 g 1 Active albuterol (2.5 MG/3ML) 0.083% nebulizer solutionIndicatio ns:Mild intermittent asthma without complication Take 3 mL (2.5 mg) by nebulization every 4 (four) hours if needed for wheezing. 75 mL 3 024 2024 Active lidocaine (Lidoderm) 5 % patchIndications: Chronic right shoulder pain Apply topically to affected areas. Leave on for up to 12 hours 30 patch 1 Active loratadine (Claritin) 10 MG tabletIndications :Mild intermittent asthma without complication Take 1 tablet (10 mg) by mouth Once per day. 30 tablet 024 2024 Active losartan (Cozaar) 25 MG tablet Take 1 tablet (25 mg) by mouth Once per day. 30 tablet 11 024 2024 Active Diclofenac Sodium 1 % gelIndications:Ar thralgia, unspecified joint Apply topically to affected areas twice daily 150 g Active capsaicin (Zostrix) 0.025 % creamIndications: Arthralgia, unspecified joint Apply topically 2 times daily. 56.6 g 025 2025 Active DULoxetine (Cymbalta) [address] capsuleIndication s:Arthralgia, unspecified joint Take 1 capsule (30 mg) by mouth 2 times daily. Do not crush or chew. 60 capsule 11 025 2025 Active budesonide-formot margaret (Symbicort) 80-4.5 MCG/ACT inhalerIndication s:Mild intermittent asthma without complication Inhale 2 puffs twie daily. Rinse mouth with water after use to reduce aftertaste and incidence of candidiasis. Do not swallow. 1 each 11 025 Active melatonin 5 MG tabletIndications :Arthralgia, unspecified joint Take 1 tablet by oral route every evening 2-3 hours before bed 90 tablet 3 025 Active fluticasone (Flonase) 50 MCG/ACT nasal sprayIndications: Mild intermittent asthma without complication INSTILL 1-2 SPRAYS IN EACH NOSTRIL ONCE DAILY 16 g 2 025 Active fluticasone (Flonase) 50 MCG/ACT nasal sprayIndications: Mild intermittent asthma without complication INSTILL 1-2 SPRAYS IN EACH NOSTRIL ONCE DAILY 16 g 2 024 2024 Discontinued Active Problems Problem Noted Date Diagnosed Date Mild persistent asthma without complication 01/2025 Primary osteoarthritis of both hands 11/27/2024 Other dysphagia 03/25/2024 Overview (03/25/2024): Followed by [facility]. Last seen 10/2023. Endoscopy/colonoscopy from 08/2023 with the following impression: Tortuous and mildly dilated esophagus with tertiary contractions without stricture or ring. GE junction at 37 cms. No esophagitis or Chavez's. Empiric esophageal balloon dilation was performed with a 20 mm (60 F) CRE balloon for 60 seconds STOMACH: Mild gastric erythema. Biopsies were obtained. DUODENUM: Normal - biopsied to check for celiac sprue Status post replacement of left wrist joint 12/27 Overview (01/16/2024): Joint replacement left wrist 4 years back Chronic low back pain 12/10/2022 Overview (12/10/2022): ?? Long hx of chronic, diffuse, non-radiating LBP ?? DEXA scan from 08/2022 with normal bone density (ordered d/t question of fragility fracture) ?? Lumbar X-rays from 07/2022 with the following result: Degenerative disc changes L5-S1 disc level. Assessment & Plan (01/28/2024 1:34 PM EST): START amitryptiline 10mg nightly. Reviewed administration, risks, side effects Declines PT or pain mngmt referral at this time Essential hypertension 12/10/2022 Overview (11/27/2024): Seen by cardiology at [facility] in 2014 d/t hx of CP and SOB. Negative echo. Negative stress test at this time. No further cardiology follow up - Previously did not tolerate olmesartan. [place] that it caused BP fluctuation Maintenance: - Aerobic exercise to reduce BP. Initial goal of 30 min walk 3-5x/week. Increase as tolerated. - low-sodium diet (goal: <2g/day) and heart healthy diet such as DASH to reduce BP and prevent ASCVD. - Home BP monitoring 1-2 x day with goal of <140/90. - Seek immediate medical attention for chest pain, palpitations, SOB, syncope, or sudden changes in mental status. - Do not change or discontinue current prescriptions without first consulting health care provider Assessment & Plan (01/28/2024 1:40 PM EST): BP elevated initially Reports home readings well controlled RN BP check 2 weeks Assessment & Plan (01/14/2023 10:54 PM EST): ?? START olmesartan 5mg daily. Reviewed administration, risks, side effects Assessment & Plan (12/10/2022 2:15 PM EST): ?? Well controlled with diet/exercise laone ?? Will continue to monitor Maintenance: BMP: Ordered today Lipid Panel: Ordered today ASCVD Risk: Calculate pending updated labs EKG: Obtain baseline at f/u - Aerobic exercise to reduce BP. Initial goal of 30 min walk 3-5x/week. Increase as tolerated. - low-sodium diet (goal: <2g/day) and heart healthy diet such as DASH to reduce BP and prevent ASCVD. - Home BP monitoring 1-2 x day with goal of <140/90. - Seek immediate medical attention for chest pain, palpitations, SOB, syncope, or sudden changes in mental status. - Do not change or discontinue current prescriptions without first consulting health care provider Healthcare maintenance 12/10/2022 Overview (01/14/2023): Mammo: 12/27/22-Birads 1 Pap: Overdue, scheduled today C-scope: 05/2020- [facility]. repeat 5 years. BMD: 08/2022, WNL HCV Screen: Neg c019 HIV Screen: Neg 2019 Assessment & Plan (12/10/2022 2:16 PM EST): Declines flu and COVID Prediabetes 12/10/2022 Overview (12/10/2022): 07/2022 A1c 5.7 Subclinical hypothyroidism 12/10/2022 Overview (12/10/2022): TSH 6.82 07/2022; T4 WNL Obstructive sleep apnea syndrome 01/18/2022 Overview (12/10/2022): ?? Has CPAP at home Assessment & Plan (01/28/2024 1:31 PM EST): Advised patient and her daughter to contact CPAP company and request to trial different mask options Encouraged CPAP use at lease 4 hours per night Gastroesophageal reflux disease 04/22/2013 Overview (12/10/2022): ?? Followed by [facility] ?? Negative endoscopy 01/2022, Dr. Neil ?? Taking sucralfate and omeprazole Reactive depression 04/22/2013 Overview (12/10/2022): ?? Related to of father ?? Takes propranolol PRN for anxiety Assessment & Plan (01/28/2024 1:33 PM EST): Accepts referral to OP therapy Amitryptiline for chronic pain may also help with depressive sx/insomnia Contact HC if sx worsen or experiencing thoughts of SI or self harm. Pt has [facility] crisis contact information Vertigo 04/22/2013 Obesity 04/30/2012 Assessment & Plan (01/28/2024 1:31 PM EST): Will obtain baseline labs Patient would like to discuss weight loss options at follow up Pure hypercholesterolemia 04/30/2012 Overview (12/10/2022): ?? Atorvastatin 40mg Resolved Problems Problem Noted Date Diagnosed Date Resolved Date Mild intermittent asthma 12/10/202201/2025 Overview (12/10/2022): ?? PFT's from 2016 show mild obstructive disease, otherwise WNL Lower abdominal pain 11/21/2017 023 Hypertensive disorder 06/27/20152022 Amenorrhea 03/29/2014 12/10/2022 Neck pain 04/22/2013 12/10/2022 Anxiety 09/08/2012 12/10/2022 Backache 09/08/2012 12/10/2022 Insomnia 04/30/2012 12/10/2022 Encounters Date Type Department Care Team Description 02/18/[address] [address] Triny Bustillos DO Mild intermittent asthma without complication 02/15/2025 Orders Only [facility] External Provider, [facility] 01/14/2025 10:15 AM EST Nurse Only [address] [address] Quynh Knutson, RN Encounter for immunization 01/14/2025 Travel 12/31/[address] [address] Constance Oakes FNP Durable Medical Equipment 12/28/2024 9:45 AM EST Telemedicine [facility] [address] [place] [id number] Constance Oakes FNP Fibromyalgia (Primary Dx); Obstructive sleep apnea syndrome 12/28/2024 Travel 12/24/2024 Telephone [facility] [address] [place] [phone] Constance Oakes FNP chart prep 12/17/2024 3:00 PM EST Immunization [facility] [address] [place] [id number] Charley Pastrana LPN Encounter for immunization (Primary Dx) 12/17/2024 Travel from Last 3 Months Immunizations Name Administration Dates Next Due Hep B, adult 01/14/2025,12/17/2024 IPV 12/22/2024 Influenza, IIV3, injectable 11/09/2010 Influenza, Split (incl. purified surface antigen ) 09/08/2012 Influenza, seasonal, injectable, preservative fr ee 12/17/2024 MMR 10/10/1999,01/13/1999 Moderna Covid-19 Vaccine 12+ 05/01/2021,04/05/20 21 Pfizer Covid-19 Vaccine 12+ 12/17/2024 TD (adult), 2 Lf tetanus tox oid, preservative free, adsorbed 01/13/1999 Tdap 02/16/2016 Varicella 09/30/2009 Social History Tobacco Use Types Packs/Day Years Used Date Smoking Tobacco: Never Passive Smoke Exposure: Never Smokeless Tobacco: Never Tobacco Cessation:Counseling Given: Not Answered Alcohol Use Standard Drinks/Week Comments Never 0 (1 standard drink = 0.6 oz pur e alcohol) Alcohol Answer Date Recorded Frequency of Alcohol Consumption Not on file 01/15/2024 Average Number of Drinks Not on file 024 Frequency of Binge Drinking Not on file 12/27 Score 0 01/15/2024 Depression Answer Date Recorded Patient Health Questionnaire-9 Score 7 06/01/2024 Patient Health Questionnaire-9 Score 7 06/01/2024 Last PHQ-9: Questionnaire Data Not on file 0 06/01/2024 Housing Stability Answer Date Recorded What is [...] Answer Date Recorded Patient Health Questionnaire-2 Score 1 06/01/2024 Comments Unknown Sex and Gender Information Value Date Recorded Sex Assigned at Female 09/24/2022 10:15 AM EDT Legal Sex Female 10:15 AM EDT Gender Identity Female 09/24/2022 10:15 AM EDT Sexual Orientation Choose not to disclose 2021 10:15 AM EDT Last Filed Vital Signs Vital Sign Reading Time Taken Comments Blood Pressure 126/84 11/27/2024 9:48 AM EST Pulse 76 11/27/2024 9:48 AM EST Temperature 36.2 ??C (97.1 ??F) 11/27/2024 9:48 AM ES T Respiratory Rate 17 11/27/2024 9:48 AM EST Oxygen Saturation 98% 08/06/2024 11:50 AM EDT Inhaled Oxygen Concentration - - Weight 106 kg (233 lb) 11/27/2024 9:48 AM EST Height 157.5 cm (5' 2 ) 11/27/2024 9:48 AM EST Body Mass Index 42.62 11/27/2024 9:48 AM EST Plan of Treatment Upcoming Encounters Date Type Department Care Team (Late st Contact Info) Description 06/17/2025 11:00 AM EDT Immunization [facility] [address] [place] [address] Health Maintenance Due Date Last Done Comments CT Colonography 1974 FIT DNA/Cologuard 1974 FIT 1974 FOBT 1974 Sigmoidoscopy 1974 Alcohol/Substance Use Screening 1986 Family Planning (PISQ) 1989 Pneumococcal Vaccine: 50+ Years (1 of 2 - PCV) 1993 Mammogram 12/27/2023 12/27/2022, 12/2022, 12/27/2022, Additional history exists Zoster Vaccines (1 of 2) 2024 Dental Oral Exam 07/17/2024 01/16/2024, 02/2019, 05/05/2018, Additional history exists Dental Prophylaxis 08/02/2024 01/30/2024, 0 12/29/2018, 04/10/2018, Additional history exists SDOH Screening 01/15/2025 01/15/2024 Dental X-Ray: Bitewings 01/17/2025 01/16/20 24, 05/05/2018, 09/17/2016, Additional history exists IPV Vaccines (2 of 3 - Adult catch-up series) 01/19/2025 12/22/2024 Depression Screening 06/01/2025 06/01/2024, 06/01/20 24 Colonoscopy 06/20/2025 06/20/2020 Colorectal Cancer Screening 06/20/2025 Diabetes: Hemoglobin A1C 11/27/2025 025, 01/16/2024, 01/15/2024, Additional history exists Tobacco Screening 12/28/2025 12/28/2024 DTaP/Tdap/Td Vaccines (2 - Td or Tdap) 07/26/2026 02/16/2016, 01/13/1999 Postponed from 02/15/2026 (Other System Reasons) Dental X-Ray: Full Mouth 01/17/2027 01/16/2024, 04/25 Cervical Cancer Screening 2029 HPV/Cotest 2029 2024 Pap Smear 2029 2024 Lipid Panel 11/27/2029 11/27/2024, 12/27, 11/28/2022, Additional history exists RSV Patients and Patients Aged 60 years or older (1 - 1-dose 75+ series) 2049 COVID-19 Vaccine Completed 12/17/2024, 05/2021, 04/05/2021 Influenza Vaccine Completed 12/17/2024, , 11/09/2010 Hepatitis B Vaccines Discontinued 01/14/2025, 12/17/19 HIB Vaccines Aged Out No longer eligi ble based on patient's age to complete this topic HIV Screening Discontinued HPV Vaccines Aged Out No longer eligi ble based on patient's age to complete this topic Hepatitis A Vaccines Aged Out No long er eligible based on patient's age to complete this topic Hepatitis C Screening Discontinued Meningococcal Vaccine Aged Out No veronica concepcion eligible based on patient's age to complete this topic RSV under 20 months Aged Out No longe r eligible based on patient's age to complete this topic Rotavirus Vaccines Aged Out No longer eligible based on patient's age to complete this topic Procedures Procedure Name Priority Date/Time Associated Diagnosis Comments FL ESOPHAGUS BARIUM SWALLOW WITH AIR Routine 02/15/2025 10:20 AM EDT HEMOGLOBIN A1C Routine 11/27/2024 11:26 AM EST LIPID PANEL, STANDARD Routine 11/27/2024 11:26 AM EST HPV MRNA E6/E7 REFLEX TO HPV 16, 18/45 Routine 2024 12:30 PM EDT PAP SMEAR Routine 2024 12:30 PM EDT Encounter for screening for cervical cancer PROPHYLAXIS - ADULT Routine 01/30/2024 2 :00 PM EST Dental calculus INTRAORAL - COMPLETE SERIES OF RADIOGRAPHIC IMAGES Routine 01/16/2024 10:00 AM EST PERIODIC ORAL EVALUATION - ESTABLISHED PATIENT Routine 01/16/2024 10:00 AM EST BI MAMMOGRAM SCREENING TOMOSYNTHESIS BILATERAL Routine 12/27/2022 9:55 AM EST HM COLONOSCOPY Routine 06/20/2020 7:49 AM EDT from Last 3 Months or Most Recently Relevant to Health Maintenance Results * FL Esophagus Barium Swallow w/Air (02/15/2025 10:20 AM EDT) Anatomical Region Laterality Modality Head, Neck Radiographic Anna Marie ging 02/15/2025 10:2 0 AM EDT Narrative 02/15/2025 10:59 AM EDT ? [facility] ?[address] ?[place] [address] ? Fluoroscopy Report ? Signed ? Patient: Jose,Radha C ?MR#: [id number] ?? 95 ? : 1975 ?Acct:[id number] ? Age/Sex: 49 / F ?ADM Date: 03/24/25 ? Loc: HO.XRAY ? Attending Dr: James Neil MD ? Ordering Physician: James Neil MD ?? Date of Service: 02/15/25 ?? Procedure(s): FL barium swallow with air ?? Accession Number(s): [id number] ? cc: James Neil MD; [facility] ? EXAMINATION: ?? XR FLUOROSCOPY ESOPHAGRAM ? CLINICAL INFORMATION: ?? 49-year-old female complaining of episodic dysphasia, pharyngeal ?? esophageal phase. History of esophageal dilatation. ??Patient states ?? episode of pills getting stuck in the mid esophagus. ? COMPARISON: ?? No prior available for direct comparison. ? Correlation made with CT chest 11/14/2024. ? TECHNIQUE: ?? Fluoroscopic air contrast upper GI examination was performed utilizing ?? standard techniques with thin and thick barium and effervescent ?? granules. Numerous spot images were obtained. Several fluoroscopic ?? image hold cine sequences were also obtained. ? FINDINGS: ? UPPER GI SERIES: ?? Lateral cine images of the oropharynx and hypopharynx demonstrate ?? normal swallow mechanism with normal epiglottic inversion and soft ?? palate elevation. No tracheal penetration, glottic or subglottic ?? aspiration identified. No nasopharyngeal reflux present. Hypopharyngeal ?? structures appear normal without evidence of mass or diverticulum. ?? There was no significant cricopharyngeal achalasia. ? Dual and single contrast images of the esophagus demonstrate normal ?? caliber, contour, and mucosal pattern. No evidence of stricture, mass, ?? or ulcerations identified. Esophageal peristalsis was moderately ?? disordered. ? No evidence of hiatus hernia identified. GE junction has a normal ?? appearance. There was mild gastroesophageal reflux identified during ?? the exam. ? Dual contrast and single contrast images of the stomach demonstrated ?? normal rugal fold pattern, normal contour and mucosal pattern without ?? evidence of mass, ulceration, or other abnormality. Contrast freely ?? passed into the gastric antrum and duodenal bulb without delay. ? Single and air-contrast images of the duodenal bulb demonstrate no ?? abnormality. The duodenal sweep has a normal appearance, course, and ?? mucosal fold appearance. ? Incidental note made of mild to moderately elevated right hemidiaphragm. ? FLUOROSCOPY TIME: ?? 3 minutes, 35 seconds ? Number of Spot Images:11 ?? Number of cines obtained: 18 ? DOSE AREA PRODUCT: ?? 4493 uGy-m2 (microgray-meter squared) ? FL/FL barium swallow with air ?? IMPRESSION: ?? 1. Moderately disordered esophageal peristalsis. No esophageal ?? stricture identified. ?? 2. Mild gastroesophageal reflux identified during the course of the ?? exam. ?? 3. Otherwise, normal esophagram. ? Electronically signed by: ??Kirit Peterson MD ??02/15/2025 10:56 AM EDT RP ? Dictated By: ?Kirit Peterson MD ? Signed By: ?<Electronically signed by Kirit Peterson MD in OV> ?02/15/25 1056 ? DD/ 1020 ? TD/TT: 02/15/25 1035 ? Cone Treater: ? Procedure Note Cristin, Image - 02/15/2025 [place] [address] Fluoroscopy Report Signed Patient: Radha Garcia CMR#: [id number] 95 : 1975Acct:[id number] Age/Sex: 49 / FADM Date: 02/15/25 Loc: [facility] Attending Dr: James Neil MD Ordering Physician: James Neil MD Date of Service: 02/15/25 Procedure(s): FL barium swallow with air Accession Number(s): [id number] cc: James Neil MD; [facility] EXAMINATION: XR FLUOROSCOPY ESOPHAGRAM CLINICAL INFORMATION: 49-year-old female complaining of episodic dysphasia, pharyngeal esophageal phase. History of esophageal dilatation. Patient states episode of pills getting stuck in the mid esophagus. COMPARISON: No prior available for direct comparison. Correlation made with CT chest 11/14/2024. TECHNIQUE: Fluoroscopic air contrast upper GI examination was performed utilizing standard techniques with thin and thick barium and effervescent granules. Numerous spot images were obtained. Several fluoroscopic image hold cine sequences were also obtained. FINDINGS: UPPER GI SERIES: Lateral cine images of the oropharynx and hypopharynx demonstrate normal swallow mechanism with normal epiglottic inversion and soft palate elevation. No tracheal penetration, glottic or subglottic aspiration identified. No nasopharyngeal reflux present. Hypopharyngeal structures appear normal without evidence of mass or diverticulum. There was no significant cricopharyngeal achalasia. Dual and single contrast images of the esophagus demonstrate normal caliber, contour, and mucosal pattern. No evidence of stricture, mass, or ulcerations identified. Esophageal peristalsis was moderately disordered. No evidence of hiatus hernia identified. GE junction has a normal appearance. There was mild gastroesophageal reflux identified during the exam. Dual contrast and single contrast images of the stomach demonstrated normal rugal fold pattern, normal contour and mucosal pattern without evidence of mass, ulceration, or other abnormality. Contrast freely passed into the gastric antrum and duodenal bulb without delay. Single and air-contrast images of the duodenal bulb demonstrate no abnormality. The duodenal sweep has a normal appearance, course, and mucosal fold appearance. Incidental note made of mild to moderately elevated right hemidiaphragm. FLUOROSCOPY TIME: 3 minutes, 35 seconds Number of Spot Images:11 Number of cines obtained: 18 DOSE AREA PRODUCT: [id number] uGy-m2 (microgray-meter squared) FL/FL barium swallow with air IMPRESSION: 1. Moderately disordered esophageal peristalsis. No esophageal stricture identified. 2. Mild gastroesophageal reflux identified during the course of the exam. 3. Otherwise, normal esophagram. Electronically signed by: Kirit Peterson MD 02/15/2025 10:56 AM EDT Dictated By: Kirit Peterson MD Signed By: <Electronically signed by Kirit Peterson MD in OV> 02/15/25 1056 DD/ 1020 TD/TT: 02/15/25 1035 [facility] Treater: [facility] External Provider IMG FLU OROSCOPY PROCEDURES Final Result * Hemoglobin A1c (11/27/2024 11:26 AM EST) Hemoglobin A1c 5.7 <6.0 % [facility] Comment:Hemoglobin A1C Refer ence Range Adults: 4.8 - 6.0 % Non diabetic: < 6.0 % Goal: < 7.0 %Additional Action Suggested: > 8.0 %Note: Hemoglobin A1c results are invalid for patients with abnormal amounts of HbF. Blood transfusions may impact the HbA1c concentration in the patient sample. Estimated Average Glucose 117 mg/dL [facility] Comment:eAG = Estimated ave rage glucose which is %A1C expressed asaverage glucose, using the formula of the G1U-VdmukrmRymqsxe Glucose study (ADAG), Diabetes Care, Vol.31,#8,Jun. 2007 11/27/2024 11:2 6 AM EST 11/27/2024 12:58 PM EST [facility] LAB BLOOD ORDERABLES Final Re sult [facility] [address] [place] [phone] * (ABNORMAL) Lipid Panel, Standard (11/27/2024 11:26 AM EST) Triglycerides 300(H) <150 mg/dL [facility] Comment:Desirable Triglyceri de: less than 150 mg/dLBorderline High Triglyceride 150-199 mg/dLHigh Triglyceride: 200-499 mg/dLVery High Triglyceride: greater than or equal to 5OO mg/dL Cholesterol 225(H) <200 mg/dL [facility] Comment:Desirable Cholestero l: less than 200 mg/dLBorderline High Cholesterol: 200-239 mg/dLHigh Cholesterol: greater than 239 mg/dL LDL Cholesterol Calculated 121(H) <100 mg/dL [facility] Comment:Desirable LDL: less than 100 mg/dLNear Optimal/Above Optimal LDL: 110- 129 mg/dLBorderline High LDL: 130-159 mg/dLHigh LDL: 160-189 mg/dLVery High LDL: greater than or equal to 190 mg/dL HDL Cholesterol 44 >40 mg/dL [facility] Comment:Desirable HDL: great er than 40 mg/dL Note: This HDL assay may give artificially low results in patients with liver disease. 11/27/2024 11:2 6 AM EST 11/27/2024 12:58 PM EST [facility] LAB BLOOD ORDERABLES Final Re sult Performing Organization Address City/[facility]/ZIP Co de Phone Number [facility] [address] [place] [address] [phone] * HPV mRNA E6/E7 w/Reflex to HPV Genotypes 16, 18/45 (2024 12:30 PM EDT) HPV nRNA E6/E7 Not Detected Not Detected [facility] Comment:Methodology: Transcr iption-Mediated AmplificationThis assay detects E6/E7 viral messenger RNA (mRNA) from 14high-risk HPV types (16,18,31,33,35,39,45,51,52,56,58,59,66,68).Cervical sources are required for HPV testing.If a vaginal source from a patient who has had atotal hysterectomy with removal of cervix wassubmitted, please contact the testing laboratoryfor alternative testing options.For additional information, please refer tohttp://education.Yuenimei/faq/UTD278x6(This link if provided for information/educational purposes only.)THIS TEST WAS PERFORMED AT:[facility] [place] [id number] ROSARIO MD HPV mRNA E6/E7 [facility] HPV 16 RNA [facility] HPV 18/45 RNA [facility] 2024 12:3 0 PM EDT 05/06/2024 11:47 AM EDT [facility] CYTOLOGY ORDERABLES Final Result [facility] [address] [place] [address] [phone] * Pap Smear (2024 12:30 PM EDT) Swab Cervical swab / Unknown 2024 12:30 PM EDT 04/28/2024 9:10 AM EDT Narrative [facility] - 05/11/2024 5:17 PM EDT ----- ------- Name: Radha Garcia ? Age/Sex: 49/F ? : 1975 Unit#: [id number] ?? Attend Dr: Constance Oakes ?Re04/27/24 ?Status: DEP REF ? [facility] ? Disch: ? ----- ------- SPEC : [id number] ?RECD: 04/28/24 ? STATUS: ??SOUT ? REQ NUM: [id number] ? JUAREZ: 04/27/24-1229 ? SUBM DR: Constance Oakes ? ENTERED: ??04/28/24 ?SP TYPE: Pap Smr ?OTHR : ? ORDERED: ??Pap Smear ? Interpretation ?? Satisfactory for evaluation. ?? Negative for intraepithelial lesion or malignancy. ?? Atrophic. ? HPV mRNA E6/E7: ?NOT DETECTED ? This assay detects E6/E7 viral messenger RNA (mRNA) from 14 high-risk HPV types (16, 18, ?? 31, 33, 35, 39, 45, 51, 52, 56, 58, 59, 66, 68) ? HPV testing performed by [facility], [place], [place]. ??See reference laboratory ?? portion of the EMR for entire report. ?Clinical Information LMP: Postmenopausal Previous PAP test: Unknown date/findings ? Material Received ?? ThinPrep-Vaginal/Cervical ----- ------- Signed (signature on file) Renea Greer Dada 05/11/241716 ? ----- ------- ? END OF REPORT ? [facility] CYTOLOGY ORDERABLES Final Result [facility] [address] [facility] [place] [address] [phone] * BI Mammogram Screening Tomosynthesis Bilateral (12/27/2022 9:55 AM EST) Anatomical Region Laterality Modality Breast Bilateral Mammography 12/27/2022 9:55 AM EST Narrative 12/28/2022 4:27 PM EST ? [facility] ? [address] ?[place] [address] ? Mammography Report ? Signed ? Patient: Radha Garcia ?MR#: [id number] ?? 95 ? : 1975 ?Acct:[id number] ? Age/Sex: 47 / F ?ADM Date: 12/27/22 ? Loc: HO.MAMMO ? Attending Dr: Constance Champ [facility] ? Ordering Physician: Champ,Constance [facility] ?Results: 1Nega ?? tive ? Date of Service: 12/27/22 ?Follow Up: 1 Year From Orig ?? inal Mammogram ? Procedure(s): MM tomosynthesis screening BI ?? Accession Number(s): [id number] ? cc: Champ,Constance [facility] ? EXAMINATION: ?? MM SCREENING DIGITAL BREAST TOMOSYNTHESIS, BILATERAL ? CLINICAL INFORMATION: ? Screening. Asymptomatic. ? The lifetime risk of breast cancer based on the Tyrer-Cuzick Model is ?? 5.1%. ? COMPARISON: ?? Mammography: None ? TECHNIQUE: ?? Digital breast tomosynthesis is performed in both the craniocaudal and ?? mediolateral oblique views along with computer-aided detection (CAD). ?? Synthesized 2D images are generated from the tomosynthesis. ? FINDINGS: ?? There are scattered areas of fibroglandular density (ACR BI-RADS breast ?? composition Category b). ? There are no significant masses, abnormal calcifications, or other ?? abnormalities. ?? A few small intramammary lymph nodes are present. ? MM/MM tomosynthesis screening BI ?? IMPRESSION: ?? No mammographic evidence of malignancy. ? ASSESSMENT: ? BI-RADS 1: Negative ? RECOMMENDATION: ?? Routine annual mammography screening. ? This patient's information was entered into a reminder system with a ?? target due date for their next mammogram. ? Dictated By: ?Pankaj Cody MD ? Signed By: ?<Electronically signed by Pankaj Cody MD in OV> ?12/28/22 1624 ? DD/ 0955 ? TD/TT: ? Cone Treater: SK ? Procedure Note Cristin, Image - 12/28/2022 [facility] [address] [place] [address] [place] [address] Mammography Report Signed Patient: Radha Garcia CMR#: [id number] 95 : 1975Acct:[id number] Age/Sex: 47 / FADM Date: 12/27/22 Loc: HO.MAMMO Attending Dr: Constance Oakes [facility] Ordering Physician: Constance Oakes FNPResults: 1Nega tive Date of Service: 12/27/22Follow Up: 1 Year From Orig inal Mammogram Procedure(s): MM tomosynthesis screening BI Accession Number(s): [id number] cc: Constance Oakes [facility] EXAMINATION: MM SCREENING DIGITAL BREAST TOMOSYNTHESIS, BILATERAL CLINICAL INFORMATION: Screening. Asymptomatic. The lifetime risk of breast cancer based on the Tyrer-Cuzick Model is 5.1%. COMPARISON: Mammography: None TECHNIQUE: Digital breast tomosynthesis is performed in both the craniocaudal and mediolateral oblique views along with computer-aided detection (CAD). Synthesized 2D images are generated from the tomosynthesis. FINDINGS: There are scattered areas of fibroglandular density (ACR BI-RADS breast composition Category b). There are no significant masses, abnormal calcifications, or other abnormalities. A few small intramammary lymph nodes are present. MM/MM tomosynthesis screening BI IMPRESSION: No mammographic evidence of malignancy. ASSESSMENT: BI-RADS 1: Negative RECOMMENDATION: Routine annual mammography screening. This patient's information was entered into a reminder system with a target due date for their next mammogram. Dictated By: Pankaj Cody MD Signed By: <Electronically signed by Pankaj Cody MD in OV> 12/28/22 1624 DD/ 0955 TD/TT: Cone Treater: GLEN[facility] External Provider IMG BI PROCEDURES Edited Result - Final * Hm Colonoscopy (06/20/2020 7:49 AM EDT) Historical Provider HEALTH MAINTENANCE Final Result from Last 3 Months or Most Recently Relevant to Health Maintenance Insurance HS FULL [facility] DENT[facility] MEDICAID LIMITED ADULT DENTAL - HSN FULL (MEDICAID) Care Teams [employer] Research Scientist Relationship Specialty Start Date End Date Constance Oakes FNP [address] [place] [id number] PCP - General Family Medicine 07/17/22
== END 2025-03-16 08:37 | disposition home or self-care (01) ==
LOC: HO.HOS 08:24
PROVIDERS: PCP Registered Nurse; Visit Provider Physician Assistant
DX: M17.12 Unilateral primary osteoarthritis, left knee (principal); S83.249A Other tear of medial meniscus, current injury, unspecified knee, initial encounter
CPT/HCPCS: 99024

== ENCOUNTER → 2025-03-16 08:23 | Outpatient (BNVA) | payer OTHER, SELFPAY | PROVIDERS: PCP Registered Nurse; Visit Provider Physician Assistant | DX: Z01.818 Encounter for other preprocedural examination (principal); M17.12 Unilateral primary osteoarthritis, left knee; S83.242A Other tear of medial meniscus, current injury, left knee, initial encounter; X58.XXXA Exposure to other specified factors, initial encounter; Y93.9 Activity, unspecified; Y92.9 Unspecified place or not applicable; Y99.9 Unspecified external cause status | CPT/HCPCS: 99212 ==

== ENCOUNTER 2025-03-24 05:49 | Day surgery (SDC) | payer OTHER, SELFPAY ==
[2025-03-22 11:36] VITALS: BMI 39.4
[2025-03-24] VITALS (10 sets, daily range): BP systolic 135–154; BP diastolic 62–99; PULSE 81–96; RESP 16–18; TEMP 36.2–36.7; O2SAT 95–100; BMI 41.8
[2025-03-24] MEDS: Lactated Ringers 1,000 ML 100 ML IVCONT (06:59)
[2025-03-24 07:07] LABS: UPreg QC Valid YES; Urine Pregnancy NEGATIVE (NEGATIVE)
--- NOTE | 2025-03-24 07:20 | HO.ANESPROP2 ---
Documented by User: Jemma Robert NP 03/23/25 09:43 HPI - Anesthesia Eval Consult details Narrative: 49yo F for Left Knee Arthroscopy PMFSH Active Problems Active Problems: All Active Problems Osteoarthritis of right knee (Acute) Internal derangement of left knee (Acute) Osteoarthritis (Acute) Medial meniscus tear (Acute) Locking of right knee (Acute) Hemorrhoids, internal, with bleeding (Acute) Bilateral primary osteoarthritis of knee (Acute) GERD (gastroesophageal reflux disease) (Acute) Generalized abdominal pain (Acute) Abdominal bloating (Acute) Chronic constipation (Acute) Colon cancer screening (Acute) NAFL (nonalcoholic fatty liver) (Acute) Rectal bleeding (Acute) Dysphagia, pharyngoesophageal phase (Acute) Patellofemoral arthritis of right knee (Acute) Patellofemoral arthritis of left knee (Acute) Distal radius fracture, left (Acute) Bilateral knee pain (Acute) Past Medical History Medical History CARITO (obstructive sleep apnea) History of Helicobacter pylori infection Patellofemoral arthritis of right knee Patellofemoral arthritis of left knee Distal radius fracture, left Bilateral knee pain Fatty liver GDM (gestational diabetes mellitus) Hypertension Anxiety Depression Family History Family history of problems with anesthesia: No Surgical History Surgical History History of esophagogastroduodenoscopy (EGD) Hx of colonoscopy Hx of endoscopy H/O hand surgery History of open reduction and internal fixation (ORIF) procedure History of eye surgery History of hemorrhoidectomy History of back surgery History of Problems with Anesthesia: No Social History Social History Household Members: Spouse and Children Are you a primary pet care assistant to a significant other at home: No Do you presently have visiting nurse or other home services: No Alcohol intake: current Alcohol intake frequency: does not drink Patient Tobacco Use Status: Never used Tobacco Use of substances other than those prescribed or required for medical reasons: No Have you been hit, kicked, punched, or otherwise hurt by someone within the past year? 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: Right Handed Meds Allergies Allergy/AdvReac Type Severity Reaction Status Date / Time No Known Allergies Allergy Verified 03/24/25 06:23 [No Known Allergies*] Home Medications ?Medication ?Instructions ?Recorded ?Confirmed ?Last Taken ?Type albuterol sulfate 90 mcg/actuation 2 puff PO Q4-6H PRN wheezing 04/12/21 03/24/25 Unknown History aerosol inhaler budesonide 90 mcg/actuation breath 2 inh PO BID 04/12/21 03/24/25 Unknown History activated powder inhaler loratadine 10 mg tablet 10 mg PO DAILY PRN allergies 04/12/21 03/24/25 Unknown History olmesartan 5 mg tablet 5 mg PO QAM 01/30/24 03/24/25 03/23/25 History hydrochlorothiazide 25 mg tablet 25 mg PO DAILY 08/19/24 03/24/25 03/23/25 History Exam Height,Weight and Vital Signs: Height 5 ft 4 in Weight 104 kg Assessment and Plan Assessment Anesthesia Assessment: Chart Reviewed Final Anesthetic Review Family History of Problems with Anesthesia: No History of Problems with Anesthesia: No Documented by User: Melodie Moses DO 03/24/25 07:24 [facility] Past Medical History Medical History CARITO (obstructive sleep apnea) History of Helicobacter pylori infection Patellofemoral arthritis of right knee Patellofemoral arthritis of left knee Distal radius fracture, left Bilateral knee pain Fatty liver GDM (gestational diabetes mellitus) Hypertension Anxiety Depression Family History Family history of problems with anesthesia: No Surgical History Surgical History History of esophagogastroduodenoscopy (EGD) Hx of colonoscopy Hx of endoscopy H/O hand surgery History of open reduction and internal fixation (ORIF) procedure History of eye surgery History of hemorrhoidectomy History of back surgery History of Problems with Anesthesia: Yes (PONV after wrist surgery) Social History Social History Household Members: Spouse and Children Are you a primary pet care assistant to a significant other at home: No Do you presently have visiting nurse or other home services: No Alcohol intake: current Alcohol intake frequency: does not drink Patient Tobacco Use Status: Never used Tobacco Use of substances other than those prescribed or required for medical reasons: No Have you been hit, kicked, punched, or otherwise hurt by someone within the past year? 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: Right Handed Meds Allergies Allergy/AdvReac Type Severity Reaction Status Date / Time No Known Allergies Allergy Verified 03/24/25 06:23 [No Known Allergies*] Home Medications ?Medication ?Instructions ?Recorded ?Confirmed ?Last Taken ?Type albuterol sulfate 90 mcg/actuation 2 puff PO Q4-6H PRN wheezing 04/12/21 03/24/25 Unknown History aerosol inhaler budesonide 90 mcg/actuation breath 2 inh PO BID 04/12/21 03/24/25 Unknown History activated powder inhaler loratadine 10 mg tablet 10 mg PO DAILY PRN allergies 04/12/21 03/24/25 Unknown History olmesartan 5 mg tablet 5 mg PO QAM 01/30/24 03/24/25 03/23/25 History hydrochlorothiazide 25 mg tablet 25 mg PO DAILY 08/19/24 03/24/25 03/23/25 History Exam Exam Date and Time: 03/24/25 0720 Height,Weight and Vital Signs: Height 5 ft 4 in Weight 104 kg Vital Signs Temperature 97.2 F 03/24/25 06:47 Pulse Rate 96 03/24/25 06:47 Respiratory Rate 16 03/24/25 06:47 Blood Pressure 149/95 H 03/24/25 06:47 Pulse Oximetry 98 03/24/25 06:47 Oxygen Delivery Method Room Air 03/24/25 06:47 Temperature 97.2 F 03/24/25 06:47 Pulse Rate 96 03/24/25 06:47 Respiratory Rate 16 03/24/25 06:47 Blood Pressure 149/95 H 03/24/25 06:47 Pulse Oximetry 98 03/24/25 06:47 Oxygen Delivery Method Room Air 03/24/25 06:47 Airway Mallampati Class: II TM Dist: >3cm Neck ROM: Full Loose/Missing/Broken Teeth: No (caps and crowns but no loose or broken teeth) Heart: S1S2 Lungs: CTAB Assessment and Plan Assessment Anesthesia Assessment: Anesthesia Plan Discussed and Chart Reviewed Final Anesthetic Review Family History of Problems with Anesthesia: No History of Problems with Anesthesia: Yes (PONV after wrist surgery) NPO: Yes ASA Class: III Final Preanesthetic Review: No Changes in Pt Med Stat, Meds/Allgs Chart Reviewed, Consent Obtained/Reviewed and Anes Risks/Benef Reviewed Patient Risk: Low Procedure Risk: Low Anesthetic Plan Anesthetic Plan: GA and Agree w/ Assess. and Plan Disposition: Standard PACU
--- NOTE | 2025-03-24 07:34 | MHC.SHP ---
Pre-Procedural Eval Section A - 24 Hr Update-Section A only Date of Service: 03/24/25 The patient is an INPATIENT: No Changes since office visit: No Cold of Flu in the past 2 weeks, No New Medical Problems, No Changes in Medication and No Patient answered all questions The patient has been examined within 24 hours of the surgical procedure. The History & Physical has been completed within 30 days and I have reviewed it.: Yes Section B - Complete if H&P > 30 days Chief Complaint: Other tear of medial meniscus, current injury, Allergies: Allergies Allergy/AdvReac Type Severity Reaction Status Date / Time No Known Allergies Allergy Verified 03/24/25 06:23 [No Known Allergies*] Plan I have reviewed the history and physical and performed a pertinent physical examination on my patient. No changes have occurred unless specified. Time Spent With Patient Time: Total time managing care of this patient today ____ minutes.
[2025-03-24] MEDS: ceFAZolin Sodium/Dextrose,Iso 2 GM/50 ML PIGGYBACK IV (07:47)
[2025-03-24] MEDS: Acetaminophen 1,000 MG/100 ML PIGGYBACK 400 MG IV (08:12)
--- NOTE | 2025-03-24 08:59 | W.PM.OPN ---
Operative Note Operative Note Date of Service: 03/24/25 Narrative: Date of Service: 03/24/25 Pre-op diagnosis: left knee MMT and OA Post-op diagnosis: same Procedure: Left knee osteoarthritis Implants: none Surgeon: Migel Duenas MD Anesthesia: GETA Was an Facilities And Grounds Director used for this Procedure?: No Estimated blood loss (mL): 5 Tourniquet time (min): 25 IV fluids (mL): 750 Pathology: none sent Condition: stable Disposition: PACU Procedure in detail: Patient was brought to the operating room placed supine on the arthroscopic table and prepped and draped in standard sterile fashion. A time-out was called to identify proper site proper procedure proper surgeon and IV antibiotics per weight were administered. I began by exsanguinating the limb and insufflating tourniquet to 300 mm Hg. Then made a standard anterolateral stab incision. The knee was insufflated with water and 30 degree arthroscope was placed. There was grade 4 changes of the trochlea with 2/3 changes of the patella and a distal osteophyte. The suprapatellar pouch and the gutters were clean. I descended into the medial compartment where I made my medial portal under direct visualization. There was G4 changes of the weight bearing portion of the MFC and G2 changes of the tibia. there was an oblique intra substance tear of the the posterior horn of the medial meniscus. The root was intact. I used a combination of biter shaver and cautery to remove unstable portions of the meniscus. Apporximately 20% meniscal volume was removed but the inner margins were preserved. Once I was satsfied with this the ACL was examined and found to be intact and the lateral compartment was normal. I then performed a chondroplasty of the MFC and the trochlea and patella with an ablation wand. I then removed all instrumentation and closed the portals with skin glue. 25 mL of 2% Marcaine with epinephrine was injected into the joint and the surrounding soft tissues. Patient was then placed in sterile dressing extubated brought recovery room stable condition. There were no known complications.
[2025-03-24] MEDS: oxyCODONE HCl Immed Release 5 MG TABLET PO (09:05)
[2025-03-24] MEDS: fentaNYL citrate/PF 100 MCG/2 ML VIAL 50 MCG IVPUSH (09:10)
[2025-03-24] MEDS: ondansetron HCL 4 MG/2 ML VIAL IVPUSH (09:36)
== END 2025-03-24 10:25 | disposition home or self-care (01) ==
LOC: HO.SSS 05:49
PROVIDERS: Anesthesiology; PCP Registered Nurse; Visit Provider Orthopaedic Surgery
PROC: (CPT 29870; principal; 2025-03-24 07:30)
DX: S83.242A Other tear of medial meniscus, current injury, left knee, initial encounter (principal); M17.12 Unilateral primary osteoarthritis, left knee; M25.762 Osteophyte, left knee; I10 Essential (primary) hypertension; G47.33 Obstructive sleep apnea (adult) (pediatric); K76.0 Fatty (change of) liver, not elsewhere classified; F41.9 Anxiety disorder, unspecified; Z79.899 Other long term (current) drug therapy; Z98.890 Other specified postprocedural states; Z56.0 Unemployment, unspecified
CPT/HCPCS: 29881; 81025; J0131; J0171; J0690; J1100; J2003; J2250; J2371; J2405; J2704; J2795; J3010

== ENCOUNTER → 2025-03-24 05:49 | Outpatient (BNV) | payer OTHER, SELFPAY | PROVIDERS: PCP Registered Nurse; Visit Provider Orthopaedic Surgery | DX: S83.242A Other tear of medial meniscus, current injury, left knee, initial encounter (principal) | CPT/HCPCS: 29881 ==

== ENCOUNTER 2025-04-01 14:51 | Outpatient (AMB) | payer OTHER, SELFPAY ==
--- NOTE | 2025-04-01 14:53 | A.OFFVIS_ITS ---
Intake Visit Reasons: PO LT knee 03/24/25 NE Intake Note: Radha is a 49 year old female who presents today for a post operative appointment s/p left knee arthroscopy 03/24/25 NE. Patient reports - . Allergies No Known Allergies [No Known Allergies*] Allergy (Verified 03/24/25 06:23) HPI HPI PO LT knee 03/24/25 NE: Details: Ms. Garcia is a 49-year-old female who presents the office today status post left knee arthroscopy performed on 03/24/2025 for a partial medial meniscectomy and chondroplasty by Dr. Duenas. [facility] Medical History CARITO (obstructive sleep apnea) History of Helicobacter pylori infection Patellofemoral arthritis of right knee Patellofemoral arthritis of left knee Distal radius fracture, left Bilateral knee pain Fatty liver GDM (gestational diabetes mellitus) Hypertension Anxiety Depression Surgical History History of esophagogastroduodenoscopy (EGD) Hx of colonoscopy Hx of endoscopy H/O hand surgery History of open reduction and internal fixation (ORIF) procedure History of eye surgery History of hemorrhoidectomy History of back surgery Social History Household Members: Spouse and Children Are you a primary personal care worker to a significant other at home: No Do you presently have visiting nurse or other home services: No Alcohol intake: current Alcohol intake frequency: does not drink Patient Tobacco Use Status: Never used Tobacco 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al status: unemployed 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: Right Handed Review of Systems Const All systems reviewed & are unremarkable except as noted in HPI and below Physical Exam Const General: cooperative, healthy appearing and no acute distress Resp Effort & Inspection: normal respiratory effort and able to speak in complete sentences Extrem Other: Left knee incision sites are clean dry and intact. Sutures intact. No surrounding erythema or drainage. No signs of infection. No Range of motion 0- 110. NVI. Assessment & Plan Assessment & Plan (1) Osteoarthritis of right knee: Code(s): M17.11 - Unilateral primary osteoarthritis, right knee Category: Medical (2) Internal derangement of left knee: Code(s): M23.92 - Unspecified internal derangement of left knee Category: Medical Plan Ms. Garcia is a 49-year-old female who presents the office today status post left knee arthroscopy performed on 03/24/2025 for a partial medial meniscectomy a nd chondroplasty by Dr. Duenas. Sutures removed in the office today Steri-Strips applied. She is requesting a refill of hydrocodone which was sent to the pharmacy today as well as ibuprofen 800 mg to be taken p.o. Q t.i.d.. An order for physical therapy has also been placed while in the office today. She will follow up in 4 weeks for mcvyj-im-[id number] check, sooner if needed. Coding Level of Care Code Global (97007) Diagnoses Osteoarthritis of right knee M17.11 Internal derangement of left knee M23.92
--- OUTSIDE RECORDS SUMMARY | 2025-04-01 15:31 | XMS_ITS | Encounter Summary ---
Author Organization [employer] Address [address] [place] [address] Care Team Providers Care [employer] Person Name Role Phone Constance Oakes ANALYTICAL SCIENCES DIRECTOR Primary Care Provider [phone] Encounter Details Date Type Department Care Team (Late st Contact Info) Description 10/11/2023 Abstract [facility] [address], [place] [phone] Angela Dick Social History Tobacco Use Types [...] Info) Description 06/17/2025 11:00 AM EDT Immunization [facility] [address] [place] [phone] 06/28/2025 10:00 AM EDT Office Visit [facility] [address] [place] [phone] Constance Oakes FNP [address] [place] [phone] documented as of this encounter Visit Diagnoses Not on filedocumented in this encounter Additional Health Concerns Assessment Noted Time PHQ-9 Depression Total Score: 0 01/10/20 23 9:23 AM EST documented as of this encounter Care Teams [employer] Repair Person Relationship Specialty Start Date End Date Constance Oakes FNP [address] [place] [phone] PCP - General Family Medicine 07/17/22 documented as of this encounter
--- OUTSIDE RECORDS SUMMARY | 2025-04-01 15:31 | XMS_ITS | Clinical Summary ---
Author Organization [employer] Address [address] [facility] 7t [place] [address] Care Team Providers Care Entry Level Recruiter Name Role Phone Constance Oakes TOOL MARKER Primary Care Provider [phone] Allergies No known active allergies Medications * [...] OR JUICE AND DRINK ONCE DAILY DIRECTED 02/06/20 22 Active ondansetron ODT (Zofran-ODT) 4 MG disintegrating tablet Take 1 tablet (4 mg total) by mouth every 6 (six) hours as needed. 06/01/20 19 Active omeprazole (PriLOSEC) [address] capsule take 1 capsule by oral route twice every day before a meal for stomach pain 03/26/20 19 Active Multiple Vitamins-Minerals (CertaVite/Antioxi dants) tablet Take with food. 02/06/20 22 Active hydrocortisone 2.5 % cream APPLY A THIN LAYER TOPICALLY AFFECTED AREA(S) TWICE DAILY NEEDED 07/05/20 22 Active Linzess 145 MCG capsule TAKE 1 CAPSULE BY MOUTH EVERY DAY IN THE MORNING 08/16/20 22 Active ibuprofen 600 MG tabletIndications: Chronic low back pain, unspecified back pain laterality, unspecified whether sciatica present Take 1 tablet (600 mg) by mouth every 8 (eight) hours if needed for mild pain. 30 tablet 01/15/20 24 Active olmesartan (Benicar) 5 MG tabletIndications: Essential hypertension Take 1 tablet (5 mg) by mouth Once per day. 90 tablet 03/26/20 24 Active Blood Pressure Monitoring (Omron 3 Series BP Monitor) deviceIndications: Essential hypertension USE DIRECTED 1-2 TIMES EVERY DAY 1 each 04/27/20 24 Active hydroCHLOROthiazid e (HYDRODiuril) 25 MG tabletIndications: Essential hypertension Take 1 tablet (25 mg) by mouth Once per day. 30 tablet 11 06/01/20 24 025 Active albuterol 108 (90 Base) MCG/ACT inhalerIndications :Mild intermittent asthma without complication Use every 4 hours as directed 18 g 1 06/01/20 24 Active albuterol (2.5 MG/3ML) 0.083% nebulizer solutionIndication s:Mild intermittent asthma without complication Take 3 mL (2.5 mg) by nebulization every 4 (four) hours if needed for wheezing. 75 mL 3 06/01/20 24 025 Active lidocaine (Lidoderm) 5 % patchIndications:C hronic right shoulder pain Apply topically to affected areas. Leave on for up to 12 hours 30 patch 1 06/01/20 24 Active loratadine (Claritin) 10 MG tabletIndications: Mild intermittent asthma without complication Take 1 tablet (10 mg) by mouth Once per day. 30 tablet 06/01/20 24 025 Active losartan (Cozaar) 25 MG tablet Take 1 tablet (25 mg) by mouth Once per day. 30 tablet 07/30/20 24 025 Active Diclofenac Sodium 1 % gelIndications:Art hralgia, unspecified joint Apply topically to affected areas twice daily 150 g 11/27/19 25 Active capsaicin (Zostrix) 0.025 % creamIndications:A rthralgia, unspecified joint Apply topically 2 times daily. 56.6 g 11/27/19 25 026 Active DULoxetine (Cymbalta) [address] capsuleIndications :Arthralgia, unspecified joint Take 1 capsule (30 mg) by mouth 2 times daily. Do not crush or chew. 60 capsule 11/27/19 25 026 Active budesonide-formote rol (Symbicort) 80-4.5 MCG/ACT inhalerIndications :Mild intermittent asthma without complication Inhale 2 puffs twie daily. Rinse mouth with water after use to reduce aftertaste and incidence of candidiasis. Do not swallow. 1 each 11 11/27/19 25 Active melatonin 5 MG tabletIndications: Arthralgia, unspecified joint Take 1 tablet by oral route every evening 2-3 hours before bed 90 tablet 3 11/27/19 25 Active fluticasone (Flonase) 50 MCG/ACT nasal sprayIndications:M ild intermittent asthma without complication INSTILL 1-2 SPRAYS IN EACH NOSTRIL ONCE DAILY 16 g 2 02/20/20 25 Active Active Problems Problem Noted Date Diagnosed Date Mild persistent asthma without complication 01/2025 Primary osteoarthritis of both hands 11/27/2024 Other dysphagia 03/25/2024 Overview (03/25/2024): Followed by [facility]. Last seen 10/2023. Endoscopy/colonoscopy from 08/2023 [...] 12/10/2022 Overview (11/27/2024): Seen by cardiology at [facility] in 2014 d/t hx of CP and SOB. Negative echo. Negative stress test at this time. No further cardiology follow up - Previously did not tolerate olmesartan. Reagan that it caused BP fluctuation Maintenance: - [...] 1 Pap: Overdue, scheduled today C-scope: 05/2020- [facility] repeat 5 years. BMD: 08/2022, WNL HCV [...] disease 04/22/2013 Overview (12/10/2022): ?? Followed by [facility] ?? Negative endoscopy 01/2022, Dr. Neil [...] Encounters Date Type Department Care Team Description 04/01/[address] [facility] [address] [place] [address] Constance Oakes FNP recall 03/24/2025 Orders Only GENERIC EXTERNAL DATA DEPARTMENT Provider, Generic External Data 03/23/2025 Travel 02/18/[address] [facility] [address] [place] [address] Triny Bustillos DO Mild intermittent asthma without complication 02/15/2025 Orders Only [facility] External Provider, [facility] 01/14/2025 10:15 AM EST Nurse Only [facility] [address] [place] [address] Quynh Knutson RN Encounter for immunization 01/14/2025 Travel from Last 3 Months Immunizations Name [...] Info) Description 06/17/2025 11:[address] [facility] [address] [place] [address] 06/28/2025 10:00 AM EDT Office Visit [facility] [address] [place] [phone] Woodruff, Constance, TOOL MARKER [address] [place] [address] Health Maintenance Due Date Last Done Comments CT Colonography 1975 FIT DNA/Cologuard 1975 FIT 1975 FOBT 1975 Sigmoidoscopy 1974 Alcohol/Substance Use Screening 1986 Family Planning (PISQ) 1989 Pneumococcal Vaccine: 50+ Years (1 of 2 - PCV) 1993 Mammogram 12/27/2023 12/27/2022, 02/0 12/2022, 12/27/2022, Additional history exists Zoster Vaccines (1 of 2) 2024 Dental Oral Exam 07/17/2024 01/16/2024, 02/2019, 05/05/2018, Additional history exists Dental Prophylaxis 08/02/2024 01/30/2024, 0 12/29/2018, 04/10/2018, Additional history exists SDOH Screening 01/15/2025 01/15/2024 Dental X-Ray: Bitewings 01/17/2025 01/16/20, 05/05/2018, 09/17/2016, Additional history exists IPV Vaccines [...] 11/09/2010 Hepatitis B Vaccines Discontinued 01/14/2025, 12/17/19 25 HIB Vaccines Aged Out No longer eligi [...] Procedure Name Priority Date/Time Associated Diagnosis Comments HCG, QL, URINE Routine 03/24/2025 6:20 AM EDT FL ESOPHAGUS BARIUM SWALLOW WITH AIR Routine [...] Recently Relevant to Health Maintenance Results * HCG, Qualitative, Urine (03/24/2025 6:20 AM EDT) Urine NEGATIVE NEGATIVE [facility] Comment:This test was develo ped to detect early . Falsenegative results may occur after the 5th - 7th week ofpregnancy when using this test method. If clinicallyindicated, consider a serum hCG. 03/24/2025 6:20 AM EDT 03/24/2025 7:02 AM EDT us Generic External Data Provider LAB URINE ORDERAB LES Final Result [facility] [address] [place] [phone] * FL Esophagus Barium Swallow w/Air (02/15/2025 10:20 AM EDT) Anatomical Region Laterality Modality Head, Neck Radiographic Anna Marie ging 02/15/2025 10:2 0 AM EDT Narrative 02/15/2025 10:59 AM EDT ? [facility] ?[address] ?[place] [address] ? Fluoroscopy Report ? Signed ? Patient: Jose,Radha C ?MR#: [id number] ?? 95 ? : 1975 ?Acct:[id number] ? Age/Sex: 49 / F ?ADM Date: 02/15/25 ? Loc: HO.XRAY ? Attending Dr: James Neil MD ? Ordering Physician: James Neil MD ?? Date of Service: 02/15/25 ?? Procedure(s): FL barium swallow with air ?? Accession Number(s): [id number] ? cc: James Neil MD; Constance Oakes ? EXAMINATION: ?? XR FLUOROSCOPY ESOPHAGRAM ? [...] DD/ 1020 ? TD/TT: 02/15/25 1035 ? Armature Bander: ? Procedure Note Cristin, Image - 02/15/2025 [place] [address] Fluoroscopy Report Signed Patient: Radha Garcia CMR#: [id number] 95 : 1975Acct:[id number] Age/Sex: 49 / FADM Date: 02/15/25 Loc: GAN[facility] Attending Dr: James Neil MD Ordering Physician: James Neil MD Date of Service: 02/15/25 Procedure(s): FL barium swallow with air Accession Number(s): [id number] cc: James Neil MD; [facility] EXAMINATION: XR FLUOROSCOPY ESOPHAGRAM CLINICAL INFORMATION: 49-year-old [...] 02/15/25 1056 DD/ 1020 TD/TT: 02/15/25 1035 Armature Bander: [facility] External Provider IMG FLU OROSCOPY PROCEDURES Final Result * Hemoglobin A1c (11/27/2024 11:26 AM EST) Hemoglobin A1c 5.7 <6.0 % [facility] Comment:Hemoglobin A1C Refer ence Range Adults: 4.8 - 6.0 % Non diabetic: < 6.0 % Goal: < 7.0 %Additional Action Suggested: > 8.0 %Note: Hemoglobin A1c results are invalid for patients with abnormal amounts of HbF. Blood transfusions may impact the HbA1c concentration in the patient sample. Estimated Average Glucose 117 mg/dL [facility] Comment:eAG = Estimated ave rage glucose which is %A1C expressed asaverage glucose, using the formula of the C1Y-AxtmzagRiwnldw Glucose study (ADAG), Diabetes Care, Vol.31,#8,Jun. 2007 11/27/2024 11:2 6 AM EST 11/27/2024 12:58 PM EST [facility] TOOL MARKER LAB BLOOD ORDERABLES Final Re sult [facility] [address] [place] [phone] * (ABNORMAL) Lipid Panel, Standard (11/27/2024 11:26 AM EST) Triglycerides 300(H) <150 mg/dL [facility] Comment:Desirable Triglyceri de: less than 150 mg/dLBorderline High Triglyceride 150-199 mg/dLHigh Triglyceride: 200-499 mg/dLVery High Triglyceride: greater than or equal to 5OO mg/dL Cholesterol 225(H) <200 mg/dL [facility] Comment:Desirable Cholestero l: less than 200 mg/dLBorderline High Cholesterol: 200-239 mg/dLHigh Cholesterol: greater than 239 mg/dL LDL Cholesterol Calculated 121(H) <100 mg/dL [facility] Comment:Desirable LDL: less than 100 mg/dLNear Optimal/Above Optimal LDL: 110- 129 mg/dLBorderline High LDL: 130-159 mg/dLHigh LDL: 160-189 mg/dLVery High LDL: greater than or equal to 190 mg/dL HDL Cholesterol 44 >40 mg/dL [facility] Comment:Desirable HDL: great er than 40 mg/dL Note: This HDL assay may give artificially low results in patients with liver disease. 11/27/2024 11:2 6 AM EST 11/27/2024 12:58 PM EST [facility] LAB BLOOD ORDERABLES Final Re sult Performing Organization Address [facility] Co de Phone Number [facility] [address] [place] [address] [phone] * HPV mRNA E6/E7 w/Reflex to HPV Genotypes 16, 18/45 (2024 12:30 PM EDT) HPV nRNA E6/E7 Not Detected Not Detected [facility] Comment:Methodology: Transcr iption-Mediated AmplificationThis assay detects E6/E7 viral messenger RNA (mRNA) from 14high-risk HPV types (16,18,31,33,35,39,45,51,52,56,58,59,66,68).Cervical sources are required for HPV testing.If a vaginal source from a patient who has had atotal hysterectomy with removal of cervix wassubmitted, please contact the testing laboratoryfor alternative testing options.For additional information, please refer tohttp://education.1stdibs/faq/QGR713r0(This link if provided for information/educational purposes only.)THIS TEST WAS PERFORMED AT:[facility] [place] [phone] ROSARIO MD HPV mRNA E6/E7 [facility] HPV 16 RNA MEP [facility] HPV 18/45 RNA [facility] 2024 12:3 0 PM EDT 05/06/2024 11:47 AM EDT [facility] LAB CYTOLOGY ORDERABLES Final Result [facility] [address] [place] [address] [phone] * Pap Smear (2024 12:30 PM EDT) Swab Cervical swab / Unknown 2024 12:30 PM EDT 04/28/2024 9:10 AM EDT Tina [facility] - 05/11/2024 5:17 PM EDT ----- ------- Name: Radha Garcia ? Age/Sex: 49/F ? : 1975 Unit#: [id number] ?? Attend Dr: Constance Oakes ?Re04/27/24 ?Status: DEP REF ? Location: HO[facility] ? Disch: ? ----- ------- SPEC : [id number] ?RECD: 04/28/24-909 ? STATUS: ??SOUT ? REQ NUM: [id number] ? JUAREZ: 04/27/241230 ? SUBM DR: Constance Oakes ? ENTERED: [...] 66, 68) ? HPV testing performed by [facility], [place], [place]. ??See reference laboratory ?? portion of the EMR for entire report. ?Clinical Information LMP: Postmenopausal Previous PAP test: Unknown date/findings ? Material Received ?? ThinPrep-Vaginal/Cervical ----- ------- Signed (signature on file) Renea A Dada 05/11/24 1717 ? ----- ------- ? END OF REPORT ? [facility] TOOL MARKER LAB CYTOLOGY ORDERABLES Final Result [facility] [address] [place] [address] [phone] * BI Mammogram Screening Tomosynthesis Bilateral (12/27/2022 9:55 AM EST) Anatomical Region Laterality Modality Breast Bilateral Mammography 12/27/2022 9:55 AM EST Narrative 12/28/2022 4:27 PM EST ? [facility] ? [address] [facility] [address] ?[place] [address] ? Mammography Report ? Signed ? Patient: Jose,Radha C ?MR#: [id number] ?? 95 ? : 1975 ?Acct:[id number] ? Age/Sex: 47 / F ?ADM Date: // ? Loc: HO.MAMMO ? Attending Dr: Constance Woodruff TOOL MARKER ? Ordering Physician: Champ,Constance TOOL MARKER ?Results: 1Nega ?? tive ? Date of Service: 12/27/22 ?Follow Up: 1 Year From Orig ?? inal Mammogram ? Procedure(s): MM tomosynthesis screening BI ?? Accession Number(s): [id number] ? cc: Constance Oakes TOOL MARKER ? EXAMINATION: ?? MM SCREENING DIGITAL BREAST [...] signed by Pankaj Cody MD in OV> ?12/28/221623 ? DD/ 4 ? TD/TT: ? Armature Bander: SK ? Procedure Note Cristin, Image - 12/28/2022 [facility] [address] [place] [address] Mammography Report Signed Patient: Radha Garcia CMR#: [id number] 95 : 1975Acct:[id number] Age/Sex: 47 / FADM Date: 12/27/22 Loc: HO.MAMMO Attending Dr: Constance Oakes TOOL MARKER Ordering Physician: Constance Oakes FNPResults: 1Nega tive Date of Service: 12/27/22Follow Up: 1 Year From Orig inal Mammogram Procedure(s): MM tomosynthesis screening BI Accession Number(s): [id number] cc: Constance Oakes TOOL MARKER EXAMINATION: MM SCREENING DIGITAL BREAST TOMOSYNTHESIS, BILATERAL [...] in OV> 12/28/22 1624 DD/ 0955 TD/TT: Armature Bander: [facility] External Provider IMG BI PROCEDURES Edited Result - Final * Hm Colonoscopy (06/20/2020 7:49 AM EDT) Historical Provider HEALTH MAINTENANCE Final Result from Last 3 Months or Most Recently Relevant to Health Maintenance Insurance HSN FULL [facility] MEDICAID LIMITED ADULT DENTAL - N FULL (MEDICAID) Care Teams Entry Level Recruiter Relationship Specialty Start Date End Date Constance Oakes FNP [address] [place] [phone] PCP - General Family Medicine 07/17/22
--- OUTSIDE RECORDS SUMMARY | 2025-04-01 15:31 | XMS_ITS | Encounter Summary ---
Author Organization [employer] Address [address] [facility] 7[address] [place] [address] Care Team Providers Care Corporate Sales Manager Name Role Phone [facility] Primary Care Provider [phone] Reason for Visit * Reason Onset Date Comments recall 04/01/2025 Encounter Details Date Type Department Care Team ([facility] st Contact Info) Description 04/01/2025 Telephone [facility] [address] [place], [place] [phone] [facility] [address] [place], [place] [phone] recall Social History Tobacco Use Types Packs/Day Years [...] AM EDT documented as of this encounter Miscellaneous Notes * Telephone Encounter - Chanel Hernandez MA - 04/01/2025 11:02 AM EDT Telephone call to patient to schedule the following recall: Visit type: Physical Appointment notes: Physical Patient agree to appointment on 06/28 at 10 AM with Champ . documented in this encounter Plan of Treatment Upcoming Encounters Date Type Department Care Team ([facility] st Contact Info) Description 06/17/2025 11:00 AM EDT Immunization [facility] [address] [place] [phone] 06/28/2025 10:00 AM EDT Office Visit [facility] [address] [place] [phone] Constance Oakes FNP [address] [place] [address] documented as of this encounter Visit Diagnoses Not on filedocumented in this encounter Additional Health Concerns Assessment Noted Time PHQ-9 Depression Total Score: 7 06/01/20 24 11:27 AM EDT documented as of this encounter Care Teams Corporate Sales Manager Relationship Specialty Start Date End Date Constance Oakes FNP [address] [place] [address] PCP - General Family Medicine 07/17/22 documented as of this encounter
--- OUTSIDE RECORDS SUMMARY | 2025-04-01 15:31 | XMS_ITS | Encounter Summary ---
Author Organization [employer] Address [address] [facility] [address] [place] [address] Care Team Providers Care Priming Powder Premix Blender Name Role Phone Champ Constance INFORMATION SERVICES ASSISTANT Primary Care Provider [phone] Encounter Details Date Type Department Care Team (Late st Contact Info) Description 03/04/2024 Orders Only [facility] [address] [place] [address] Provider, MD Meenakshi Social History Tobacco Use Types Packs/Day Years [...] Info) Description 06/17/2025 11:00 AM EDT Immunization [facility] [address] [place] [phone] 06/28/2025 10:00 AM EDT Office Visit [facility] [address] [place] [phone] [facility] [address] [place] [address] documented as of this encounter Procedures Procedure [...] Free T4 2.78 0.32 - 4.0 uIU/mL [facility] 11/27/2024 11:2 6 AM EST 11/27/2024 12:58 PM EST [facility] LAB BLOOD ORDERABLES Final Re sult Performing Organization Address [facility]/ZIP Co de Phone Number [facility] [address] [place] [phone] * Vitamin D, 25-Hydroxy, Total, Immunoassay (11/27/2024 11:26 AM EST) Vitamin D 25-OH Total 40.9 >30 ng/mL [facility] Comment:Health Based Referen ce Values*< 20 ng/mL [id number] ng/mL Insufficient> 30 ng/mL Sufficient*Regla BROWN. N [...] 6 AM EST 11/27/2024 12:58 PM EST [facility] LAB BLOOD ORDERABLES Final Re sult Performing Organization Address [facility]/ZIP Co de Phone Number [facility] [address] [place] [phone] * (ABNORMAL) Lipid Panel, Standard (11/27/2024 11:26 AM EST) Triglycerides 300(H) <150 mg/dL [facility] Comment:Desirable Triglyceri de: less than 150 mg/dLBorderline High Triglyceride 150-199 mg/dLHigh Triglyceride: 200-499 mg/dLVery High Triglyceride: greater than or equal to 5OO mg/dL Cholesterol 225(H) <200 mg/dL [facility] Comment:Desirable Cholestero l: less than 200 mg/dLBorderline High Cholesterol: 200-239 mg/dLHigh Cholesterol: greater than 239 mg/dL LDL Cholesterol Calculated 121(H) <100 mg/dL [facility] Comment:Desirable LDL: less than 100 mg/dLNear Optimal/Above Optimal LDL: 110- 129 mg/dLBorderline High LDL: 130-159 mg/dLHigh LDL: 160-189 mg/dLVery High LDL: greater than or equal to 190 mg/dL HDL Cholesterol 44 >40 mg/dL [facility] Comment:Desirable HDL: great er than 40 mg/dL Note: This HDL assay may give artificially low results in patients with liver disease. 11/27/2024 11:2 6 AM EST 11/27/2024 12:58 PM EST [facility] LAB BLOOD ORDERABLES Final Re sult [facility] [address] [place], [place] [phone] * (ABNORMAL) Comprehensive Metabolic Panel (11/27/2024 11:26 AM EST) Sodium 141 135 - 145 mmol/L [facility] Potassium 3.8 3.3 - 5.1 mmol/L [facility] Chloride 110(H) 96 - 108 mmol/L [facility] Carbon Dioxide 26 22 - 29 mmol/L [facility] Anion Gap 9(L) 12 - 20 [facility] Urea Nitrogen (BUN) 16 9 - 16 mg/dL [facility] Creatinine, Serum 0.73 0.5 - 1.4 mg/dL [facility] Estimated Glomerular Filt Rate >60 [facility] Comment:Chronic Kidney Disea se: Estimated GFR < 60 mL/min/1.77c6Eycyny Kidney Disease: Estimated GFR < 15 mL/min/1.73m2 Glucose 104 60 - 115 mg/dL [facility] Calcium 9.3 8.4 - 10.2 mg/dL [facility] Bilirubin, Total 0.4 0.0 - 1.0 mg/dL [facility] Aspartate Amino Transferase 37(H) 5 - 31 U/L [facility] Alanine Aminotransferase 62(H) 0 - 31 U/L [facility] Total Protein 7.6 6.5 - 8.0 g/dL [facility] Albumin Level 4.5 3.5 - 5.0 g/dL [facility] Alkaline Phosphatase 99 39 - 117 U/L [facility] 11/27/2024 11:2 6 AM EST 11/27/2024 12:58 PM EST [facility] INFORMATION SERVICES ASSISTANT LAB BLOOD ORDERABLES Final Re sult [facility] [address] [place] [phone] * Hemoglobin A1c (11/27/2024 11:26 AM EST) Hemoglobin A1c 5.7 <6.0 % [facility] Comment:Hemoglobin A1C Refer ence Range Adults: 4.8 - 6.0 % Non diabetic: < 6.0 % Goal: < 7.0 %Additional Action Suggested: > 8.0 %Note: Hemoglobin A1c results are invalid for patients with abnormal amounts of HbF. Blood transfusions may impact the HbA1c concentration in the patient sample. Estimated Average Glucose 117 mg/dL [facility] Comment:eAG = Estimated ave rage glucose which is %A1C expressed asaverage glucose, using the formula of the P0C-[id number] Glucose study (ADAG), Diabetes Care, Vol.31,#8,Jun. 2007 11/27/2024 11:2 6 AM EST 11/27/2024 12:58 PM EST [facility] INFORMATION SERVICES ASSISTANT LAB BLOOD ORDERABLES Final Re sult [facility] [address] [place] [phone] [phone] * (ABNORMAL) CBC auto differential (11/27/2024 11:26 AM EST) White Blood Count 6.4 4.8 - 10.8 X10*3/uL [facility] Red Blood Count 4.68 4.20 - 5.50 X10*6/uL [facility] Hemoglobin 12.9 12.0 - 16.0 g/dl [facility] Hematocrit 39.2 37.0 - 47.0 % [facility] Mean Corpuscular Volume 83.8 80.0 - 98.0 fL [facility] Mean Corpuscular Hemoglobin 27.6 27.0 - 33.0 pg [facility] Mean Corpuscular HGB Conc 32.9 31.0 - 35.0 g/dl [facility] Red Cell Distribution Width 13.4 11.0 - 16.0 % [facility] Platelet Count 250 160 - 400 X10*3/uL [facility] Mean Platelet Volume 10.7 9.4 - 12.3 fL [facility] Neutrophils Percent Auto 41.5(L) 45 - 73 % [facility] Imm Gran Pct Auto 0.5(H) 0.0 - 0.4 % [facility] Lymphocytes Percent Auto 43.2(H) 20 - 40 % [facility] Monocytes Percent Auto 10.5 2 - 11 % [facility] Eosinophils Percent Auto 3.8 0 - 4 % [facility] Basophils Percent Auto 0.5 0 - 2 % [facility] NRBC Pct Auto 0.0 0.0 - 0.2 /100WBC [facility] Neutrophils Absolute Auto 2.6 2.0 - 8.3 x10*3/uL [facility] Imm Gran Abs Auto 0.03 0.00 - 0.03 X10*3/uL [facility] Lymphocytes Absolute Auto 2.8 1.2 - 4.9 X10*3/uL [facility] Monocytes Absolute Auto 0.7 0.1 - 1.2 X10*3/uL [facility] Eosinophils Absolute Auto 0.2 0.0 - 0.4 X10*3/uL [facility] Basophils Absolute Auto 0.0 0.0 - 0.2 X10*3/uL [facility] NRBC Abs Auto 0.000 0.0 - 0.012 X10*3/uL [facility] 11/27/2024 11:2 6 AM EST 11/27/2024 12:58 PM EST [facility] LAB BLOOD ORDERABLES Final Re sult [facility] [address] [place] [phone] * HPV mRNA E6/E7 w/Reflex to HPV Genotypes 16, 18/45 (2024 12:30 PM EDT) HPV nRNA E6/E7 Not Detected Not Detected [facility] Comment:Methodology: Transcr iption-Mediated AmplificationThis assay detects E6/E7 viral messenger RNA (mRNA) from 14high-risk HPV types (16,18,31,33,35,39,45,51,52,56,58,59,66,68).Cervical sources are required for HPV testing.If a vaginal source from a patient who has had atotal hysterectomy with removal of cervix wassubmitted, please contact the testing laboratoryfor alternative testing options.For additional information, please refer [email or web address]/[email or web address](This link if provided for information/educational purposes only.)THIS TEST WAS PERFORMED AT:[employer] [place] [phone] ROSARIO MD HPV mRNA E6/E7 TNP [facility] HPV 16 RNA TNP [facility] HPV 18/45 RNA TNP [facility] 2024 12:3 0 PM EDT 05/06/2024 11:47 AM EDT [facility] CYTOLOGY ORDERABLES Final Result [facility] [address] [place] [phone] * Hm Colonoscopy (06/20/2020 7:49 AM EDT) Historical Provider MD HEALTH MAINTENANCE Final Result documented in this encounter Visit Diagnoses Not on filedocumented in this encounter Additional Health Concerns Assessment Noted Time PHQ-9 Depression Total Score: 0 01/15/20 24 4:04 PM EST documented as of this encounter Care Teams Priming Powder Premix Blender Relationship Specialty Start Date End Date Constance Oakes INFORMATION SERVICES ASSISTANT [address] [place] [phone] PCP - General Family Medicine 07/17/22 documented as of this encounter
== END 2025-04-01 15:14 | disposition home or self-care (01) ==
LOC: HO.HOS 14:52
PROVIDERS: PCP Registered Nurse; Visit Provider Physician Assistant
DX: M17.11 Unilateral primary osteoarthritis, right knee (principal); M23.92 Unspecified internal derangement of left knee
CPT/HCPCS: 99024

== ENCOUNTER → 2025-04-01 14:51 | Outpatient (BNVA) | payer OTHER, SELFPAY | PROVIDERS: PCP Registered Nurse; Visit Provider Physician Assistant | DX: M17.11 Unilateral primary osteoarthritis, right knee (principal); M23.92 Unspecified internal derangement of left knee | CPT/HCPCS: 99212 ==

== ENCOUNTER 2025-04-29 11:33 | Outpatient (AMB) | payer OTHER, SELFPAY ==
--- NOTE | 2025-04-29 12:01 | A.OFFVIS_ITS ---
Intake Visit Reasons: PO LT knee 03/24/25 NE-4 week follow up Intake Note: Radha is a 49 year old female who presents today for a post operative appointment s/p left knee arthroscopy 03/24/25 NE. Patient reports she is doing better than before. She states that her pain is getting worse in her right knee ever since she has the surgery. Allergies No Known Allergies [No Known Allergies*] Allergy (Verified 04/29/25 12:12) Medication List - Last Reconciled 04/29/25 by Carlene Manning PA-C acetaminophen 500 mg (15 mL) PO QID PRN albuterol sulfate 90 mcg/actuation 2 puffs PO Q4-6H PRN budesonide 90 mcg/actuation 2 inhalations PO BID celecoxib (Celebrex) 200 mg PO BID 30 days cholecalciferol (vitamin D3) 250 mcg PO 2XW 90 days diclofenac sodium 1% 4 grams topical QID 30 days hydrochlorothiazide 25 mg PO DAILY hydrocodone-acetaminophen 5-325 mg 1 tab PO Q8H PRN 7 days ibuprofen 800 mg PO TID PRN loratadine 10 mg PO DAILY PRN olmesartan 5 mg PO QAM HPI HPI PO LT knee 03/24/25 NE-4 week follow up: Details: 50-year-old female returns to the office today status post left knee arthroscopy 03/24/[address] Duenas. She is doing well she has some soreness in the left knee and feels she is compensating which is causing pain in the right knee. She has been working with physical therapy and has no new concerns today. [facility] Medical History CARITO (obstructive sleep apnea) History of Helicobacter pylori infection Patellofemoral arthritis of right knee Patellofemoral arthritis of left knee Distal radius fracture, left Bilateral knee pain Fatty liver GDM (gestational diabetes mellitus) Hypertension Anxiety Depression Surgical History History of esophagogastroduodenoscopy (EGD) Hx of colonoscopy Hx of endoscopy H/O hand surgery History of open reduction and internal fixation (ORIF) procedure History of eye surgery History of hemorrhoidectomy History of back surgery Social History Household Members: Spouse and Children Are you a primary interior plant caretaker to a significant other at home: No Do you presently have visiting nurse or other home services: No Alcohol intake: current Alcohol intake frequency: does not drink Patient Tobacco Use Status: Never used Tobacco 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al status: unemployed 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: Right Handed Review of Systems Const All systems reviewed & are unremarkable except as noted in HPI and below Physical Exam Extrem Other: Left knee incision well healed. She has no effusion or redness. Full range of motion. Calf supple nontender neurovascularly intact. Assessment & Plan Assessment & Plan (1) Internal derangement of left knee: Code(s): M23.92 - Unspecified internal derangement of left knee Category: Medical Plan: She will continue work with physical therapy. I stressed the importance of avoiding high impact activities and modifying activities based off of her symptoms. I explained intermittent flare-ups can be expected with mild arthritis. It is learning how to manage these symptoms that is important with activity modification, weight management, physical therapy and anti- inflammatories. The patient will increase activities as tolerated and if there is any questions or concerns she will contact our office otherwise follow up as needed. I did send a prescription for Celebrex and Voltaren gel to the pharmacy as well Medications: New celecoxib (Celebrex) 200 mg PO BID 60 caps 3RF 30 days diclofenac sodium 1% apply 4grams to affected area four times a day as needed 4 grams topical QID 100 grams 6RF 30 days celecoxib (Celebrex) 200 mg PO BID 60 caps 3RF 30 days Coding Level of Care Code Global (61610) Diagnoses Internal derangement of left knee M23.92
--- OUTSIDE RECORDS SUMMARY | 2025-04-29 13:46 | XMS_ITS | Encounter Summary ---
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 Primary Care Provider [phone] Encounter Details Date Type Department Care Team (Late st Contact Info) Description 10/11/2023 Abstract [facility] [address] [place], [place] [phone] Angela Dick Social History Tobacco Use Types [...] Info) Description 06/17/2025 11:00 AM EDT Immunization [facility] [address] [place] [phone] 06/28/2025 10:00 AM EDT Office Visit [facility] [address] [place] [phone] Constance Oakes FNP [address] [place] [phone] documented as of this encounter Visit Diagnoses Not on filedocumented in this encounter Additional Health Concerns Assessment Noted Time PHQ-9 Depression Total Score: 0 01/10/20 23 9:23 AM EST documented as of this encounter Care Teams Manager Occupational Relationship Specialty Start Date End Date Constance Oakes FNP [address] [place] [phone] PCP - General Family Medicine 07/17/22 documented as of this encounter
== END 2025-04-29 12:12 | disposition home or self-care (01) ==
PROVIDERS: PCP Registered Nurse; Visit Provider Physician Assistant
DX: M23.92 Unspecified internal derangement of left knee (principal)
CPT/HCPCS: 99024

== ENCOUNTER → 2025-04-29 11:33 | Outpatient (BNVA) | payer OTHER, SELFPAY | PROVIDERS: PCP Registered Nurse; Visit Provider Physician Assistant | DX: M25.562 Pain in left knee (principal); M25.561 Pain in right knee; Z09 Encounter for follow-up examination after completed treatment for conditions other than malignant neoplasm; Z87.39 Personal history of other diseases of the musculoskeletal system and connective tissue; Z98.890 Other specified postprocedural states | CPT/HCPCS: 99212 ==

== ENCOUNTER 2025-06-14 10:08 | Outpatient (RCR) | payer OTHER, SELFPAY ==
--- NOTE | 2025-04-16 10:12 | MHC.PT.EP ---
[facility] [place] Office [place] Office [place] Office [address] Booker Jones [address] [phone] F: [phone] F: [phone] F: [phone] F: [phone] Physical Therapy Plan of Care Date of Evaluation: 04/16/25 Date of Surgery: 03/24/2025 Diagnosis: unspecified internal derangement of left knee unilateral primary OA L knee patellofemoral arthritis of L knee Assessment: 49 y/o female s/p L knee arthroscopy on 03/24/2025 for a partial medial meniscectomy and chondroplasty by Dr. Duenas. Reports pain and difficulty with walking, stairs, getting in/out of car, LE dressing, moving in bed, and sit to stands. Currently she is walking with SPC but occasionally will use walker. Examination shows decreased L knee ROM, decreased B LE strength, pain, decreased patella mobility, and impaired gait pattern. Recommend PT 2x/week for 6 weeks to address impairments, implement HEP, and optimize functional mobility. Frequency and Duration: The patient will be seen 2x/week for 6 weeks Short Term Goals: 3 weeks I with HEP Improve L knee ROM 0-115 Gimp Buttonhole Machine Operator Goals: 6 weeks I with HEP and self management of sx Pt will be able to ambulate > 20 minutes with LRAD and pain < 3/10 Pt will be able to ascend/ descend stairs in step through pattern with pain < 3/10 Treatment Plan: Modalities to reduce pain, spasms and effusion. Manual therapy to restore motion and function. Therapeutic exercise to improve strength and flexibility. Neuromuscular re-education for posture and balance. Therapeutic activities to return to functional activities of daily living. Electronically signed by: Miryam Markham PT Please sign and return to therapist. Thank you for your referral.
--- NOTE | 2025-07-29 15:03 | MHC.PT.DC ---
[facility] [place] Office [place] Office [place] Office [address] Booker Jones [address] [phone] F: [phone] F: [phone] F: [phone] F: [phone] Physical Therapy Discharge Report Diagnosis: unspecified internal derangement of left knee unilateral primary OA L knee patellofemoral arthritis of L knee Date of Surgery: 03/24/2025 Date of Evaluation: 04/16/25 Date of Discharge: 07/29/25 Treatments to Date: 11 Cancellations to Date: 1 No Shows to Date: 0 Discharge Status: Independent with HEP Recommend MD Follow-up Discharge Summary: Pt made minimal progress in regards to pain levels and function, however throughout PT she was able to perform resistance exercises and HEP without increase in pain and improved strength noted. At this time, recommend f/u with ortho d/t R knee not improving. Electronically signed by: Miryam Markham PT Please sign and return to therapist. Thank you for your referral.
== END 2025-07-29 15:04 | disposition home or self-care (01) ==
LOC: HO.PT 10:08
PROVIDERS: PCP Registered Nurse; Visit Provider Orthopaedic Surgery
DX: M23.92 Unspecified internal derangement of left knee (principal); M17.12 Unilateral primary osteoarthritis, left knee
CPT/HCPCS: 97110; 97140; 97162; 97530

== ENCOUNTER 2025-06-17 11:22 | Outpatient (REF) | payer OTHER, SELFPAY ==
--- NOTE | ~2025-06-17 | XR_ITS ---
EXAMINATION: XR KNEE, RIGHT CLINICAL INFORMATION: right knee arthritis, persistent pain and swelling COMPARISON: None available. TECHNIQUE: Three views of the right knee. FINDINGS: There is a joint. There is severe narrowing of the medial joint space. There are tricompartmental marginal osteophytes. There is no soft tissue calcification. XR/XR knee RT 3V IMPRESSION: Severe osteoarthritis and joint effusion. Electronically signed by: Floyd Vaughan MD 06/17/2025 12:33 PM EDT
--- OUTSIDE RECORDS SUMMARY | 2025-06-17 11:00 | XMS_ITS | Encounter Summary ---
Author Organization [employer] Address [address] [facility] 7t [place] [address] Care Team Providers Care Press Tender Short Goods Name Role Phone Constance Oakes [facility] Primary Care Provider [phone] Reason for Visit * Reason Comments Immunizations Encounter Details Date Type Department Care Team ([facility] Contact Info) Description 06/17/2025 11:00 AM EDT Immunization [facility] [address] [place], [place] [phone] Sabrina Subramanian, RN [address] [place] [address] Encounter for immunization Social History Tobacco Use Types Packs/Day Years [...] Date Recorded Patient Health Questionnaire-9 Score 0 06/16/2025 Patient Health Questionnaire-9 Score 0 06/16/2025 Last PHQ-9: Questionnaire Data Not on file 0 06/16/2025 Housing Stability Answer Date Recorded What is your housing situation today? I have yudy oswald 06/16/[address] you li ve. Do you have problems with any of the following? None of the above 06/16/2025 Food Insecurity Answer Date Recorded Within the past 12 months, y ou worried that your food would run out before you got money to buy more: Never True 06/16/2025 Within the past 12 months,th e food you bought just didn't last and you didn't have enough money to get more: Never True Transportation Answer Date Recorded In the past 12 months, has l ack of transportation kept you from medical appts, meetings, work or from getting things needed for daily living? No 06/16/2025 Utilities Answer Date Recorded In the past 12 months, has t he electric, gas, oil or water company threatened to shut off services in your home? No 06/16/2025 Depression Answer Date Recorded Patient Health Questionnaire-2 Score 0 06/16/2025 Internet Access Answer Date Recorded Internet Access Q1 Yes 06/16/2025 Internet Access Q2 Not on file 06/16/2025 Comments Unknown Sex and Gender Information Value Date Recorded Sex Assigned at Female 09/24/2022 10:15 AM EDT Legal Sex Female 10:15 AM EDT Gender Identity Female 09/24/2022 10:15 AM EDT Sexual Orientation Choose not to disclose 2021 10:15 AM EDT documented as of this encounter Progress Notes * Sabrina Subramanian RN - 06/17/2025 11:00 AM EDT S: Pt here for nurse visit hepatitis B #3 vaccine. Today pt denies any allergies or previous adverse reactions to previous immunizations O: Hepatitis B vaccination 1ml, administered in left arm intramuscularly. Pt tolerated well with nodiscomfort. No adverse reaction noted after 15 minutes. A: Immunization Administration P: Pt is to follow up with PCP as needed. Pt agrees with plan and verbalized understanding. Sabrina Subramanian RN documented in this encounter Plan of Treatment Upcoming Encounters Date Type Department Care Team (Late st Contact Info) Description 06/28/2025 10:00 AM EDT Office Visit [facility] [address] [place] [address] [facility] [address] [place] [address] documented as of this encounter Visit Diagnoses Diagnosis Encounter for immunization documented in this encounter Additional Health Concerns Assessment Noted Time PHQ-9 Depression Total Score: 0 06/16/20 25 12:04 PM EDT documented as of this encounter Care Teams Press Tender Short Goods Relationship Specialty Start Date End Date Champ JETHRO Nolasco [address] [place] [phone] PCP - General Family Medicine 07/17/22 documented as of this encounter
--- OUTSIDE RECORDS SUMMARY | 2025-06-17 12:21 | XMS_ITS | Clinical Summary ---
Author Organization [facility] Address [address] [facility] [address] [place] [phone] Phone Care Team Providers Care Film Reproducer Name Role Phone Spencer Meyer TRAVELING SALES REPRESENTATIVE Primary Care Provider [phone] Allergies No known active allergies Medications MELATONIN ORAL Take by mouth. Active lidocaine (LIDODERM) 5 % Place 1 patch onto the skin daily. Remove & Discard patch within 12 hours or as directed by 15 patch 7 Active HYDROCERIN, WITH PETROLATUM, Crea APPLY TO THE AFFECTED AREA(S) TWICE DAILY 9 Active omeprazole (PRILOSEC) 20 MG capsule TAKE 1 CAPSULE BY MOUTH EVERY DAY BEFORE A MEAL FOR ABDOMINAL PAIN 9 Active propranolol (INDERAL LA) 60 mg 24 hr capsule TAKE 1 CAPSULE BY MOUTH AT BEDTIME FOR BLOOD PRESSURE AND to prevent migraines 9 Active ondansetron (ZOFRAN-ODT) 4 MG disintegrating tablet Take 1 tablet (4 mg total) by mouth every 6 (six) hours as needed. 4 tablet 9 Active fluticasone propionate (FLONASE) 50 mcg/actuation nasal spray SPRAY TWICE IN EACH NOSTRIL QAM PRN 0 9 Active albuterol 90 mcg/actuation inhaler Inhale 2 puffs into the lungs every 6 (six) hours as needed for wheezing. 1 Inhaler 9 Active cholecalciferol (VITAMIN D3) 25 MCG (1,000 unit) tablet Take 1,000 Units by mouth daily. 11 9 Active NORLYDA 0.35 mg tablet TK 1 T PO D 12 9 Active naproxen (NAPROSYN) 500 MG tablet Take 1 tablet (500 mg total) by mouth 2 (two) times a day with meals. 15 tablet 0 Active albuterol 90 mcg/actuation inhaler Inhale 2 puffs into the lungs every 4 (four) hours as needed for wheezing. 18 g 4 Active budesonide (PULMICORT FLEXHALER) 180 mcg/actuation inhaler Inhale 1 puff into the lungs 2 (two) times a day. 1 each 4 Active diphenhydrAMINE (BENADRYL) 25 mg capsule Take 1 capsule (25 mg total) by mouth every 6 (six) hours as needed for itching (or rash). 20 capsule 4 Active Hospital, Clinic, or Other Facility Administered Medication Ordered Dose Route Frequency Start Date End Date Status etonogestrel (NEXPLANON) subdermal implant 68 mg 68 mg IDrm Every 3 years 03/26/2019 Active Active Problems No known active problems Immunizations Immunization Administration Dates Next Due Tdap 02/16/2016 Family History Medical History Relation Comments Hypertension Father No Known Problems Maternal Grandfather No Known Problems Maternal Grandmother No Known Problems Mother No Known Problems Paternal Grandfather No Known Problems Paternal Grandmother Relation Status Comments Father Maternal Grandfather Maternal Grandmother Mother Paternal Grandfather Paternal Grandmother Social History Tobacco Use Types Packs/Day Years [...] Orientation Straight 12/02/2017 9: 38 AM EST Last Filed Vital Signs Vital Sign Reading Time Taken Comments Blood Pressure 137/89 11/27/2023 1:19 AM EST Pulse 86 11/27/2023 1:19 AM EST Temperature 36.6 C (97.9 F) 11/27/2023 1:19 AM EST Respiratory Rate 18 11/27/2023 1:19 AM EST Oxygen Saturation 97% 11/27/2023 1:19 AM EST Inhaled Oxygen Concentration - - Weight 104.3 kg (230 lb) 11/20/2022 7:22 PM EST Height 157.5 cm (5' 2 ) 11/20/2022 7:22 PM EST Body Mass Index 42.07 11/20/2022 7:22 PM EST Plan of Treatment Health Maintenance Due Date Last Done Comments DEPRESSION SCREENING 1986 PAP SMEAR 01/23/2017 01/23/2014 COLOGUARD 2019 COLONOSCOPY 2019 COLORECTAL CANCER SCREENING 2019 FIT TEST 2019 FOBT 2019 SIGMOIDOSCOPY 2019 VIRTUAL COLONOSCOPY 2019 LIPID PANEL 01/13/2023 01/13/2018 PNEUMOCOCCAL VACCINES (50+ years) (1 of 1 - PCV) 2024 ZOSTER VACCINES (1 of 2) 2024 COVID-19 VACCINE (3 2023-2 5 season) 2024 05/01/2021, 04/05/2021 MAMMOGRAM 12/27/2024 12/27/2022 SCREENING FOR DIABETES 04/15/2025 04/15/2022 Adult Td,Tdap Booster 02/15/2026 02/16/2016 , 01/13/1999 HEPATITIS C SCREENING Completed 01/13/2018 HIV ONE-TIME SCREENING (18-6 5 YEARS) Completed 01/13/2018 SMOKING STATUS SCREENING (On ce After 26 Yrs) Completed 11/20/2022 HEPATITIS A VACCINES Aged Out No long er eligible based on patient's age to complete this topic HIB VACCINES Aged Out No longer eligi ble based on patient's age to complete this topic MENINGOCOCCAL VACCINES (ACWY) Aged Out No longer eligible based on patient's age to complete this topic MENINGOCOCCAL VACCINES (B) Aged Out N o longer eligible based on patient's age to complete this topic Medical Devices Not on file Procedures Procedure Name Priority Date/Time Associated Diagnosis Comments LIPID PANEL Routine 01/13/2018 2:17 PM EST Hyperlipidemia, unspecified hyperlipidemia type Elevated blood pressure reading without diagnosis of hypertension Disturbance of skin sensation Blood glucose elevated HEPATITIS C ANTIBODY, QUALITATIVE Routine 01/13/2018 2:17 PM EST Hyperlipidemia, unspecified hyperlipidemia type Elevated blood pressure reading without diagnosis of hypertension Disturbance of skin sensation Blood glucose elevated HM PAP SMEAR FOR RESULT ENTRY ONLY Routine 01/23/2014 from Last 3 Months or Most Recently Relevant to Health Maintenance Results * Hepatitis C antibody, qualitative (01/13/2018 2:17 PM EST) HCV Negative Negative [facility] Comment: This is a screening test and should be confirmed with molecular testing Blood 01/13/2018 2:17 PM EST 01/13/2018 2:23 PM EST us Spencer Meyer NP LAB BLOOD ORDERABLES Final Re sult [facility] [address] [place] [address] * (ABNORMAL) Lipid panel (01/13/2018 2:17 PM EST) HDL 54 mg/dL [facility] Comment: Interpretation: Risk Level Females Decreased >55mg/dL Average 50-55 mg/dL Increased <50 mg/dL CHOLESTEROL 214 0 - 240 mg/dL [facility] TRIGLYCERIDES 182(H) 30 - 160 mg/dL [facility] LDL 124 50 - 129 mg/dL [facility] Comment: LDL levels in terms of risk for coronary heart disease: <100 mg/dL: Optimal 100-129 mg/dL: Near or above optimal 130-159 mg/dL: Borderline high 160-189 mg/dL: High >190 mg/dL: Very High CARDIAC RISK RATIO 4.0 3.3 - 4.4 C [facility] Blood 01/13/2018 2:17 PM EST 01/13/2018 2:23 PM EST us Spencer Meyer TRAVELING SALES REPRESENTATIVE LAB BLOOD ORDERABLES Final Re sult [facility] Organization Address City/State/ZIP Co de Phone Number [facility] [address] [place] [address] * PAP SMEAR FOR RESULT ENTRY ONLY (01/23/2014) HM Pap smear neg per [facility] Historical Provider HEALTH MAINTENANCE Final Result from Last 3 Months or Most Recently Relevant to Health Maintenance Insurance [employer] [facility] NON [facility] PCP S[facility]VER [facility] [employer] NET FULL [facility] PCP [facility]ILVER [facility]Grid [facility] NET FULL [facility] LIMITED [facility] FULL [facility] LIMITED [employer] NON NSPG PCP SILVER [facility] [place] [place] [address] WELLSENSE NON NSPG PCP SILVER [employer] [employer] SAFETY NET FULL [facility] SAFETY NET FULL [facility] LIMITED [employer]AB ORCHARDENSE NON NSPG PCP SILVER [facility] SAFETY NET FULL [facility] WELLSENSE NON NSPG PCP S[facility]VER [facility] NET FULL [facility] LIMITED [facility] NON NSP PCP SILVER [employer] [employer] SAFETY NET FULL Care Teams Film Reproducer Relationship Specialty Start Date End Date Spencer Meyer NP [address] [place] [address] PCP - General 09/10/17 Additional Source Comments The information contained in this document represents components of the legal health record. It is not the complete legal health record.[facility]
== END 2025-06-17 11:23 | disposition home or self-care (01) ==
LOC: HO.HHCX 11:22
PROVIDERS: PCP Registered Nurse; Visit Provider Internal Medicine
DX: M17.11 Unilateral primary osteoarthritis, right knee (principal)
CPT/HCPCS: 73562

== ENCOUNTER → 2025-06-17 11:46 | Outpatient (BNV) | payer OTHER, SELFPAY | PROVIDERS: PCP Registered Nurse; Visit Provider Radiology Diagnostic Radiology | DX: M25.461 Effusion, right knee (principal) | CPT/HCPCS: 73562 ==

== ENCOUNTER 2025-08-26 08:40 | Outpatient (REF) | payer OTHER, SELFPAY ==
[2025-08-26 11:21] LABS: Total Hemoglobin (HGBA1C) 3432.8683 umol/L
[2025-08-26 11:47] LABS: Alanine Aminotransferase 68 U/L (0-31); Albumin Level 4.9 g/dL (3.5-5.0); Alkaline Phosphatase 98 U/L (39-117); Anion Gap 12 (12-20); Aspartate Amino Transferase 47 U/L (5-31); Blood Urea Nitrogen 16 mg/dL (9-16); Calcium 9.7 mg/dL (8.4-10.2); Carbon Dioxide 26 mmol/L (22-29); Chloride 108 mmol/L (96-108); Cholesterol 226 mg/dL (<200); Estimated Glomerular Filt Rate > 60; HDL Cholesterol 42 mg/dL (>40); Potassium 4.0 mmol/L (3.3-5.1); Sodium 142 mmol/L (135-145); Total Protein 8.1 g/dL (6.5-8.0); Triglycerides 215 mg/dL (<150)
[2025-08-26 12:04] LABS: Ferritin 189 ng/mL (10-250)
[2025-08-26 12:18] LABS: Folate 14.8 ng/mL (> or = 4.0); Vitamin B12 452 pg/mL (200-900)
== END 2025-08-26 08:41 | disposition home or self-care (01) ==
LOC: HO.HHCL 08:40
PROVIDERS: PCP Registered Nurse; Referring Provider Registered Nurse; Visit Provider Physician Assistant Medical
DX: G47.33 Obstructive sleep apnea (adult) (pediatric) (principal); G47.19 Other hypersomnia; G43.719 Chronic migraine without aura, intractable, without status migrainosus; D50.8 Other iron deficiency anemias; G25.81 Restless legs syndrome; I10 Essential (primary) hypertension
CPT/HCPCS: 36415; 80053; 80061; 82306; 82607; 82728; 82746; 83036; 83090; 83921; 84207; 84425; 84443; 99202

== ENCOUNTER 2025-08-26 08:40 | Outpatient (AMB) | payer OTHER, SELFPAY ==
--- OUTSIDE RECORDS SUMMARY | 2014-06-09 | XMS_ITS | Encounter Summary ---
Author Organization [facility] Address [address] [employer] [address] [place] [phone] Phone Care Team Providers Care Informatics Educator Name Role Phone Unavailable Primary Care Provider Unavailabl e Encounter Details Date Type Department Care Team (Late st Contact Info) Description 06/09/2014 Hospital Encounter [facility],Outside Imaging [address] [place] [address] System, Provider Not In, [facility] [address] [address] Unknown, Unknown, Social History Tobacco Use Types [...] 9:29 PM EST Rodo Almodovar RN * [place] Suicide Severity Rating Scale (Screener/Recent Self-Report) Question Answer Date of Assessment Author 1. Wish to be (Past 1 Month) No 024 9:29 PM Rodo Engle RN 2. Non-Specific Active Suici suresh Thoughts (Past 1 Month) No 11/26/2023 9:29 PM EST Alessandro Almodovar RN 6. Suicidal Behavior (Lifetime) No 9:29 PM EST Rodo Almoodvar RN documented as of this encounter Plan [...] It is not the complete legal health record.[facility]
[2025-08-26 08:43] VITALS: BP 128/94; PULSE 83; O2SAT 93; BMI 41.9
--- NOTE | 2025-08-26 08:43 | MHC.OFFVIS ---
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 Difficulty tolerating CPAP(not using at moment). Patient states mask is uncomfortable and was having issues with sending SD card adn they did not help patient. Does not remember name of company. HST done through [employer]. Scoring Machine Operator Required: Yes Scoring Machine Operator Language: Extension Worker Services: Scoring Machine Operator Offered & Declined Scoring Machine Operator Name: daughter Information Interpreted: non-clinical & clinical Accompanied by: Daughter Allergies No Known Allergies (No Known Allergies*) Allergy (Verified 08/26/25 08:49) HPI Comments Details: 50 year old female is here for an evaluation of sleep apnea per her PCP Dr. Constance Oakes. 11/2020 HST c/w severe carito AHI is 29.8 and Oxygen desaturation to 65% for 8min. She has nocturnal hypoxemia. Will evaluate with an in lab sleep study and follow up with in-lab titration. She has insomnia for months now and goes to bed at 11am, falls asleep at 1am, tosses and turns due to inability to breath. She needed help with her SD card and machine adjustments due to temperature and pressure, however no one has reached out to her and she is unable to use the machine. She wakes up every 2 hours due to snoring and dry mouth. She gasps for air and then drinks water. She has asthma and uses her rescue inhaler along with nebulizer when she needs it. She notices the cold weather makes it worse though has been wheezing for years. Her BP is 128/94 today in clinic. She wakes up with morning headaches with throbbing pain, and she takes one hour naps daily which helps. Her memory, mood and diet are stable. She just started weight management with a therapist. She has back and knee pain. Bilateral knee surgery Jul 2024 / February 2025. She has paresthesias bilaterally in hands and drop articles due to weakness. She has a metal plate in l. arm. She denies paresthesias in feet bilaterally, though has cramps which wake her up at night. [facility] Medical History CARITO (obstructive sleep apnea) History of Helicobacter pylori infection Patellofemoral arthritis of right knee Patellofemoral arthritis of left knee Distal radius fracture, left Bilateral knee pain Fatty liver GDM (gestational diabetes mellitus) Hypertension Anxiety Depression Surgical History History of esophagogastroduodenoscopy (EGD) Hx of colonoscopy Hx of endoscopy H/O hand surgery History of open reduction and internal fixation (ORIF) procedure History of eye surgery History of hemorrhoidectomy History of back surgery Social History Household Members: Spouse and Children Are you a primary ambulatory care to a significant other at home: No Do you presently have visiting nurse or other home services: No Alcohol intake: current Alcohol intake frequency: does not drink Patient Tobacco Use Status: Never used Tobacco 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al status: unemployed 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: Right Handed Physical Exam Vital Signs: Last Vital Signs Pulse 83 08/26/25 08:43 BP 128/94 H 08/26/25 08:43 Pulse Ox 93 08/26/25 08:43 Oxygen Delivery Method Room Air 08/26/25 08:43 BMI result Body Mass Index 41.9 Const General: cooperative, comfortable and no acute distress Nutritional Appearance: obese Orientation/consciousness: patient oriented x3 Limitations: language barrier HEENT Face and sinus: Yes face symmetric Teeth and gingiva: other ([place]pti score is 4.) Eyes Pupils: Equal, round and reactive pupils present Neck Neck: Yes full ROM Resp Effort & Inspection: normal respiratory effort and able to speak in complete sentences Neuro General: patient oriented x3 and moves all extremities Cranial nerves: Yes Facial sensation intact/muscles of mastication intact, Yes Equal, round and reactive pupils present, Yes Normal accommodation reflex present, Yes Normal facial strength present, Yes Midline tongue present, Yes Ability to bilaterally rotate head present and Yes Ability to bilaterally elevate shoulders present Cognition (Neuro): normal cognition Gait exam (Neuro): Normal gait present and Wide-based gait present Motor exam (neuro): 5/5 motor strength present throughout and Normal motor muscle tone present throughout Psych Appearance: grossly normal Attitude: cooperative Insight: Good insight present (Psych) Results Reviewed Results Reviewed: 2020 HST c/w severe carito AHI is 29.8 and Oxygen desaturation to 65% for 8min. She has nocturnal hypoxemia. Will evaluate with an in lab sleep study and follow up with in-lab titration. Assessment & Plan Assessment & Plan (1) Excessive daytime sleepiness: Code(s): G47.19 - Other hypersomnia Category: Medical (2) Migraines: Code(s): G43.909 - Migraine, unspecified, not intractable, without status migrainosus Category: Medical Qualifiers: Migraine type: chronic migraine (15 or more days per month) without aura Status migrainosus presence: without status migrainosus Intractability: intractable Qualified Code(s): G43.719 - Chronic migraine without aura, intractable, without status migrainosus (3) RLS (restless legs syndrome): Code(s): G25.81 - Restless legs syndrome Category: Medical (4) Anemia: Code(s): D64.9 - Anemia, unspecified Category: Medical Qualifiers: Anemia type: iron deficiency Iron deficiency anemia type: other iron deficiency Qualified Code(s): D50.8 - Other iron deficiency anemias Plan PSG to r/o CARITO Labs to r/o deficiencies RLS will monitor Migraines Sumatriptan 25mg po at onset of migraine, may take one more tablet within 2 hours of the first if migraine does not abort. Do not take more than 2 tablets in a 24 hours. F/U 3 months Orders: Orders Vitamin D 25-OH Total Today D64.9 - Anemia, unspecified Vitamin B6 Today D64.9 - Anemia, unspecified Vitamin B1 Today D64.9 - Anemia, unspecified Hemoglobin A1c Today D64.9 - Anemia, unspecified RT PSG in-lab sleep study Today G47.19 - Other hypersomnia Methylmalonic Acid Today D64.9 - Anemia, unspecified, G47.9 - Sleep disorder, unspecified, R53.83 - Other fatigue Homocysteine Today D64.9 - Anemia, unspecified, G47.9 - Sleep disorder, unspecified, R53.83 - Other fatigue Vitamin B12 and Folate Today D64.9 - Anemia, unspecified Ferritin Today D64.9 - Anemia, unspecified Medications: New sumatriptan succinate take 1 tab at onset of headache; if no relief may repeat 1 tab after at least 2 hrs; max = 4 tabs/24 hr PO 14 tabs 0RF 30 days G43.719 - Chronic migraine without aura, intractable, without status migrainosus Coding Level of Care Code New Pt Level 4 (74630) Diagnoses Excessive daytime sleepiness G47.19 Intractable chronic migraine without aura and without status migrainosus G43.719 Migraine type: chronic migraine (15 or more days per month) without aura Status migrainosus presence: without status migrainosus Intractability: intractable RLS (restless legs syndrome) G25.81 Other iron deficiency anemia D50.8 Anemia type: iron deficiency Iron deficiency anemia type: other iron deficiency Sleep Questionnaire Difficulty falling asleep: Yes Difficulty staying asleep?: No Snoring: Yes Witnessed apneas: Yes Gasping arousals: Yes Nocturia: No GERD: No Vivid dreams: No Acting out dreams: No Abnormal behavior in sleep: No Abnormal movements in sleep: No Morning headaches: Yes Excessive daytime sleepiness: Yes Daytime naps: Yes (10am to 11am daily) Restless legs: No Hallucinations: No Sleep paralysis: No Drop attacks: No Sleep Study: Yes CPAP: Yes
--- OUTSIDE RECORDS SUMMARY | 2025-08-26 09:04 | XMS_ITS | Encounter Summary ---
Author Organization [facility] Address [address] [facility] [address] [place] [phone] Phone Care Team Providers Care Blender Machine Operator Name Role Phone Spencer Meyer MATERIALS ENGINEERING TECHNICIAN Primary Care Provider [phone] Encounter Details Date Type Department Care Team (Latest Contact Info) Description 01/13/2018 Transcribe Orders [facility] Specimen Processing [address] [place] [address] Spencer Meyer, MATERIALS ENGINEERING TECHNICIAN [address] [place] [address] Hyperlipidemia, unspecified hyperlipidemia type (Primary Dx); Elevated blood pressure reading without diagnosis of hypertension; Disturbance of skin sensation; Blood glucose elevated Social History Tobacco Use Types Packs/Day Years Used Date Smoking Tobacco: Never Smokeless Tobacco: Never Alcohol Use Standard Drinks/Week Comments No 0 (1 standard drink = 0.6 oz pur e alcohol) Comments Unknown Sex and Gender Information Value Date Recorded Sex Assigned at Female 12/02/2017 9:38 AM EST Legal Sex Female 9:30 PM EDT Gender Identity Female 12/02/2017 9:38 AM EST Sexual Orientation Straight 12/02/2017 9: 38 AM EST documented as of this encounter Plan of Treatment Not on file documented as of this encounter Results * (ABNORMAL) Urinalysis with sediment (01/13/2018 2:17 PM EST) WBC 0-4(A) NONE SEEN /hpf [facility] RBC 3-5(A) NONE SEEN /hpf [facility] URINE EPITHELIAL 0-4(A) NONE SEEN [facility] MUCUS Trace(A) NONE SEEN /hpf [facility] BACTERIA 1+(A) NONE SEEN [facility] COLOR Yellow Yellow [facility] CLARITY Clear [facility] GLUCOSE Negative Negative [facility] BILI Negative Negative [facility] KETONES Negative Negative [facility] SPECIFIC GRAVITY 1.020 1.005 - 1.030 [facility] BLOOD 1+(A) Negative [facility] PH 6.0 5.0 - 8.0 [facility] Protein-UA Negative Negative [facility] NITRITE Negative Negative [facility] Leukocyte esterase, ur Negative Negative [facility] Urine (Urine) 01/13/2018 2:1 7 PM EST 01/13/2018 2:24 PM EST us Spencer Meyer MATERIALS ENGINEERING TECHNICIAN URINE ORDERABLES Final Result Performing Organization Address [facility] Co de Phone Number [address] [address] * Syphilis antibody screen (01/13/2018 2:17 PM EST) RPR NON-REACTIV E NON-REACTI VE [facility] Blood 01/13/2018 2:17 PM EST 01/13/2018 2:23 PM EST us Spencer Meyer MATERIALS ENGINEERING TECHNICIAN LAB BLOOD ORDERABLES Final Re sult Performing Organization Address [facility] Co de Phone Number [address] [address] * Microalbumin/creatinine ratio, random urine (01/13/2018 2:17 PM EST) URINE MICROALBUMIN 1.1 0 - 2.3 mg/dL [facility] URINE CREATININE 193 mg/dL [facility] MICROALB/CRE RATIO NOT CALCULATED 0 - 20 mg/g Cre [facility] Comment:due to Microalbumin <1.2 Urine (Urine) 01/13/2018 2:1 7 PM EST 01/13/2018 2:24 PM EST us Spencer Meyer MATERIALS ENGINEERING TECHNICIAN URINE ORDERABLES Final Result Performing Organization Address [facility]/ZIP Co de Phone Number [address] [address] * (ABNORMAL) Lipid panel (01/13/2018 2:17 PM EST) HDL 54 mg/dL [facility] Comment: Interpretation: Risk Level Females Decreased >55mg/dL Average 50-55 mg/dL Increased <50 mg/dL CHOLESTEROL 214 0 - 240 mg/dL [facility] TRIGLYCERIDES 182(H) 30 - 160 mg/dL [facility] LDL 124 50 - 129 mg/dL [facility] Comment: LDL levels in terms of risk for coronary heart disease: <100 mg/dL: Optimal 100-129 mg/dL: Near or above optimal 130-159 mg/dL: Borderline high 160-189 mg/dL: High >190 mg/dL: Very High CARDIAC RISK RATIO 4.0 3.3 - 4.4 [facility] Blood 01/13/2018 2:17 PM EST 01/13/2018 2:23 PM EST us Spencer Meyer MATERIALS ENGINEERING TECHNICIAN LAB BLOOD ORDERABLES Final Re sult Performing Organization Address [facility] Co de Phone Number [address] [address] * HIV-1/2 antigen/antibody (01/13/2018 2:17 PM EST) HIV Antibod(ies) NON-REACTI VE NON-REACTI VE [facility] HIV-1 ANTIGEN NON-REACTI VE NON-REACTI VE [facility] Blood 01/13/2018 2:17 PM EST 01/13/2018 2:23 PM EST us Spencer Meyer MATERIALS ENGINEERING TECHNICIAN LAB BLOOD ORDERABLES Final Re sult Performing Organization Address City/[facility]/ZIP Co de Phone Number [address] [address] * Hepatitis C antibody, qualitative (01/13/2018 2:17 PM EST) HCV Negative Negative [facility] Comment: This is a screening test and should be confirmed with molecular testing Blood 01/13/2018 2:17 PM EST 01/13/2018 2:23 PM EST us Spencer Meyer MATERIALS ENGINEERING TECHNICIAN LAB BLOOD ORDERABLES Final Re sult [address] [address] * Hepatitis B surface antigen (01/13/2018 2:17 PM EST) HBV SURFACE ANTIGEN Negative Negative [facility] Blood 01/13/2018 2:17 PM EST 01/13/2018 2:23 PM EST us Spencer Meyer MATERIALS ENGINEERING TECHNICIAN LAB BLOOD ORDERABLES Final Re sult Performing Organization Address City/[facility]/ZIP Co de Phone Number [address] [address] * Hepatitis B core antibody, total (01/13/2018 2:17 PM EST) HEP B CORE AB, TOT Negative Negative [facility] Blood 01/13/2018 2:17 PM EST 01/13/2018 2:23 PM EST Spencer Meyer MATERIALS ENGINEERING TECHNICIAN LAB BLOOD ORDERABLES Final Re sult Performing Organization Address City/[facility]/ZIP Co de Phone Number [address] [address] * Hemoglobin A1c (01/13/2018 2:17 PM EST) HEMOGLOBIN A1C 5.1 4.3 - 5.8 % [facility] Blood 01/13/2018 2:17 PM EST 01/13/2018 2:23 PM EST us Spencer Meyer MATERIALS ENGINEERING TECHNICIAN LAB BLOOD ORDERABLES Final Re sult [address] [address] * Comprehensive metabolic panel (01/13/2018 2:17 PM EST) SODIUM 141 133 - 146 mmol/L [facility] POTASSIUM 3.5 3.3 - 5.1 mmol/L [facility] CHLORIDE 105 96 - 108 mmol/L [facility] CO2 23 21 - 35 mmol/L [facility] BUN 17 6 - 19 mg/dL [facility] CREATININE 0.60 0.5 - 1.5 mg/dL [facility] GLUCOSE 84 70 - 99 mg/dL [facility] ALBUMIN 4.3 3.9 - 4.8 g/dL [facility] TOTAL PROTEIN 7.5 6.5 - 8.0 g/dL [facility] CALCIUM 8.8 8.4 - 10.3 mg/dL [facility] ALKALINE PHOSPHATASE 81 39 - 117 U/L [facility] TOTAL BILIRUBIN 0.6 0 - 1.2 mg/dL [facility] AST 17 0 - 37 U/L [facility] ALT 21 0 - 40 U/L [facility] GLOBULIN 3.2 1 - 4.8 g/dL [facility] EGFR >60 >60 mL/min/1.7 3m2 [facility] Comment:Abnormal if <60. If patient is -[place], multiply the result by 1.21. ANION GAP 17 10 - 20 mmol/L [facility] Blood 01/13/2018 2:17 PM EST 01/13/2018 2:23 PM EST Spencer Meyer MATERIALS ENGINEERING TECHNICIAN LAB BLOOD ORDERABLES Final Re sult [address] [address] * CBC and differential (01/13/2018 2:17 PM EST) WBC 7.06 3.40 - 11.20 K/uL [facility] RBC 4.35 3.80 - 4.80 M/uL [facility] HGB 12.6 12.0 - 15.0 g/dL [facility] HCT 37.1 36.0 - 46.0 % [facility] PLT 232 130 - 400 K/uL [facility] MCV 85.3 79.0 - 98.0 fL [facility] MCH 29.0 27.0 - 34.8 pg [facility] MCHC 34.0 31.5 - 36.0 g/dL [facility] RDW 13.2 10.8 - 14.6 % [facility] MPV 10.8 9.4 - 12.4 fl [facility] NRBC 0.00 /100 WBCs [facility] ABSOLUTE NRBC 0.00 K/uL [facility] DIFF METHOD Auto [facility] NEUTS 56.9 45.30 - 77.70 % [facility] LYMPHS 31.4 12.30 - 39.70 % [facility] MONOS 7.8 4.10 - 12.80 % [facility] EOS 2.8 0 - 7.2 % [facility] BASOS 0.4 0 - 2.80 % [facility] Granulocytes, immature (%) 0.7 0.0 - 0.9 % [facility] ABSOLUTE NEUTS 4.01 1.40 - 7.70 K/uL [facility] ABSOLUTE LYMPHS 2.22 0.60 - 3.20 K/uL [facility] ABSOLUTE MONOS 0.55 0.11 - 0.59 K/uL [facility] ABSOLUTE EOS 0.20 0.01 - 0.50 K/uL [facility] ABSOLUTE BASOS 0.03 0.00 - 0.08 K/uL [facility] Granulocytes, immature 0.05 0.00 - 0.05 K/uL [facility] Blood 01/13/2018 2:17 PM EST 01/13/2018 2:23 PM EST us Spencer Meyer MATERIALS ENGINEERING TECHNICIAN LAB BLOOD ORDERABLES Final Re sult [address] [address] * TSH (01/13/2018 2:17 PM EST) TSH 2.91 0.27 - 4.20 uIU/mL [facility] Blood 01/13/2018 2:17 PM EST 01/13/2018 2:23 PM EST us Spencer Meyer MATERIALS ENGINEERING TECHNICIAN LAB BLOOD ORDERABLES Final Re sult [address] [address] * Folate (01/13/2018 2:17 PM EST) FOLIC ACID 15.8 4.2 - 19.9 ng/mL [facility] Blood 01/13/2018 2:17 PM EST 01/13/2018 2:23 PM EST us Spencer Meyer MATERIALS ENGINEERING TECHNICIAN LAB BLOOD ORDERABLES Final Re sult Performing Organization Address [facility]/ZIP Co de Phone Number [address] [address] * Vitamin B12 (01/13/2018 2:17 PM EST) VITAMIN B12 407 243 - 894 pg/mL [facility] Blood 01/13/2018 2:17 PM EST 01/13/2018 2:23 PM EST us Spencer Meyer MATERIALS ENGINEERING TECHNICIAN LAB BLOOD ORDERABLES Final Re sult Performing Organization Address [facility] Co de Phone Number [address] [address] * (ABNORMAL) 25-OH vitamin D (01/13/2018 2:17 PM EST) 25 OH VIT D (TOTAL) 14(L) 30 - 1,000 ng/mL [facility] Blood 01/13/2018 2:17 PM EST 01/13/2018 2:23 PM EST us Spencer Meyer MATERIALS ENGINEERING TECHNICIAN LAB BLOOD ORDERABLES Final Re sult [address] [address] documented in this encounter Visit Diagnoses Diagnosis Hyperlipidemia, unspecified hyperlipidemia type- Primary Elevated blood pressure reading without diagnosis of hypertension Disturbance of skin sensation Blood glucose elevated Other abnormal glucose documented in this encounter Additional Health Concerns Infection Onset Date Last Indicated Resolved Time CoV-Risk 11/27/2023 11/27/2023 12/08/2023 1:23 AM EST Influenza A 11/27/2023 11/27/2023 12/04/2023 1:24 AM EST documented as of this encounter Care Teams Blender Machine Operator Relationship Specialty Start Date End Date Spencer Meyer NP [address] [place] [phone] PCP - General 09/10/17 documented as of this encounter Additional Source Comments The information contained in this document represents components of the legal health record. It is not the complete legal health record.[facility]
--- OUTSIDE RECORDS SUMMARY | 2025-08-26 09:04 | XMS_ITS | Encounter Summary ---
Author Organization [employer] Address [address] [facility] [address] [place] [address] Care Team Providers Care Casing Crew Pusher Name Role Phone Constance Oakes PIG FARM MANAGER Primary Care Provider [phone] Encounter Details Date Type Department Care Team (Late st Contact Info) Description 10/11/2023 Abstract [facility] MEDICINE [address] [place], [place] [phone] Angela Dick Social History Tobacco Use Types [...] on file documented as of this encounter Visit Diagnoses Not on filedocumented in this encounter Additional Health Concerns Assessment Noted Time PHQ-9 Depression Total Score: 0 01/10/20 9:23 AM EST documented as of this encounter Care Teams Casing Crew Pusher Relationship Specialty Start Date End Date Constance Oakes FNP [address] [place] [phone] PCP - General Family Medicine 07/17/22 documented as of this encounter
--- OUTSIDE RECORDS SUMMARY | 2025-08-26 09:04 | XMS_ITS | Encounter Summary ---
Author Organization [facility] Address [address] [facility] [address] [place] [address] Phone Care Team Providers Care Transitions Rn Care Coordinator Name Role Phone Spencer Meyer PRODUCT INTRODUCTION MANAGER Primary Care Provider [phone] Encounter Details Date Type Department Care Team (Late st Contact Info) Description 06/10/2020 Procedure Pass [facility], Ct Scan - [facility] [address] [place] [address] Social History Tobacco Use Types Packs/Day Years Used Date Smoking Tobacco: Never Smokeless Tobacco: Never Alcohol Use Standard Drinks/Week Comments No 0 (1 standard drink = 0.6 oz pur e alcohol) Comments No Sex and Gender Information Value [...] documented as of this encounter Care Teams Transitions Rn Care Coordinator Relationship Specialty Start Date End Date Spencer Meyer NP [address] [place] [phone] PCP - General 09/10/17 documented as of this encounter Additional Source Comments The information contained in this document represents components of the legal health record. It is not the complete legal health record.[facility]
--- OUTSIDE RECORDS SUMMARY | 2025-08-26 09:04 | XMS_ITS | Encounter Summary ---
Author Organization [employer] Address [address] [facility] [address] [place] [address] Care Team Providers Care Rapid Outsole Stitcher Name Role Phone Constance Oakes [facility] Primary Care Provider [phone] Encounter Details Date Type Department Care Team (Late st Contact Info) Description 03/04/2024 Orders Only [facility] MEDICINE [address] [place] [address] ProviderMeenakshi MD Social History Tobacco Use Types [...] Free T4 2.78 0.32 - 4.0 uIU/mL [facility] 11/27/2024 11:2 6 AM EST 11/27/2024 12:58 PM EST [facility] LAB BLOOD ORDERABLES Final Re sult Performing Organization Address [facility]/ZIP Co de Phone Number [facility] [address] [place] [address] [phone] * Vitamin D, 25-Hydroxy, Total, Immunoassay (11/27/2024 11:26 AM EST) Vitamin D 25-OH Total 40.9 >30 ng/mL [facility] Comment:Health Based Referen ce Values*< 20 ng/mL Cvdilpomf81-24 ng/mL Insufficient> 30 ng/mL Sufficient*Regla BROWN. N [...] 6 AM EST 11/27/2024 12:58 PM EST [facility] LAB BLOOD ORDERABLES Final Re sult Performing Organization Address [facility] Co de Phone Number [facility] [address] [place] [phone] * (ABNORMAL) Lipid Panel, Standard (11/27/2024 11:26 AM EST) Triglycerides 300(H) <150 mg/dL [facility] Comment:Desirable Triglyceri de: less than 150 mg/dLBorderline High Triglyceride 150-199 mg/dLHigh Triglyceride: 200-499 mg/dLVery High Triglyceride: greater than or equal to 5OO mg/dL Cholesterol 225(H) <200 mg/dL [facility] Comment:Desirable Cholestero l: less than 200 mg/dLBorderline High Cholesterol: 200-239 mg/dLHigh Cholesterol: greater than 239 mg/dL LDL Cholesterol Calculated 121(H) <100 mg/dL [facility] Comment:Desirable LDL: less than 100 mg/dLNear Optimal/Above Optimal LDL: 110- 129 mg/dLBorderline High LDL: 130-159 mg/dLHigh LDL: 160-189 mg/dLVery High LDL: greater than or equal to 190 mg/dL HDL Cholesterol 44 >40 mg/dL [facility] Comment:Desirable HDL: great er than 40 mg/dL Note: This HDL assay may give artificially low results in patients with liver disease. 11/27/2024 11:2 6 AM EST 11/27/2024 12:58 PM EST [facility] LAB BLOOD ORDERABLES Final Re sult [facility] [address] [place] [phone] * (ABNORMAL) Comprehensive Metabolic Panel (11/27/2024 11:26 AM EST) Sodium 141 135 - 145 mmol/L [facility] Potassium 3.8 3.3 - 5.1 mmol/L [facility] Chloride 110(H) 96 - 108 mmol/L [facility] Carbon Dioxide 26 22 - 29 mmol/L [facility] Anion Gap 9(L) 12 - 20 [facility] Urea Nitrogen (BUN) 16 9 - 16 mg/dL [facility] Creatinine, Serum 0.73 0.5 - 1.4 mg/dL [facility] Estimated Glomerular Filt Rate >60 [facility] Comment:Chronic Kidney Disea se: Estimated GFR < 60 mL/min/1.61h4Dppzoo Kidney Disease: Estimated GFR < 15 mL/min/1.73m2 Glucose 104 60 - 115 mg/dL [facility] Calcium 9.3 8.4 - 10.2 mg/dL [facility] Bilirubin, Total 0.4 0.0 - 1.0 mg/dL [facility] Aspartate Amino Transferase 37(H) 5 - 31 U/L [facility] Alanine Aminotransferase 62(H) 0 - 31 U/L [facility] Total Protein 7.6 6.5 - 8.0 g/dL [facility] Albumin Level 4.5 3.5 - 5.0 g/dL [facility] Alkaline Phosphatase 99 39 - 117 U/L [facility] 11/27/2024 11:2 6 AM EST 11/27/2024 12:58 PM EST [facility] LAB BLOOD ORDERABLES Final Re sult Performing Organization Address City/[facility] Co de Phone Number [facility] [address] [place] [phone] * Hemoglobin A1c (11/27/2024 11:26 AM EST) Hemoglobin A1c 5.7 <6.0 % [facility] Comment:Hemoglobin A1C Refer ence Range Adults: 4.8 - 6.0 % Non diabetic: < 6.0 % Goal: < 7.0 %Additional Action Suggested: > 8.0 %Note: Hemoglobin A1c results are invalid for patients with abnormal amounts of HbF. Blood transfusions may impact the HbA1c concentration in the patient sample. Estimated Average Glucose 117 mg/dL [facility] Comment:eAG = Estimated ave rage glucose which is %A1C expressed asaverage glucose, using the formula of the W4K-WhyepngFzhomod Glucose study (ADAG), Diabetes Care, Vol.31,#8,Jun. 2007 11/27/2024 11:2 6 AM EST 11/27/2024 12:58 PM EST [facility] LAB BLOOD ORDERABLES Final Re sult Performing Organization Address [facility] Co de Phone Number [facility] [address] [place] [phone] * (ABNORMAL) CBC auto differential (11/27/2024 11:26 AM EST) White Blood Count 6.4 4.8 - 10.8 X10*3/uL [facility] Red Blood Count 4.68 4.20 - 5.50 X10*6/uL [facility] Hemoglobin 12.9 12.0 - 16.0 g/dl [facility] Hematocrit 39.2 37.0 - 47.0 % [facility] Mean Corpuscular Volume 83.8 80.0 - 98.0 fL [facility] Mean Corpuscular Hemoglobin 27.6 27.0 - 33.0 pg [facility] Mean Corpuscular HGB Conc 32.9 31.0 - 35.0 g/dl [facility] Red Cell Distribution Width 13.4 11.0 - 16.0 % [facility] Platelet Count 250 160 - 400 X10*3/uL [facility] Mean Platelet Volume 10.7 9.4 - 12.3 fL [facility] Neutrophils Percent Auto 41.5(L) 45 - 73 % [facility] Imm Gran Pct Auto 0.5(H) 0.0 - 0.4 % [facility] Lymphocytes Percent Auto 43.2(H) 20 - 40 % [facility] Monocytes Percent Auto 10.5 2 - 11 % [facility] Eosinophils Percent Auto 3.8 0 - 4 % [facility] Basophils Percent Auto 0.5 0 - 2 % [facility] NRBC Pct Auto 0.0 0.0 - 0.2 /100WBC [facility] Neutrophils Absolute Auto 2.6 2.0 - 8.3 x10*3/uL [facility] Imm Gran Abs Auto 0.03 0.00 - 0.03 X10*3/uL [facility] Lymphocytes Absolute Auto 2.8 1.2 - 4.9 X10*3/uL [facility] Monocytes Absolute Auto 0.7 0.1 - 1.2 X10*3/uL [facility] Eosinophils Absolute Auto 0.2 0.0 - 0.4 X10*3/uL [facility] Basophils Absolute Auto 0.0 0.0 - 0.2 X10*3/uL [facility] NRBC Abs Auto 0.000 0.0 - 0.012 X10*3/uL [facility] 11/27/2024 11:2 6 AM EST 11/27/2024 12:58 PM EST [facility] LAB BLOOD ORDERABLES Final Re sult Performing Organization Address [facility]/ZIP Co de Phone Number [facility] [address] [place] [phone] * HPV mRNA E6/E7 w/Reflex to HPV Genotypes 16, 18/45 (2024 12:30 PM EDT) HPV nRNA E6/E7 Not Detected Not Detected [facility] Comment:Methodology: Transcr iption-Mediated AmplificationThis assay detects E6/E7 viral messenger RNA (mRNA) from 14high-risk HPV types (16,18,31,33,35,39,45,51,52,56,58,59,66,68).Cervical sources are required for HPV testing.If a vaginal source from a patient who has had atotal hysterectomy with removal of cervix wassubmitted, please contact the testing laboratoryfor alternative testing options.For additional information, please refer [email or web address]/faq/BWL436r9(This link if provided for information/educational purposes only.)THIS TEST WAS PERFORMED AT:[employer] [place] [phone] ROSARIO MD HPV mRNA E6/E7 [facility] HPV 16 RNA [facility] HPV 18/45 RNA [facility] 2024 12:3 0 PM EDT 05/06/2024 11:47 AM EDT [facility] CYTOLOGY ORDERABLES Final Result Performing Organization Address [facility]/ZIP Co de Phone Number [facility] [address] [place] [phone] * Hm Colonoscopy (06/20/2020 7:49 AM EDT) us Historical Provider MD HEALTH MAINTENANCE Final Result documented in this encounter Visit Diagnoses Not on filedocumented in this encounter Additional Health Concerns Assessment Noted Time PHQ-9 Depression Total Score: 0 01/15/20 24 4:04 PM EST documented as of this encounter Care Teams Rapid Outsole Stitcher Relationship Specialty Start Date End Date Constance Oakes FNP [address] [place] [phone] PCP - General Family Medicine 07/17/22 documented as of this encounter
--- OUTSIDE RECORDS SUMMARY | 2025-08-26 09:04 | XMS_ITS | Encounter Summary ---
Author Organization [facility] Address [address] [facility] [address] [place] [phone] Phone Care Team Providers Care Trashman Name Role Phone Spencer Meyer STAMP PAD MAKER Primary Care Provider [phone] Encounter Details Date Type Department Care Team (Late st Contact Info) Description 01/20/2018 Ancillary Orders [facility],Outside Imaging [address] [place] [address] System, Provider Not In, PhD [address] [address] Social History Tobacco Use Types Packs/Day Years [...] documented as of this encounter Results * MRI Lower Extremity [...] documented as of this encounter Care Teams Trashman Relationship Specialty Start Date End Date Spencer Meyer NP [address] [place] [address] PCP - General 09/10/17 documented as of this encounter Additional Source Comments The information contained in this document represents components of the legal health record. It is not the complete legal health record.[facility]
--- OUTSIDE RECORDS SUMMARY | 2025-08-26 09:04 | XMS_ITS | Encounter Summary ---
Author Organization [facility] Address [address] [facility] [place] [place] [address] [place] [address] Phone Care Team Providers Care Medical Dir Name Role Phone Spencer Meyer CARPET LAYER Primary Care Provider [phone] Encounter Details Date Type Department Care Team (Late st Contact Info) Description 09/01/2021 Procedure Pass [facility], Ct Scan - [facility] [address] [place] [address] Social History Tobacco Use Types Packs/Day Years [...] Date of Assessment Author No Risk Indicated 09/01/2021 7:14 PM EDT Tiffany Wharton RN * [place] Suicide Severity Rating Scale (Screener/Recent Self-Report) Question Answer Date of Assessment Author 1. Wish to be (Past 1 Month) No 09/01/2021 7:14 PM EDT Tiffany Donaldson RN 2. Non-Specific Active Suici suresh Thoughts (Past 1 Month) No 09/01/2021 7:14 PM EDT Cassandra Donaldson RN 6. Suicidal Behavior (Lifetime) No 7:14 PM EDT Tiffany Donaldson RN documented as of this encounter Plan of Treatment Not on file documented as of this encounter Visit Diagnoses Not on filedocumented in this encounter Additional Health Concerns Infection Onset Date Last Indicated Resolved Time CoV-Risk 11/27/2023 11/27/2023 12/08/2023 1:23 AM EST Influenza A 11/27/2023 11/27/2023 12/04/2023 1:24 AM EST documented as of this encounter Care Teams Medical Dir Relationship Specialty Start Date End Date Spencer Meyer NP [address] [place] [address] PCP - General 09/10/17 documented as of this encounter Additional Source Comments The information contained in this document represents components of the legal health record. It is not the complete legal health record.[facility]
--- OUTSIDE RECORDS SUMMARY | 2025-08-26 09:04 | XMS_ITS | Encounter Summary ---
Author Organization [facility] Address [address] [facility] [address] [place] [address] Phone Care Team Providers Care Track Machine Operator Repairer Name Role Phone Spencer Meyer ARABIC LINGUIST Primary Care Provider [phone] Encounter Details Date Type Department Care Team (Late st Contact Info) Description 01/20/2018 Procedure Pass [facility] [address] [place] [address] Social History Tobacco Use Types Packs/Day Years [...] documented as of this encounter Care Teams Track Machine Operator Repairer Relationship Specialty Start Date End Date Spencer Meyer NP [address] [place] [address] PCP - General 09/10/17 documented as of this encounter Additional Source Comments The information contained in this document represents components of the legal health record. It is not the complete legal health record.[facility]
--- OUTSIDE RECORDS SUMMARY | 2025-08-26 09:04 | XMS_ITS | Encounter Summary ---
Author Organization [facility] Address [address] [facility] [address] [place] [address] Phone Care Team Providers Care Parts Counterman Name Role Phone Spencer Meyer BIOINFORMATICS SOFTWARE ENGINEER Primary Care Provider [phone] Encounter Details Date Type Department Care Team (Late st Contact Info) Description 01/07/2018 Ancillary Orders Virtual Department [address] [place] [address] Mary Shrestha NP [address] [place] [address] [phone] [email or web address] Left knee pain, unspecified chronicity Social History Tobacco Use Types Packs/Day Years [...] as of this encounter Results * MRI KNEE WITHOUT CONTRAST (LEFT) (01/20/2018 3:06 PM EST) Anatomical Region Laterality Modality Knee Left Magnetic Resonan ce 01/20/2018 5:16 PM EST Impressions 01/20/2018 5:42 PM EST Progressive severe chondromalacia patella. Progressive moderate chondromalacia in the medial compartment where the previous chondral defect is less apparent likely due to adjacent cartilage loss. Small multiloculated popliteal cyst. Small joint effusion. POS - [id number] Narrative 01/20/2018 5:42 PM EST HISTORY: Left knee pain with swelling. Pain in popliteal region when walking and climbing stairs. Symptoms for several years. COMPARISON: 06/09/2014 TECHNIQUE: Exam performed on a 1.5 [employer] high-field MRI scanner. Axial proton density with fat suppression, coronal proton density and proton density with fat suppression, sagittal T1, oblique sagittal proton density and proton density with fat suppression parallel to the plane of the ACL sequences were obtained. FINDINGS: Anterior and posterior cruciate ligaments, medial collateral ligament and the lateral collateral ligament complex, and the extensor mechanism are intact without abnormal signal. Small joint effusion. Small lobular area of fluid signal at the posterior medial aspect of the knee which seems to communicate with the popliteal bursa and probably represents a multiloculated popliteal cyst rather than a ganglion cyst. No evidence of a medial or lateral meniscal tear. Progressive loss of patellar cartilage with areas of severe loss along the medial facet and apex in the upper/midportion. Remaining cartilage has heterogeneous signal and surface irregularity. Progressive thinning of of articular cartilage in the medial compartment. The focal chondral defect along the weightbearing surface of the medial femoral condyle is less apparent. No cartilage defects in the lateral compartments. No bone contusion or fracture. No suspicious bone lesion. Procedure Note Gustabo Wood MD - 01/20/2018 HISTORY: Left knee pain with swelling. Pain in popliteal region whenwalking and climbing stairs. Symptoms for several years. COMPARISON: 06/09/2014 TECHNIQUE: Exam performed on a 1.5 [employer] high-field MRI scanner. Axialproton density with fat suppression, coronal proton density and protondensity with fat suppression, sagittal T1, oblique sagittal proton densityand proton density with fat suppression parallel to the plane of the ACLsequences were obtained. FINDINGS: Anterior and posterior cruciate ligaments, medial collateral ligament andthe lateral collateral ligament complex, and the extensor mechanism areintact without abnormal signal. Small joint effusion. Small lobular area of fluid signal at the posteriormedial aspect of the knee which seems to communicate with the poplitealbursa and probably represents a multiloculated popliteal cyst rather thana ganglion cyst. No evidence of a medial or lateral meniscal tear. Progressive loss of patellar cartilage with areas of severe loss along themedial facet and apex in the upper/midportion. Remaining cartilage hasheterogeneous signal and surface irregularity. Progressive thinning of of articular cartilage in the medial compartment.The focal chondral defect along the weightbearing surface of the medialfemoral condyle is less apparent. No cartilage defects in the lateralcompartments. No bone contusion or fracture. No suspicious bone lesion. IMPRESSION: Progressive severe chondromalacia patella. Progressive moderate chondromalacia in the medial compartment where theprevious chondral defect is less apparent likely due to adjacent cartilageloss. Small multiloculated popliteal cyst. Small joint effusion. POS - [id number] Mary Shrestha NP IMG MR EXTREMITY Final Result documented in this encounter Visit Diagnoses Diagnosis Left knee pain, unspecified chronicity Left knee pain, unspecified chronicity documented in this encounter Additional Health Concerns Infection Onset Date Last Indicated Resolved Time CoV-Risk 11/27/2023 11/27/2023 12/08/2023 1:23 AM EST Influenza A 11/27/2023 11/27/2023 12/04/2023 1:24 AM EST documented as of this encounter Care Teams Parts Counterman Relationship Specialty Start Date End Date Spencer Meyer NP [address] [place] [id number] PCP - General 09/10/17 documented as of this encounter Additional Source Comments The information contained in this document represents components of the legal health record. It is not the complete legal health record.[facility]
--- OUTSIDE RECORDS SUMMARY | 2025-08-26 09:04 | XMS_ITS | Encounter Summary ---
Author Organization [facility] Address [address] [facility] [address] [place] [address] Phone Care Team Providers Care System Configuration Specialist Name Role Phone Spencer Meyer ROOF ASSEMBLER Primary Care Provider [phone] Encounter Details Date Type Department Care Team (Late st Contact Info) Description 01/07/2018 Procedure Pass [facility] [address] [place] [address] Social History Tobacco Use Types Packs/Day Years [...] documented as of this encounter Care Teams System Configuration Specialist Relationship Specialty Start Date End Date Spencer Meyer NP [address] [place] [address] PCP - General 09/10/17 documented as of this encounter Additional Source Comments The information contained in this document represents components of the legal health record. It is not the complete legal health record.[facility]
--- OUTSIDE RECORDS SUMMARY | 2025-08-26 09:04 | XMS_ITS | Encounter Summary ---
Author Organization [facility] Address [address] [facility] [address] [place] [address] Phone Care Team Providers Care Tree Scout Name Role Phone Spencer Meyer SEALS ENGRAVER Primary Care Provider [phone] Reason for Referral * Physical Therapy (Routine) - Closed Specialty Diagnoses / Procedures Referred By Noemi clark Referred To Contact Physical Therapy Diagnoses Encounter for rehabilitation System, Provider Not In, [facility] [id number] [place] [address] [address] [place] [address] Phone: tel: Referral ID Status Reason Start Date Expiration Date Visits Re quested Visits Authorized [id number] Closed 02/24/2018 11/24/2018 9 9 Encounter Details Date Type Department Care Team (Latest Contact Info) Description 12/31/2017 Transcribe Orders [facility] [address] [place] [address] Spencer Meyer, SEALS ENGRAVER [address] [place], [place] [phone] Encounter for rehabilitation (Primary Dx) Social History Tobacco Use Types Packs/Day Years [...] Procedure Name Priority Date/Time Associated Diagnosis Comments AMB REFERRAL TO [facility] PHYSICAL THERAPY Routine 02/24/2018 5:09 PM EDT Encounter for rehabilitation documented in this encounter Results * Ambulatory referral to [facility] Physical Therapy (02/24/2018 5:09 PM EDT) us Provider Not In System PhD AMB [facility] REFERRALS Fin al Result documented in this encounter Visit Diagnoses Diagnosis Encounter for rehabilitation- Primary documented in this encounter Additional Health Concerns Infection Onset Date Last Indicated Resolved Time CoV-Risk 11/27/2023 11/27/2023 12/08/2023 1:23 AM EST Influenza A 11/27/2023 11/27/2023 12/04/2023 1:24 AM EST documented as of this encounter Care Teams Tree Scout Relationship Specialty Start Date End Date Spencer Meyer NP [address] [place] [address] PCP - General 09/10/17 documented as of this encounter Additional Source Comments The information contained in this document represents components of the legal health record. It is not the complete legal health record.[facility]
--- OUTSIDE RECORDS SUMMARY | 2025-08-26 09:04 | XMS_ITS | Clinical Summary ---
Author Organization [employer] Address [address] [facility] [address] [place] [address] Care Team Providers Care Utility Pipe Layer Name Role Phone Constance Oakes LAP RUNNER Primary Care Provider [phone] Allergies No known active allergies Medications * [...] every 6 (six) hours as needed. Active Multiple Vitamins-Minerals (CertaVite/Antiox idants) tablet Take with food. Active Linzess 145 MCG capsule TAKE 1 CAPSULE BY MOUTH EVERY DAY IN THE MORNING Active Blood Pressure Monitoring (Omron 3 Series BP Monitor) deviceIndications :Essential hypertension USE DIRECTED 1-2 TIMES EVERY DAY 1 each Active hydroCHLOROthiazi de (HYDRODiuril) 25 MG tabletIndications :Essential hypertension Take 1 tablet (25 mg) by mouth Once per day. 30 tablet 11 Active albuterol 108 (90 Base) MCG/ACT inhalerIndication s:Mild intermittent asthma without complication Use every 4 hours as directed 18 g 1 024 Active albuterol (2.5 MG/3ML) 0.083% nebulizer solutionIndicatio ns:Mild intermittent asthma without complication Take 3 mL (2.5 mg) by nebulization every 4 (four) hours if needed for wheezing. 75 mL 3 024 Active loratadine (Claritin) 10 MG tabletIndications :Mild intermittent asthma without complication Take 1 tablet (10 mg) by mouth Once per day. 30 tablet Active Diclofenac Sodium 1 % gelIndications:Ar thralgia, unspecified joint Apply topically to affected areas twice daily 150 g 1 025 Active capsaicin (Zostrix) 0.025 % creamIndications: Arthralgia, unspecified joint Apply topically 2 times daily. 56.6 g 025 2025 Active budesonide-formot margaret (Symbicort) 80-4.5 MCG/ACT inhalerIndication s:Mild intermittent asthma without complication Inhale 2 puffs twie daily. Rinse mouth with water after use to reduce aftertaste and incidence of candidiasis. Do not swallow. 1 each Active melatonin 5 MG tabletIndications :Arthralgia, unspecified joint Take 1 tablet by oral route every evening 2-3 hours before bed 90 tablet 025 Active fluticasone (Flonase) 50 MCG/ACT nasal sprayIndications: Mild intermittent asthma without complication INSTILL 1-2 SPRAYS IN EACH NOSTRIL ONCE DAILY 16 g 2 025 Active omeprazole (PriLOSEC) [address] capsule Take 1 capsule (20 mg) by mouth before breakfast. Do not crush or chew. 90 capsule 025 Active losartan (Cozaar) 50 MG tabletIndications :Essential hypertension Take 1 tablet (50 mg) by mouth Once per day. 30 tablet 025 2025 Active metFORMIN XR (Glucophage-XR) 500 MG 24 hr tabletIndications :Prediabetes Take 1 tablet (500 mg) by mouth with evening meal. Do not crush, chew, or split. OK to increase to 1 tablet twice daily if tolerating well 30 tablet 025 2025 Active lidocaine (Lidoderm) 5 % patchIndications: Chronic right shoulder pain Apply topically to affected areas. Leave on for up to 12 hours 30 patch 1 025 Active Tirzepatide-Weigh t Management (Zepbound) 2.5 MG/0.5ML solution auto-injectorIndi cations:Class 3 severe obesity due to excess calories with serious comorbidity and body mass index (BMI) of 40.0 to 44.9 in adult (HCC) Inject 0.5 mL (2.5 mg) under the skin 1 (one) time per week. 2 mL 3 Active hydrocortisone 2.5 % cream APPLY A THIN LAYER TOPICALLY AFFECTED AREA(S) TWICE DAILY NEEDED 022 2024 Discontinued olmesartan (Benicar) 5 MG tabletIndications :Essential hypertension Take 1 tablet (5 mg) by mouth Once per day. 90 tablet 024 2024 Discontinued lidocaine (Lidoderm) 5 % patchIndications: Chronic right shoulder pain Apply topically to affected areas. Leave on for up to 12 hours 30 patch 1 024 2024 Discontinued(R eorder (will not trigger notification to Pharmacy)) losartan (Cozaar) 25 MG tablet Take 1 tablet (25 mg) by mouth Once per day. 30 tablet 11 024 2024 Discontinued DULoxetine (Cymbalta) 30 MG capsuleIndication s:Arthralgia, unspecified joint Take 1 capsule (30 mg) by mouth 2 times daily. Do not crush or chew. 60 capsule 11 025 2024 Discontinued meloxicam (Mobic) 15 MG tablet Take 1 tablet (15 mg) by mouth Once per day. 14 tablet 025 2024 Discontinued Active Problems Problem Noted Date Diagnosed Date Primary osteoarthritis of right knee 06/16/2025 Overview (06/16/2025): 08/19/2024 chondroplasty + partial medial meniscectomy with no grafts by Dr. Duenas Assessment & Plan (06/16/2025 3:15 PM EDT): S/p right chondroplasty + partial medial meniscectomy with no grafts on 07/[address] Duenas. Unclear if she had refracture of meniscus or other conditions Advised important of walking with a cane, nonweightbearing on the right side. Continue Celebrex for now PT as tolerated Advised to elevate her leg and put cool compresses on the affected area, use diclofenac gel as needed Ordered x-rays to rule out fracture, unclear if patient may need MRI. Advised to call orthopedic office to follow-up with Dr. Duenas within the next 1 to 2 weeks. Mild persistent asthma without complication 01/2025 Primary osteoarthritis of both hands 11/27/2024 Other dysphagia 03/25/2024 Overview (03/25/2024): Followed by [facility]. Last seen 10/2023. Endoscopy/colonoscopy from 08/2023 [...] Chronic low back pain 12/10/2022 Overview (12/10/2022): Long hx of chronic, diffuse, non-radiating LBP DEXA scan from 08/2022 with normal bone density (ordered d/t question of fragility fracture) Lumbar X-rays from 07/2022 with the following result: Degenerative disc changes L5-S1 disc level. Assessment & Plan (01/28/2024 1:34 PM EST): START amitryptiline 10mg nightly. Reviewed administration, risks, side effects Declines PT or pain mngmt referral at this time Essential hypertension 12/10/2022 Overview (11/27/2024): Seen by cardiology at [facility] in 2014 d/t hx of CP and SOB. Negative echo. Negative stress test at this time. No further cardiology follow up - Previously did not tolerate olmesartan. [place] that it caused BP fluctuation Maintenance: - [...] consulting health care provider Assessment & Plan (06/16/2025 3:11 PM EDT): Uncontrolled, patient is not taking losartan or HCTZ. Advised to take losartan 25 mg daily and follow-up with PCP next week. Next line discussed with patient importance of taking medication regularly and or otherwise tight control of hypertension in order to decrease morbidity and mortality. Assessment & Plan (01/28/2024 1:40 PM EST): BP elevated initially Reports home readings well controlled RN BP check 2 weeks Assessment & Plan (01/14/2023 10:54 PM EST): START olmesartan 5mg daily. Reviewed administration, risks, side effects Assessment & Plan (12/10/2022 2:15 PM EST): Well controlled with diet/exercise laone Will continue to monitor Maintenance: BMP: Ordered [...] 1 Pap: Overdue, scheduled today C-scope: 05/2020- [facility]. repeat 5 years. BMD: 08/2022, WNL HCV Screen: Neg c019 HIV Screen: Neg 2019 Assessment & Plan (12/10/2022 2:16 PM EST): Declines flu and COVID Prediabetes 12/10/2022 Overview (12/10/2022): 07/2022 A1c 5.7 Subclinical hypothyroidism 12/10/2022 Overview (12/10/2022): TSH 6.82 07/2022; T4 WNL Obstructive sleep apnea syndrome 01/18/2022 Overview (12/10/2022): Has CPAP at home Assessment & Plan (01/28/2024 1:31 PM EST): Advised patient and her daughter to contact CPAP company and request to trial different mask options Encouraged CPAP use at lease 4 hours per night Gastroesophageal reflux disease 04/22/2013 Overview (12/10/2022): Followed by [facility] Negative endoscopy 01/2022, Dr. Neil Taking sucralfate and omeprazole Reactive depression 04/22/2013 Overview (12/10/2022): Related to of father Takes propranolol PRN for anxiety Assessment & [...] follow up Pure hypercholesterolemia 04/30/2012 Overview (12/10/2022): Atorvastatin 40mg Resolved Problems Problem Noted Date Diagnosed Date Resolved Date Mild intermittent asthma 12/10/202201/2025 Overview (12/10/2022): PFT's from 2016 show mild obstructive disease, otherwise WNL Lower abdominal pain 11/21/2017 023 Hypertensive disorder 06/27/20152022 Amenorrhea 03/29/2014 12/10/2022 Neck pain 04/22/2013 12/10/2022 Anxiety 09/08/2012 12/10/2022 Backache 09/08/2012 12/10/2022 Insomnia 04/30/2012 12/10/2022 Encounters Date Type Department Care Team Description 08/20/2025 Telephone [facility] [address] [place] [id number] Constance Oakes FNP Colonoscopy 08/05/[address] [address] Josiane Metz RN Care Coordination 08/04/[address] [address] Constance Oakes FNP Prior Authorization (Fabienne BERUMEN: Ann Marie) 08/02/2025 9:15 AM EDT Office [place] [address] Constance Oakes FNP Healthcare maintenance (Primary Dx); Essential hypertension; Prediabetes; Obstructive sleep apnea syndrome; Fibromyalgia; Chronic right shoulder pain; Subclinical hypothyroidism; Encounter for screening mammogram for breast cancer; Class 3 severe obesity due to excess calories with serious comorbidity and body mass index (BMI) of 40.0 to 44.9 in adult 08/02/2025 Travel 07/30/2025 Telephone [facility] [address] [place] [address] Constance Oakes FNP Chart Prep 07/23/2025 Patient Outreach [facility] [address] [place], [place] [phone] Constance Oakes FNP Pre-visit Planning (SDOH was already completed) 06/21/2025 Patient Outreach [facility] [address] [place] [address] Constance Oakes FNP Pre-visit Planning (SDOH was already completed) 06/21/2025 Results Follow-Up [facility] [address] [place] [phone] Tere Trevizo MD XR Knee 3 Views Right 06/17/2025 11:00 AM EDT Immunization [address] [address] Sabrina Subramanian RN Encounter for immunization 06/17/2025 Travel 06/16/2025 11:30 AM EDT Office Visit [address] [address] Tere Trveizo MD Primary osteoarthritis of right knee (Primary Dx); Essential hypertension; Arthritis of right knee 06/16/2025 Travel 06/15/[address] [address] Constance Oakes FNP chart prep 06/14/[address] [address] Constance Oakes FNP Nurse Triage from Last 3 Months Immunizations Immunization Administration Dates Next Due Hep B, adult 06/17/2025,01/14/2025,12/17/2024 IPV 12/22/2024 Influenza, IIV3, injectable 11/09/2010 Influenza, Split (incl. rusty fied surface antigen) 09/08/2012 Influenza, seasonal, injecta ble, preservative free 12/17/2024 MMR 10/10/1999,01/13/1999 Moderna Covid-19 Vaccine 12+ [...] Date Recorded Patient Health Questionnaire-9 Score 0 08/02/2025 Patient Health Questionnaire-9 Score 0 08/02/2025 Last PHQ-9: Questionnaire Data Not on file 0 08/02/2025 Housing Stability Answer Date Recorded What is [...] Date Recorded Patient Health Questionnaire-2 Score 0 08/02/2025 Internet Access Answer Date Recorded Internet Access [...] Sign Reading Time Taken Comments Blood Pressure 138/90 08/02/2025 9:45 AM EDT Pulse 80 08/02/2025 9:05 AM EDT Temperature 36.6 C (97.8 F) 08/02/2025 9:05 AM EDT Respiratory Rate 20 08/02/2025 9:05 AM EDT Oxygen Saturation 98% 08/06/2024 11:50 AM EDT Inhaled Oxygen Concentration - - Weight 107 kg (236 lb 9.6 oz) 08/02/2025 9:05 AM EDT Height 157.5 cm (5' 2 ) 08/02/2025 9:05 AM EDT Body Mass Index 43.27 08/02/2025 9:05 AM EDT Plan of Treatment Health Maintenance Due Date Last Done Comments CT Colonography 1975 FIT DNA/Cologuard 1975 FIT 1975 FOBT 1975 Sigmoidoscopy 1975 Family Planning (PISQ) 1989 Pneumococcal Vaccine: 50+ Years (1 of 2 - PCV) 1993 Mammogram 12/27/2023 12/27/2022, 12/2022, 12/27/2022, Additional history exists Zoster Vaccines (1 of 2) 2024 Dental Oral Exam 07/17/2024 01/16/2024, 02/2019, 05/05/2018, Additional history exists Dental Prophylaxis 08/02/2024 01/30/2024, 0 12/29/2018, 04/10/2018, Additional history exists Dental X-Ray: Bitewings 01/17/2025 01/16/20 24, 05/05/2018, 09/17/2016, Additional history exists IPV Vaccines (2 of 3 - Adult catch-up series) 01/19/2025 12/22/2024 Influenza Vaccine (#1) 2025 , 09/08/2012, 11/09/2010 Diabetes: Hemoglobin A1C 01/30/2026 025, 11/27/2024, 01/16/2024, Additional history exists Alcohol/Substance Use Screening 06/16/2026 06/16/2025 Disability Screening 06/16/2026 06/16/2025 SDOH Screening 06/16/2026 06/16/2025 DTaP/Tdap/Td Vaccines (2 - Td or Tdap) 07/26/2026 02/16/2016, 01/13/1999 Postponed from 02/15/2026 (Other System Reasons) Depression Screening 08/02/2026 08/02/2025, 08/02/20 Tobacco Screening 08/02/2026 08/02/2025 Dental X-Ray: Full Mouth 01/17/2027 01/16/2024, 04/25 Colonoscopy 09/09/2028 09/09/2023, 06/20/2020 Colorectal Cancer Screening 09/09/2028 Cervical Cancer Screening 2029 HPV/Cotest 2029 2024 Pap Smear 2029 2024 Lipid Panel 11/27/2029 11/27/2024, 12/27, 11/28/2022, Additional history exists RSV Patients and Patients Aged 60 years or older (1 - 1-dose 75+ series) 2049 COVID-19 Vaccine Completed 12/17/2024, 05/2021, 04/05/2021 Hepatitis B Vaccines Discontinued 06/17/2025, 01/14/2025, 12/17/2024 HIB Vaccines Aged Out No longer eligi ble based on patient's age to complete this topic HIV Screening Discontinued HPV Vaccines Aged Out No longer eligi ble based on patient's age to complete this topic Hepatitis A Vaccines Aged Out No long er eligible based on patient's age to complete this topic Hepatitis C Screening Discontinued Meningococcal B Vaccine Aged Out No l onger eligible based on patient's age to complete this topic Meningococcal Vaccine Aged Out No veronica concepcion eligible based on patient's age to complete this topic RSV under 20 months Aged Out No longe r eligible based on patient's age to complete this topic Rotavirus Vaccines Aged Out No longer eligible based on patient's age to complete this topic Procedures Procedure Name Priority Date/Time Associated Diagnosis Comments POCT GLUCOSE Routine 08/02/2025 10:04 AM EDT Prediabetes POCT GLYCATED HEMOGLOBIN, TOTAL Routine 08/02/2025 10:04 AM EDT Prediabetes XR KNEE 3 VIEWS RIGHT Routine 06/17/2025 11:09 AM EDT Arthritis of right knee LIPID PANEL, STANDARD Routine 11/27/2024 11:26 AM [...] ESTABLISHED PATIENT Routine 01/16/2024 10:00 AM EST HM COLONOSCOPY Routine 09/09/2023 BI MAMMOGRAM SCREENING TOMOSYNTHESIS BILATERAL Routine 12/27/2022 9:55 AM EST from Last 3 Months or Most Recently Relevant to Health Maintenance Results * POCT Hgb A1c (08/02/2025 10:04 AM EDT) Hemoglobin A1C 5.7 4.0 - 5.7 % Blood 08/02/2025 10:0 4 AM EDT [facility] LAP RUNNER POINT OF CARE TEST ENTER/EDIT ORDERABLES Final Result * POCT Glucose (08/02/2025 10:04 AM EDT) Glucose Blood, POC 196 60 - 200 mg/dL Blood Capillary blood specimen / Unknown 08/02/2025 10:04 AM EDT [facility] LAP RUNNER POINT OF CARE TEST ENTER/EDIT ORDERABLES Final Result * XR Knee 3 Views Right (06/17/2025 11:09 AM EDT) Anatomical Region Laterality Modality Lower Extremities, Knee Right Radiogra phic Imaging 06/17/2025 11:0 9 AM EDT Narrative 06/17/2025 12:36 PM EDT [address] [address] XRay Report Signed Patient: Radha Garcia MR#: [id number] 95 : 1975 Acct:[id number] Age/Sex: 50 / F ADM Date: 06/17/25 Loc: [facility] Attending Dr: Tere Trevizo MD Ordering Physician: Tere Trevizo MD Date of Service: 06/17/25 Procedure(s): XR knee RT 3V Accession Number(s): [id number] cc: Tere Trevizo MD; [facility] EXAMINATION: XR KNEE, RIGHT CLINICAL INFORMATION: right knee arthritis, persistent pain and swelling COMPARISON: None available. TECHNIQUE: Three views of the right knee. FINDINGS: There is a joint. There is severe narrowing of the medial joint space. There are tricompartmental marginal osteophytes. There is no soft tissue calcification. XR/XR knee RT 3V IMPRESSION: Severe osteoarthritis and joint effusion. Electronically signed by: Floyd Vaughan MD 06/17/2025 12:33 PM EDT Dictated By: Floyd Vaughan MD Signed By: <Electronically signed by Floyd Vaughan MD in OV> 06/17/25 1233 DD/ 1109 TD/TT: 06/17/25 1120 Procurement Officer: Procedure Note Donotuseinterpreter, Image - 06/17/2025 [place] [address] XRay Report Signed Patient: Radha Garcia CMR#: [id number] 95 : 1975Acct:[id number] Age/Sex: 50 / FADM Date: 06/17/25 Loc: [facility] Attending Dr: Tere Trevizo MD Ordering Physician: Tere Trevizo MD Date of Service: 06/17/25 Procedure(s): XR knee RT 3V Accession Number(s): [id number] cc: Tere Trevizo MD; [facility] EXAMINATION: XR KNEE, RIGHT CLINICAL INFORMATION: right knee arthritis, persistent pain and swelling COMPARISON: None available. TECHNIQUE: Three views of the right knee. FINDINGS: There is a joint. There is severe narrowing of the medial joint space. There are tricompartmental marginal osteophytes. There is no soft tissue calcification. XR/XR knee RT 3V IMPRESSION: Severe osteoarthritis and joint effusion. Electronically signed by: Floyd Vaughan MD 06/17/2025 12:33 PM EDT RP Dictated By: Floyd Vaughan MD Signed By: <Electronically signed by Floyd Vaughan MD in OV> 06/17/25 1233 DD/ 1109 TD/TT: 06/17/25 1120 Procurement Officer: Tere Trevizo MD IMG XR PROCEDURES Edited Result - Final * (ABNORMAL) Lipid Panel, Standard (11/27/2024 11:26 AM EST) Triglycerides 300(H) <150 mg/dL [facility] Comment:Desirable Triglyceri de: less than 150 mg/dLBorderline High Triglyceride 150-199 mg/dLHigh Triglyceride: 200-499 mg/dLVery High Triglyceride: greater than or equal to 5OO mg/dL Cholesterol 225(H) <200 mg/dL [facility] Comment:Desirable Cholestero l: less than 200 mg/dLBorderline High Cholesterol: 200-239 mg/dLHigh Cholesterol: greater than 239 mg/dL LDL Cholesterol Calculated 121(H) <100 mg/dL [facility] Comment:Desirable LDL: less than 100 mg/dLNear Optimal/Above Optimal LDL: 110- 129 mg/dLBorderline High LDL: 130-159 mg/dLHigh LDL: 160-189 mg/dLVery High LDL: greater than or equal to 190 mg/dL HDL Cholesterol 44 >40 mg/dL [facility] Comment:Desirable HDL: great er than 40 mg/dL Note: This HDL assay may give artificially low results in patients with liver disease. 11/27/2024 11:2 6 AM EST 11/27/2024 12:58 PM EST [facility] BLOOD ORDERABLES Final Re sult Performing Organization Address City/[facility]/ZIP Co de Phone Number [facility] [address] [place] [address] [phone] * HPV mRNA E6/E7 w/Reflex to HPV Genotypes 16, 18/45 (2024 12:30 PM EDT) HPV nRNA E6/E7 Not Detected Not Detected [facility] Comment:Methodology: Transcr iption-Mediated AmplificationThis assay detects E6/E7 viral messenger RNA (mRNA) from 14high-risk HPV types (16,18,31,33,35,39,45,51,52,56,58,59,66,68).Cervical sources are required for HPV testing.If a vaginal source from a patient who has had atotal hysterectomy with removal of cervix wassubmitted, please contact the testing laboratoryfor alternative testing options.For additional information, please refer [email or web address]/faq/GLK846m2(This link if provided for information/educational purposes only.)THIS TEST WAS PERFORMED AT:[employer] [place] [phone] ROSARIO MD HPV mRNA E6/E7 [facility] HPV 16 RNA [facility] HPV 18/45 RNA [facility] 2024 12:3 0 PM EDT 05/06/2024 11:47 AM EDT [facility] CYTOLOGY ORDERABLES Final Result [facility] [address] [place] [address] [phone] * Pap Smear (2024 12:30 PM EDT) Swab Cervical swab / Unknown 2024 12:30 PM EDT 04/28/2024 9:10 AM EDT Narrative [facility] - 05/11/2024 5:17 PM EDT ----- ------- Name: Radha Garcia Age/Sex: 49/F : 1975 Unit#: [id number] Attend Dr: Constance OakesP Re04/27/24 Status: [facility] REF Location: [facility] Disch: ----- ------- SPEC : [id number] RECD: 04/28/24-909 STATUS: CHINTAN SEPIDEH NUM: [id number] JUAREZ: 04/27/24-1230 [facility] [address]: Constance Oakes ENTERED: 04/28/24-948 SP TYPE: Pap Smr DAJA DR: ORDERED: Pap Smear Interpretation Satisfactory for evaluation. Negative for intraepithelial lesion or malignancy. Atrophic. HPV mRNA E6/E7: NOT DETECTED This assay detects E6/E7 viral messenger RNA (mRNA) from 14 high-risk HPV types (16, 18, 31, 33, 35, 39, 45, 51, 52, 56, 58, 59, 66, 68) HPV testing performed by [facility], [place], [place]. See reference laboratory portion of the EMR for entire report. Clinical Information LMP: Postmenopausal Previous PAP test: Unknown date/findings Material Received ThinPrep-Vaginal/Cervical ----- ------- Signed (signature on file) Renea Garland 05/11/24 1717 ----- ------- END OF REPORT [facility] LAB CYTOLOGY ORDERABLES Final Result [facility] [address] [place] [phone] * (ABNORMAL) Colonoscopy (09/09/2023) Colonoscopy Abnormal(A ) Normal Comment:5years Historical Provider HEALTH MAINTENANCE Final Result * BI Mammogram Screening Tomosynthesis Bilateral (12/27/2022 9:55 AM EST) Anatomical Region Laterality Modality Breast Bilateral Mammography 12/27/2022 9:55 AM EST Narrative 12/28/2022 4:27 PM EST [facility] [address] [place] [address] Mammography Report Signed Patient: Radha Garcia MR#: [id number] 95 : 1975 Acct:[id number] Age/Sex: 47 / F ADM Date: 12/27/22 Loc: RAMON Attending Dr: Constance LOWRYP Ordering Physician: Constance Oakes Results: 1Nega tive Date of Service: 12/27/22 Follow Up: 1 Year From Orig inal Mammogram Procedure(s): MM tomosynthesis screening BI Accession Number(s): [id number] cc: Constance Oakes LAP RUNNER EXAMINATION: MM SCREENING DIGITAL BREAST TOMOSYNTHESIS, BILATERAL [...] in OV> 12/28/22 1624 DD/ 0955 TD/TT: Procurement Officer: SK Procedure Note Donotuseinterpreter, Image - 12/28/2022 [facility] [address] [place] [address] Mammography Report Signed Patient: Radha Garcia CMR#: [id number] 95 : 1975Acct:[id number] Age/Sex: 47 / FADM Date: 12/27/22 Loc: [facility] Attending Dr: Constance Oakes LAP RUNNER Ordering Physician: Constance Oakes FNPResults: 1Nega tive Date of Service: 12/27/22Follow Up: 1 Year From Orig inal Mammogram Procedure(s): MM tomosynthesis screening BI Accession Number(s): [id number] cc: Constance Oakes LAP RUNNER EXAMINATION: MM SCREENING DIGITAL BREAST TOMOSYNTHESIS, BILATERAL [...] in OV> 12/28/22 1624 DD/ 0955 TD/TT: Procurement Officer: GLEN[facility] External Provider IMG BI PROCEDURES Edited Result - Final from Last 3 Months or Most Recently Relevant to Health Maintenance Insurance [facility] DENTAL-[facility] MEDICAID LIMITED ADULT DENTAL - HSN FULL (MEDICAID) Care Teams Utility Pipe Layer Relationship Specialty Start Date End Date Constance Oakes FNP [address] [place] [phone] PCP - General Family Medicine 07/17/22
--- OUTSIDE RECORDS SUMMARY | 2025-08-26 09:04 | XMS_ITS | Clinical Summary ---
Author Organization [facility] Address [address] [facility] [address] [place] [id number] Phone Care Team Providers Care Engineering Program Analyst Name Role Phone Spencer Meyer UNDERWATER PHOTOGRAPHER Primary Care Provider [phone] Allergies No known active allergies Medications MELATONIN [...] 2024 ZOSTER VACCINES (1 of 2) 2024 MAMMOGRAM 12/27/2024 12/27/2022 SCREENING FOR DIABETES 04/15/2025 04/15/2022 INFLUENZA VACCINE (#1) 2025 2, 11/09/2010 COVID-19 VACCINE (3 - 2024-2 6 season) 2025 05/01/2021, 04/05/2021 Adult Td,Tdap Booster 02/15/2026 02/16/2016 , 01/13/1999 [...] (01/13/2018 2:17 PM EST) HCV Negative Negative [facility] Comment: This is a screening test and should be confirmed with molecular testing Blood 01/13/2018 2:17 PM EST 01/13/2018 2:23 PM EST us Spencer Meyer UNDERWATER PHOTOGRAPHER LAB BLOOD ORDERABLES Final Re sult [facility] [address] [place] [address] * (ABNORMAL) Lipid panel (01/13/2018 2:17 PM EST) HDL 54 mg/dL [facility] Comment: Interpretation: Risk Level Females Decreased >55mg/dL Average 50-55 mg/dL Increased <50 mg/dL CHOLESTEROL 214 0 - 240 mg/dL [facility] TRIGLYCERIDES 182(H) 30 - 160 mg/dL [facility] LDL 124 50 - 129 mg/dL [facility] Comment: LDL levels in terms of risk for coronary heart disease: <100 mg/dL: Optimal 100-129 mg/dL: Near or above optimal 130-159 mg/dL: Borderline high 160-189 mg/dL: High >190 mg/dL: Very High CARDIAC RISK RATIO 4.0 3.3 - 4.4 C [facility] Blood 01/13/2018 2:17 PM EST 01/13/2018 2:23 PM EST Spencer Meyer NP LAB BLOOD ORDERABLES Final Re sult [facility] Organization Address City/State/ZIP Co de Phone Number [facility] [address] [place] [address] * PAP SMEAR FOR RESULT ENTRY ONLY (01/23/2014) Pap smear neg per [facility] Historical Provider HEALTH MAINTENANCE Final Result from Last 3 Months or Most Recently Relevant to Health Maintenance Insurance [employer] [facility] NON KIT [facility] PCP S[facility]VER [employer] SAF[employer] NET FULL [facility] NON NSP PCP [facility]VER [facility] Member Subscriber Plan / Payer (Ef fective 2023-Present) Name:Radha Garcia Relation to Subscriber:Self Name:Radha Garcia Payer ID:[id number] Type:O Address: [address] NET FULL [facility] [address] FULL [facility] WELLSENSE NON NSPG PCP SILVER CLARITY CONNECTORCARE [employer] NET [place] [address] WELLSENSE NON NSPG PCP S[facility]VER [facility] HEALTH SAFETY [facility] PCP [facility]VER [facility]CTOR[facility] HEALTH SAFETY [place]ULL [place] [employer] NON NSPG PCP SILVER CLARITY CONNECTORCARE NET FULL [facility] LIMITED WELLSENSE NON NSPG PCP SILVER [facility]ALTH SAFETY NET FULL [facility] PCP S[facility]VER [facility] [employer] SAFETY NET FULL Care Teams Engineering Program Analyst Relationship Specialty Start Date End Date Spencer Meyer NP [address] [place] [id number] PCP - General 09/10/17 Additional Source Comments The information contained in this document represents components of the legal health record. It is not the complete legal health record.[facility]
--- OUTSIDE RECORDS SUMMARY | 2025-08-26 09:04 | XMS_ITS | Encounter Summary ---
Author Organization [facility] Address [address] [facility] [address] [place] [address] Phone Care Team Providers Care Content Management Specialist Name Role Phone Spencer Meyer REGIONAL OFFICE COORDINATOR Primary Care Provider [phone] Encounter Details Date Type Department Care Team (Late st Contact Info) Description 02/20/2020 Procedure Pass OR Admitting Dept - Virtual Department [address] [place] [id number] Social History Tobacco Use Types Packs/Day Years [...] documented as of this encounter Care Teams Content Management Specialist Relationship Specialty Start Date End Date Spencer Meyer NP [address] [place] [phone] PCP - General 09/10/17 documented as of this encounter Additional Source Comments The information contained in this document represents components of the legal health record. It is not the complete legal health record.[facility]
== END 2025-08-26 09:45 | disposition home or self-care (01) ==
LOC: HO.HSMS 08:41
PROVIDERS: PCP Registered Nurse; Visit Provider Physician Assistant Medical
DX: G47.19 Other hypersomnia (principal); G43.719 Chronic migraine without aura, intractable, without status migrainosus; G25.81 Restless legs syndrome; D50.8 Other iron deficiency anemias
CPT/HCPCS: 99204

== ENCOUNTER 2025-09-02 08:11 | Outpatient (REF) | payer OTHER, SELFPAY ==
--- NOTE | ~2025-09-02 | XR_ITS ---
EXAMINATION: XR KNEE 1-2 VIEWS RIGHT HISTORY: M25.569 - Pain in unspecified knee COMPARISON: Comparison is made with the prior examination dated 06/17/2025. FINDINGS: Standing AP views of both knees and an additional sunrise patellar view of the right knee are submitted. Osseous mineralization is normal. There is no fracture or dislocation. Again seen is severe osteoarthritis of the medial compartment with joint space narrowing and osteophyte formation. There is mild narrowing of the patellofemoral joint. Incidental note is made of moderate osteoarthritis of the medial compartment of the left knee. The soft tissues are unremarkable. XR/XR knee RT 2V IMPRESSION: Osteoarthritis of the right knee as described. Electronically signed by: Jorge Henderson MD 09/02/2025 02:31 PM EDT
== END 2025-09-02 08:12 | disposition home or self-care (01) ==
LOC: HO.HOSX 08:11
PROVIDERS: Visit Provider Physician Assistant
DX: M17.0 Bilateral primary osteoarthritis of knee (principal)
CPT/HCPCS: 73560; 99212

== ENCOUNTER 2025-09-02 12:06 | Outpatient (REF) | payer OTHER, SELFPAY ==
[2025-09-02 13:19] LABS: MANUAL DIFF FLAG NO
[2025-09-02 13:52] LABS: INTERNATIONAL NORM RATIO 0.9 (0.9-1.1); Prothrombin Time 10.7 SEC (10.9-12.4)
[2025-09-02 14:03] LABS: Hematocrit 41.1 % (37.0-47.0); Hemoglobin 13.5 g/dl (12.0-16.0); Imm Gran Abs Auto 0.03 X10*3/uL (0.00-0.03); Imm Gran Pct Auto 0.4 % (0.0-0.4); Lymphocytes Absolute Auto 3.0 X10*3/uL (1.2-4.9); Mean Corpuscular HGB Conc 32.8 g/dl (31.0-35.0); Mean Corpuscular Hemoglobin 27.5 pg (27.0-33.0); Mean Corpuscular Volume 83.7 fL (80.0-98.0); NRBC Abs Auto 0.000 X10*3/uL (0.0-0.012); NRBC Pct Auto 0.0 /100WBC (0.0-0.2); Platelet Count 273 X10*3/uL (160-400); Red Blood Count 4.91 X10*6/uL (4.20-5.50); White Blood Count 8.6 X10*3/uL (4.8-10.8)
[2025-09-03 08:39] LABS: HBS Num1 0.83 mIU/mL (0-7.99); HBc Num1 0.09 S/CO (0.00-0.79); HBsAGNum1 0.57 S/CO (0.00-0.99); Hepatitis A Antibody IgM 0.46 Index (0-0.79); Hepatitis B Surface Antigen Negative (Negative); ~HepC Num1 0.06 S/CO (0.00-0.79); ~Hepatitis A Antibody IgM Nonreactive (Nonreactive); ~Hepatitis B Surface Antibody NONREACTIVE (Nonreactive); ~Hepatitis C Antibody Nonreactive (Nonreactive)
== END 2025-09-02 12:07 | disposition home or self-care (01) ==
LOC: HO.HHCL 12:06
PROVIDERS: PCP Registered Nurse; Visit Provider Registered Nurse
DX: Z11.59 Encounter for screening for other viral diseases (principal); R74.8 Abnormal levels of other serum enzymes
CPT/HCPCS: 36415; 85025; 85610; 86704; 86706; 86709; 86803; 87340

== ENCOUNTER 2025-09-02 13:14 | Outpatient (AMB) | payer OTHER, SELFPAY ==
--- NOTE | 2025-09-02 13:38 | A.OFFVIS_ITS ---
Vital Signs 09/02/25 13:57 Height 5 ft 2 in Weight 229 lb BMI 41.9 Intake Visit Reasons: new prob-right knee pain Intake Note: Radha is a 50 year old female who presents today as an established patient, new problem visit to evaluate her right knee pain. She was previously seen for her left knee status post arthroscopy on 03/24/25. Hx of right knee with chondroplasty and partial medial meniscectomy. Today patient reports bilateral knee pain with the right knee being the worse. Her pain is constant and is located at the anterior aspect of knee. Difficulty with sleeping at night. Finds no relief with ibuprofen or Tylenol. Laser Operator Required: Yes Laser Operator Services: Laser Operator Present Laser Operator Name: Cyndi ID#[id number] Allergies No Known Allergies (No Known Allergies*) Allergy (Verified 09/02/25 13:56) Medication List - Last Reconciled 09/02/25 by Carlene Manning PA-C acetaminophen 500 mg (15 mL) PO QID PRN albuterol sulfate 90 mcg/actuation 2 puffs PO Q4-6H PRN budesonide 90 mcg/actuation 2 inhalations PO BID celecoxib (Celebrex) 200 mg PO BID 30 days cholecalciferol (vitamin D3) 250 mcg PO 2XW 90 days diclofenac sodium 1% 4 grams topical QID 30 days hydrochlorothiazide 25 mg PO DAILY hydrocodone-acetaminophen 5-325 mg 1 tab PO Q8H PRN 7 days ibuprofen 800 mg PO TID PRN loratadine 10 mg PO DAILY PRN olmesartan 5 mg PO QAM sumatriptan succinate take 1 tab at onset of headache; if no relief may repeat 1 tab after at least 2 hrs; max = 4 tabs/24 hr PO 30 days HPI HPI new prob-right knee pain: Details: 50 yo female returns to the office today for new onset right knee pain. She had a left knee arthroscopy with Dr Duenas . She continues to have anterior left knee pain. She states the right knee is worsening due to applying most her weight to the right. She has pain that is anterior and worse with stairs and prolonged walking and standing. She has had bilateral steroid injections in the past which are no longer helpful. She has tried celebrex and voltaren gel. [facility] Medical History CARITO (obstructive sleep apnea) History of Helicobacter pylori infection Patellofemoral arthritis of right knee Patellofemoral arthritis of left knee Distal radius fracture, left Bilateral knee pain Fatty liver GDM (gestational diabetes mellitus) Hypertension Anxiety Depression Surgical History History of esophagogastroduodenoscopy (EGD) Hx of colonoscopy Hx of endoscopy H/O hand surgery History of open reduction and internal fixation (ORIF) procedure History of eye surgery History of hemorrhoidectomy History of back surgery Social History Household Members: Spouse and Children Are you a primary insurance healthcare consultant to a significant other at home: No Do you presently have visiting nurse or other home services: No Alcohol intake: current Alcohol intake frequency: does not drink Patient Tobacco Use Status: Never used Tobacco 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al status: unemployed 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: Right Handed Review of Systems Const All systems reviewed & are unremarkable except as noted in HPI and below Physical Exam Vital Signs: BMI result Body Mass Index 41.9 Const General: cooperative and no acute distress Orientation/consciousness: patient oriented x3 Resp Effort & Inspection: normal respiratory effort and able to speak in complete sentences Cardio Peripheral pulses: Peripheral pulses 2+ throughout Neuro General: patient oriented x3 Extrem Other: Bilat knee normal to inspection. She has significant pain with ROM anlong the patella. Crepitus present. Results Reviewed Results Reviewed: /XR knee RT 2V IMPRESSION: Osteoarthritis of the right knee as described. Assessment & Plan Assessment & Plan (1) Osteoarthritis of right knee: Code(s): M17.11 - Unilateral primary osteoarthritis, right knee Category: Medical (2) Patellofemoral arthritis of left knee: Code(s): M17.12 - Unilateral primary osteoarthritis, left knee Category: Medical (3) Patellofemoral arthritis of right knee: Code(s): M17.11 - Unilateral primary osteoarthritis, right knee Category: Medical Plan We discussed options today which includes repeat steroid which she is not interested in. She would like to try the gel injections, which an order will be sent for. I also sent a rx for voltaren gel to the pharmacy. She will see me back once the injections are approved. Orders: Orders XR knee RT 2V Today M25.569 - Pain in unspecified knee Medications: Refilled diclofenac sodium 1% apply 4grams to affected area four times a day as needed 4 grams topical QID 100 grams 6RF 30 days Coding Level of Care Code Est Pt Level 3 (18024) Complex EM visit Add On G2211 Diagnoses Osteoarthritis of right knee M17.11 Patellofemoral arthritis of left knee M17.12 Patellofemoral arthritis of right knee M17.11
[2025-09-02 13:57] VITALS: BMI 41.9
== END 2025-09-02 14:05 | disposition home or self-care (01) ==
LOC: HO.HOS 13:15
PROVIDERS: PCP Registered Nurse; Visit Provider Physician Assistant
DX: M17.0 Bilateral primary osteoarthritis of knee (principal)
CPT/HCPCS: 99213

== ENCOUNTER → 2025-09-02 13:41 | Outpatient (BNV) | payer OTHER, SELFPAY | PROVIDERS: Visit Provider Radiology Diagnostic Radiology | DX: M25.569 Pain in unspecified knee (principal) | CPT/HCPCS: 73560 ==

== ENCOUNTER 2025-09-20 11:35 | Outpatient (REF) | payer OTHER, SELFPAY ==
--- OUTSIDE RECORDS SUMMARY | 2014-06-09 | XMS_ITS | Encounter Summary ---
Author Organization [facility] Address [address] [employer] [facility] [address] [place] [address] Phone Care Team Providers Care Forest Ecologist Name Role Phone Unavailable Primary Care Provider Unavailabl e Encounter Details Date Type Department Care Team (Late st Contact Info) Description 06/09/2014 Hospital Encounter [facility],Outside Imaging [address] [place] [address] System, Provider Not In, [facility] [address] [address] Unknown, Unknown, Social History Tobacco Use Types [...] 9:29 PM EST Rodo Almodovar RN * [place] Suicide Severity Rating Scale (Screener/Recent Self-Report) Question [...]
--- OUTSIDE RECORDS SUMMARY | 2025-09-20 14:58 | XMS_ITS | Clinical Summary ---
Author Organization [facility] Address [address] [facility] [address] [place] [phone] Phone Care Team Providers Care Wildlife Control Agent Name Role Phone Spencer Meyer CORPORATE COMPLIANCE OFFICER Primary Care Provider Allergies No known active allergies Medications MELATONIN [...] years) (1 of 1 - PCV) 2024 RSV VACCINE (1 - Risk 50-74 years 1-dose series) 2024 ZOSTER VACCINES (1 of 2) 2024 [...] (01/13/2018 2:17 PM EST) HCV Negative Negative [facility] Comment: This is a screening test and should be confirmed with molecular testing Blood 01/13/2018 2:17 PM EST 01/13/2018 2:23 PM EST us Spencer Meyer CORPORATE COMPLIANCE OFFICER LAB BLOOD ORDERABLES Final Re sult [facility] [address] [place] [address] * (ABNORMAL) Lipid panel (01/13/2018 2:17 PM EST) HDL 54 mg/dL [facility] Comment: Interpretation: Risk Level Females Decreased >55mg/dL Average 50-55 mg/dL Increased <50 mg/dL CHOLESTEROL 214 0 - 240 mg/dL [facility] TRIGLYCERIDES 182(H) 30 - 160 mg/dL [facility] LDL 124 50 - 129 mg/dL [facility] Comment: LDL levels in terms of risk for coronary heart disease: <100 mg/dL: Optimal 100-129 mg/dL: Near or above optimal 130-159 mg/dL: Borderline high 160-189 mg/dL: High >190 mg/dL: Very High CARDIAC RISK RATIO 4.0 3.3 - 4.4 C [facility] Blood 01/13/2018 2:17 PM EST 01/13/2018 2:23 PM EST Spencer Meyer CORPORATE COMPLIANCE OFFICER LAB BLOOD ORDERABLES Final Re sult [facility] [address] [place] [address] * PAP SMEAR FOR RESULT ENTRY ONLY (01/23/2014) HM Pap smear neg per [facility] Historical Provider HEALTH MAINTENANCE Final Result from Last 3 Months or Most Recently Relevant to Health Maintenance Insurance [employer] LIMITED WELLSENSE NON NSPG PCP SILVER CLARITY CONNECTORCARE [employer] [facility] NET FULL [facility] NON NSPG PCP SILVER CLARITY CONNECTORCARE [place] [employer] [facility] [place] [place] [address] LIMITED [facility] NON [facility]SP PCP SILVER [facility] [place] [place] [address] LIMITED [employer] NON NSPG PCP SILVER CLARITY CONNECTORCARE [place] [employer] NON NSPG PCP S[employer] [facility]ALTH SAFETY NET FULL [facility] NON NSPG PCP SILVER CLARITY [place] [address] [address] SAFETY NET FULL [facility] WELLSENSE NON NSPG PCP S[employer]VER [employer]ITY CONNECTORCARE Member Subscriber Plan / Payer (Ef fective 2023-Present) Name:Radha Garcia Relation to Subscriber:Self Name:Radha Garcia Payer ID:[id number] Type:[facility] Address: [address] NET FULL [facility] WELLSENSE NON NSPG PCP SILVER CL[facility]ITY [facility] HEALTH SAFETY NET FULL [facility] NON NSP PCP [facility] Member Subscriber Plan / Payer (Ef fective 2023-Present) Name:Radha Garcia Relation to Subscriber:Self Name:Radha Garcia Payer ID:[id number] Type:O Address: [address] NET FULL Care Teams Wildlife Control Agent Relationship Specialty Start Date End Date Spencer Meyer NP [address] [place] [address] PCP - General 09/10/17 Additional Source Comments The information contained in this document represents components of the legal health record. It is not the complete legal health record.[facility]
--- OUTSIDE RECORDS SUMMARY | 2025-09-20 14:58 | XMS_ITS | Clinical Summary ---
Author Organization [employer] Address [address] [facility] [address] [place] [address] Care Team Providers Care Roof Slater Name Role Phone Constance Oakes TELECOMMUNICATIONS OPERATOR Primary Care Provider [phone] Allergies No known active allergies Medications * [...] (six) hours as needed. 06/01/20 19 Active Multiple Vitamins-Minerals (CertaVite/Antioxi dants) tablet Take with food. 02/06/20 22 Active Linzess 145 MCG capsule TAKE 1 CAPSULE BY MOUTH EVERY DAY IN THE MORNING 08/16/20 22 Active Blood Pressure Monitoring (Omron 3 Series BP Monitor) deviceIndications: Essential hypertension USE DIRECTED 1-2 TIMES EVERY DAY 1 each 04/27/20 24 Active hydroCHLOROthiazid e (HYDRODiuril) 25 MG tabletIndications: Essential hypertension Take 1 tablet (25 mg) by mouth Once per day. 30 tablet 11 06/01/20 24 Active albuterol 108 (90 Base) MCG/ACT inhalerIndications :Mild intermittent asthma without complication Use every 4 hours as directed 18 g 1 06/01/20 24 Active albuterol (2.5 MG/3ML) 0.083% nebulizer solutionIndication s:Mild intermittent asthma without complication Take 3 mL (2.5 mg) by nebulization every 4 (four) hours if needed for wheezing. 75 mL 3 06/01/20 24 Active loratadine (Claritin) 10 MG tabletIndications: Mild intermittent asthma without complication Take 1 tablet (10 mg) by mouth Once per day. 30 tablet 11 06/01/20 24 Active Diclofenac Sodium 1 % gelIndications:Art hralgia, unspecified joint Apply topically to affected areas twice daily 150 g 1 11/27/19 25 Active capsaicin (Zostrix) 0.025 % creamIndications:A rthralgia, unspecified joint Apply topically 2 times daily. 56.6 g 11/27/19 25 026 Active budesonide-formote rol (Symbicort) 80-4.5 MCG/ACT inhalerIndications :Mild intermittent asthma without complication Inhale 2 puffs twie daily. Rinse mouth with water after use to reduce aftertaste and incidence of candidiasis. Do not swallow. 1 each 11/27/19 25 Active melatonin 5 MG tabletIndications: Arthralgia, unspecified joint Take 1 tablet by oral route every evening 2-3 hours before bed 90 tablet 11/27/19 25 Active fluticasone (Flonase) 50 MCG/ACT nasal sprayIndications:M ild intermittent asthma without complication INSTILL 1-2 SPRAYS IN EACH NOSTRIL ONCE DAILY 16 g 2 02/20/20 25 Active omeprazole (PriLOSEC) [address] capsule Take 1 capsule (20 mg) by mouth before breakfast. Do not crush or chew. 90 capsule 06/16/20 25 Active losartan (Cozaar) 50 MG tabletIndications: Essential hypertension Take 1 tablet (50 mg) by mouth Once per day. 30 tablet 08/02/20 25 026 Active metFORMIN XR (Glucophage-XR) 500 MG 24 hr tabletIndications: Prediabetes Take 1 tablet (500 mg) by mouth with evening meal. Do not crush, chew, or split. OK to increase to 1 tablet twice daily if tolerating well 30 tablet 08/02/20 026 Active lidocaine (Lidoderm) 5 % patchIndications:C hronic right shoulder pain Apply topically to affected areas. Leave on for up to 12 hours 30 patch 1 08/02/20 25 Active Tirzepatide-Weight Management (Zepbound) 2.5 MG/0.5ML solution auto-injectorIndic ations:Class 3 severe obesity due to excess calories with serious comorbidity and body mass index (BMI) of 40.0 to 44.9 in adult (HCC) Inject 0.5 mL (2.5 mg) under the skin 1 (one) time per week. 2 mL 3 08/02/20 25 Active atorvastatin (Lipitor) 20 MG tabletIndications: Hyperlipidemia, unspecified hyperlipidemia type Take 1 tablet (20 mg) by mouth Once per day. 30 tablet 11 09/01/20 25 026 Active Tirzepatide-Weight Management (Zepbound) 5 MG/0.5ML solution auto-injectorIndic ations:Class 3 severe obesity due to excess calories with serious comorbidity and body mass index (BMI) of 40.0 to 44.9 in adult (HCC) Inject 0.5 mL (5 mg) under the skin 1 (one) time per week. 2 mL 3 09/08/20 25 Active Active Problems Problem Noted Date [...] Other dysphagia 03/25/2024 Overview (03/25/2024): Followed by [facility]. Last seen 10/2023. Endoscopy/colonoscopy from 08/2023 [...] 12/10/2022 Overview (11/27/2024): Seen by cardiology at [facility] in 2014 d/t hx of CP and SOB. Negative echo. Negative stress test at this time. No further cardiology follow up - Previously did not tolerate olmesartan. [place] that it caused BP fluctuation Maintenance: - [...] 1 Pap: Overdue, scheduled today C-scope: 05/2020- [facility]. repeat 5 years. BMD: 08/2022, WNL HCV [...] reflux disease 04/22/2013 Overview (12/10/2022): Followed by [facility] Negative endoscopy 01/2022, Dr. Neil Taking sucralfate and omeprazole Reactive depression 04/22/2013 Overview (12/10/2022): Related to of father Takes propranolol PRN for anxiety Assessment & Plan (01/28/2024 1:33 PM EST): Accepts referral to OP therapy Amitryptiline for chronic pain may also help with depressive sx/insomnia Contact HC if sx worsen or experiencing thoughts of SI or self harm. Pt has N crisis contact information Vertigo 04/22/2013 Obesity 04/30/2012 [...] Encounters Date Type Department Care Team Description 09/08/[address] [address] Constance Oakes FNP Class 3 severe obesity due to excess calories with serious comorbidity and body mass index (BMI) of 40.0 to 44.9 in adult (HCC) 09/03/2025 Results Follow-Up [facility] [address] [address] Constance Oakes [facility] Prothrombin Time-INR, CBC auto differential, Hepatitis A,B,C Profile 09/02/2025 Orders Only [facility] External Provider, [facility] 08/30/2025 [facility] [address] [address] ChampConstance cortez FNP Elevated liver enzymes (Primary Dx) 08/30/2025 [facility] [address] [address] Constance Oakes FNP POCT Hgb A1c, POCT Glucose, Comprehensive Metabolic Panel, Additional followed-up results: 2 08/26/2025 Orders Only GENERIC EXTERNAL DATA DEPARTMENT Provider, Generic External Data 08/20/[address] [address] ChampConstance cortez FNP Colonoscopy 08/05/[address] [address] Josiane Metz, AYAKA Care Coordination 08/04/[address] [address] ChampConstance cortez FNP Prior Authorization (Fabienne BERUMEN: Ann Marie) 08/02/2025 9:15 AM EDT Office Visit [address] [address] Constance Oakes FNP Healthcare maintenance (Primary Dx); Essential hypertension; Prediabetes; Obstructive sleep apnea syndrome; Fibromyalgia; Chronic right shoulder pain; Subclinical hypothyroidism; Encounter for screening mammogram for breast cancer; Class 3 severe obesity due to excess calories with serious comorbidity and body mass index (BMI) of 40.0 to 44.9 in adult 08/02/2025 Travel 07/30/2025 Telephone [facility] MED[facility] [address] [place] [address] Constance Oakes FNP Chart Prep 07/23/2025 Patient Outreach [facility] [address] [place], [place] [phone] FriscoConstance [facility] Pre-visit Planning (SDOH was already completed) 06/21/2025 Patient Outreach [facility] [address] [place], [place] [phone] FriscoConstance [facility] Pre-visit Planning (SDOH was already completed) 06/21/2025 Results Follow-Up [facility] [address] [place], [place] [phone] Tere Trevizo MD XR Knee 3 Views Right from Last 3 Months Immunizations Immunization Administration [...] 08/02/2025 9:05 AM EDT Plan of Treatment Upcoming Encounters Date Type Department Care Team (Late st Contact Info) Description 10/11/2025 9:45 AM EST Office Visit [facility] [address] [place] [address] FriscoConstance cortez, TELECOMMUNICATIONS OPERATOR [address] [place] [address] Health Maintenance Due Date Last Done Comments CT Colonography 1974 FIT DNA/Cologuard 1974 FIT 1974 FOBT 1974 Sigmoidoscopy 1974 Family Planning (PISQ) 1989 Pneumococcal Vaccine: 50+ Years (1 of 2 - PCV) 1993 Mammogram 12/27/2023 12/27/2022, 02/12/2022, 12/27/2022, Additional history exists Zoster Vaccines (1 of 2) 2024 Dental Oral Exam 07/17/2024 01/16/2024, 02/2019, 05/05/2018, Additional history exists Dental Prophylaxis 08/02/2024 01/30/2024, 0 12/29/2018, 04/10/2018, Additional history exists Dental X-Ray: Bitewings 01/17/2025 01/16/20 24, 05/05/2018, 09/17/2016, Additional history exists IPV Vaccines (2 of 3 - Adult catch-up series) 01/19/2025 12/22/2024 Influenza Vaccine (#1) 2025 , 09/08/2012, 11/09/2010 Diabetes: Hemoglobin A1C 02/24/2026 025, 08/02/2025, 11/27/2024, Additional history exists Alcohol/Substance Use Screening 06/16/2026 [...] 2024 Pap Smear 2029 2024 Lipid Panel 08/26/2030 08/26/2025, 01/2025, 01/16/2024, Additional history exists RSV Patients and Patients Aged 60 years or older (1 - 1-dose 75+ series) 2049 COVID-19 Vaccine Completed 12/17/2024, 05/2021, 04/05/2021 Hepatitis B Vaccines Discontinued 06/17/2025, 01/14/2025, 12/17/2024 Hepatitis C Screening Discontinued 09/02/2025 HIB Vaccines Aged Out No longer eligi ble based on patient's age to complete this topic HIV Screening Discontinued HPV Vaccines Aged Out No longer eligi ble based on patient's age to complete this topic Hepatitis A Vaccines Aged Out No long er eligible based on patient's age to complete this topic Meningococcal B Vaccine Aged Out No l [...] Procedure Name Priority Date/Time Associated Diagnosis Comments XR KNEE 1-2 VIEWS RIGHT Routine 09/02/2025 1:41 PM EDT HEPATITIS PANEL, GENERAL Routine 09/02/2025 12:10 PM EDT Elevated liver enzymes CBC WITH AUTO DIFFERENTIAL Routine 09/02/2025 12:10 PM EDT Elevated liver enzymes PROTHROMBIN TIME-INR Routine 09/02/2025 12:10 PM EDT Elevated liver enzymes VITAMIN B1 Routine 08/26/2025 10:58 AM EDT VITAMIN B6 Routine 08/26/2025 10:58 AM EDT METHYLMALONIC ACID Routine 08/26/2025 10 :58 AM EDT HOMOCYSTEINE Routine 08/26/2025 10:58 AM EDT VITAMIN B12/FOLATE, SERUM PANEL Routine 08/26/2025 10:58 AM EDT VITAMIN D,25-OH,TOTAL,IA Routine 08/26/2025 10:58 AM EDT FERRITIN Routine 08/26/2025 10:58 AM EDT HEMOGLOBIN A1C Routine 08/26/2025 10:58 AM EDT TSH W/REFLEX TO FT4 Routine 08/26/2025 1 0:58 AM EDT Subclinical hypothyroidism LIPID PANEL, STANDARD Routine 08/26/2025 10:58 AM EDT Essential hypertension COMPREHENSIVE METABOLIC PANEL Routine 08/26/2025 10:58 AM EDT Essential hypertension POCT GLUCOSE Routine 08/02/2025 10:04 AM EDT Prediabetes POCT GLYCATED HEMOGLOBIN, TOTAL Routine 08/02/2025 10:04 AM EDT Prediabetes HPV MRNA E6/E7 REFLEX TO HPV 16, [...] Recently Relevant to Health Maintenance Results * XR Knee 1-2 Views Right (09/02/2025 1:41 PM EDT) Anatomical Region Laterality Modality Lower Extremities, Knee Right Radiogra phic Imaging 09/02/2025 1:41 PM EDT Narrative 09/02/2025 2:33 PM EDT [facility] [address] [place] [address] [address] [place] [address] XRay Report Signed Patient: Radha Nuñez MR#: [id number] 95 : 1975 Acct:[id number] Age/Sex: 50 / F ADM Date: 09/02/25 Loc: [facility] Attending Dr: Carlene Manning PA-C Ordering Physician: Carlene Manning PA-C Date of Service: 09/02/25 Procedure(s): XR knee RT 2V Accession Number(s): [id number] cc: Carlene Manning PA-C; [facility] Reason for Exam: M25.569 - Pain in unspecified knee EXAMINATION: XR KNEE 1-2 VIEWS RIGHT HISTORY: M25.569 - Pain in unspecified knee COMPARISON: Comparison is made with the prior examination dated 06/17/2025. FINDINGS: Standing AP views of both knees and an additional sunrise patellar view of the right knee are submitted. Osseous mineralization is normal. There is no fracture or dislocation. Again seen is severe osteoarthritis of the medial compartment with joint space narrowing and osteophyte formation. There is mild narrowing of the patellofemoral joint. Incidental note is made of moderate osteoarthritis of the medial compartment of the left knee. The soft tissues are unremarkable. XR/XR knee RT 2V IMPRESSION: Osteoarthritis of the right knee as described. Electronically signed by: Jorge Henderson MD 09/02/2025 02:31 PM EDT RP Dictated By: Jorge Henderson MD Signed By: <Electronically signed by Jorge Henderson MD in OV> 09/02/25 1431 DD/ 1341 TD/TT: 09/02/25 1345 Simulation Specialist: Procedure Note Cristin, Isela - 09/02/2025 [facility] [address] [place] [address] Drive [address] [place] [address] XRay Report Signed Patient: Radha Nuñez CMR#: [id number] 95 : 1975Acct:[id number] Age/Sex: 50 / FADM Date: 09/02/25 Loc: [facility] Attending Dr: Carlene Manning PA-C Ordering Physician: Carlene Manning PA-C Date of Service: 09/02/25 Procedure(s): XR knee RT 2V Accession Number(s): [id number] cc: Carlene Manning PA-C; [facility] Reason for Exam: M25.569 - Pain in unspecified knee EXAMINATION: XR KNEE 1-2 VIEWS RIGHT HISTORY: M25.569 - Pain in unspecified knee COMPARISON: Comparison is made with the prior examination dated 06/17/2025. FINDINGS: Standing AP views of both knees and an additional sunrise patellar view of the right knee are submitted. Osseous mineralization is normal. There is no fracture or dislocation. Again seen is severe osteoarthritis of the medial compartment with joint space narrowing and osteophyte formation. There is mild narrowing of the patellofemoral joint. Incidental note is made of moderate osteoarthritis of the medial compartment of the left knee. The soft tissues are unremarkable. XR/XR knee RT 2V IMPRESSION: Osteoarthritis of the right knee as described. Electronically signed by: Jorge Henderson MD 09/02/2025 02:31 PM EDT RP Dictated By: Jorge Henderson MD Signed By: <Electronically signed by Jorge Henderson MD in OV> 09/02/25 1431 DD/ 1341 TD/TT: 09/02/25 1345 Simulation Specialist: [facility] External Provider IMG XR PROCEDURES Final Result * Hepatitis A,B,C Profile (09/02/2025 12:10 PM EDT) Pathologist [facility] [place] Hepatitis A IgM Nonreactive Nonreactive [facility] Comment:IgM antibodies to [place]CK[place] V not detected; does not exclude earlyacute or recovered HAV infection. ~Hepatitis B Surface Antibody NONREACTIVE Nonreactive [facility] Comment:Nonreactive: < 8.00 mIU/mL Hepatitis B Core Antibody Nonreactive Nonreactive [facility] Hepatitis C Antibody Nonreactive Nonreactive [facility] Comment:Antibodies to HCV no t detected; does not exclude early acuteHCV infection. Hepatitis B Surface Ag Negative Negative [facility] Blood Venous blood specimen / Unknown 09/02/2025 12:10 PM EDT 09/02/2025 4:14 PM EDT [facility] TELECOMMUNICATIONS OPERATOR LAB BLOOD ORDERABLES Final Re sult [facility] [address] [place] [phone] * CBC auto differential (09/02/2025 12:10 PM EDT) White Blood Count 8.6 4.8 - 10.8 X10*3/uL [facility] Red Blood Count 4.91 4.20 - 5.50 X10*6/uL [facility] Hemoglobin 13.5 12.0 - 16.0 g/dl [facility] Hematocrit 41.1 37.0 - 47.0 % [facility] Mean Corpuscular Volume 83.7 80.0 - 98.0 fL [facility] Mean Corpuscular Hemoglobin 27.5 27.0 - 33.0 pg [facility] Mean Corpuscular HGB Conc 32.8 31.0 - 35.0 g/dl [facility] Red Cell Distribution Width 13.1 11.0 - 16.0 % [facility] Platelet Count 273 160 - 400 X10*3/uL [facility] Mean Platelet Volume 10.4 9.4 - 12.3 fL [facility] Neutrophils Percent Auto 50.6 45 - 73 % [facility] Imm Gran Pct Auto 0.4 0.0 - 0.4 % [facility] Lymphocytes Percent Auto 35.0 20 - 40 % [facility] Monocytes Percent Auto 10.3 2 - 11 % [facility] Eosinophils Percent Auto 3.3 0 - 4 % [facility] Basophils Percent Auto 0.4 0 - 2 % [facility] NRBC Pct Auto 0.0 0.0 - 0.2 /100WBC [facility] Neutrophils Absolute Auto 4.3 2.0 - 8.3 x10*3/uL [facility] Imm Gran Abs Auto 0.03 0.00 - 0.03 X10*3/uL [facility] Lymphocytes Absolute Auto 3.0 1.2 - 4.9 X10*3/uL [facility] Monocytes Absolute Auto 0.9 0.1 - 1.2 X10*3/uL [facility] Eosinophils Absolute Auto 0.3 0.0 - 0.4 X10*3/uL [facility] Basophils Absolute Auto 0.0 0.0 - 0.2 X10*3/uL [facility] NRBC Abs Auto 0.000 0.0 - 0.012 X10*3/uL [facility] Blood Venous blood specimen / Unknown 09/02/2025 12:10 PM EDT 09/02/2025 1:15 PM EDT [facility] TELECOMMUNICATIONS OPERATOR LAB BLOOD ORDERABLES Final Re sult [facility] [address] [place] [phone] * (ABNORMAL) Prothrombin Time-INR (09/02/2025 12:10 PM EDT) Prothrombin Time 10.7(L) 10.9 - 12.4 SEC [facility] INTERNATIONAL NORM RATIO 0.9 0.9 - 1.1 [facility] Comment:INTERNATIONAL NORMAL IZED RATIO (INR) REFERENCE RANGES Reference RangeFor patients not on anticoagulant therapy: 0.9 - 1.1INR ranges for oral anticoagulanttherapy:For prevention and treatment of venous thrombosis and pulmonary embolism: 2.0 - 3.0For acute myocardial infarction with aspirin therapy: 2.0 - 3.0For acute myocardial infarction without aspirin therapy: 3.0 - 4.0For patients with mechanical prosthetic heart valves: 2.5 - 3.5 Blood Venous blood specimen / Unknown 09/02/2025 12:10 PM EDT 09/02/2025 1:15 PM EDT [facility] LAB BLOOD ORDERABLES Final Re sult [facility] [address] [place] [phone] * Vitamin D, 25-Hydroxy, Total, Immunoassay (08/26/2025 10:58 AM EDT) Vitamin D 25-OH Total 37.1 >30 ng/mL [facility] Comment: Health Based Reference Values*< 20 ng/mL [id number] ng/mL Insufficient> 30 ng/mL Sufficient*Regla BROWN. N Engl J Med. 2007;357:266-280There is no well-established upper level of normal vitamin Dlevels. Some laboratories use 50 ng/mL as an upper limit ofnormal. However, toxicity is patient-dependent and may occurat any level. Careful correlation with the patient'spresentation is necessary and, if there is concern forvitamin D toxicity, treatment should be consideredirrespective of the serum level.Care must be taken in interpreting Vitamin D [...] confirmed with another method such as LC-MS/MS. 08/26/2025 10:5 8 AM EDT 08/26/2025 10:58 AM EDT Generic External Data Provider LAB BLOOD ORDERAB LES Final Result Performing Organization Address [facility] Co de Phone Number [facility] [address] [place] [phone] * Vitamin B12 (Cobalamin) and Folate Panel, Serum (08/26/2025 10:58 AM EDT) Vitamin B12 452 200 - 900 pg/mL [facility] Comment:NORMAL 200-900 PG/ML INDETERMINATE 160-199 PG/ML DEFICIENT < 160 PG/ML Folate 14.8 > or = 4.0 ng/mL [facility] Comment:Reference Values:> o r = 4.0 ng/mL< 4.0 ng/mL suggests folate deficiency Methotrexate, aminopterin and folinic acid(leucovorin) are chemotherapeutic agents whose molecularstructures are similar to folate; therefore, the Architectfolate assay cannot be used for patients using these drugs. 08/26/2025 10:5 8 AM EDT 08/26/2025 10:58 AM EDT Generic External Data Provider LAB BLOOD ORDERAB LES Final Result Performing Organization Address [facility] Co de Phone Number [facility] [address] [place] [phone] * TSH W/Reflex to FT4 (08/26/2025 10:58 AM EDT) TSH reflex Free T4 2.74 0.32 - 4.0 uIU/mL [facility] Blood Venous blood specimen / Unknown 08/26/2025 10:58 AM EDT 08/26/2025 10:58 AM EDT [facility] TELECOMMUNICATIONS OPERATOR LAB BLOOD ORDERABLES Final Re sult Performing Organization Address [facility]/ZIP Co de Phone Number [facility] [address] [place] [address] [phone] * Methylmalonic Acid (08/26/2025 10:58 AM EDT) Methylmalonic Acid 145 55 - 335 nmol/L [facility] Comment: Serum methylmalonic acid (MMA) levels are used todiagnose and monitor several rare inborn errors ofmetabolism, including methylmalonic aciduria. Theenzymatic conversion of MMA to succinic acid requiresvitamin B12 (adenosyl-cobalamin) as a cofactor. SerumMMA levels are also used for assessing functionalvitamin B12 deficiency. Vitamin B12 is essential forfetal neurodevelopment, particularly early inpregnancy. Undiagnosed maternal vitamin B12 deficiencymay be associated with adverse / outcomes,such as neural tube defects and intrauterine growthrestriction.stickapps utilized Multi-Modal Decomposition(MMD) analysis to establish first and second trimester-specific MMA reference intervals in , as givenbelow:MMA, First trimester (<13 wks gestation): 58-167 nmol/LMMA, Second trimester (13-23 wks gestation):63-241 nmol/LThis test was developed and its analytical performancecharacteristics have been determined by [facility]. It has not been cleared or approved by theFDA. This assay has been validated pursuant to the CLIAregulations and is used for clinical purposes.THIS TEST WAS PERFORMED AT:[employer]/[facility] [id number] [place] [address]PMRBEPZTIMOTHY JEFFERSON MD,PHD 08/26/2025 10:5 8 AM EDT 08/26/2025 10:58 AM EDT Generic External Data Provider LAB BLOOD ORDERAB LES Final Result Performing Organization Address City/[facility]/ZIP Co de Phone Number [facility] [address] [place] [phone] [phone] * Vitamin B1 (08/26/2025 10:58 AM EDT) Vitamin B1 10 8 - 30 nmol/L [facility] Comment:Vitamin supplementat ion within 24 hours prior toblood draw may affect the accuracy of the results.This test was developed and its analytical performancecharacteristics have been determined by [facility] [place], [place]. It hasnot been cleared or approved by the U.S. Food and DrugAdministration. This assay has been validated pursuantto the CLIA regulations and is used for clinicalpurposes.THIS TEST WAS PERFORMED AT:[employer] [id number] [place] [address]VSLSEVRTIMOTHY JEFFERSON MD,PHD 08/26/2025 10:5 8 AM EDT 08/26/2025 10:58 AM EDT us Generic External Data Provider LAB BLOOD ORDERAB LES Final Result [facility] [address] [place] [phone] * Vitamin B6, Plasma (08/26/2025 10:58 AM EDT) Pathologist [facility] [place] Vitamin B6 12.7 2.1 - 21.7 ng/mL [facility] Comment:Vitamin supplementat ion within 24 hours prior toblood draw may affect the accuracy of the results.This test was developed and its analytical performancecharacteristics have been determined by [facility] [place], [place]. It hasnot been cleared or approved by the U.S. Food and DrugAdministration. This assay has been validated pursuantto the CLIA regulations and is used for clinicalpurposes.THIS TEST WAS PERFORMED AT:[employer] [id number] [place] [address]DGVLDVSTIOMTHY JEFFERSON MD,PHD 08/26/2025 10:5 8 AM EDT 08/26/2025 10:58 AM EDT us Generic External Data Provider LAB BLOOD ORDERAB LES Final Result Performing Organization Address [facility] Co de Phone Number [facility] [address] [place] [phone] * Homocysteine (08/26/2025 10:58 AM EDT) Homocysteine 9.5 < or = 13.4 umol/L [facility] Comment:Homocysteine is incr eased by functional deficiency offolate or vitamin B12. Testing for methylmalonic aciddifferentiates between these deficiencies. Other causesof increased homocysteine include renal failure, folateantagonists such as methotrexate and phenytoin, andexposure to nitrous oxide.Jennifer Cordoba et al., [employer] Account Assistant Med. 1999;131(5):331-9.THIS TEST WAS PERFORMED AT:[employer] [place] [id number] ROSARIO MD 08/26/2025 10:5 8 AM EDT 08/26/2025 10:58 AM EDT Generic External Data Provider LAB BLOOD ORDERAB LES Final Result Performing Organization Address [facility] [facility] de Phone Number [facility] [address] [place] [phone] * Hemoglobin A1c (08/26/2025 10:58 AM EDT) Hemoglobin A1c 5.8 <6.0 % [facility] Comment:Hemoglobin A1C Refer ence Range Adults: 4.8 - 6.0 % Non diabetic: < 6.0 % Goal: < 7.0 %Additional Action Suggested: > 8.0 %Note: Hemoglobin A1c results are invalid for patients with abnormal amounts of HbF. Blood transfusions may impact the HbA1c concentration in the patient sample. Estimated Average Glucose 120 mg/dL [facility] Comment:eAG = Estimated ave rage glucose which is %A1C expressed asaverage glucose, using the formula of the Y0K-KvtecerZvhbqxe Glucose study (ADAG), Diabetes Care, Vol.31,#8,2007 08/26/2025 10:5 8 AM EDT 08/26/2025 10:58 AM EDT us Generic External Data Provider LAB BLOOD ORDERAB LES Final Result Performing Organization Address City/[facility]/ZIP Co de Phone Number [facility] [address] [place] [address] [phone] * Ferritin (08/26/2025 10:58 AM EDT) Ferritin 189 10 - 250 ng/mL [facility] 08/26/2025 10:5 8 AM EDT 08/26/2025 10:58 AM EDT us Generic External Data Provider LAB BLOOD ORDERAB LES Final Result Performing Organization Address City/[facility]/ZIP Co de Phone Number [facility] [address] [place] [address] [phone] * (ABNORMAL) Lipid Panel, Standard (08/26/2025 10:58 AM EDT) Triglycerides 215(H) <150 mg/dL [facility] Comment:Desirable Triglyceri de: less than 150 mg/dLBorderline High Triglyceride 150-199 mg/dLHigh Triglyceride: 200-499 mg/dLVery High Triglyceride: greater than or equal to 5OO mg/dL Cholesterol 226(H) <200 mg/dL [facility] Comment:Desirable Cholestero l: less than 200 mg/dLBorderline High Cholesterol: 200-239 mg/dLHigh Cholesterol: greater than 239 mg/dL LDL Cholesterol Calculated 141(H) <100 mg/dL [facility] Comment:Desirable LDL: less than 100 mg/dLNear Optimal/Above Optimal LDL: 110- 129 mg/dLBorderline High LDL: 130-159 mg/dLHigh LDL: 160-189 mg/dLVery High LDL: greater than or equal to 190 mg/dL HDL Cholesterol 42 >40 mg/dL [facility] Comment:Desirable HDL: great er than 40 mg/dL Note: This HDL assay may give artificially low results in patients with liver disease. Blood Venous blood specimen / Unknown 08/26/2025 10:58 AM EDT 08/26/2025 10:58 AM EDT [facility] LAB BLOOD ORDERABLES Final Re sult [facility] [address] [place] [address] [phone] * (ABNORMAL) Comprehensive Metabolic Panel (08/26/2025 10:58 AM EDT) Sodium 142 135 - 145 mmol/L [facility] Potassium 4.0 3.3 - 5.1 mmol/L [facility] Chloride 108 96 - 108 mmol/L [facility] Carbon Dioxide 26 22 - 29 mmol/L [facility] Anion Gap 12 12 - 20 [facility] Urea Nitrogen (BUN) 16 9 - 16 mg/dL [facility] Creatinine, Serum 0.75 0.5 - 1.4 mg/dL [facility] Estimated Glomerular Filt Rate >60 [facility] Comment:Chronic Kidney Disea se: Estimated GFR < 60 mL/min/1.96g0Kckbox Kidney Disease: Estimated GFR < 15 mL/min/1.73m2 Glucose 107 60 - 115 mg/dL [facility] Calcium 9.7 8.4 - 10.2 mg/dL [facility] Bilirubin, Total 0.8 0.0 - 1.0 mg/dL [facility] Aspartate Amino Transferase 47(H) 5 - 31 U/L [facility] Alanine Aminotransferase 68(H) 0 - 31 U/L [facility] Total Protein 8.1(H) 6.5 - 8.0 g/dL [facility] Albumin Level 4.9 3.5 - 5.0 g/dL [facility] Alkaline Phosphatase 98 39 - 117 U/L [facility] Blood Venous blood specimen / Unknown 08/26/2025 10:58 AM EDT 08/26/2025 10:58 AM EDT [facility] LAB BLOOD ORDERABLES Final Re sult [facility] [address] [place] [address] [phone] * POCT Hgb A1c (08/02/2025 10:04 AM EDT) Hemoglobin A1C 5.7 4.0 - 5.7 % Blood 08/02/2025 10:0 4 AM EDT [facility] POINT OF CARE TEST ENTER/EDIT ORDERABLES Final Result * POCT Glucose (08/02/2025 10:04 AM EDT) Glucose Blood, POC 196 60 - 200 mg/dL Blood Capillary blood specimen / Unknown 08/02/2025 10:04 AM EDT [facility] POINT OF CARE TEST ENTER/EDIT ORDERABLES Final Result * HPV mRNA E6/E7 w/Reflex to HPV Genotypes 16, 18/45 (2024 12:30 PM EDT) Pathologist [facility] HPV nRNA E6/E7 Not Detected Not Detected [facility] Comment:Methodology: Transcr iption-Mediated AmplificationThis assay detects E6/E7 viral messenger RNA (mRNA) from 14high-risk HPV types (16,18,31,33,35,39,45,51,52,56,58,59,66,68).Cervical sources are required for HPV testing.If a vaginal source from a patient who has had atotal hysterectomy with removal of cervix wassubmitted, please contact the testing laboratoryfor alternative testing options.For additional information, please refer tohttp://[email or web address]/faq/XKU352q6(This link if provided for information/educational purposes only.)THIS TEST WAS PERFORMED AT:[facility] [place] [phone] ROSARIO MD HPV mRNA E6/E7 TNP [facility] HPV 16 RNA TNP [facility] HPV 18/45 RNA [facility] 2024 12:3 0 PM EDT 05/06/2024 11:47 AM EDT [facility] LAB CYTOLOGY ORDERABLES Final Result [facility] [address] [place] [address] [phone] * Pap Smear (2024 12:30 PM EDT) Swab Cervical swab / Unknown 2024 12:30 PM EDT 04/28/2024 9:10 AM EDT Narrative [facility] - 05/11/2024 5:17 PM EDT ----- ------- Name: Radha Nuñez Age/Sex: 49/F : 1975 Unit#: [id number] Attend Dr: Constance Oakes [facility] Re04/27/24 Status: DEP REF Location: [facility] Disch: ----- ------- SPEC : [id number] RECD: 04/28/24-909 STATUS: CHINTAN BUNN NUM: [id number] JUAREZ: 04/27/24-1230 [facility] DR: Constance Oakes [facility] ENTERED: 04/28/24 SP TYPE: Pap Smr OTHR DR: ORDERED: Pap Smear Interpretation Satisfactory for evaluation. Negative for intraepithelial lesion or malignancy. Atrophic. HPV mRNA E6/E7: NOT DETECTED This assay detects E6/E7 viral messenger RNA (mRNA) from 14 high-risk HPV types (16, 18, 31, 33, 35, 39, 45, 51, 52, 56, 58, 59, 66, 68) HPV testing performed by [employer], [place], [place]. See reference laboratory portion of the EMR for entire report. Clinical Information LMP: Postmenopausal Previous PAP test: Unknown date/findings Material Received ThinPrep-Vaginal/Cervical ----- ------- Signed (signature on file) Renea Garland 05/11/24 5020 ----- ------- END OF REPORT [facility] LAB CYTOLOGY ORDERABLES Final Result [facility] [address] [place] [phone] * (ABNORMAL) Hm Colonoscopy (09/09/2023) Colonoscopy Abnormal(A ) Normal Comment:4years [facility] Provider [facility] Final Result * BI Mammogram Screening Tomosynthesis Bilateral (12/27/2022 9:55 AM EST) Anatomical Region Laterality Modality Breast Bilateral Mammography 12/27/2022 9:55 AM EST Narrative 12/28/2022 4:27 PM EST [place] [facility] [address] [place], [place] [address] Mammography Report Signed Patient: Radha Nuñez MR#: [id number] 95 : 1975 Acct:[id number] Age/Sex: 47 / F ADM Date: 12/27/22 Loc: HO.MAMMO Attending Dr: Constance Oakes TELECOMMUNICATIONS OPERATOR Ordering Physician: Constance Oakes TELECOMMUNICATIONS OPERATOR Results: 1Nega tive Date of Service: 12/27/22 Follow Up: 1 Year From Orig inal Mammogram Procedure(s): MM tomosynthesis screening BI Accession Number(s): [id number] cc: Constance Oakes TELECOMMUNICATIONS OPERATOR EXAMINATION: MM SCREENING DIGITAL BREAST TOMOSYNTHESIS, BILATERAL [...] in OV> 12/28/22 1624 DD/ 0955 TD/TT: Simulation Specialist: SK Procedure Note Donotuseinterpreter, Image - 12/28/2022 [facility] [address] [place], [place] [address] Mammography Report Signed Patient: Radha Nuñez CMR#: [id number] 95 : 1975Acct:[id number] Age/Sex: 47 / FADM Date: 12/27/22 Loc: HO.MAMMO Attending Dr: Constance Oakes TELECOMMUNICATIONS OPERATOR Ordering Physician: Constance Oakes FNPResults: 1Nega tive Date of Service: 12/27/22Follow Up: 1 Year From Orig inal Mammogram Procedure(s): MM tomosynthesis screening BI Accession Number(s): [id number] cc: Constance Oakes TELECOMMUNICATIONS OPERATOR EXAMINATION: MM SCREENING DIGITAL BREAST TOMOSYNTHESIS, BILATERAL [...] in OV> 12/28/22 1624 DD/ 0955 TD/TT: Simulation Specialist: GLENYS [facility] External Provider IMG BI PROCEDURES Edited Result - Final from Last 3 Months or Most Recently Relevant to Health Maintenance [facility] LIMITED ADULT DENTAL - HSN FULL (MEDICAID) Care Teams Roof Slater Relationship Specialty Start Date End Date Constance Oakes FNP [address] [place] [phone] PCP - General Family Medicine 07/17/22
--- OUTSIDE RECORDS SUMMARY | 2025-09-20 14:59 | XMS_ITS | Encounter Summary ---
Author Organization [facility] Address [address] [facility] [address] [place] [phone] Phone Care Team Providers Care Lamp Shade Maker Name Role Phone Spencer Meyer LINER CHECKER Primary Care Provider [phone] Reason for Referral * Physical Therapy (Routine) - Closed Specialty Diagnoses / Procedures Referred By Noemi clark Referred To Contact Physical Therapy Diagnoses Encounter for rehabilitation System, Provider Not In, [facility] [phone] [place] [address] [address] [place] [address] Phone: tel: Referral ID Status Reason Start Date Expiration Date Visits Re quested Visits Authorized [id number] Closed 02/24/2018 11/24/2018 9 9 Encounter Details Date Type Department Care Team (Latest Contact Info) Description 12/31/2017 Transcribe Orders [facility] [address] [place] [address] Spencer Meyer, LINER CHECKER [address] [place], [place] [phone] Encounter for rehabilitation (Primary Dx) Social History [...] Date/Time Associated Diagnosis Comments AMB REFERRAL TO [facility] PHYSICAL THERAPY Routine 02/24/2018 5:09 PM EDT Encounter for rehabilitation documented in this encounter Results * Ambulatory referral to [facility] Physical Therapy (02/24/2018 5:09 PM EDT) us Provider Not In System PhD AMB [facility] REFERRALS Fin al Result documented in this encounter Visit Diagnoses Diagnosis Encounter for rehabilitation- Primary documented in this encounter Additional Health Concerns Infection Onset Date Last Indicated Resolved Time CoV-Risk 11/27/2023 11/27/2023 12/08/2023 1:23 AM EST Influenza A 11/27/2023 11/27/2023 12/04/2023 1:24 AM EST documented as of this encounter Care Teams Lamp Shade Maker Relationship Specialty Start Date End Date Spencer Meyer NP [address] [place] [phone] PCP - General 09/10/17 documented as of this encounter Additional Source Comments The information contained in this document represents components of the legal health record. It is not the complete legal health record.[facility]
--- OUTSIDE RECORDS SUMMARY | 2025-09-20 14:59 | XMS_ITS | Encounter Summary ---
Author Organization [facility] Address [address] [facility] [address] [place] [phone] Phone Care Team Providers Care Steel Box Toe Inserter Name Role Phone Spencer Meyer CALL CIRCUIT WORKER Primary Care Provider [phone] Encounter Details Date Type Department Care Team (Late st Contact Info) Description 01/20/2018 Ancillary Orders [facility],Outside Imaging [address] [place] [address] System, Provider Not In, PhD [address] [address] Social History Tobacco Use Types Packs/Day Years [...] documented as of this encounter Care Teams Steel Box Toe Inserter Relationship Specialty Start Date End Date Spencer Meyer NP [address] [place] [address] PCP - General 09/10/17 documented as of this encounter Additional Source Comments The information contained in this document represents components of the legal health record. It is not the complete legal health record.[facility]
--- OUTSIDE RECORDS SUMMARY | 2025-09-20 14:59 | XMS_ITS | Encounter Summary ---
Author Organization [facility] Address [address] [facility] [address] [place] [phone] Phone Care Team Providers Care Mobile Lounge Driver Name Role Phone Spencer Meyer ADJUNCT WRITING INSTRUCTOR Primary Care Provider [phone] Encounter Details Date Type Department Care Team (Late st Contact Info) Description 01/20/2018 Procedure Pass [facility],Outside Imaging [address] [place] [address] Social History Tobacco Use Types Packs/Day Years [...] documented as of this encounter Care Teams Mobile Lounge Driver Relationship Specialty Start Date End Date Spencer Meyer NP [address] [place] [address] PCP - General 09/10/17 documented as of this encounter Additional Source Comments The information contained in this document represents components of the legal health record. It is not the complete legal health record.[facility]
--- OUTSIDE RECORDS SUMMARY | 2025-09-20 14:59 | XMS_ITS | Encounter Summary ---
Author Organization [facility] Address [address] [facility] [address] [place] [phone] Phone Care Team Providers Care Sorting Grapple Operator Name Role Phone Spencer Meyer CDL TEAM TRUCK DRIVER Primary Care Provider [phone] Encounter Details Date Type Department Care Team (Late st Contact Info) Description 01/07/2018 Procedure Pass [facility] [address] [place] [address] Social History Tobacco Use Types Packs/Day Years [...] documented as of this encounter Care Teams Sorting Grapple Operator Relationship Specialty Start Date End Date Spencer Meyer NP [address] [place] [address] PCP - General 09/10/17 documented as of this encounter Additional Source Comments The information contained in this document represents components of the legal health record. It is not the complete legal health record.[facility]
--- OUTSIDE RECORDS SUMMARY | 2025-09-20 14:59 | XMS_ITS | Encounter Summary ---
Author Organization [facility] Address [address] [address] [place] [phone] Phone Care Team Providers Care Vehicle Inspector Name Role Phone Spencer Meyer CASE SUPERVISOR Primary Care Provider [phone] Encounter Details Date Type Department Care Team (Late st Contact Info) Description 09/01/2021 Procedure Pass [facility], Ct Scan - [facility] [address] [place] [address] Social History Tobacco Use Types Packs/Day Years [...] 7:14 PM EDT Tiffany Wharton RN * [place] Suicide Severity Rating Scale (Screener/Recent Self-Report) Question [...] documented as of this encounter Care Teams Vehicle Inspector Relationship Specialty Start Date End Date Spencer Meyer NP [address] [place] [address] PCP - General 09/10/17 documented as of this encounter Additional Source Comments The information contained in this document represents components of the legal health record. It is not the complete legal health record.[facility]
--- OUTSIDE RECORDS SUMMARY | 2025-09-20 14:59 | XMS_ITS | Encounter Summary ---
Author Organization [facility] Address [address] [facility] [address] [place] [phone] Phone Care Team Providers Care Railroad Car Cleaner Name Role Phone Spencer Meyer MANGA ARTIST Primary Care Provider [phone] Encounter Details Date Type Department Care Team (Late st Contact Info) Description 02/20/2020 Procedure Pass [place] Admitting Dept - Virtual Department [address] [place] [address] Social History Tobacco Use Types Packs/Day Years [...] documented as of this encounter Care Teams Railroad Car Cleaner Relationship Specialty Start Date End Date Spencer Meyer NP [address] [place] [address] PCP - General 09/10/17 documented as of this encounter Additional Source Comments The information contained in this document represents components of the legal health record. It is not the complete legal health record.[facility]
--- OUTSIDE RECORDS SUMMARY | 2025-09-20 14:59 | XMS_ITS | Encounter Summary ---
Author Organization [facility] Address [address] [facility] [address] [place] [address] Phone Care Team Providers Care Nurse Chemical Dependency Name Role Phone Spencer Meyer BIT SHARPENER OPERATOR Primary Care Provider [phone] Encounter Details Date Type Department Care Team (Latest Contact Info) Description 01/13/2018 Transcribe Orders [facility] Specimen Processing [address] [place] [address] Spencer Meyer, BIT SHARPENER OPERATOR [address] [place] [address] Hyperlipidemia, unspecified hyperlipidemia type (Primary Dx); Elevated [...] PM EST) WBC 0-4(A) NONE SEEN /hpf [facility] RBC 3-5(A) NONE SEEN /hpf [facility] URINE EPITHELIAL 0-4(A) NONE SEEN [facility] MUCUS Trace(A) NONE SEEN /hpf [facility] BACTERIA 1+(A) NONE SEEN [facility] COLOR Yellow Yellow [facility] CLARITY Clear [facility] GLUCOSE Negative Negative [facility] BILI Negative Negative [facility] KETONES Negative Negative [facility] SPECIFIC GRAVITY 1.020 1.005 - 1.030 [facility] BLOOD 1+(A) Negative [facility] PH 6.0 5.0 - 8.0 [facility] Protein-UA Negative Negative [facility] NITRITE Negative Negative [facility] Leukocyte esterase, ur Negative Negative [facility] Urine (Urine) 01/13/2018 2:1 7 PM EST 01/13/2018 2:24 PM EST us Spencer Meyer BIT SHARPENER OPERATOR URINE ORDERABLES Final Result Performing Organization Address [facility] Co de Phone Number [address] [address] * Syphilis antibody screen (01/13/2018 2:17 PM EST) RPR NON-REACTIV E NON-REACTI VE [facility] Blood 01/13/2018 2:17 PM EST 01/13/2018 2:23 PM EST us Spencer Meyer BIT SHARPENER OPERATOR LAB BLOOD ORDERABLES Final Re sult Performing Organization Address [facility] Co de Phone Number [address] [address] * Microalbumin/creatinine ratio, random urine (01/13/2018 2:17 PM EST) URINE MICROALBUMIN 1.1 0 - 2.3 mg/dL [facility] URINE CREATININE 193 mg/dL [facility] MICROALB/CRE RATIO NOT CALCULATED 0 - 20 mg/g Cre [facility] Comment:due to Microalbumin <1.2 Urine (Urine) 01/13/2018 2:1 7 PM EST 01/13/2018 2:24 PM EST us Spencer Meyer BIT SHARPENER OPERATOR URINE ORDERABLES Final Result Performing Organization Address [facility]/ZIP Co de Phone Number [address] [address] * (ABNORMAL) Lipid panel (01/13/2018 2:17 PM EST) HDL 54 mg/dL [facility] Comment: Interpretation: Risk Level Females Decreased >55mg/dL Average 50-55 mg/dL Increased <50 mg/dL CHOLESTEROL 214 0 - 240 mg/dL [facility] TRIGLYCERIDES 182(H) 30 - 160 mg/dL [facility] LDL 124 50 - 129 mg/dL [facility] Comment: LDL levels in terms of risk for coronary heart disease: <100 mg/dL: Optimal 100-129 mg/dL: Near or above optimal 130-159 mg/dL: Borderline high 160-189 mg/dL: High >190 mg/dL: Very High CARDIAC RISK RATIO 4.0 3.3 - 4.4 C [facility] Blood 01/13/2018 2:17 PM EST 01/13/2018 2:23 PM EST us Spencer Meyer BIT SHARPENER OPERATOR LAB BLOOD ORDERABLES Final Re sult Performing Organization Address [facility] Co de Phone Number [address] [address] * HIV-1/2 antigen/antibody (01/13/2018 2:17 PM EST) HIV Antibod(ies) NON-REACTI VE NON-REACTI VE [facility] HIV-1 ANTIGEN NON-REACTI VE NON-REACTI VE [facility] Blood 01/13/2018 2:17 PM EST 01/13/2018 2:23 PM EST us Spencer Meyer BIT SHARPENER OPERATOR LAB BLOOD ORDERABLES Final Re sult Performing Organization Address City/[facility]/ZIP Co de Phone Number [address] [address] * Hepatitis C antibody, qualitative (01/13/2018 2:17 PM EST) HCV Negative Negative [facility] Comment: This is a screening test and should be confirmed with molecular testing Blood 01/13/2018 2:17 PM EST 01/13/2018 2:23 PM EST us Spencer Meyer BIT SHARPENER OPERATOR LAB BLOOD ORDERABLES Final Re sult [address] [address] * Hepatitis B surface antigen (01/13/2018 2:17 PM EST) HBV SURFACE ANTIGEN Negative Negative [facility] Blood 01/13/2018 2:17 PM EST 01/13/2018 2:23 PM EST us Spencer Meyer BIT SHARPENER OPERATOR LAB BLOOD ORDERABLES Final Re sult Performing Organization Address City/[facility]/ZIP Co de Phone Number [address] [address] * Hepatitis B core antibody, total (01/13/2018 2:17 PM EST) HEP B CORE AB, TOT Negative Negative [facility] Blood 01/13/2018 2:17 PM EST 01/13/2018 2:23 PM EST Spencer Meyer BIT SHARPENER OPERATOR LAB BLOOD ORDERABLES Final Re sult Performing Organization Address City/[facility]/ZIP Co de Phone Number [address] [address] * Hemoglobin A1c (01/13/2018 2:17 PM EST) HEMOGLOBIN A1C 5.1 4.3 - 5.8 % [facility] Blood 01/13/2018 2:17 PM EST 01/13/2018 2:23 PM EST us Spencer Meyer BIT SHARPENER OPERATOR LAB BLOOD ORDERABLES Final Re sult [address] [address] * Comprehensive metabolic panel (01/13/2018 2:17 PM EST) SODIUM 141 133 - 146 mmol/L [facility] POTASSIUM 3.5 3.3 - 5.1 mmol/L [facility] CHLORIDE 105 96 - 108 mmol/L [facility] CO2 23 21 - 35 mmol/L [facility] BUN 17 6 - 19 mg/dL [facility] CREATININE 0.60 0.5 - 1.5 mg/dL [facility] GLUCOSE 84 70 - 99 mg/dL [facility] ALBUMIN 4.3 3.9 - 4.8 g/dL [facility] TOTAL PROTEIN 7.5 6.5 - 8.0 g/dL [facility] CALCIUM 8.8 8.4 - 10.3 mg/dL [facility] ALKALINE PHOSPHATASE 81 39 - 117 U/L [facility] TOTAL BILIRUBIN 0.6 0 - 1.2 mg/dL [facility] AST 17 0 - 37 U/L [facility] ALT 21 0 - 40 U/L [facility] GLOBULIN 3.2 1 - 4.8 g/dL [facility] EGFR >60 >60 mL/min/1.7 3m2 [facility] Comment:Abnormal if <60. If patient is -[place], multiply the result by 1.21. ANION GAP 17 10 - 20 mmol/L [facility] Blood 01/13/2018 2:17 PM EST 01/13/2018 2:23 PM EST Spencer Meyer BIT SHARPENER OPERATOR LAB BLOOD ORDERABLES Final Re sult [address] [address] * CBC and differential (01/13/2018 2:17 PM EST) WBC 7.06 3.40 - 11.20 K/uL [facility] RBC 4.35 3.80 - 4.80 M/uL [facility] HGB 12.6 12.0 - 15.0 g/dL [facility] HCT 37.1 36.0 - 46.0 % [facility] PLT 232 130 - 400 K/uL [facility] MCV 85.3 79.0 - 98.0 fL [facility] MCH 29.0 27.0 - 34.8 pg [facility] MCHC 34.0 31.5 - 36.0 g/dL [facility] RDW 13.2 10.8 - 14.6 % [facility] MPV 10.8 9.4 - 12.4 fl [facility] NRBC 0.00 /100 WBCs [facility] ABSOLUTE NRBC 0.00 K/uL [facility] DIFF METHOD Auto [facility] NEUTS 56.9 45.30 - 77.70 % [facility] LYMPHS 31.4 12.30 - 39.70 % [facility] MONOS 7.8 4.10 - 12.80 % [facility] EOS 2.8 0 - 7.2 % [facility] BASOS 0.4 0 - 2.80 % [facility] Granulocytes, immature (%) 0.7 0.0 - 0.9 % [facility] ABSOLUTE NEUTS 4.01 1.40 - 7.70 K/uL [facility] ABSOLUTE LYMPHS 2.22 0.60 - 3.20 K/uL [facility] ABSOLUTE MONOS 0.55 0.11 - 0.59 K/uL [facility] ABSOLUTE EOS 0.20 0.01 - 0.50 K/uL [facility] ABSOLUTE BASOS 0.03 0.00 - 0.08 K/uL [facility] Granulocytes, immature 0.05 0.00 - 0.05 K/uL [facility] Blood 01/13/2018 2:17 PM EST 01/13/2018 2:23 PM EST us Spencer Meyer BIT SHARPENER OPERATOR LAB BLOOD ORDERABLES Final Re sult [address] [address] * TSH (01/13/2018 2:17 PM EST) TSH 2.91 0.27 - 4.20 uIU/mL [facility] Blood 01/13/2018 2:17 PM EST 01/13/2018 2:23 PM EST us Spencer Meyer BIT SHARPENER OPERATOR LAB BLOOD ORDERABLES Final Re sult [address] [address] * Folate (01/13/2018 2:17 PM EST) FOLIC ACID 15.8 4.2 - 19.9 ng/mL [facility] Blood 01/13/2018 2:17 PM EST 01/13/2018 2:23 PM EST us Spencer Meyer BIT SHARPENER OPERATOR LAB BLOOD ORDERABLES Final Re sult Performing Organization Address [facility]/ZIP Co de Phone Number [address] [address] * Vitamin B12 (01/13/2018 2:17 PM EST) VITAMIN B12 407 243 - 894 pg/mL [facility] Blood 01/13/2018 2:17 PM EST 01/13/2018 2:23 PM EST us Spencer Meyer BIT SHARPENER OPERATOR LAB BLOOD ORDERABLES Final Re sult Performing Organization Address [facility] Co de Phone Number [address] [address] * (ABNORMAL) 25-OH vitamin D (01/13/2018 2:17 PM EST) 25 OH VIT D (TOTAL) 14(L) 30 - 1,000 ng/mL [facility] Blood 01/13/2018 2:17 PM EST 01/13/2018 2:23 PM EST us Spencer Meyer BIT SHARPENER OPERATOR LAB BLOOD ORDERABLES Final Re sult [address] [address] documented in this encounter Visit Diagnoses Diagnosis [...] documented as of this encounter Care Teams Nurse Chemical Dependency Relationship Specialty Start Date End Date Spencer Meyer NP [address] [place] [address] PCP - General 09/10/17 documented as of this encounter Additional Source Comments The information contained in this document represents components of the legal health record. It is not the complete legal health record.[facility]
--- OUTSIDE RECORDS SUMMARY | 2025-09-20 14:59 | XMS_ITS | Encounter Summary ---
Author Organization [facility] Address [address] [facility] [address] [place] [address] Phone Care Team Providers Care Commercial Attache Name Role Phone Spencer Meyer ROCK CONTRACTOR Primary Care Provider [phone] Encounter Details Date Type Department Care Team (Late st Contact Info) Description 01/07/2018 Ancillary Orders Virtual Department [address] [place] [address] Mary Shrestha NP [address] [place] [phone] [email or web address] Left knee pain, unspecified chronicity Social History [...] documented as of this encounter Care Teams Commercial Attache Relationship Specialty Start Date End Date Spencer Meyer NP [address] [place] [address] PCP - General 09/10/17 documented as of this encounter Additional Source Comments The information contained in this document represents components of the legal health record. It is not the complete legal health record.[facility]
--- OUTSIDE RECORDS SUMMARY | 2025-09-20 14:59 | XMS_ITS | Encounter Summary ---
Author Organization [employer] Address [address] [facility] 7t [place] [address] Care Team Providers Care Procurement Coordinator Name Role Phone Constance Oakes CANCER PROGRAM DIRECTOR Primary Care Provider [phone] Encounter Details Date Type Department Care Team (Late st Contact Info) Description 10/11/2023 Abstract [facility] MEDICINE [address] [place], [place] [phone] Angela Dick Social History Tobacco Use Types [...] Description 10/11/2025 9:45 AM EST Office Visit [facility] MED[facility] [address] [place] [address] Constance Oakes FNP [address] [place] [address] documented as of this encounter Visit Diagnoses Not on filedocumented in this encounter Additional Health Concerns Assessment Noted Time PHQ-9 Depression Total Score: 0 01/10/20 23 9:23 AM EST documented as of this encounter Care Teams Procurement Coordinator Relationship Specialty Start Date End Date Constance Oakes FNP [address] [place] [address] PCP - General Family Medicine 07/17/22 documented as of this encounter
--- OUTSIDE RECORDS SUMMARY | 2025-09-20 14:59 | XMS_ITS | Encounter Summary ---
Author Organization [employer] Address [address] [facility] [address] [place] [address] Care Team Providers Care Returned Item Clerk Name Role Phone Constance Oakes [facility] Primary Care Provider [phone] Encounter Details Date Type Department Care Team (Late st Contact Info) Description 03/04/2024 Orders Only [facility] MEDICINE [address] [place] [address] ProviderMeenakshi MD Social History Tobacco Use Types [...] Description 10/11/2025 9:45 AM EST Office Visit [facility] MEDICINE [address] [place], [place] [phone] [facility] [address] [place], [place] [phone] documented as of this encounter Procedures Procedure [...] Free T4 2.78 0.32 - 4.0 uIU/mL [facility] 11/27/2024 11:2 6 AM EST 11/27/2024 12:58 PM EST [facility] LAB BLOOD ORDERABLES Final Re sult Performing Organization Address City/[facility]/ZIP Co de Phone Number [facility] [address] [place] [address] [phone] * Vitamin D, 25-Hydroxy, Total, Immunoassay (11/27/2024 11:26 AM EST) Vitamin D 25-OH Total 40.9 >30 ng/mL [facility] Comment:Health Based Referen ce Values*< 20 ng/mL Pstjlkkei68-58 ng/mL Insufficient> 30 ng/mL Sufficient*Regla BROWN. N [...] 6 AM EST 11/27/2024 12:58 PM EST [facility] LAB BLOOD ORDERABLES Final Re sult Performing Organization Address City/[facility] Co de Phone Number [facility] [address] [place] [phone] * (ABNORMAL) Lipid Panel, Standard (11/27/2024 11:26 AM EST) Triglycerides 300(H) <150 mg/dL [facility] Comment:Desirable Triglyceri de: less than 150 mg/dLBorderline High Triglyceride 150-199 mg/dLHigh Triglyceride: 200-499 mg/dLVery High Triglyceride: greater than or equal to 5OO mg/dL Cholesterol 225(H) <200 mg/dL [facility] Comment:Desirable Cholestero l: less than 200 mg/dLBorderline High Cholesterol: 200-239 mg/dLHigh Cholesterol: greater than 239 mg/dL LDL Cholesterol Calculated 121(H) <100 mg/dL [facility] Comment:Desirable LDL: less than 100 mg/dLNear Optimal/Above Optimal LDL: 110- 129 mg/dLBorderline High LDL: 130-159 mg/dLHigh LDL: 160-189 mg/dLVery High LDL: greater than or equal to 190 mg/dL HDL Cholesterol 44 >40 mg/dL [facility] Comment:Desirable HDL: great er than 40 mg/dL Note: This HDL assay may give artificially low results in patients with liver disease. 11/27/2024 11:2 6 AM EST 11/27/2024 12:58 PM EST [facility] INSTRUCTOR OF EDUCATION LAB BLOOD ORDERABLES Final Re sult [facility] [address] [place] [phone] * (ABNORMAL) Comprehensive Metabolic Panel (11/27/2024 11:26 AM EST) Sodium 141 135 - 145 mmol/L [facility] Potassium 3.8 3.3 - 5.1 mmol/L [facility] Chloride 110(H) 96 - 108 mmol/L [facility] Carbon Dioxide 26 22 - 29 mmol/L [facility] Anion Gap 9(L) 12 - 20 [facility] Urea Nitrogen (BUN) 16 9 - 16 mg/dL [facility] Creatinine, Serum 0.73 0.5 - 1.4 mg/dL [facility] Estimated Glomerular Filt Rate >60 [facility] Comment:Chronic Kidney Disea se: Estimated GFR < 60 mL/min/1.27g8Nczkzw Kidney Disease: Estimated GFR < 15 mL/min/1.73m2 Glucose 104 60 - 115 mg/dL [facility] Calcium 9.3 8.4 - 10.2 mg/dL [facility] Bilirubin, Total 0.4 0.0 - 1.0 mg/dL [facility] Aspartate Amino Transferase 37(H) 5 - 31 U/L [facility] Alanine Aminotransferase 62(H) 0 - 31 U/L [facility] Total Protein 7.6 6.5 - 8.0 g/dL [facility] Albumin Level 4.5 3.5 - 5.0 g/dL [facility] Alkaline Phosphatase 99 39 - 117 U/L [facility] 11/27/2024 11:2 6 AM EST 11/27/2024 12:58 PM EST [facility] LAB BLOOD ORDERABLES Final Re sult [facility] [address] [place] [phone] * Hemoglobin A1c (11/27/2024 11:26 AM EST) Hemoglobin A1c 5.7 <6.0 % [facility] Comment:Hemoglobin A1C Refer ence Range Adults: 4.8 - 6.0 % Non diabetic: < 6.0 % Goal: < 7.0 %Additional Action Suggested: > 8.0 %Note: Hemoglobin A1c results are invalid for patients with abnormal amounts of HbF. Blood transfusions may impact the HbA1c concentration in the patient sample. Estimated Average Glucose 117 mg/dL [facility] Comment:eAG = Estimated ave rage glucose which is %A1C expressed asaverage glucose, using the formula of the Q1T-YtyrtpqPfuqnxp Glucose study (ADAG), Diabetes Care, Vol.31,#8,Jun. 2007 11/27/2024 11:2 6 AM EST 11/27/2024 12:58 PM EST us Constance [place] INSTRUCTOR OF EDUCATION LAB BLOOD ORDERABLES Final Re sult [facility] [address] [place], [place] [phone] * (ABNORMAL) CBC auto differential (11/27/2024 11:26 AM EST) White Blood Count 6.4 4.8 - 10.8 X10*3/uL [facility] Red Blood Count 4.68 4.20 - 5.50 X10*6/uL [facility] Hemoglobin 12.9 12.0 - 16.0 g/dl [facility] Hematocrit 39.2 37.0 - 47.0 % [facility] Mean Corpuscular Volume 83.8 80.0 - 98.0 fL [facility] Mean Corpuscular Hemoglobin 27.6 27.0 - 33.0 pg [facility] Mean Corpuscular HGB Conc 32.9 31.0 - 35.0 g/dl [facility] Red Cell Distribution Width 13.4 11.0 - 16.0 % [facility] Platelet Count 250 160 - 400 X10*3/uL [facility] Mean Platelet Volume 10.7 9.4 - 12.3 fL [facility] Neutrophils Percent Auto 41.5(L) 45 - 73 % [facility] Imm Gran Pct Auto 0.5(H) 0.0 - 0.4 % [facility] Lymphocytes Percent Auto 43.2(H) 20 - 40 % [facility] Monocytes Percent Auto 10.5 2 - 11 % [facility] Eosinophils Percent Auto 3.8 0 - 4 % [facility] Basophils Percent Auto 0.5 0 - 2 % [facility] NRBC Pct Auto 0.0 0.0 - 0.2 /100WBC [facility] Neutrophils Absolute Auto 2.6 2.0 - 8.3 x10*3/uL [facility] Imm Gran Abs Auto 0.03 0.00 - 0.03 X10*3/uL [facility] Lymphocytes Absolute Auto 2.8 1.2 - 4.9 X10*3/uL [facility] Monocytes Absolute Auto 0.7 0.1 - 1.2 X10*3/uL [facility] Eosinophils Absolute Auto 0.2 0.0 - 0.4 X10*3/uL [facility] Basophils Absolute Auto 0.0 0.0 - 0.2 X10*3/uL [facility] NRBC Abs Auto 0.000 0.0 - 0.012 X10*3/uL [facility] 11/27/2024 11:2 6 AM EST 11/27/2024 12:58 PM EST [facility] LAB BLOOD ORDERABLES Final Re sult [facility] [address] [place] [phone] [phone] * HPV mRNA E6/E7 w/Reflex to HPV Genotypes 16, 18/45 (2024 12:30 PM EDT) HPV nRNA E6/E7 Not Detected Not Detected [facility] Comment:Methodology: Transcr iption-Mediated AmplificationThis assay detects E6/E7 viral messenger RNA (mRNA) from 14high-risk HPV types (16,18,31,33,35,39,45,51,52,56,58,59,66,68).Cervical sources are required for HPV testing.If a vaginal source from a patient who has had atotal hysterectomy with removal of cervix wassubmitted, please contact the testing laboratoryfor alternative testing options.For additional information, please refer tohttp://education.[employer]/faq/MLZ304t5(This link if provided for information/educational purposes only.)THIS TEST WAS PERFORMED AT:[employer] [place] [phone] ROSARIO MD HPV mRNA E6/E7 TNP [facility] HPV 16 RNA TNP [facility] HPV 18/45 RNA [facility] 2024 12:3 0 PM EDT 05/06/2024 11:47 AM EDT [facility] LAB CYTOLOGY ORDERABLES Final Result [facility] [address] [place] [phone] [phone] * Hm Colonoscopy (06/20/2020 7:49 AM EDT) Historical Provider MD HEALTH MAINTENANCE Final Result documented in this encounter Visit Diagnoses Not on filedocumented in this encounter Additional Health Concerns Assessment Noted Time PHQ-9 Depression Total Score: 0 01/15/20 24 4:04 PM EST documented as of this encounter Care Teams Returned Item Clerk Relationship Specialty Start Date End Date Constance Oakes FNP [address] [place] [phone] PCP - General Family Medicine 07/17/22 documented as of this encounter
--- OUTSIDE RECORDS SUMMARY | 2025-09-20 14:59 | XMS_ITS | Encounter Summary ---
Author Organization [facility] Address [address] [facility] [address] [place] [address] Phone Care Team Providers Care Computer Systems Hardware Analyst Name Role Phone Spencer Meyer EAP CLINICIAN Primary Care Provider [phone] Encounter Details Date Type Department Care Team (Late st Contact Info) Description 06/10/2020 Procedure Pass [facility], Ct Scan - [facility] [address] [place] [address] Social History Tobacco Use Types Packs/Day Years [...] documented as of this encounter Care Teams Computer Systems Hardware Analyst Relationship Specialty Start Date End Date Spencer Meyer NP [address] [place] [phone] PCP - General 09/10/17 documented as of this encounter Additional Source Comments The information contained in this document represents components of the legal health record. It is not the complete legal health record.[facility]
== END 2025-09-20 11:36 | disposition home or self-care (01) ==
LOC: HO.MAMMO 11:35
PROVIDERS: PCP Registered Nurse; Visit Provider Registered Nurse
DX: Z12.31 Encounter for screening mammogram for malignant neoplasm of breast (principal)
CPT/HCPCS: 77063; 77067

== ENCOUNTER → 2025-09-20 11:45 | Outpatient (BNV) | payer OTHER, SELFPAY | PROVIDERS: PCP Registered Nurse; Visit Provider Internal Medicine | DX: Z12.31 Encounter for screening mammogram for malignant neoplasm of breast (principal) | CPT/HCPCS: 77063; 77067 ==

== ENCOUNTER → 2025-09-28 20:30 | Outpatient (REF) | payer OTHER, SELFPAY ==
--- OUTSIDE RECORDS SUMMARY | 2014-06-08 23:00 | XMS_ITS | Encounter Summary ---
Author Organization [facility] Address [address] [address] [facility] [address] [place] [address] Phone Care Team Providers Care Cutter Out Name Role Phone Unavailable Primary Care Provider Unavailabl e Encounter Details Date Type Department Care Team (Late st Contact Info) Description 06/09/2014 Hospital Encounter [facility],Outside Imaging [address] [place] [address] System, Provider Not In, [facility] [address] [address] Unknown, Unknown, Social History Tobacco Use Types [...] 9:29 PM EST Rodo Almodovar RN * [place] Suicide Severity Rating Scale (Screener/Recent Self-Report) Question [...] It is not the complete legal health record.[facility]
--- OUTSIDE RECORDS SUMMARY | 2025-09-28 20:45 | XMS_ITS | Encounter Summary ---
Author Organization [facility] Address [address] [facility] [address] [place] [address] Phone Care Team Providers Care Food Safety Scientist Name Role Phone Spencer Meyer CHAIN TESTING MACHINE OPERATOR Primary Care Provider Encounter Details Date Type Department Care Team (Late st Contact Info) Description 01/20/2018 Ancillary Orders [facility],Outside Imaging [address] [place] [address] System, Provider Not In, PhD [address] [address] Social History Tobacco Use Types Packs/Day Years [...] documented as of this encounter Care Teams Food Safety Scientist Relationship Specialty Start Date End Date Spencer Meyer NP [address] [place] [address] PCP - General 09/10/17 documented as of this encounter Additional Source Comments The information contained in this document represents components of the legal health record. It is not the complete legal health record.[facility]
--- OUTSIDE RECORDS SUMMARY | 2025-09-28 20:45 | XMS_ITS | Encounter Summary ---
Author Organization [facility] Address [address] [facility] [address] [place] [phone] Phone Care Team Providers Care Wind Operations Supervisor Name Role Phone Spencer Meyer TRANSFER CONTROLLER Primary Care Provider [phone] Encounter Details Date Type Department Care Team (Late st Contact Info) Description 02/20/2020 Procedure Pass [place] Admitting Dept - Virtual Department [address] [place] [address] Social History Tobacco Use Types Packs/Day Years [...] documented as of this encounter Care Teams Wind Operations Supervisor Relationship Specialty Start Date End Date Spencer Meyer NP [address] [place] [address] PCP - General 09/10/17 documented as of this encounter Additional Source Comments The information contained in this document represents components of the legal health record. It is not the complete legal health record.[facility]
--- OUTSIDE RECORDS SUMMARY | 2025-09-28 20:45 | XMS_ITS | Encounter Summary ---
Author Organization [facility] Address [address] [facility] [address] [place] [address] Phone Care Team Providers Care Facility Operations Manager Name Role Phone Spencer Meyer ASSURANCE SOURCING MANAGER Primary Care Provider [phone] Reason for Referral * Physical Therapy (Routine) - Closed Specialty Diagnoses / Procedures Referred By Noemi clark Referred To Contact Physical Therapy Diagnoses Encounter for rehabilitation System, Provider Not In, [facility] [id number] [place] [address] 30 [place] [address] Phone: tel: Referral ID Status Reason Start Date Expiration Date Visits Re quested Visits Authorized [id number] Closed 02/24/2018 11/24/2018 9 9 Encounter Details Date Type Department Care Team (Latest Contact Info) Description 12/31/2017 Transcribe Orders [facility] 8 [place] [address] Spencer Meyer, ASSURANCE SOURCING MANAGER [address] [place], [place] [phone] Encounter for rehabilitation (Primary Dx) Social History [...] Date/Time Associated Diagnosis Comments AMB REFERRAL TO [facility] PHYSICAL THERAPY Routine 02/24/2018 5:09 PM EDT Encounter for rehabilitation documented in this encounter Results * Ambulatory referral to [facility] Physical Therapy (02/24/2018 5:09 PM EDT) us Provider Not In System PhD AMB [facility] REFERRALS Fin al Result documented in this encounter Visit Diagnoses Diagnosis Encounter for rehabilitation- Primary documented in this encounter Additional Health Concerns Infection Onset Date Last Indicated Resolved Time CoV-Risk 11/27/2023 11/27/2023 12/08/2023 1:23 AM EST Influenza A 11/27/2023 11/27/2023 12/04/2023 1:24 AM EST documented as of this encounter Care Teams Facility Operations Manager Relationship Specialty Start Date End Date Spencer Meyer NP [address] [place] [address] PCP - General 09/10/17 documented as of this encounter Additional Source Comments The information contained in this document represents components of the legal health record. It is not the complete legal health record.[facility]
--- OUTSIDE RECORDS SUMMARY | 2025-09-28 20:45 | XMS_ITS | Encounter Summary ---
Author Organization [facility] Address [address] [employer] [facility] [address] [place] [address] Phone Care Team Providers Care Sprayer Leather Name Role Phone Spencer Meyer SPOUT LINER HELPER Primary Care Provider [phone] Encounter Details Date Type Department Care Team (Late st Contact Info) Description 09/01/2021 Procedure Pass [facility], Ct Scan - [facility] 30 [place] [address] Social History Tobacco Use Types Packs/Day Years [...] 7:14 PM EDT Tiffany Wharton RN * Rankin Suicide Severity Rating Scale (Screener/Recent Self-Report) Question [...] documented as of this encounter Care Teams Sprayer Leather Relationship Specialty Start Date End Date Spencer Meyer NP [address] [place] [address] PCP - General 09/10/17 documented as of this encounter Additional Source Comments The information contained in this document represents components of the legal health record. It is not the complete legal health record.[facility]
--- OUTSIDE RECORDS SUMMARY | 2025-09-28 20:45 | XMS_ITS | Encounter Summary ---
Author Organization [facility] Address [address] [facility] [address] [place] [address] Phone Care Team Providers Care Ingot Supervisor Name Role Phone Spencer Meyer THIRD STEEL POURER Primary Care Provider [phone] Encounter Details Date Type Department Care Team (Late st Contact Info) Description 01/20/2018 Procedure Pass [facility],Outside Imaging 30 [place] [address] Social History Tobacco Use Types Packs/Day Years [...] documented as of this encounter Care Teams Ingot Supervisor Relationship Specialty Start Date End Date Spencer Meyer NP [address] [place] [address] PCP - General 09/10/17 documented as of this encounter Additional Source Comments The information contained in this document represents components of the legal health record. It is not the complete legal health record.[facility]
--- OUTSIDE RECORDS SUMMARY | 2025-09-28 20:45 | XMS_ITS | Encounter Summary ---
Author Organization [facility] Address [address] [facility] [address] [place] [address] Phone Care Team Providers Care Inspector Toys Name Role Phone Spencer Meyer GRIDCAP MACHINE OPERATOR Primary Care Provider [phone] Encounter Details Date Type Department Care Team (Late st Contact Info) Description 01/07/2018 Ancillary Orders Virtual Department 30 [place] [address] Mary Shrestha NP [address] [place] [address] [phone] [email or web address] Left knee pain, unspecified chronicity Social History [...] documented as of this encounter Care Teams Inspector Toys Relationship Specialty Start Date End Date Spencer Meyer NP [address] [place] [address] PCP - General 09/10/17 documented as of this encounter Additional Source Comments The information contained in this document represents components of the legal health record. It is not the complete legal health record.[facility]
--- OUTSIDE RECORDS SUMMARY | 2025-09-28 20:45 | XMS_ITS | Encounter Summary ---
Author Organization [facility] Address [address] [facility] [address] [place] [address] Phone Care Team Providers Care Choker Hooker Name Role Phone Spencer Meyer HIDE OR SKIN BUFFER Primary Care Provider [phone] Encounter Details Date Type Department Care Team (Late st Contact Info) Description 01/07/2018 Procedure Pass [facility], [facility] 30 [place] [address] Social History Tobacco Use Types Packs/Day Years [...] documented as of this encounter Care Teams Choker Hooker Relationship Specialty Start Date End Date Spencer Meyer NP [address] [place] [address] PCP - General 09/10/17 documented as of this encounter Additional Source Comments The information contained in this document represents components of the legal health record. It is not the complete legal health record.[facility]
--- OUTSIDE RECORDS SUMMARY | 2025-09-28 20:45 | XMS_ITS | Clinical Summary ---
Author Organization [facility] Address [address] [facility] [address] [place] [address] Phone Care Team Providers Care Clamp Jig Assembler Name Role Phone Spencer Meyer SUPERVISOR WOOD CREW Primary Care Provider [phone] Allergies No known active allergies Medications MELATONIN [...] (01/13/2018 2:17 PM EST) HCV Negative Negative [facility] Comment: This is a screening test and should be confirmed with molecular testing Blood 01/13/2018 2:17 PM EST 01/13/2018 2:23 PM EST us Spencer Meyer SUPERVISOR WOOD CREW LAB BLOOD BKR ORDERABLES Ce l Result [facility] 30 [place] [address] * (ABNORMAL) Lipid panel (01/13/2018 2:17 PM EST) HDL 54 mg/dL [facility] Comment: Interpretation: Risk Level Females Decreased >55mg/dL Average 50-55 mg/dL Increased <50 mg/dL CHOLESTEROL 214 0 - 240 mg/dL [facility] TRIGLYCERIDES 182(H) 30 - 160 mg/dL [facility] LDL 124 50 - 129 mg/dL [facility] Comment: LDL levels in terms of risk for coronary heart disease: <100 mg/dL: Optimal 100-129 mg/dL: Near or above optimal 130-159 mg/dL: Borderline high 160-189 mg/dL: High >190 mg/dL: Very High CARDIAC RISK RATIO 4.0 3.3 - 4.4 C [facility] Blood 01/13/2018 2:17 PM EST 01/13/2018 2:23 PM EST us Spencer Meyer NP LAB BLOOD BKR ORDERABLES Ce l Result [facility] [address] [place] [address] * PAP SMEAR FOR RESULT ENTRY ONLY (01/23/2014) HM Pap smear neg per [facility] Historical Provider HEALTH MAINTENANCE Final Result from Last 3 Months or Most Recently Relevant to Health Maintenance Insurance [employer] WELLSENSE NON NSPG PCP SILVER CLARITY CONNE[facility]ARE [facility] NET FULL [facility] NON NSPG PCP SILVER CLARITY CONNECTORCARE H5 NET [facility] NON NSP PCP S[facility] NET [place] [address] LIMITED WOODLAWNENSE NON NSPG PCP SILVER CLARITY CONNECTORCARE Member Subscriber Plan / Payer (Ef fective 2023-Present) Name:Radha Garcia Relation to Subscriber:Self Name:Radha Garcia Payer ID:[id number] Type:[employer] Address: [address] FULL [facility] WELLSENSE NON NSPG PCP SILVER CLARITY CONNECTORCARE HEALTH SAFETY NET FULL [facility] NON NSPG PCP SILVER CLARITY CONNECTORCARE [employer] SAFETY [facility] WELLSENSE NON NSPG PCP SILVER CLARITY [facility] Address: [address] [facility] WELLSENSE NON NSPG PCP S[facility]VER CLARITY [facility] Address: [place] [address] [address] [place] [address] [place] [address] [facility] NON NSPG PCP [facility] Member Subscriber Plan / Payer (Ef fective 2023-Present) Name:Radha Garcia Relation to Subscriber:Self Name:Radha Garcia Payer ID:[id number] Type:O Address: [address] NET FULL Care Teams Clamp Jig Assembler Relationship Specialty Start Date End Date Spencer Meyer NP [address] [place] [address] PCP - General 09/10/17 Additional Source Comments The information contained in this document represents components of the legal health record. It is not the complete legal health record.[facility]
--- OUTSIDE RECORDS SUMMARY | 2025-09-28 20:45 | XMS_ITS | Encounter Summary ---
Author Organization [facility] Address [address] [facility] [address] [place] [address] Phone Care Team Providers Care Gore Stitcher Name Role Phone Spencer Meyer ANGULAR JS DEVELOPER Primary Care Provider [phone] Encounter Details Date Type Department Care Team (Late st Contact Info) Description 06/10/2020 Procedure Pass [facility], Ct Scan - [facility] [address] [place] [address] Social History Tobacco Use Types Packs/Day Years [...] documented as of this encounter Care Teams Gore Stitcher Relationship Specialty Start Date End Date Spencer Meyer NP [address] [place] [address] PCP - General 09/10/17 documented as of this encounter Additional Source Comments The information contained in this document represents components of the legal health record. It is not the complete legal health record.[facility]
--- OUTSIDE RECORDS SUMMARY | 2025-09-28 20:45 | XMS_ITS | Encounter Summary ---
Author Organization [facility] Address [address] [facility] [address] [place] [address] Phone Care Team Providers Care Data Quality Consultant Name Role Phone Spencer Meyer MEAL GRINDER TENDER Primary Care Provider [phone] Encounter Details Date Type Department Care Team (Latest Contact Info) Description 01/13/2018 Transcribe Orders [facility] Specimen Processing [address] [place] [address] Spencer Meyer, MEAL GRINDER TENDER [address] [place] [address] Hyperlipidemia, unspecified hyperlipidemia type (Primary Dx); Elevated [...] PM EST) WBC 0-4(A) NONE SEEN /hpf [facility] RBC 3-5(A) NONE SEEN /hpf [facility] URINE EPITHELIAL 0-4(A) NONE SEEN [facility] MUCUS Trace(A) NONE SEEN /hpf [facility] BACTERIA 1+(A) NONE SEEN [facility] COLOR Yellow Yellow [facility] CLARITY Clear [facility] GLUCOSE Negative Negative [facility] BILI Negative Negative [facility] KETONES Negative Negative [facility] SPECIFIC GRAVITY 1.020 1.005 - 1.030 [facility] BLOOD 1+(A) Negative [facility] PH 6.0 5.0 - 8.0 [facility] Protein-UA Negative Negative [facility] NITRITE Negative Negative [facility] Leukocyte esterase, ur Negative Negative [facility] Urine (Urine) 01/13/2018 2:1 7 PM EST 01/13/2018 2:24 PM EST us Spencer Meyer MEAL GRINDER TENDER LAB URINE ORDERABLES Final Re sult Performing Organization Address [facility] Co de Phone Number [address] [address] * Syphilis antibody screen (01/13/2018 2:17 PM EST) RPR NON-REACTIV E NON-REACTI VE [facility] Blood 01/13/2018 2:17 PM EST 01/13/2018 2:23 PM EST us Spencer Meyer MEAL GRINDER TENDER LAB BLOOD BKR ORDERABLES Ce l Result Performing Organization Address [facility] Co de Phone Number [address] [address] * Microalbumin/creatinine ratio, random urine (01/13/2018 2:17 PM EST) URINE MICROALBUMIN 1.1 0 - 2.3 mg/dL [facility] URINE CREATININE 193 mg/dL [facility] MICROALB/CRE RATIO NOT CALCULATED 0 - 20 mg/g Cre [facility] Comment:due to Microalbumin <1.2 Urine (Urine) 01/13/2018 2:1 7 PM EST 01/13/2018 2:24 PM EST us Spencer Meyer MEAL GRINDER TENDER LAB URINE ORDERABLES Final Re sult Performing Organization Address [facility]/ZIP Co de Phone Number [address] [address] * (ABNORMAL) Lipid panel (01/13/2018 2:17 PM EST) HDL 54 mg/dL [facility] Comment: Interpretation: Risk Level Females Decreased >55mg/dL Average 50-55 mg/dL Increased <50 mg/dL CHOLESTEROL 214 0 - 240 mg/dL [facility] TRIGLYCERIDES 182(H) 30 - 160 mg/dL [facility] LDL 124 50 - 129 mg/dL [facility] Comment: LDL levels in terms of risk for coronary heart disease: <100 mg/dL: Optimal 100-129 mg/dL: Near or above optimal 130-159 mg/dL: Borderline high 160-189 mg/dL: High >190 mg/dL: Very High CARDIAC RISK RATIO 4.0 3.3 - 4.4 C [facility] Blood 01/13/2018 2:17 PM EST 01/13/2018 2:23 PM EST us Spencer Meyer MEAL GRINDER TENDER LAB BLOOD BKR ORDERABLES Ce l Result Performing Organization Address [facility] Co de Phone Number [address] [address] * HIV-1/2 antigen/antibody (01/13/2018 2:17 PM EST) HIV Antibod(ies) NON-REACTI VE NON-REACTI VE [facility] HIV-1 ANTIGEN NON-REACTI VE NON-REACTI VE [facility] Blood 01/13/2018 2:17 PM EST 01/13/2018 2:23 PM EST us Spencer Meyer MEAL GRINDER TENDER LAB BLOOD BKR ORDERABLES Ce l Result [address] [address] * Hepatitis C antibody, qualitative (01/13/2018 2:17 PM EST) HCV Negative Negative [facility] Comment: This is a screening test and should be confirmed with molecular testing Blood 01/13/2018 2:17 PM EST 01/13/2018 2:23 PM EST us Spencer S Lauter MEAL GRINDER TENDER LAB BLOOD BKR ORDERABLES Ce l Result [address] [address] * Hepatitis B surface antigen (01/13/2018 2:17 PM EST) HBV SURFACE ANTIGEN Negative Negative [facility] Blood 01/13/2018 2:17 PM EST 01/13/2018 2:23 PM EST us Spencer S Lauter MEAL GRINDER TENDER LAB BLOOD BKR ORDERABLES Ce l Result [address] [address] * Hepatitis B core antibody, total (01/13/2018 2:17 PM EST) HEP B CORE AB, TOT Negative Negative [facility] Blood 01/13/2018 2:17 PM EST 01/13/2018 2:23 PM EST us Spencer S Lauter MEAL GRINDER TENDER LAB BLOOD BKR ORDERABLES Ce l Result [address] [address] * Hemoglobin A1c (01/13/2018 2:17 PM EST) HEMOGLOBIN A1C 5.1 4.3 - 5.8 % [facility] Blood 01/13/2018 2:17 PM EST 01/13/2018 2:23 PM EST us Spencer Meyer MEAL GRINDER TENDER LAB BLOOD BKR ORDERABLES Ce l Result [address] [address] * Comprehensive metabolic panel (01/13/2018 2:17 PM EST) SODIUM 141 133 - 146 mmol/L [facility] POTASSIUM 3.5 3.3 - 5.1 mmol/L [facility] CHLORIDE 105 96 - 108 mmol/L [facility] CO2 23 21 - 35 mmol/L [facility] BUN 17 6 - 19 mg/dL [facility] CREATININE 0.60 0.5 - 1.5 mg/dL [facility] GLUCOSE 84 70 - 99 mg/dL [facility] ALBUMIN 4.3 3.9 - 4.8 g/dL [facility] TOTAL PROTEIN 7.5 6.5 - 8.0 g/dL [facility] CALCIUM 8.8 8.4 - 10.3 mg/dL [facility] ALKALINE PHOSPHATASE 81 39 - 117 U/L [facility] TOTAL BILIRUBIN 0.6 0 - 1.2 mg/dL [facility] AST 17 0 - 37 U/L [facility] ALT 21 0 - 40 U/L [facility] GLOBULIN 3.2 1 - 4.8 g/dL [facility] EGFR >60 >60 mL/min/1.7 3m2 [facility] Comment:Abnormal if <60. If patient is -Gambian, multiply the result by 1.21. ANION GAP 17 10 - 20 mmol/L [facility] Blood 01/13/2018 2:17 PM EST 01/13/2018 2:23 PM EST us Spencer Meyer MEAL GRINDER TENDER LAB BLOOD BKR ORDERABLES Ce l Result [address] [address] * CBC and differential (01/13/2018 2:17 PM EST) WBC 7.06 3.40 - 11.20 K/uL [facility] RBC 4.35 3.80 - 4.80 M/uL [facility] HGB 12.6 12.0 - 15.0 g/dL [facility] HCT 37.1 36.0 - 46.0 % [facility] PLT 232 130 - 400 K/uL [facility] MCV 85.3 79.0 - 98.0 fL [facility] MCH 29.0 27.0 - 34.8 pg [facility] MCHC 34.0 31.5 - 36.0 g/dL [facility] RDW 13.2 10.8 - 14.6 % [facility] MPV 10.8 9.4 - 12.4 fl [facility] NRBC 0.00 /100 WBCs [facility] ABSOLUTE NRBC 0.00 K/uL [facility] DIFF METHOD Auto [facility] NEUTS 56.9 45.30 - 77.70 % [facility] LYMPHS 31.4 12.30 - 39.70 % [facility] MONOS 7.8 4.10 - 12.80 % [facility] EOS 2.8 0 - 7.2 % [facility] BASOS 0.4 0 - 2.80 % [facility] Granulocytes, immature (%) 0.7 0.0 - 0.9 % [facility] ABSOLUTE NEUTS 4.01 1.40 - 7.70 K/uL [facility] ABSOLUTE LYMPHS 2.22 0.60 - 3.20 K/uL [facility] ABSOLUTE MONOS 0.55 0.11 - 0.59 K/uL [facility] ABSOLUTE EOS 0.20 0.01 - 0.50 K/uL [facility] ABSOLUTE BASOS 0.03 0.00 - 0.08 K/uL [facility] Granulocytes, immature 0.05 0.00 - 0.05 K/uL [facility] Blood 01/13/2018 2:17 PM EST 01/13/2018 2:23 PM EST us Spencer Meyer MEAL GRINDER TENDER LAB BLOOD BKR ORDERABLES Ce l Result [address] [address] * TSH (01/13/2018 2:17 PM EST) TSH 2.91 0.27 - 4.20 uIU/mL [facility] Blood 01/13/2018 2:17 PM EST 01/13/2018 2:23 PM EST us Spencer S Larauter MEAL GRINDER TENDER LAB BLOOD BKR ORDERABLES Ce l Result Performing Organization Address City/[facility]/ZIP Co de Phone Number [address] [address] * Folate (01/13/2018 2:17 PM EST) FOLIC ACID 15.8 4.2 - 19.9 ng/mL [facility] Blood 01/13/2018 2:17 PM EST 01/13/2018 2:23 PM EST us Spencer S Larauter MEAL GRINDER TENDER LAB BLOOD BKR ORDERABLES Ce l Result Performing Organization Address [facility]/ZIP Co de Phone Number [address] [address] * Vitamin B12 (01/13/2018 2:17 PM EST) VITAMIN B12 407 243 - 894 pg/mL [facility] Blood 01/13/2018 2:17 PM EST 01/13/2018 2:23 PM EST us Spencer S Lauter MEAL GRINDER TENDER LAB BLOOD BKR ORDERABLES Ce l Result Performing Organization Address City/[facility]/ZIP Co de Phone Number [address] [address] * (ABNORMAL) 25-OH vitamin D (01/13/2018 2:17 PM EST) 25 OH VIT D (TOTAL) 14(L) 30 - 1,000 ng/mL [facility] Blood 01/13/2018 2:17 PM EST 01/13/2018 2:23 PM EST us Spencer Meyer NP LAB BLOOD BKR ORDERABLES Ce l Result [facility] [address] [place] [address] documented in this encounter Visit Diagnoses Diagnosis [...] documented as of this encounter Care Teams Data Quality Consultant Relationship Specialty Start Date End Date Spencer Meyer NP [address] [place] [address] PCP - General 09/10/17 documented as of this encounter Additional Source Comments The information contained in this document represents components of the legal health record. It is not the complete legal health record.[facility]
== END ==
LOC: HO.SL 20:30
PROVIDERS: PCP Registered Nurse; Visit Provider Physician Assistant Medical
DX: G47.19 Other hypersomnia (principal)
CPT/HCPCS: 95810

== ENCOUNTER → 2025-09-28 20:42 | Outpatient (BNV) | payer OTHER, SELFPAY | PROVIDERS: PCP Registered Nurse; Visit Provider Psychiatry & Neurology Neurology | DX: G47.33 Obstructive sleep apnea (adult) (pediatric) (principal) | CPT/HCPCS: 95810 ==

== ENCOUNTER 2025-10-04 09:50 | Outpatient (AMB) | payer OTHER, SELFPAY ==
--- OUTSIDE RECORDS SUMMARY | 2014-06-08 23:00 | XMS_ITS | Encounter Summary ---
Author Organization [facility] Address [address] [employer] [facility] [address] [place] [address] Phone Care Team Providers Care Minister Helper Name Role Phone Unavailable Primary Care Provider Unavailabl e Encounter Details Date Type Department Care Team (Late st Contact Info) Description 06/09/2014 Hospital Encounter [facility],Outside Imaging [address] [place] [address] System, Provider Not In, [facility] [address] [address] Unknown, Unknown, Social History Tobacco Use Types [...] 9:29 PM EST Rodo Almodovar RN * [place] Suicide Severity Rating Scale (Screener/Recent Self-Report) Question [...] Indicated Resolved Time CoV-Risk 11/27/2023 11/27/2023 12/08/2023 1:2 3 AM EST Influenza A 11/27/2023 11/27/2023 12/04/2023 1:24 AM EST documented as of this encounter Additional Source Comments The information contained in this document represents components of the legal health record. It is not the complete legal health record.[facility]
--- NOTE | 2025-10-04 10:01 | A.OFFVIS_ITS ---
Vital Signs 10/04/25 10:14 Height 5 ft 2 in Weight 229 lb BMI 41.9 BMI Reason not done Patient refused/unable Intake Visit Reasons: INJ- B/L knee Euflexxa #1 Intake Note: Radha is a 50 year old female who presents today for bilateral knee Euflexxa injections #1. Allergies No Known Allergies (No Known Allergies*) Allergy (Verified 10/04/25 10:14) Medication List - Last Reconciled 10/04/25 by Carlene Manning PA-C acetaminophen 500 mg (15 mL) PO QID PRN albuterol sulfate 90 mcg/actuation 2 puffs PO Q4-6H PRN budesonide 90 mcg/actuation 2 inhalations PO BID celecoxib (Celebrex) 200 mg PO BID 30 days cholecalciferol (vitamin D3) 250 mcg PO 2XW 90 days diclofenac sodium 1% 4 grams topical QID 30 days hydrochlorothiazide 25 mg PO DAILY hydrocodone-acetaminophen 5-325 mg 1 tab PO Q8H PRN 7 days ibuprofen 800 mg PO TID PRN loratadine 10 mg PO DAILY PRN olmesartan 5 mg PO QAM sumatriptan succinate take 1 tab at onset of headache; if no relief may repeat 1 tab after at least 2 hrs; max = 4 tabs/24 hr PO 30 days zolpidem (Ambien) 5 mg PO BEDTIME 1 day MDD 10mg HPI HPI INJ- B/L knee Euflexxa #1: Details: 50 year old female who presents today for bilateral knee Euflexxa injections #1 PFSH Medical History CARITO (obstructive sleep apnea) History of Helicobacter pylori infection Patellofemoral arthritis of right knee Patellofemoral arthritis of left knee Distal radius fracture, left Bilateral knee pain Fatty liver GDM (gestational diabetes mellitus) Hypertension Anxiety Depression Surgical History History of esophagogastroduodenoscopy (EGD) Hx of colonoscopy Hx of endoscopy H/O hand surgery History of open reduction and internal fixation (ORIF) procedure History of eye surgery History of hemorrhoidectomy History of back surgery Social History Household Members: Spouse and Children Are you a primary rn progressive care to a significant other at home: No Do you presently have visiting nurse or other home services: No Alcohol intake: current Alcohol intake frequency: does not drink Patient Tobacco Use Status: Never used Tobacco 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al status: unemployed 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: Right Handed Review of Systems Const All systems reviewed & are unremarkable except as noted in HPI and below Physical Exam Vital Signs: BMI result Body Mass Index 41.9 Const General: cooperative and no acute distress Orientation/consciousness: patient oriented x3 Resp Effort & Inspection: normal respiratory effort and able to speak in complete sentences Cardio Peripheral pulses: Peripheral pulses 2+ throughout Neuro General: patient oriented x3 Extrem Other: Bilat knee normal to inspection. She has significant pain with ROM anlong the patella. Crepitus present. Office Procedures AMB Joint Injection/Aspiration Joint Injection/Aspiration Details: euflexxa Primary Site: right knee Secondary Site: left knee Prep: site was prepped using aseptic technique, ethochloride spray was applied and injection warnings given Injected: in the joint Approach Used: anterolateral Procedure: The patient tolerated the procedure well Coding 21517 - Glenohumeral/Tronchanteric Bursa/Intraarticular Procedure code (CPT) selection complete Assessment & Plan Assessment & Plan (1) Bilateral primary osteoarthritis of knee: Code(s): M17.0 - Bilateral primary osteoarthritis of knee Category: Medical Plan: Plan was to proceed with gel injection today. #1 euflexxa bilat knee Injection performed today which the patient tolerated well. She will rest ice and use anti-inflammatories as needed for the next several days. I will see her back in 1 week for injection number 2 Coding Level of Care Code Procedure Only Diagnoses Bilateral primary osteoarthritis of knee M17.0 CPT Codes Coding - Joint 7: 19756 - Glenohumeral/Tronchanteric Bursa/Intraarticular ([id number])
[2025-10-04 10:14] VITALS: BMI 41.9
--- OUTSIDE RECORDS SUMMARY | 2025-10-04 11:13 | XMS_ITS | Encounter Summary ---
Author Organization [facility] Address [address] [facility] [address] [place] [address] Phone Care Team Providers Care Rehabilitation Liaison Name Role Phone Spencer Meyer ELECTRIC CONTAINER TESTER Primary Care Provider [phone] Encounter Details Date Type Department Care Team (Late st Contact Info) Description 01/07/2018 Ancillary Orders Virtual Department [address] [place] [address] Mary Shrestha NP [address] [place] [address] [phone] [email or web address] Left knee pain, unspecified chronicity Social History [...] documented as of this encounter Care Teams Rehabilitation Liaison Relationship Specialty Start Date End Date Spencer Meyer NP [address] [place] [address] PCP - General 09/10/17 documented as of this encounter Additional Source Comments The information contained in this document represents components of the legal health record. It is not the complete legal health record.[facility]
--- OUTSIDE RECORDS SUMMARY | 2025-10-04 11:13 | XMS_ITS | Encounter Summary ---
Author Organization [facility] Address [address] [facility] [address] [place] [address] Phone Care Team Providers Care General Cargo Clerk Name Role Phone Spencer Meyer SIMULATION EDUCATOR Primary Care Provider [phone] Encounter Details Date Type Department Care Team (Late st Contact Info) Description 02/20/2020 Procedure Pass OR Admitting Dept - Virtual Department [address] [place] [address] Social History Tobacco Use Types Packs/Day Years [...] documented as of this encounter Care Teams General Cargo Clerk Relationship Specialty Start Date End Date Spencer Meyer NP [address] [place] [address] PCP - General 09/10/17 documented as of this encounter Additional Source Comments The information contained in this document represents components of the legal health record. It is not the complete legal health record.[facility]
--- OUTSIDE RECORDS SUMMARY | 2025-10-04 11:13 | XMS_ITS | Encounter Summary ---
Author Organization [facility] Address [address] [facility] [address] [place] [address] Phone Care Team Providers Care Autocad Detailer Name Role Phone Spencer Meyer RETREADER Primary Care Provider [phone] Encounter Details Date Type Department Care Team (Late st Contact Info) Description 01/07/2018 Procedure Pass [facility], [facility] [address] [place] [address] Social History Tobacco Use Types Packs/Day Years [...] documented as of this encounter Care Teams Autocad Detailer Relationship Specialty Start Date End Date Spencer Meyer NP [address] [place] [address] PCP - General 09/10/17 documented as of this encounter Additional Source Comments The information contained in this document represents components of the legal health record. It is not the complete legal health record.[facility]
--- OUTSIDE RECORDS SUMMARY | 2025-10-04 11:13 | XMS_ITS | Encounter Summary ---
Author Organization [facility] Address [address] [employer] [facility] [address] [place] [address] Phone Care Team Providers Care Metal Coater Name Role Phone Spencer Meyer VELOCITY SHOOTER Primary Care Provider [phone] Encounter Details Date Type Department Care Team (Late st Contact Info) Description 09/01/2021 Procedure Pass [facility], Ct Scan - [facility] [address] [place] [address] Social History Tobacco Use Types Packs/Day Years [...] 7:14 PM EDT Tiffany Wharton RN * [place] Suicide Severity Rating Scale (Screener/Recent Self-Report) Question [...] documented as of this encounter Care Teams Metal Coater Relationship Specialty Start Date End Date Spencer Meyer NP [address] [place] [address] PCP - General 09/10/17 documented as of this encounter Additional Source Comments The information contained in this document represents components of the legal health record. It is not the complete legal health record.[facility]
--- OUTSIDE RECORDS SUMMARY | 2025-10-04 11:13 | XMS_ITS | Encounter Summary ---
Author Organization [facility] Address [address] [facility] [address] [place] [address] Phone Care Team Providers Care Lye Bath Operator Name Role Phone Spencer Meyer CARD GRADER Primary Care Provider [phone] Reason for Referral * Physical Therapy (Routine) - Closed Specialty Diagnoses / Procedures Referred By Noemi clark Referred To Contact Physical Therapy Diagnoses Encounter for rehabilitation System, Provider Not In, [facility] [id number] [place] [address] [address] [place] [address] Phone: tel: Referral ID Status Reason Start Date Expiration Date Visits Re quested Visits Authorized [id number] Closed 02/24/2018 11/24/2018 9 9 Encounter Details Date Type Department Care Team (Latest Contact Info) Description 12/31/2017 Transcribe Orders [facility] Rehabilitation Services [address] [place] [address] Spencer Meyer, CARD GRADER [address] [place], [place] [phone] Encounter for rehabilitation (Primary Dx) Social History [...] Date/Time Associated Diagnosis Comments AMB REFERRAL TO [facility] PHYSICAL THERAPY Routine 02/24/2018 5:09 PM EDT Encounter for rehabilitation documented in this encounter Results * Ambulatory referral to [facility] Physical Therapy (02/24/2018 5:09 PM EDT) us Provider Not In System PhD AMB [facility] REFERRALS Fin al Result documented in this encounter Visit Diagnoses Diagnosis Encounter for rehabilitation- Primary documented in this encounter Additional Health Concerns Infection Onset Date Last Indicated Resolved Time CoV-Risk 11/27/2023 11/27/2023 12/08/2023 1:23 AM EST Influenza A 11/27/2023 11/27/2023 12/04/2023 1:24 AM EST documented as of this encounter Care Teams Lye Bath Operator Relationship Specialty Start Date End Date Spencer Meyer NP [address] [place] [address] PCP - General 09/10/17 documented as of this encounter Additional Source Comments The information contained in this document represents components of the legal health record. It is not the complete legal health record.[facility]
--- OUTSIDE RECORDS SUMMARY | 2025-10-04 11:13 | XMS_ITS | Encounter Summary ---
Author Organization [employer] Address [address] [facility] [address] [place] [address] Care Team Providers Care Edi Programmer Name Role Phone Constance Oakes REGISTERED MAIL CLERK Primary Care Provider [phone] Encounter Details Date Type Department Care Team (Late st Contact Info) Description 10/11/2023 Abstract [facility] [address] [place], [place] [phone] Angela Dick Social History Tobacco Use Types [...] Description 10/11/2025 9:45 AM EST Office Visit [facility] [address] [place] [address] Constance Oakes FNP [address] [place] [address] documented as of this encounter Visit Diagnoses Not on filedocumented in this encounter Additional Health Concerns Assessment Noted Time PHQ-9 Depression Total Score: 0 01/10/20 23 9:23 AM EST documented as of this encounter Care Teams Edi Programmer Relationship Specialty Start Date End Date Constance Oakes FNP [address] [place] [address] PCP - General Family Medicine 07/17/22 documented as of this encounter
--- OUTSIDE RECORDS SUMMARY | 2025-10-04 11:13 | XMS_ITS | Encounter Summary ---
Author Organization [facility] Address [address] [facility] [address] [place] [address] Phone Care Team Providers Care Terrazzo Roller Name Role Phone Spencer Meyer YARN MERCERIZER OPERATOR Primary Care Provider [phone] Encounter Details Date Type Department Care Team (Late st Contact Info) Description 06/10/2020 Procedure Pass [facility], Ct Scan - [facility] [address] [place] [address] Social History Tobacco Use Types Packs/Day Years [...] documented as of this encounter Care Teams Terrazzo Roller Relationship Specialty Start Date End Date Spencer Meyer NP [address] [place] [address] PCP - General 09/10/17 documented as of this encounter Additional Source Comments The information contained in this document represents components of the legal health record. It is not the complete legal health record.[facility]
--- OUTSIDE RECORDS SUMMARY | 2025-10-04 11:13 | XMS_ITS | Clinical Summary ---
Author Organization [employer] Address [address] [facility] [address] [place] [address] Care Team Providers Care Group Insurance Specialist Name Role Phone Constance Oakes OPERATIONAL TRAINER Primary Care Provider [phone] Allergies No known active allergies Medications * [...] Other dysphagia 03/25/2024 Overview (03/25/2024): Followed by [facility]. Last seen [...] 12/10/2022 Overview (11/27/2024): Seen by cardiology at [facility] in 2014 d/t hx of CP and SOB. Negative echo. Negative stress test at this time. No further cardiology follow up - Previously did not tolerate olmesartan. [place] that it caused BP fluctuation Maintenance: - [...] 1 Pap: Overdue, scheduled today C-scope: 05/2020- [facility]. repeat 5 years. [...] reflux disease 04/22/2013 Overview (12/10/2022): Followed by [facility] Negative endoscopy 01/2022, Dr. Neil Taking [...] Type Department Care Team Description 09/08/[address] [address] Constance Oakes FNP Class 3 severe obesity due to excess calories with serious comorbidity and body mass index (BMI) of 40.0 to 44.9 in adult (HCC) 09/03/2025 Results Follow-Up [facility] [address] [address] Constance Oakes [facility] Prothrombin Time-INR, CBC auto differential, Hepatitis A,B,C Profile 09/02/2025 Orders Only [facility] External Provider, [facility] 08/30/2025 [facility] [address] [address] ChampConstance cortez FNP Elevated liver enzymes (Primary Dx) 08/30/2025 Results [facility] [address] [address] Constance Oakes FNP POCT Hgb A1c, POCT Glucose, Comprehensive Metabolic Panel, Additional followed-up results: 2 08/26/2025 Orders Only GENERIC EXTERNAL DATA DEPARTMENT Provider, Generic External Data 08/20/[address] [address] ChampConstance cortez FNP Colonoscopy 08/05/[address] [address] Josiane Metz, AYAKA Care Coordination 08/04/[address] [address] DightonConstance cortez FNP Prior Authorization (Fabienne BERUMEN: Ann Marie) 08/02/2025 9:15 AM EDT Office Visit [address] [address] Constance Oakes FNP Healthcare maintenance (Primary Dx); Essential hypertension; Prediabetes; Obstructive sleep apnea syndrome; Fibromyalgia; Chronic right shoulder pain; Subclinical hypothyroidism; Encounter for screening mammogram for breast cancer; Class 3 severe obesity due to excess calories with serious comorbidity and body mass index (BMI) of 40.0 to 44.9 in adult 08/02/2025 Travel 07/30/2025 Telephone [facility] MEDIC[facility] [address] [place], [place] [phone] Constance Oakes FNP Chart Prep 07/23/2025 Patient Outreach [facility] P[facility] [address] [place] [address] Constance Oakes FNP Pre-visit Planning (SDOH was already completed) from Last 3 Months Immunizations Immunization Administration [...] Description 10/11/2025 9:45 AM EST Office Visit [facility] [address] [place] [address] [facility] [address] [place] [address] Health Maintenance Due Date Last Done Comments CT Colonography 1974 FIT DNA/Cologuard 1975 FIT 1975 FOBT 1975 Sigmoidoscopy 1975 Family Planning (PISQ) 1989 Pneumococcal Vaccine: 50+ Years (1 of 2 - PCV) 1993 Zoster Vaccines (1 of 2) 2024 Dental [...] 08/02/2026 08/02/2025, 08/02/20 Tobacco Screening 08/02/2026 08/02/2025 Mammogram 09/20/2026 09/20/2025, 0212/2022, 12/27/2022, Additional history exists Dental X-Ray: Full Mouth 01/17/2027 01/16/2024, 04/25 Colonoscopy 09/09/2028 09/09/2023, 06/20/2020 Colorectal Cancer Screening 09/09/2028 Cervical Cancer Screening 2029 HPV/Cotest 2029 2024 Pap Smear 2029 2024 Lipid Panel 08/26/2030 08/26/2025, 01/0 01/2025, 01/16/2024, Additional history exists RSV Patients [...] Procedure Name Priority Date/Time Associated Diagnosis Comments BI MAMMOGRAM SCREENING TOMOSYNTHESIS BILATERAL Routine 09/20/2025 11:45 AM EDT Encounter for screening mammogram for breast cancer XR KNEE 1-2 VIEWS RIGHT Routine 09/02/2025 [...] 10:00 AM EST HM COLONOSCOPY Routine 09/09/2023 from Last 3 Months or Most Recently Relevant to Health Maintenance Results * BI Mammogram Screening Tomosynthesis Bilateral (09/20/2025 11:45 AM EDT) Anatomical Region Laterality Modality Breast Bilateral Mammography 09/20/2025 11:4 5 AM EDT Narrative 09/24/2025 2:57 PM EDT [facility] [address] [place] [address] Mammography Report Signed Patient: Radha Nuñez MR#: [id number] 95 : 1975 Acct:[id number] Age/Sex: 50 / F ADM Date: 09/20/25 Loc: HO.MAMMO Attending Dr: Constance Oakes OPERATIONAL TRAINER Ordering Physician: Constance Oakes Results: 1Nega tive Date of Service: 09/20/25 Follow Up: 1 Year From [facility] ina Mammogram Procedure(s): MM tomosynthesis screening BI Accession Number(s): [id number] cc: Constance Oakes Reason For Exam: Routine EXAMINATION: MM SCREENING DIGITAL BREAST TOMOSYNTHESIS, BILATERAL CLINICAL INFORMATION: Screening. Asymptomatic. COMPARISON: Mammography: Comparison is made with available priors TECHNIQUE: Digital breast mammography with tomosynthesis is performed in both the craniocaudal and mediolateral oblique views along with computer-aided detection (CAD). FINDINGS: There are scattered areas of fibroglandular density. There are no significant masses, abnormal calcifications, or other abnormalities. MM/MM tomosynthesis screening BI IMPRESSION: No mammographic evidence of malignancy. ASSESSMENT: BI-RADS Category 1: Negative RECOMMENDATION: Routine annual mammography screening. 1 year F/U This examination should not preclude the clinical evaluation of a suspicious palpable abnormality. This patient's information was entered into a reminder system with a target due date for their next mammogram. Electronically signed by: Ruby Nelson DO 09/24/2025 02:54 PM EDT Dictated By: Ruby Nelson DO Signed By: <Electronically signed by Ruby Nelson DO in OV> 09/24/25 1454 DD/ 1145 TD/TT: 09/20/25 1156 Blueprint Engineer: Procedure Note Donotuseinterpreter, Image - 09/24/2025 [facility] [address] [place], [place] [address] Mammography Report Signed Patient: Radha Nuñez CMR#: [id number] 95 : 1975Acct:[id number] Age/Sex: 50 / FADM Date: 09/20/25 Loc: HO.MAMMO Attending Dr: Constance Oakes OPERATIONAL TRAINER Ordering Physician: Constance Oaeks FNPResults: 1Nega tive Date of Service: 09/20/25Follow Up: 1 Year From Orig inal Mammogram Procedure(s): MM tomosynthesis screening BI Accession Number(s): [id number] cc: Constance Oakes Reason For Exam: Routine EXAMINATION: MM SCREENING DIGITAL BREAST TOMOSYNTHESIS, BILATERAL CLINICAL INFORMATION: Screening. Asymptomatic. COMPARISON: Mammography: Comparison is made with available priors TECHNIQUE: Digital breast mammography with tomosynthesis is performed in both the craniocaudal and mediolateral oblique views along with computer-aided detection (CAD). FINDINGS: There are scattered areas of fibroglandular density. There are no significant masses, abnormal calcifications, or other abnormalities. MM/MM tomosynthesis screening BI IMPRESSION: No mammographic evidence of malignancy. ASSESSMENT: BI-RADS Category 1: Negative RECOMMENDATION: Routine annual mammography screening. 1 year F/U This examination should not preclude the clinical evaluation of a suspicious palpable abnormality. This patient's information was entered into a reminder system with a target due date for their next mammogram. Electronically signed by: Ruby Nelson DO 09/24/2025 02:54 PM EDT Dictated By: Ruby Nelson DO Signed By: <Electronically signed by Ruby Nelson DO in OV> 09/24/25 1454 DD/ 1145 TD/TT: 09/20/25 1156 Blueprint Engineer: Constance MORELOS IMG BI PROCEDURES Final Resul t * XR Knee 1-2 Views Right (09/02/2025 1:41 PM EDT) Anatomical Region Laterality Modality Lower Extremities, Knee Right Radiogra phic Imaging 09/02/2025 1:41 PM EDT Narrative 09/02/2025 2:33 PM EDT [facility] [address] [place] [address] Drive [address] [place] [address] XRay Report Signed Patient: Radha Nuñez MR#: [id number] 95 : 1975 Acct:[id number] Age/Sex: 50 / F ADM Date: 09/02/25 Loc: MELA.ALEXI Attending Dr: Carlene Manning PA-C Ordering Physician: Carlene Manning PA-C Date of Service: 09/02/25 Procedure(s): XR knee RT 2V Accession Number(s): [id number] cc: Carlene Manning PA-C; [facility] Reason for Exam: M25.569 - Pain [...] Jorge Henderson MD 09/02/2025 02:31 PM EDT Dictated By: Jorge Henderson MD Signed By: <Electronically signed by Jorge Henderson MD in OV> 09/02/25 1431 DD/ 1341 TD/TT: 09/02/25 1345 Blueprint Engineer: Procedure Note Riccardoter, Image - 09/02/2025 [facility] [address] [place] [address] XRay Report Signed Patient: Radha Nuñez CMR#: [id number] 95 : 1975Acct:[id number] Age/Sex: 50 / FADM Date: 09/02/25 Loc: HO.ALEXI Attending Dr: Carlene Manning PA-C Ordering Physician: Carlene Manning PA-C Date of Service: 09/02/25 Procedure(s): XR knee RT 2V Accession Number(s): [id number] cc: Carlene Manning PA-C; [facility] Reason for Exam: M25.569 - Pain [...] Jorge Henderson MD 09/02/2025 02:31 PM EDT Dictated By: Jorge Henderson MD Signed By: <Electronically signed by Jorge Henderson MD in OV> 09/02/25 1431 DD/ 1341 TD/TT: 09/02/25 1345 Blueprint Engineer: [facility] External Provider IMG XR PROCEDURES Final Result * Hepatitis A,B,C Profile (09/02/2025 12:10 PM EDT) Hepatitis A IgM Nonreactive Nonreactive [facility] Comment:IgM antibodies to [place]CK[place] V not detected; does not exclude earlyacute or recovered HAV infection. ~Hepatitis B Surface Antibody NONREACTIVE Nonreactive [facility] Comment:Nonreactive: < 8.00 mIU/mL Hepatitis B Core Antibody Nonreactive Nonreactive [facility] Hepatitis C Antibody Nonreactive Nonreactive [facility] Comment:Antibodies to HCV no t detected; does not exclude early acuteHCV infection. Hepatitis B Surface Ag Negative Negative [facility] Blood Venous blood specimen / Unknown 09/02/2025 12:10 PM EDT 09/02/2025 4:14 PM EDT [facility] OPERATIONAL TRAINER LAB BLOOD ORDERABLES Final Re sult [facility] [address] [place] [phone] * CBC auto differential (09/02/2025 12:10 PM EDT) White Blood Count 8.6 4.8 - 10.8 X10*3/uL [facility] Red Blood Count 4.91 4.20 - 5.50 X10*6/uL [facility] Hemoglobin 13.5 12.0 - 16.0 g/dl [facility] Hematocrit 41.1 37.0 - 47.0 % [facility] Mean Corpuscular Volume 83.7 80.0 - 98.0 fL [facility] Mean Corpuscular Hemoglobin 27.5 27.0 - 33.0 pg [facility] Mean Corpuscular HGB Conc 32.8 31.0 - 35.0 g/dl [facility] Red Cell Distribution Width 13.1 11.0 - 16.0 % [facility] Platelet Count 273 160 - 400 X10*3/uL [facility] Mean Platelet Volume 10.4 9.4 - 12.3 fL [facility] Neutrophils Percent Auto 50.6 45 - 73 % [facility] Imm Gran Pct Auto 0.4 0.0 - 0.4 % [facility] Lymphocytes Percent Auto 35.0 20 - 40 % [facility] Monocytes Percent Auto 10.3 2 - 11 % [facility] Eosinophils Percent Auto 3.3 0 - 4 % [facility] Basophils Percent Auto 0.4 0 - 2 % [facility] NRBC Pct Auto 0.0 0.0 - 0.2 /100WBC [facility] Neutrophils Absolute Auto 4.3 2.0 - 8.3 x10*3/uL [facility] Imm Gran Abs Auto 0.03 0.00 - 0.03 X10*3/uL [facility] Lymphocytes Absolute Auto 3.0 1.2 - 4.9 X10*3/uL [facility] Monocytes Absolute Auto 0.9 0.1 - 1.2 X10*3/uL [facility] Eosinophils Absolute Auto 0.3 0.0 - 0.4 X10*3/uL [facility] Basophils Absolute Auto 0.0 0.0 - 0.2 X10*3/uL [facility] NRBC Abs Auto 0.000 0.0 - 0.012 X10*3/uL [facility] Blood Venous blood specimen / Unknown 09/02/2025 12:10 PM EDT 09/02/2025 1:15 PM EDT [facility] LAB BLOOD ORDERABLES Final Re sult [facility] [address] [place] [phone] * (ABNORMAL) Prothrombin Time-INR (09/02/2025 12:10 PM EDT) Prothrombin Time 10.7(L) 10.9 - 12.4 SEC [facility] INTERNATIONAL NORM RATIO 0.9 0.9 - 1.1 [facility] Comment:INTERNATIONAL NORMAL IZED RATIO (INR) [...] 12:10 PM EDT 09/02/2025 1:15 PM EDT [facility] OPERATIONAL TRAINER LAB BLOOD ORDERABLES Final Re sult [facility] [address] [place] [phone] * Vitamin D, 25-Hydroxy, Total, Immunoassay (08/26/2025 10:58 AM EDT) Vitamin D 25-OH Total 37.1 >30 ng/mL [facility] Comment: Health Based Reference Values*< 20 ng/mL Nrowiznhf77-21 ng/mL Insufficient> 30 ng/mL Sufficient*Regla BROWN. N [...] Provider LAB BLOOD ORDERAB LES Final Result [facility] [address] [place] [phone] [phone] * Vitamin B12 (Cobalamin) and Folate Panel, Serum (08/26/2025 10:58 AM EDT) Vitamin B12 452 200 - 900 pg/mL [facility] Comment:NORMAL 200-900 PG/ML INDETERMINATE 160-199 PG/ML DEFICIENT < 160 PG/ML Folate 14.8 > or = 4.0 ng/mL [facility] Comment:Reference Values:> o r = 4.0 ng/mL< 4.0 ng/mL suggests folate deficiency Methotrexate, aminopterin and folinic acid(leucovorin) are chemotherapeutic agents whose molecularstructures are similar to folate; therefore, the Architectfolate assay cannot be used for patients using these drugs. 08/26/2025 10:5 8 AM EDT 08/26/2025 10:58 AM EDT Generic External Data Provider LAB BLOOD ORDERAB LES Final Result [facility] [address] [place] [phone] * TSH W/Reflex to FT4 (08/26/2025 10:58 AM EDT) [facility] TSH reflex Free T4 2.74 0.32 - 4.0 uIU/mL [facility] Blood Venous blood specimen / Unknown 08/26/2025 10:58 AM EDT 08/26/2025 10:58 AM EDT [facility] OPERATIONAL TRAINER LAB BLOOD ORDERABLES Final Re sult [facility] [address] [place] [phone] * Methylmalonic Acid (08/26/2025 10:58 AM EDT) Pathologist [facility] Methylmalonic Acid 145 55 - 335 nmol/L [facility] Comment: Serum methylmalonic acid (MMA) [...] outcomes,such as neural tube defects and intrauterine growthrestriction.[employer] utilized Multi-Modal Decomposition(MMD) analysis to establish first and second trimester-specific MMA reference intervals in , as givenbelow:MMA, First trimester (<13 wks gestation): 58-167 nmol/LMMA, Second trimester (13-23 wks gestation):63-241 nmol/LThis test was developed and its analytical performancecharacteristics have been determined by [employer]. It has not been cleared or approved by theFDA. This assay has been validated pursuant to the CLIAregulations and is used for clinical purposes.THIS TEST WAS PERFORMED AT:[employer] [place] [address]QDZMAGLTIMOTHY JEFFERSON MD,PHD 08/26/2025 10:5 8 AM EDT 08/26/2025 10:58 AM EDT us Generic External Data Provider LAB BLOOD ORDERAB LES Final Result [facility] [address] [place] [phone] * Vitamin B1 (08/26/2025 10:58 AM EDT) Vitamin B1 10 8 - 30 nmol/L [facility] Comment:Vitamin supplementat ion within 24 hours prior toblood draw may affect the accuracy of the results.This test was developed and its analytical performancecharacteristics have been determined by [employer] [place], [place]. It hasnot been cleared or approved by the U.S. Food and DrugAdministration. This assay has been validated pursuantto the CLIA regulations and is used for clinicalpurposes.THIS TEST WAS PERFORMED AT:[employer] [id number] [place] [address]AUHOKERTIMOTHY JEFFERSON MD,PHD 08/26/2025 10:5 8 AM EDT 08/26/2025 10:58 AM EDT Generic External Data Provider LAB BLOOD ORDERAB LES Final Result Performing Organization Address [facility]/ZIP Co de Phone Number [facility] [address] [place] [phone] * Vitamin B6, Plasma (08/26/2025 10:58 AM EDT) [facility] Vitamin B6 12.7 2.1 - 21.7 ng/mL [facility] Comment:Vitamin supplementat ion within 24 hours prior toblood draw may affect the accuracy of the results.This test was developed and its analytical performancecharacteristics have been determined by [employer] [place], [place]. It hasnot been cleared or approved by the U.S. Food and DrugAdministration. This assay has been validated pursuantto the CLIA regulations and is used for clinicalpurposes.THIS TEST WAS PERFORMED AT:[id number] [place] [address]TLUYUAZTIMOTHY JEFFERSON MD,PHD 08/26/2025 10:5 8 AM EDT 08/26/2025 10:58 AM EDT Generic External Data Provider LAB BLOOD ORDERAB LES Final Result Performing Organization Address [facility] Co de Phone Number [facility] [address] [place] [phone] * Homocysteine (08/26/2025 10:58 AM EDT) Pathologist [facility] Homocysteine 9.5 < or = 13.4 umol/L [facility] Comment:Homocysteine is incr eased by functional deficiency offolate or vitamin B12. Testing for methylmalonic aciddifferentiates between these deficiencies. Other causesof increased homocysteine include renal failure, folateantagonists such as methotrexate and phenytoin, andexposure to nitrous oxide.Jennifer Cordoba, et al., [employer]. 1999;131(5):331-9.THIS TEST WAS PERFORMED AT:[employer] [place] [address]EVKPPAVA ROSARIO MD 08/26/2025 10:5 8 AM EDT 08/26/2025 10:58 AM EDT us Generic External Data Provider LAB BLOOD ORDERAB LES Final Result Performing Organization Address [facility]/ZIP Co de Phone Number [facility] [address] [place] [phone] * Hemoglobin A1c (08/26/2025 10:58 AM EDT) Hemoglobin A1c 5.8 <6.0 % [facility] Comment:Hemoglobin A1C Refer ence Range Adults: 4.8 - 6.0 % Non diabetic: < 6.0 % Goal: < 7.0 %Additional Action Suggested: > 8.0 %Note: Hemoglobin A1c results are invalid for patients with abnormal amounts of HbF. Blood transfusions may impact the HbA1c concentration in the patient sample. Estimated Average Glucose 120 mg/dL [facility] Comment:eAG = Estimated ave rage glucose which is %A1C expressed asaverage glucose, using the formula of the G8B-TcfusxcXisjskp Glucose study (ADAG), Diabetes Care, Vol.31,#8,Jun. 2007 08/26/2025 10:5 8 AM EDT 08/26/2025 10:58 AM EDT us Generic External Data Provider LAB BLOOD ORDERAB LES Final Result Performing Organization Address [facility] Co de Phone Number [facility] [address] [place] [phone] * Ferritin (08/26/2025 10:58 AM EDT) Ferritin 189 10 - 250 ng/mL [facility] 08/26/2025 10:5 8 AM EDT 08/26/2025 10:58 AM EDT Generic External Data Provider LAB BLOOD ORDERAB LES Final Result Performing Organization Address [facility]/ZIP Co de Phone Number [facility] [address] [place] [address] [phone] * (ABNORMAL) Lipid Panel, Standard (08/26/2025 10:58 AM EDT) Triglycerides 215(H) <150 mg/dL [facility] Comment:Desirable Triglyceri de: less than 150 mg/dLBorderline High Triglyceride 150-199 mg/dLHigh Triglyceride: 200-499 mg/dLVery High Triglyceride: greater than or equal to 5OO mg/dL Cholesterol 226(H) <200 mg/dL [facility] Comment:Desirable Cholestero l: less than 200 mg/dLBorderline High Cholesterol: 200-239 mg/dLHigh Cholesterol: greater than 239 mg/dL LDL Cholesterol Calculated 141(H) <100 mg/dL [facility] Comment:Desirable LDL: less than 100 mg/dLNear Optimal/Above Optimal LDL: 110- 129 mg/dLBorderline High LDL: 130-159 mg/dLHigh LDL: 160-189 mg/dLVery High LDL: greater than or equal to 190 mg/dL HDL Cholesterol 42 >40 mg/dL [facility] Comment:Desirable HDL: great er than 40 mg/dL Note: This HDL assay may give artificially low results in patients with liver disease. Blood Venous blood specimen / Unknown 08/26/2025 10:58 AM EDT 08/26/2025 10:58 AM EDT [facility] OPERATIONAL TRAINER LAB BLOOD ORDERABLES Final Re sult Performing Organization Address [facility]/ZIP Co de Phone Number [facility] [address] [place] [phone] * (ABNORMAL) Comprehensive Metabolic Panel (08/26/2025 10:58 AM EDT) Pathologist [facility] Sodium 142 135 - 145 mmol/L [facility] Potassium 4.0 3.3 - 5.1 mmol/L [facility] Chloride 108 96 - 108 mmol/L [facility] Carbon Dioxide 26 22 - 29 mmol/L [facility] Anion Gap 12 12 - 20 [facility] Urea Nitrogen (BUN) 16 9 - 16 mg/dL [facility] Creatinine, Serum 0.75 0.5 - 1.4 mg/dL [facility] Estimated Glomerular Filt Rate >60 [facility] Comment:Chronic Kidney Disea se: Estimated GFR < 60 mL/min/1.80b6Vleyxm Kidney Disease: Estimated GFR < 15 mL/min/1.73m2 Glucose 107 60 - 115 mg/dL [facility] Calcium 9.7 8.4 - 10.2 mg/dL [facility] Bilirubin, Total 0.8 0.0 - 1.0 mg/dL [facility] Aspartate Amino Transferase 47(H) 5 - 31 U/L [facility] Alanine Aminotransferase 68(H) 0 - 31 U/L [facility] Total Protein 8.1(H) 6.5 - 8.0 g/dL [facility] Albumin Level 4.9 3.5 - 5.0 g/dL [facility] Alkaline Phosphatase 98 39 - 117 U/L [facility] Blood Venous blood specimen / Unknown 08/26/2025 10:58 AM EDT 08/26/2025 10:58 AM EDT [facility] LAB BLOOD ORDERABLES Final Re sult [facility] [address] [place] [phone] * POCT Hgb A1c (08/02/2025 10:04 AM EDT) Hemoglobin A1C 5.7 4.0 - 5.7 % Blood 08/02/2025 10:0 4 AM EDT [facility] POINT OF CARE TEST ENTER/EDIT ORDERABLES Final Result * POCT Glucose (08/02/2025 10:04 AM EDT) Glucose Blood, POC 196 60 - 200 mg/dL Blood Capillary blood specimen / Unknown 08/02/2025 10:04 AM EDT [facility] POINT OF CARE TEST ENTER/EDIT ORDERABLES Final Result * HPV mRNA E6/E7 w/Reflex to HPV Genotypes 16, 18/45 (2024 12:30 PM EDT) Pathologist [facility] HPV nRNA E6/E7 Not Detected Not Detected [facility] Comment:Methodology: Transcr iption-Mediated AmplificationThis assay detects E6/E7 viral messenger RNA (mRNA) from 14high-risk HPV types (16,18,31,33,35,39,45,51,52,56,58,59,66,68).Cervical sources are required for HPV testing.If a vaginal source from a patient who has had atotal hysterectomy with removal of cervix wassubmitted, please contact the testing laboratoryfor alternative testing options.For additional information, please refer tohttp://education.[employer]/faq/XIZ667z5(This link if provided for information/educational purposes only.)THIS TEST WAS PERFORMED AT:[employer] [place] [id number] ROSARIO MD HPV mRNA E6/E7 [facility] HPV 16 RNA [facility] HPV 18/45 RNA [facility] 2024 12:3 0 PM EDT 05/06/2024 11:47 AM EDT [facility] LAB CYTOLOGY ORDERABLES Final Result [facility] [address] [place] [phone] * Pap Smear (2024 12:30 PM EDT) Swab Cervical swab / Unknown 2024 12:30 PM EDT 04/28/2024 9:10 AM EDT Tina [facility] - 05/11/2024 5:17 PM EDT ----- ------- Name: Radha Nuñez Age/Sex: 49/F : 1975 Unit#: [id number] Attend Dr: Constance Oakes Re04/27/24 Status: DEP REF Location: [facility] Disch: ----- ------- SPEC : [id number] RECD: 04/28/24 STATUS: CHINTAN BUNN NUM: [id number] JUAREZ: 04/27/24-[address]: Constance Oakes ENTERED: 04/28/24 SP TYPE: Pap Smr OT DR: ORDERED: Pap Smear Interpretation Satisfactory for evaluation. Negative for intraepithelial lesion or malignancy. Atrophic. HPV mRNA E6/E7: NOT DETECTED This assay detects E6/E7 viral messenger RNA (mRNA) from 14 high-risk HPV types (16, 18, 31, 33, 35, 39, 45, 51, 52, 56, 58, 59, 66, 68) HPV testing performed by [employer], [place], [place]. See reference laboratory portion of the EMR for entire report. Clinical Information LMP: Postmenopausal Previous PAP test: Unknown date/findings Material Received ThinPrep-Vaginal/Cervical ----- ------- Signed (signature on file) Renea Garland 05/11/24 1717 ----- ------- END OF REPORT [facility] LAB CYTOLOGY ORDERABLES Final Result [facility] [address] [place] [phone] * (ABNORMAL) Colonoscopy (09/09/2023) Colonoscopy Abnormal(A ) Normal Comment:5years Historical Provider HEALTH MAINTENANCE Final Result from Last 3 Months or Most Recently Relevant to Health Maintenance Insurance [facility] LIMITED ADULT DENTAL - HSN FULL (MEDICAID) Care Teams Group Insurance Specialist Relationship Specialty Start Date End Date Constance OakesJETHRO [address] [place] [address] PCP - General Family Medicine 07/17/22
--- OUTSIDE RECORDS SUMMARY | 2025-10-04 11:13 | XMS_ITS | Clinical Summary ---
Author Organization [facility] Address [address] [facility] [address] [place] [phone] Phone Care Team Providers Care Risk Control Consultant Name Role Phone Spencer Meyer FAGOT HEATER HELPER Primary Care Provider [phone] Allergies No known active allergies Medications MELATONIN [...] , 01/13/1999 HEPATITIS C SCREENING Completed 01/13/2018 , 01/13/2018, 01/13/2018 HIV ONE-TIME SCREENING (18-6 5 YEARS) [...] (01/13/2018 2:17 PM EST) HCV Negative Negative [facility] Comment: This is a screening test and should be confirmed with molecular testing Blood 01/13/2018 2:17 PM EST 01/13/2018 2:23 PM EST us Spencer Meyer NP LAB BLOOD BKR ORDERABLES Ce l Result [address] [address] * (ABNORMAL) Lipid panel (01/13/2018 2:17 PM EST) HDL 54 mg/dL [facility] Comment: Interpretation: Risk Level Females Decreased >55mg/dL Average 50-55 mg/dL Increased <50 mg/dL CHOLESTEROL 214 0 - 240 mg/dL [facility] TRIGLYCERIDES 182(H) 30 - 160 mg/dL [facility] LDL 124 50 - 129 mg/dL [facility] Comment: LDL levels in terms of risk for coronary heart disease: <100 mg/dL: Optimal 100-129 mg/dL: Near or above optimal 130-159 mg/dL: Borderline high 160-189 mg/dL: High >190 mg/dL: Very High CARDIAC RISK RATIO 4.0 3.3 - 4.4 C [facility] Blood 01/13/2018 2:17 PM EST 01/13/2018 2:23 PM EST us Spencer Meyer NP LAB BLOOD BKR ORDERABLES Ce l Result [address] [address] * PAP SMEAR FOR RESULT ENTRY ONLY (01/23/2014) Pap smear neg per [facility] us Historical Provider HEALTH MAINTENANCE Final Result from Last 3 Months or Most Recently Relevant to Health Maintenance Insurance [employer] WELLSENSE NON NSPG PCP [employer] [facility] [place] [address] [address] WELLSENSE NON NSPG PCP S[employer] SAFETY [place] [address] [place] [address] [facility] SAFET[facility] NET FULL [facility] LIMITED PARISENSE NON NSPG PCP S[facility] SAFETY NET FULL [facility] WELLSENSE NON NSPG PCP S[facility] SAFETY NET FULL [facility] NON NSP PCP S[employer] SAFETY NET FULL [facility] LIMITED WELLSENSE NON NSPG PCP [employer] Member Subscriber Plan / Payer (Ef fective 2023-Present) Name:Radha Garcia Relation to Subscriber:Self Name:Radha Garcia Payer ID:[id number] Type:O Address: [address] FULL [facility] WELLSENSE NON NSPG PCP S[facility] [employer] [facility] SAFETY [place] [address] [address] [facility] NON NSP PCP [employer] [address] SAFETY NET FULL Care Teams Risk Control Consultant Relationship Specialty Start Date End Date Spencer Meyer NP [address] [place] [address] PCP - General 09/10/17 Additional Source Comments The information contained in this document represents components of the legal health record. It is not the complete legal health record.[facility]
--- OUTSIDE RECORDS SUMMARY | 2025-10-04 11:13 | XMS_ITS | Encounter Summary ---
Author Organization [facility] Address [address] [facility] [address] [place] [address] Phone Care Team Providers Care Pruner Name Role Phone Spencer Meyer INDUSTRIAL SEAMSTRESS Primary Care Provider [phone] Encounter Details Date Type Department Care Team (Late st Contact Info) Description 01/20/2018 Procedure Pass [facility],Outside Imaging [address] [place] [address] Social History Tobacco Use Types Packs/Day Years [...] documented as of this encounter Care Teams Pruner Relationship Specialty Start Date End Date Spencer Meyer NP [address] [place] [address] PCP - General 09/10/17 documented as of this encounter Additional Source Comments The information contained in this document represents components of the legal health record. It is not the complete legal health record.[facility]
--- OUTSIDE RECORDS SUMMARY | 2025-10-04 11:13 | XMS_ITS | Encounter Summary ---
Author Organization [employer] Address [address] [facility] [address] [facility] [address] [place] [address] Care Team Providers Care Rasper Machine Operator Name Role Phone Constance Oakes [facility] Primary Care Provider [phone] Encounter Details Date Type Department Care Team (Late st Contact Info) Description 03/04/2024 Orders Only [facility] [address] [place] [address] ProviderMeenakshi MD Social History Tobacco Use Types [...] Description 10/11/2025 9:45 AM EST Office Visit [facility] [address] [place], [place] [phone] [facility] [address] [place], [place] [phone] documented as of this encounter Procedures Procedure [...] Free T4 2.78 0.32 - 4.0 uIU/mL [facility] 11/27/2024 11:2 6 AM EST 11/27/2024 12:58 PM EST [facility] LAB BLOOD ORDERABLES Final Re sult Performing Organization Address City/[facility]/ZIP Co de Phone Number [facility] [address] [place] [address] [phone] * Vitamin D, 25-Hydroxy, Total, Immunoassay (11/27/2024 11:26 AM EST) Vitamin D 25-OH Total 40.9 >30 ng/mL [facility] Comment:Health Based Referen ce Values*< 20 ng/mL Niwhiprxj84-10 ng/mL Insufficient> 30 ng/mL Sufficient*Regla BROWN. N [...] 6 AM EST 11/27/2024 12:58 PM EST [facility] LAB BLOOD ORDERABLES Final Re sult Performing Organization Address City/[facility] Co de Phone Number [facility] [address] [place] [address] [phone] * (ABNORMAL) Lipid Panel, Standard (11/27/2024 11:26 AM EST) Triglycerides 300(H) <150 mg/dL [facility] Comment:Desirable Triglyceri de: less than 150 mg/dLBorderline High Triglyceride 150-199 mg/dLHigh Triglyceride: 200-499 mg/dLVery High Triglyceride: greater than or equal to 5OO mg/dL Cholesterol 225(H) <200 mg/dL [facility] Comment:Desirable Cholestero l: less than 200 mg/dLBorderline High Cholesterol: 200-239 mg/dLHigh Cholesterol: greater than 239 mg/dL LDL Cholesterol Calculated 121(H) <100 mg/dL [facility] Comment:Desirable LDL: less than 100 mg/dLNear Optimal/Above Optimal LDL: 110- 129 mg/dLBorderline High LDL: 130-159 mg/dLHigh LDL: 160-189 mg/dLVery High LDL: greater than or equal to 190 mg/dL HDL Cholesterol 44 >40 mg/dL [facility] Comment:Desirable HDL: great er than 40 mg/dL Note: This HDL assay may give artificially low results in patients with liver disease. 11/27/2024 11:2 6 AM EST 11/27/2024 12:58 PM EST [facility] PROFESSOR OF KINESIOLOGY LAB BLOOD ORDERABLES Final Re sult [facility] [address] [place] [phone] * (ABNORMAL) Comprehensive Metabolic Panel (11/27/2024 11:26 AM EST) Sodium 141 135 - 145 mmol/L [facility] Potassium 3.8 3.3 - 5.1 mmol/L [facility] Chloride 110(H) 96 - 108 mmol/L [facility] Carbon Dioxide 26 22 - 29 mmol/L [facility] Anion Gap 9(L) 12 - 20 [facility] Urea Nitrogen (BUN) 16 9 - 16 mg/dL [facility] Creatinine, Serum 0.73 0.5 - 1.4 mg/dL [facility] Estimated Glomerular Filt Rate >60 [facility] Comment:Chronic Kidney Disea se: Estimated GFR < 60 mL/min/1.43r6Bbzjga Kidney Disease: Estimated GFR < 15 mL/min/1.73m2 Glucose 104 60 - 115 mg/dL [facility] Calcium 9.3 8.4 - 10.2 mg/dL [facility] Bilirubin, Total 0.4 0.0 - 1.0 mg/dL [facility] Aspartate Amino Transferase 37(H) 5 - 31 U/L [facility] Alanine Aminotransferase 62(H) 0 - 31 U/L [facility] Total Protein 7.6 6.5 - 8.0 g/dL [facility] Albumin Level 4.5 3.5 - 5.0 g/dL [facility] Alkaline Phosphatase 99 39 - 117 U/L [facility] 11/27/2024 11:2 6 AM EST 11/27/2024 12:58 PM EST [facility] LAB BLOOD ORDERABLES Final Re sult [facility] [address] [place] [phone] * Hemoglobin A1c (11/27/2024 11:26 AM EST) Hemoglobin A1c 5.7 <6.0 % [facility] Comment:Hemoglobin A1C Refer ence Range Adults: 4.8 - 6.0 % Non diabetic: < 6.0 % Goal: < 7.0 %Additional Action Suggested: > 8.0 %Note: Hemoglobin A1c results are invalid for patients with abnormal amounts of HbF. Blood transfusions may impact the HbA1c concentration in the patient sample. Estimated Average Glucose 117 mg/dL [facility] Comment:eAG = Estimated ave rage glucose which is %A1C expressed asaverage glucose, using the formula of the B1M-RrxljvzGtzqitp Glucose study (ADAG), Diabetes Care, Vol.31,#8,Jun. 2007 11/27/2024 11:2 6 AM EST 11/27/2024 12:58 PM EST us Constance Champ PROFESSOR OF KINESIOLOGY LAB BLOOD ORDERABLES Final Re sult [facility] [address] [place], [place] [phone] * (ABNORMAL) CBC auto differential (11/27/2024 11:26 AM EST) White Blood Count 6.4 4.8 - 10.8 X10*3/uL [facility] Red Blood Count 4.68 4.20 - 5.50 X10*6/uL [facility] Hemoglobin 12.9 12.0 - 16.0 g/dl [facility] Hematocrit 39.2 37.0 - 47.0 % [facility] Mean Corpuscular Volume 83.8 80.0 - 98.0 fL [facility] Mean Corpuscular Hemoglobin 27.6 27.0 - 33.0 pg [facility] Mean Corpuscular HGB Conc 32.9 31.0 - 35.0 g/dl [facility] Red Cell Distribution Width 13.4 11.0 - 16.0 % [facility] Platelet Count 250 160 - 400 X10*3/uL [facility] Mean Platelet Volume 10.7 9.4 - 12.3 fL [facility] Neutrophils Percent Auto 41.5(L) 45 - 73 % [facility] Imm Gran Pct Auto 0.5(H) 0.0 - 0.4 % [facility] Lymphocytes Percent Auto 43.2(H) 20 - 40 % [facility] Monocytes Percent Auto 10.5 2 - 11 % [facility] Eosinophils Percent Auto 3.8 0 - 4 % [facility] Basophils Percent Auto 0.5 0 - 2 % [facility] NRBC Pct Auto 0.0 0.0 - 0.2 /100WBC [facility] Neutrophils Absolute Auto 2.6 2.0 - 8.3 x10*3/uL [facility] Imm Gran Abs Auto 0.03 0.00 - 0.03 X10*3/uL [facility] Lymphocytes Absolute Auto 2.8 1.2 - 4.9 X10*3/uL [facility] Monocytes Absolute Auto 0.7 0.1 - 1.2 X10*3/uL [facility] Eosinophils Absolute Auto 0.2 0.0 - 0.4 X10*3/uL [facility] Basophils Absolute Auto 0.0 0.0 - 0.2 X10*3/uL [facility] NRBC Abs Auto 0.000 0.0 - 0.012 X10*3/uL [facility] 11/27/2024 11:2 6 AM EST 11/27/2024 12:58 PM EST [facility] LAB BLOOD ORDERABLES Final Re sult [facility] [address] [place] [address] [phone] * HPV mRNA E6/E7 w/Reflex to HPV Genotypes 16, 18/45 (2024 12:30 PM EDT) HPV nRNA E6/E7 Not Detected Not Detected [facility] Comment:Methodology: Transcr iption-Mediated AmplificationThis assay detects E6/E7 viral messenger RNA (mRNA) from 14high-risk HPV types (16,18,31,33,35,39,45,51,52,56,58,59,66,68).Cervical sources are required for HPV testing.If a vaginal source from a patient who has had atotal hysterectomy with removal of cervix wassubmitted, please contact the testing laboratoryfor alternative testing options.For additional information, please refer [email or web address]/faq/[email or web address](This link if provided for information/educational purposes only.)THIS TEST WAS PERFORMED AT:[facility] [place] [phone] ROSARIO MD HPV mRNA E6/E7 TNP [facility] HPV 16 RNA TNP [facility] HPV 18/45 RNA [facility] 2024 12:3 0 PM EDT 05/06/2024 11:47 AM EDT [facility] LAB CYTOLOGY ORDERABLES Final Result [facility] [address] [place] [phone] * Hm Colonoscopy (06/20/2020 7:49 AM EDT) Historical Provider MD HEALTH MAINTENANCE Final Result documented in this encounter Visit Diagnoses Not on filedocumented in this encounter Additional Health Concerns Assessment Noted Time PHQ-9 Depression Total Score: 0 01/15/20 24 4:04 PM EST documented as of this encounter Care Teams Rasper Machine Operator Relationship Specialty Start Date End Date Constance Oakes FNP [address] [place] [phone] PCP - General Family Medicine 07/17/22 documented as of this encounter
--- OUTSIDE RECORDS SUMMARY | 2025-10-04 11:13 | XMS_ITS | Encounter Summary ---
Author Organization [facility] Address [address] [facility] [address] [place] [phone] Phone Care Team Providers Care Data Entry Machine Operator Name Role Phone Spencer Meyer SENIOR BUSINESS DEVELOPMENT MANAGER Primary Care Provider [phone] Encounter Details Date Type Department Care Team (Latest Contact Info) Description 01/13/2018 Transcribe Orders [facility] Specimen Processing [address] [place] [address] Spencer Meyer, SENIOR BUSINESS DEVELOPMENT MANAGER [address] [place] [address] Hyperlipidemia, unspecified hyperlipidemia type (Primary Dx); Elevated [...] PM EST) WBC 0-4(A) NONE SEEN /hpf [facility] RBC 3-5(A) NONE SEEN /hpf [facility] URINE EPITHELIAL 0-4(A) NONE SEEN [facility] MUCUS Trace(A) NONE SEEN /hpf [facility] BACTERIA 1+(A) NONE SEEN [facility] COLOR Yellow Yellow [facility] CLARITY Clear [facility] GLUCOSE Negative Negative [facility] BILI Negative Negative [facility] KETONES Negative Negative [facility] SPECIFIC GRAVITY 1.020 1.005 - 1.030 [facility] BLOOD 1+(A) Negative [facility] PH 6.0 5.0 - 8.0 [facility] Protein-UA Negative Negative [facility] NITRITE Negative Negative [facility] Leukocyte esterase, ur Negative Negative [facility] Urine (Urine) 01/13/2018 2:1 7 PM EST 01/13/2018 2:24 PM EST us Spencer Meyer SENIOR BUSINESS DEVELOPMENT MANAGER LAB URINE ORDERABLES Final Re sult Performing Organization Address [facility] Co de Phone Number [address] [address] * Syphilis antibody screen (01/13/2018 2:17 PM EST) RPR NON-REACTIV E NON-REACTI VE [facility] Blood 01/13/2018 2:17 PM EST 01/13/2018 2:23 PM EST us Spencer Meyer SENIOR BUSINESS DEVELOPMENT MANAGER LAB BLOOD BKR ORDERABLES Ce l Result Performing Organization Address [facility] Co de Phone Number [address] [address] * Microalbumin/creatinine ratio, random urine (01/13/2018 2:17 PM EST) URINE MICROALBUMIN 1.1 0 - 2.3 mg/dL [facility] URINE CREATININE 193 mg/dL [facility] MICROALB/CRE RATIO NOT CALCULATED 0 - 20 mg/g Cre [facility] Comment:due to Microalbumin <1.2 Urine (Urine) 01/13/2018 2:1 7 PM EST 01/13/2018 2:24 PM EST us Spencer Meyer SENIOR BUSINESS DEVELOPMENT MANAGER LAB URINE ORDERABLES Final Re sult Performing Organization Address [facility]/ZIP Co de Phone Number [address] [address] * (ABNORMAL) Lipid panel (01/13/2018 2:17 PM EST) HDL 54 mg/dL [facility] Comment: Interpretation: Risk Level Females Decreased >55mg/dL Average 50-55 mg/dL Increased <50 mg/dL CHOLESTEROL 214 0 - 240 mg/dL [facility] TRIGLYCERIDES 182(H) 30 - 160 mg/dL [facility] LDL 124 50 - 129 mg/dL [facility] Comment: LDL levels in terms of risk for coronary heart disease: <100 mg/dL: Optimal 100-129 mg/dL: Near or above optimal 130-159 mg/dL: Borderline high 160-189 mg/dL: High >190 mg/dL: Very High CARDIAC RISK RATIO 4.0 3.3 - 4.4 C [facility] Blood 01/13/2018 2:17 PM EST 01/13/2018 2:23 PM EST us Spencer Meyer SENIOR BUSINESS DEVELOPMENT MANAGER LAB BLOOD BKR ORDERABLES Ce l Result Performing Organization Address [facility] Co de Phone Number [address] [address] * HIV-1/2 antigen/antibody (01/13/2018 2:17 PM EST) HIV Antibod(ies) NON-REACTI VE NON-REACTI VE [facility] HIV-1 ANTIGEN NON-REACTI VE NON-REACTI VE [facility] Blood 01/13/2018 2:17 PM EST 01/13/2018 2:23 PM EST us Spencer Meyer SENIOR BUSINESS DEVELOPMENT MANAGER LAB BLOOD BKR ORDERABLES Ce l Result [address] [address] * Hepatitis C antibody, qualitative (01/13/2018 2:17 PM EST) HCV Negative Negative [facility] Comment: This is a screening test and should be confirmed with molecular testing Blood 01/13/2018 2:17 PM EST 01/13/2018 2:23 PM EST us Spencer S Lauter SENIOR BUSINESS DEVELOPMENT MANAGER LAB BLOOD BKR ORDERABLES Ce l Result [address] [address] * Hepatitis B surface antigen (01/13/2018 2:17 PM EST) HBV SURFACE ANTIGEN Negative Negative [facility] Blood 01/13/2018 2:17 PM EST 01/13/2018 2:23 PM EST us Spencer S Lauter SENIOR BUSINESS DEVELOPMENT MANAGER LAB BLOOD BKR ORDERABLES Ce l Result [address] [address] * Hepatitis B core antibody, total (01/13/2018 2:17 PM EST) HEP B CORE AB, TOT Negative Negative [facility] Blood 01/13/2018 2:17 PM EST 01/13/2018 2:23 PM EST us Spencer S Lauter SENIOR BUSINESS DEVELOPMENT MANAGER LAB BLOOD BKR ORDERABLES Ce l Result [address] [address] * Hemoglobin A1c (01/13/2018 2:17 PM EST) HEMOGLOBIN A1C 5.1 4.3 - 5.8 % [facility] Blood 01/13/2018 2:17 PM EST 01/13/2018 2:23 PM EST us Spencer Meyer SENIOR BUSINESS DEVELOPMENT MANAGER LAB BLOOD BKR ORDERABLES Ce l Result [address] [address] * Comprehensive metabolic panel (01/13/2018 2:17 PM EST) SODIUM 141 133 - 146 mmol/L [facility] POTASSIUM 3.5 3.3 - 5.1 mmol/L [facility] CHLORIDE 105 96 - 108 mmol/L [facility] CO2 23 21 - 35 mmol/L [facility] BUN 17 6 - 19 mg/dL [facility] CREATININE 0.60 0.5 - 1.5 mg/dL [facility] GLUCOSE 84 70 - 99 mg/dL [facility] ALBUMIN 4.3 3.9 - 4.8 g/dL [facility] TOTAL PROTEIN 7.5 6.5 - 8.0 g/dL [facility] CALCIUM 8.8 8.4 - 10.3 mg/dL [facility] ALKALINE PHOSPHATASE 81 39 - 117 U/L [facility] TOTAL BILIRUBIN 0.6 0 - 1.2 mg/dL [facility] AST 17 0 - 37 U/L [facility] ALT 21 0 - 40 U/L [facility] GLOBULIN 3.2 1 - 4.8 g/dL [facility] EGFR >60 >60 mL/min/1.7 3m2 [facility] Comment:Abnormal if <60. If patient is -Israeli, multiply the result by 1.21. ANION GAP 17 10 - 20 mmol/L [facility] Blood 01/13/2018 2:17 PM EST 01/13/2018 2:23 PM EST us Spencer Meyer SENIOR BUSINESS DEVELOPMENT MANAGER LAB BLOOD BKR ORDERABLES Ce l Result [address] [address] * CBC and differential (01/13/2018 2:17 PM EST) WBC 7.06 3.40 - 11.20 K/uL [facility] RBC 4.35 3.80 - 4.80 M/uL [facility] HGB 12.6 12.0 - 15.0 g/dL [facility] HCT 37.1 36.0 - 46.0 % [facility] PLT 232 130 - 400 K/uL [facility] MCV 85.3 79.0 - 98.0 fL [facility] MCH 29.0 27.0 - 34.8 pg [facility] MCHC 34.0 31.5 - 36.0 g/dL [facility] RDW 13.2 10.8 - 14.6 % [facility] MPV 10.8 9.4 - 12.4 fl [facility] NRBC 0.00 /100 WBCs [facility] ABSOLUTE NRBC 0.00 K/uL [facility] DIFF METHOD Auto [facility] NEUTS 56.9 45.30 - 77.70 % [facility] LYMPHS 31.4 12.30 - 39.70 % [facility] MONOS 7.8 4.10 - 12.80 % [facility] EOS 2.8 0 - 7.2 % [facility] BASOS 0.4 0 - 2.80 % [facility] Granulocytes, immature (%) 0.7 0.0 - 0.9 % [facility] ABSOLUTE NEUTS 4.01 1.40 - 7.70 K/uL [facility] ABSOLUTE LYMPHS 2.22 0.60 - 3.20 K/uL [facility] ABSOLUTE MONOS 0.55 0.11 - 0.59 K/uL [facility] ABSOLUTE EOS 0.20 0.01 - 0.50 K/uL [facility] ABSOLUTE BASOS 0.03 0.00 - 0.08 K/uL [facility] Granulocytes, immature 0.05 0.00 - 0.05 K/uL [facility] Blood 01/13/2018 2:17 PM EST 01/13/2018 2:23 PM EST us Spencer Meyer SENIOR BUSINESS DEVELOPMENT MANAGER LAB BLOOD BKR ORDERABLES Ce l Result [address] [address] * TSH (01/13/2018 2:17 PM EST) TSH 2.91 0.27 - 4.20 uIU/mL [facility] Blood 01/13/2018 2:17 PM EST 01/13/2018 2:23 PM EST us Spencer S Larauter SENIOR BUSINESS DEVELOPMENT MANAGER LAB BLOOD BKR ORDERABLES Ce l Result Performing Organization Address City/[facility]/ZIP Co de Phone Number [address] [phone] * Folate (01/13/2018 2:17 PM EST) FOLIC ACID 15.8 4.2 - 19.9 ng/mL [facility] Blood 01/13/2018 2:17 PM EST 01/13/2018 2:23 PM EST us Spencer S Larauter SENIOR BUSINESS DEVELOPMENT MANAGER LAB BLOOD BKR ORDERABLES Ce l Result Performing Organization Address [facility]/ZIP Co de Phone Number [address] [address] * Vitamin B12 (01/13/2018 2:17 PM EST) VITAMIN B12 407 243 - 894 pg/mL [facility] Blood 01/13/2018 2:17 PM EST 01/13/2018 2:23 PM EST us Spencer S Lauter SENIOR BUSINESS DEVELOPMENT MANAGER LAB BLOOD BKR ORDERABLES Ce l Result Performing Organization Address City/[facility]/ZIP Co de Phone Number [address] [address] * (ABNORMAL) 25-OH vitamin D (01/13/2018 2:17 PM EST) 25 OH VIT D (TOTAL) 14(L) 30 - 1,000 ng/mL [facility] Blood 01/13/2018 2:17 PM EST 01/13/2018 2:23 PM EST us Spencer Meyer NP LAB BLOOD BKR ORDERABLES Ce l Result [facility] [address] [place] [address] documented in this encounter Visit Diagnoses Diagnosis [...] as of this encounter Care Teams Data Entry Machine Operator Relationship Specialty Start Date End Date Spencer Meyer NP [address] [place] [phone] PCP - General 09/10/17 documented as of this encounter Additional Source Comments The information contained in this document represents components of the legal health record. It is not the complete legal health record.[facility]
--- OUTSIDE RECORDS SUMMARY | 2025-10-04 11:13 | XMS_ITS | Encounter Summary ---
Author Organization [facility] Address [address] [facility] [address] [place] [address] Phone Care Team Providers Care City Designer Name Role Phone Spencer Meyer CHILD DEVELOPMENT ASSOCIATE TEACHER Primary Care Provider [phone] Encounter Details Date Type Department Care Team (Late st Contact Info) Description 01/20/2018 Ancillary Orders [facility],Outside Imaging [address] [place] [address] System, Provider Not In, PhD [address] [address] Social History Tobacco Use Types Packs/Day Years [...] documented as of this encounter Care Teams City Designer Relationship Specialty Start Date End Date Spencer Meyer NP [address] [place] [address] PCP - General 09/10/17 documented as of this encounter Additional Source Comments The information contained in this document represents components of the legal health record. It is not the complete legal health record.[facility]
== END 2025-10-04 10:14 | disposition home or self-care (01) ==
LOC: HO.HOS 09:50
PROVIDERS: PCP Registered Nurse; Visit Provider Physician Assistant
DX: M17.0 Bilateral primary osteoarthritis of knee (principal)
CPT/HCPCS: 20610

== ENCOUNTER → 2025-10-04 09:50 | Outpatient (BNVA) | payer OTHER, SELFPAY | PROVIDERS: PCP Registered Nurse; Visit Provider Physician Assistant | DX: M17.0 Bilateral primary osteoarthritis of knee (principal) | CPT/HCPCS: 20610; J7323 ==

== ENCOUNTER 2025-10-11 09:27 | Outpatient (AMB) | payer OTHER, SELFPAY ==
--- NOTE | 2025-10-11 09:29 | A.OFFVIS_ITS ---
Intake Visit Reasons: INJ- B/L knee Euflexxa #2 Intake Note: Radha is a 50 year old female who presents today for an injection in her bilateral knee, Euflexxa #2. Allergies No Known Allergies (No Known Allergies*) Allergy (Verified 10/04/25 10:14) HPI HPI INJ- B/L knee Euflexxa #2: Details: 50 year old female who presents today for bilateral knee Euflexxa injections #2 PFSH Medical History CARITO (obstructive sleep apnea) History of Helicobacter pylori infection Patellofemoral arthritis of right knee Patellofemoral arthritis of left knee Distal radius fracture, left Bilateral knee pain Fatty liver GDM (gestational diabetes mellitus) Hypertension Anxiety Depression Surgical History History of esophagogastroduodenoscopy (EGD) Hx of colonoscopy Hx of endoscopy H/O hand surgery History of open reduction and internal fixation (ORIF) procedure History of eye surgery History of hemorrhoidectomy History of back surgery Social History Household Members: Spouse and Children Are you a primary reservoir caretaker to a significant other at home: No Do you presently have visiting nurse or other home services: No Alcohol intake: current Alcohol intake frequency: does not drink Patient Tobacco Use Status: Never used Tobacco 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al status: unemployed 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: Right Handed Review of Systems Const All systems reviewed & are unremarkable except as noted in HPI and below Physical Exam Const General: cooperative and no acute distress Orientation/consciousness: patient oriented x3 Resp Effort & Inspection: normal respiratory effort and able to speak in complete sentences Cardio Peripheral pulses: Peripheral pulses 2+ throughout Neuro General: patient oriented x3 Extrem Other: Bilat knee normal to inspection. She has significant pain with ROM anlong the patella. Crepitus present. Office Procedures AMB Joint Injection/Aspiration Joint Injection/Aspiration Primary Site: Right Knee Secondary Site: Left Knee Prep: site was prepped using aseptic technique, ethochloride spray was applied and injection warnings given Injected: Euflexxa (#2) and in the joint Approach Used: anterolateral Procedure: The patient tolerated the procedure well Coding 49144 - Glenohumeral/Tronchanteric Bursa/Intraarticular Procedure code (CPT) selection complete Assessment & Plan Assessment & Plan (1) Bilateral primary osteoarthritis of knee: Code(s): M17.0 - Bilateral primary osteoarthritis of knee Category: Medical Plan: Plan was to proceed with gel injection today. #2 euflexxa bilat knee Injection performed today which the patient tolerated well. She will rest ice and use anti-inflammatories as needed for the next several days. I will see her back in 1 week for injection number 3 Coding Level of Care Code Procedure Only Diagnoses Bilateral primary osteoarthritis of knee M17.0 CPT Codes Coding - Joint 7: 06370 - Glenohumeral/Tronchanteric Bursa/Intraarticular ([id number])
== END 2025-10-11 10:26 | disposition home or self-care (01) ==
LOC: HO.HOS 09:28
PROVIDERS: PCP Registered Nurse; Visit Provider Physician Assistant
DX: M17.0 Bilateral primary osteoarthritis of knee (principal)
CPT/HCPCS: 20610

== ENCOUNTER → 2025-10-11 09:27 | Outpatient (BNVA) | payer OTHER, SELFPAY | PROVIDERS: PCP Registered Nurse; Visit Provider Physician Assistant | DX: M17.0 Bilateral primary osteoarthritis of knee (principal) | CPT/HCPCS: 20610; J7323 ==

== ENCOUNTER 2025-10-18 09:19 | Outpatient (AMB) | payer OTHER, SELFPAY ==
--- OUTSIDE RECORDS SUMMARY | 2014-06-08 23:00 | XMS_ITS | Encounter Summary ---
Author Organization [facility] Address [address] [employer] [facility] [address] [place] [phone] Phone Care Team Providers Care Applied Research Director Name Role Phone Unavailable Primary Care Provider Unavailabl e Encounter Details Date Type Department Care Team (Late st Contact Info) Description 06/09/2014 Hospital Encounter [facility],Outside Imaging [address] [place] [address] System, Provider Not In, [facility] [address] [address] Unknown, Unknown, Social History Tobacco Use Types [...] 9:29 PM EST Rodo Almodovar RN * [place] Suicide Severity Rating Scale (Screener/Recent Self-Report) Question [...] It is not the complete legal health record.[facility]
--- NOTE | 2025-10-18 09:25 | MHC.OFFVIS ---
Vital Signs 10/18/25 09:28 Height 5 ft 2 in Weight 229 lb BMI 41.9 Intake Visit Reasons: INJ- B/L knee Euflexxa injection #3 Intake Note: Radha is a 50 year old female who presents today for bilateral knee, Euflexxa injections #3. Allergies No Known Allergies (No Known Allergies*) Allergy (Verified 10/18/25 09:27) Medication List - Last Reconciled 10/18/25 by Carlene Manning PA-C acetaminophen 500 mg (15 mL) PO QID PRN albuterol sulfate 90 mcg/actuation 2 puffs PO Q4-6H PRN budesonide 90 mcg/actuation 2 inhalations PO BID celecoxib (Celebrex) 200 mg PO BID 30 days cholecalciferol (vitamin D3) 250 mcg PO 2XW 90 days diclofenac sodium 1% 4 grams topical QID 30 days hydrochlorothiazide 25 mg PO DAILY hydrocodone-acetaminophen 5-325 mg 1 tab PO Q8H PRN 7 days ibuprofen 800 mg PO TID PRN loratadine 10 mg PO DAILY PRN olmesartan 5 mg PO QAM sumatriptan succinate take 1 tab at onset of headache; if no relief may repeat 1 tab after at least 2 hrs; max = 4 tabs/24 hr PO 30 days zolpidem (Ambien) 5 mg PO BEDTIME 1 day MDD 10mg HPI HPI INJ- B/L knee Euflexxa injection #3: Details: 50-year-old female presents to the office today for Euflexxa injection # 3 PFSH Medical History CARITO (obstructive sleep apnea) History of Helicobacter pylori infection Patellofemoral arthritis of right knee Patellofemoral arthritis of left knee Distal radius fracture, left Bilateral knee pain Fatty liver GDM (gestational diabetes mellitus) Hypertension Anxiety Depression Surgical History History of esophagogastroduodenoscopy (EGD) Hx of colonoscopy Hx of endoscopy H/O hand surgery History of open reduction and internal fixation (ORIF) procedure History of eye surgery History of hemorrhoidectomy History of back surgery Social History Household Members: Spouse and Children Are you a primary special needs caregiver to a significant other at home: No Do you presently have visiting nurse or other home services: No Alcohol intake: current Alcohol intake frequency: does not drink Patient Tobacco Use Status: Never used Tobacco 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al status: unemployed 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: Right Handed Review of Systems Const All systems reviewed & are unremarkable except as noted in HPI and below Physical Exam Vital Signs: BMI result Body Mass Index 41.9 Const General: cooperative and no acute distress Orientation/consciousness: patient oriented x3 Resp Effort & Inspection: normal respiratory effort and able to speak in complete sentences Cardio Peripheral pulses: Peripheral pulses 2+ throughout Neuro General: patient oriented x3 Extrem Other: Bilat knee normal to inspection. She has significant pain with ROM anlong the patella. Crepitus present. Office Procedures AMB Joint Injection/Aspiration Joint Injection/Aspiration Primary Site: Right Knee Secondary Site: Left Knee Prep: site was prepped using aseptic technique, ethochloride spray was applied and injection warnings given Injected: Euflexxa (#3) and in the joint Approach Used: anterolateral Procedure: The patient tolerated the procedure well Coding 24017 - Glenohumeral/Tronchanteric Bursa/Intraarticular Procedure code (CPT) selection complete Assessment & Plan Assessment & Plan (1) Bilateral primary osteoarthritis of knee: Code(s): M17.0 - Bilateral primary osteoarthritis of knee Category: Medical Plan: Plan was to proceed with gel injection today. #3 euflexxa bilat knee Injection performed today which the patient tolerated well. She will rest ice and use anti-inflammatories as needed for the next several days. If she would like to repeat these injections in 6 months she will contact our office and we can get these approved. Coding Level of Care Code Procedure Only Diagnoses Bilateral primary osteoarthritis of knee M17.0 CPT Codes Coding - Joint 7: 20644 - Glenohumeral/Tronchanteric Bursa/Intraarticular ([id number])
[2025-10-18 09:28] VITALS: BMI 41.9
--- OUTSIDE RECORDS SUMMARY | 2025-10-18 10:27 | XMS_ITS | Clinical Summary ---
Author Organization [facility] Address [address] [facility] [address] [place] [address] Phone Care Team Providers Care Pool Player Name Role Phone Spencer Meyer VICE PRESIDENT SAFETY Primary Care Provider [phone] Allergies No known active allergies Medications MELATONIN [...] (01/13/2018 2:17 PM EST) HCV Negative Negative [facility] Comment: This is a screening test and should be confirmed with molecular testing Blood 01/13/2018 2:17 PM EST 01/13/2018 2:23 PM EST us Spencer Meyer NP LAB BLOOD BKR ORDERABLES Ce l Result [address] [address] * (ABNORMAL) Lipid panel (01/13/2018 2:17 PM EST) HDL 54 mg/dL [facility] Comment: Interpretation: Risk Level Females Decreased >55mg/dL Average 50-55 mg/dL Increased <50 mg/dL CHOLESTEROL 214 0 - 240 mg/dL [facility] TRIGLYCERIDES 182(H) 30 - 160 mg/dL [facility] LDL 124 50 - 129 mg/dL [facility] Comment: LDL levels in terms of risk for coronary heart disease: <100 mg/dL: Optimal 100-129 mg/dL: Near or above optimal 130-159 mg/dL: Borderline high 160-189 mg/dL: High >190 mg/dL: Very High CARDIAC RISK RATIO 4.0 3.3 - 4.4 C [facility] Blood 01/13/2018 2:17 PM EST 01/13/2018 2:23 PM EST us Spencer Meyer NP LAB BLOOD BKR ORDERABLES Ce l Result [address] [address] * PAP SMEAR FOR RESULT ENTRY ONLY (01/23/2014) Pap smear neg per [facility] us Historical Provider HEALTH MAINTENANCE Final Result from Last 3 Months or Most Recently Relevant to Health Maintenance Insurance [employer] WELLSENSE NON NSPG PCP [employer] [facility] [place] [address] [address] WELLSENSE NON NSPG PCP S[employer] [place] [address] [facility] SAFETY NET FULL [facility] LIMITED [place] NON NSPG PCP S[employer] CONNE[employer]CARE [facility] SAFETY NET FULL [facility] WELLSENSE NON NSPG PCP S[facility] SAFETY NET FULL [facility] NON NSP PCP S[employer] SAFETY NET FULL [facility] WELLSENSE NON NSPG PCP [employer] Member Subscriber Plan / Payer (Ef fective 2023-Present) Name:Radha Garcia Relation to Subscriber:Self Name:Radha Garcia Payer ID:[id number] Type:O Address: [address] [facility] WELLSENSE NON NSPG PCP [employer] SAFETY [place] [address] [address] [facility] NON NSP PCP [employer] [address] SAFETY NET FULL Care Teams Pool Player Relationship Specialty Start Date End Date Spencer Meyer NP [address] [place] [address] PCP - General 09/10/17 Additional Source Comments The information contained in this document represents components of the legal health record. It is not the complete legal health record.[facility]
--- OUTSIDE RECORDS SUMMARY | 2025-10-18 10:27 | XMS_ITS | Clinical Summary ---
Author Organization [employer] Address [address] [facility] [address] [place] [address] Care Team Providers Care Shell Fisherman Name Role Phone Constance Oakes FUR FLOOR WORKER Primary Care Provider [phone] Allergies No known active allergies Medications * [...] (BMI) of 40.0 to 44.9 in adult ([facility]) Inject 0.5 mL (2.5 mg) under the [...] (BMI) of 40.0 to 44.9 in adult ([facility]) Inject 0.5 mL (5 mg) under the skin 1 (one) time per week. 2 mL 3 09/08/20 25 Active Tirzepatide-Weight Management (Zepbound) 7.5 MG/0.5ML solution auto-injectorIndic ations:Class 3 severe obesity due to excess calories with serious comorbidity and body mass index (BMI) of 40.0 to 44.9 in adult ([facility]) Inject 0.5 mL (7.5 mg) under the skin 1 (one) time per week. 2 mL 1 5 10:05 AM EST 10/08/20 25 Active Active Problems Problem Noted Date [...] Other dysphagia 03/25/2024 Overview (03/25/2024): Followed by [facility]. Last seen 10/2023. Endoscopy/colonoscopy from 08/2023 [...] 12/10/2022 Overview (11/27/2024): Seen by cardiology at [facility] in 2014 d/t hx of CP and SOB. Negative echo. Negative stress test at this time. No further cardiology follow up - Previously did not tolerate olmesartan. [place] that it caused BP fluctuation Maintenance: - [...] 1 Pap: Overdue, scheduled today C-scope: 05/2020- [facility]. repeat 5 years. BMD: 08/2022, WNL HCV [...] reflux disease 04/22/2013 Overview (12/10/2022): Followed by [facility] Negative endoscopy 01/2022, Dr. Neil Taking [...] Encounters Date Type Department Care Team Description 10/08/2025 Refill [facility] [address] [place] [phone] Constance Oakes FNP Prediabetes; Class 3 severe obesity due to excess calories with serious comorbidity and body mass index (BMI) of 40.0 to 44.9 in adult ([facility]) 10/04/2025 Patient Outreach [address] [address] Constance Oakes FNP Pre-visit Planning (SDOH screening was completed on 06/16/2025) 09/08/[address] [address] Constance Oakes FNP Class 3 severe obesity due to excess calories with serious comorbidity and body mass index (BMI) of 40.0 to 44.9 in adult ([facility]) 09/03/2025 Results Follow-Up [facility] [address] [place] [phone] Constance Oakes FNP Prothrombin Time-INR, CBC auto differential, Hepatitis A,B,C Profile 09/02/2025 Orders Only [facility] External Provider, [facility] 08/30/2025 Orders Only [facility] [address] [place] [phone] Constance Oakes FNP Elevated liver enzymes (Primary Dx) 08/30/2025 Results Follow-Up [facility] [address] [place] [phone] Constance Oakes FNP POCT Hgb A1c, POCT Glucose, Comprehensive Metabolic Panel, Additional followed-up results: 2 08/26/2025 Orders Only GENERIC EXTERNAL DATA DEPARTMENT Provider, Generic External Data 08/20/[address] [phone] Constance Oakes FNP Colonoscopy 08/05/[address] [phone] Josiane Metz, RN Care Coordination 08/04/[address] [phone] Constance Oakes FNP Prior Authorization (Fabienne PA: Ann Marie) 08/02/2025 9:15 AM EDT Office Visit [address] [phone] Constance Oakes FNP Healthcare maintenance (Primary Dx); Essential hypertension; Prediabetes; Obstructive sleep apnea syndrome; Fibromyalgia; Chronic right shoulder pain; Subclinical hypothyroidism; Encounter for screening mammogram for breast cancer; Class 3 severe obesity due to excess calories with serious comorbidity and body mass index (BMI) of 40.0 to 44.9 in adult 08/02/2025 Travel 07/30/[address] [phone] Constance Oakes FNP Chart Prep 07/23/2025 Patient Outreach [facility] [address], [place] [phone] Constance Oakes FNP Pre-visit Planning (SDOH was [...] Care Team (Late st Contact Info) Description 11/22/2025 2:30 PM EST Office Visit [facility] [address] [place] [address] [facility] [address] [place], [place] [phone] Health Maintenance Due Date Last Done Comments CT Colonography 1974 FIT DNA/Cologuard 1974 FIT 1974 FOBT 1974 Sigmoidoscopy 1974 Family Planning (PISQ) 1989 Pneumococcal Vaccine: 50+ Years (1 of 2 - PCV) 1993 RSV Patients and Patients Aged 60 years or older (1 - Risk 50-74 years 1-dose series) 2024 Zoster Vaccines (1 of 2) 2024 Dental Oral Exam 07/17/2024 01/16/2024, 02/2019, 05/05/2018, Additional history exists Dental Prophylaxis 08/02/2024 01/30/2024, 0 12/29/2018, 04/10/2018, Additional history exists Dental X-Ray: Bitewings 01/17/2025 01/16/20 24, 05/05/2018, 09/17/2016, Additional history exists IPV Vaccines (2 of 3 - Adult catch-up series) 01/19/2025 12/22/2024 COVID-19 Vaccine (4 - season) 2025 12/17/2024, 05/01/2021, 04/05/2021 Influenza Vaccine (#1) 2025 , 09/08/2012, 11/09/2010 Diabetes: Hemoglobin A1C 02/24/2026 025, 08/02/2025, 11/27/2024, Additional history exists Alcohol/Substance Use Screening 06/16/2026 06/16/2025 Disability Screening 06/16/2026 06/16/2025 SDOH Screening 06/16/2026 06/16/2025 DTaP/Tdap/Td Vaccines (2 - Td or Tdap) 07/26/2026 02/16/2016, 01/13/1999 Postponed from 02/15/2026 (Other System Reasons) Depression Screening 08/02/2026 08/02/2025, 08/02/20 25 Tobacco Screening 08/02/2026 08/02/2025 Mammogram 09/20/2026 09/20/2025, 0212/2022, 12/27/2022, Additional history exists Dental X-Ray: Full Mouth 01/17/2027 01/16/2024, 04/25 Colonoscopy 09/09/2028 09/09/2023, 06/20/2020 Colorectal Cancer Screening 09/09/2028 Cervical Cancer Screening 2029 HPV/Cotest 2029 2024 Pap Smear 2029 2024 Lipid Panel 08/26/2030 08/26/2025, 010 01/2025, 01/16/2024, Additional history exists Hepatitis B Vaccines Discontinued 06/17/2025, 01/14/2025, 12/17/2024 [...] EDT Narrative 09/24/2025 2:57 PM EDT [facility] [address] [place] [address] Mammography Report Signed Patient: Radha Nuñez MR#: [id number] 95 : 1975 Acct:[id number] Age/Sex: 50 / F ADM Date: 09/20/25 Loc: [facility] Attending Dr: Constance Oakes FUR FLOOR WORKER Ordering Physician: Constance Oakes Results: 1Nega tive Date of Service: 09/20/25 Follow Up: 1 Year From Orig inal Mammogram Procedure(s): MM tomosynthesis screening BI Accession Number(s): [id number] cc: Constance Oakes Reason For Exam: Routine [...] Ruby Nelson DO 09/24/2025 02:54 PM EDT RP Dictated By: Ruby Nelson DO Signed By: <Electronically signed by Ruby Nelson DO in OV> 09/24/25 1454 DD/ 1145 TD/TT: 09/20/25 1156 Registry Rn: Procedure Note Donotuseinterpreter, Image - [facility] [address] [place], [place] [address] Mammography Report Signed Patient: Radha Nuñez CMR#: [id number] 95 : 1975Acct:[id number] Age/Sex: 50 / FADM Date: 09/20/25 Loc: MAMMO Attending Dr: Constance Oakes FUR FLOOR WORKER Ordering Physician: Constance Oakes FNPResults: 1Nega tive Date of Service: 09/20/25Follow Up: 1 Year From Orig inal Mammogram Procedure(s): MM tomosynthesis screening BI Accession Number(s): [id number] cc: Constance Oakes Reason For Exam: Routine [...] Ruby Nelson DO 09/24/2025 02:54 PM EDT RP Dictated By: Ruby Nelson DO Signed By: <Electronically signed by Ruby Nelson DO in OV> 09/24/25 1454 DD/ 1145 TD/TT: 09/20/25 1156 Registry Rn: [facility] FUR FLOOR WORKER IMG BI PROCEDURES Final Resul t * XR Knee 1-2 Views Right (09/02/2025 1:41 PM EDT) Anatomical Region Laterality Modality Lower Extremities, Knee Right Radiogra phic Imaging 09/02/2025 1:41 PM EDT Narrative 09/02/2025 2:33 PM EDT [facility] [address] [place] [address] Drive [address] [place] [address] XRay Report Signed Patient: Radha Nuñez MR#: [id number] 95 : 1975 Acct:[id number] Age/Sex: 50 / F ADM Date: 09/02/25 Loc: [place] Attending Dr: Carlene Manning PA-C Ordering Physician: Carlene Manning PA-C Date of Service: 09/02/25 Procedure(s): XR knee RT 2V Accession Number(s): [id number] cc: Carlene Manning PA-C; [facility] FUR FLOOR WORKER Reason for Exam: M25.569 - Pain in [...] 09/02/25 1431 DD/ 1341 TD/TT: 09/02/25 1345 Registry Rn: Procedure Note Riccardoter, Image - 09/02/2025 [facility] [address] [place] [address] Drive [address] [place] [address] XRay Report Signed Patient: Radah Nuñez CMR#: [id number] 95 : 1975Acct:[id number] Age/Sex: 50 / FADM Date: 09/02/25 [facility] Dr: Carlene Manning PA-C Ordering Physician: Carlene Manning PA-C Date of Service: 09/02/25 Procedure(s): XR knee RT 2V Accession Number(s): [id number] cc: Carlene Manning PA-C; [facility] Reason for Exam: M25.569 - Pain in [...] 09/02/25 1431 DD/ 1341 TD/TT: 09/02/25 1345 Registry Rn: [facility] External Provider IMG XR PROCEDURES Final Result * Hepatitis A,B,C Profile (09/02/2025 12:10 PM EDT) Hepatitis A IgM Nonreactive Nonreactive [facility] Comment:IgM antibodies to [place]CK[place] V not detected; does not exclude earlyacute or recovered HAV infection. ~Hepatitis B Surface Antibody NONREACTIVE Nonreactive [facility] Comment:Nonreactive: < 8.00 mIU/mL Hepatitis B Core Antibody Nonreactive Nonreactive [facility] Hepatitis C Antibody Nonreactive Nonreactive [facility] Comment:Antibodies to HCV no t detected; does not exclude early acuteHCV infection. Hepatitis B Surface Ag Negative Negative [facility] Blood Venous blood specimen / Unknown 09/02/2025 12:10 PM EDT 09/02/2025 4:14 PM EDT [facility] FUR FLOOR WORKER LAB BLOOD ORDERABLES Final Re sult [facility] [address] [place] [address] [phone] * CBC auto differential (09/02/2025 12:10 PM EDT) White Blood Count 8.6 4.8 - 10.8 X10*3/uL [facility] Red Blood Count 4.91 4.20 - 5.50 X10*6/uL [facility] Hemoglobin 13.5 12.0 - 16.0 g/dl [facility] Hematocrit 41.1 37.0 - 47.0 % [facility] Mean Corpuscular Volume 83.7 80.0 - 98.0 fL [facility] Mean Corpuscular Hemoglobin 27.5 27.0 - 33.0 pg [facility] Mean Corpuscular HGB Conc 32.8 31.0 - 35.0 g/dl [facility] Red Cell Distribution Width 13.1 11.0 - 16.0 % [facility] Platelet Count 273 160 - 400 X10*3/uL [facility] Mean Platelet Volume 10.4 9.4 - 12.3 fL [facility] Neutrophils Percent Auto 50.6 45 - 73 % [facility] Imm Gran Pct Auto 0.4 0.0 - 0.4 % [facility] Lymphocytes Percent Auto 35.0 20 - 40 % [facility] Monocytes Percent Auto 10.3 2 - 11 % [facility] Eosinophils Percent Auto 3.3 0 - 4 % [facility] Basophils Percent Auto 0.4 0 - 2 % [facility] NRBC Pct Auto 0.0 0.0 - 0.2 /100WBC [facility] Neutrophils Absolute Auto 4.3 2.0 - 8.3 x10*3/uL [facility] Imm Gran Abs Auto 0.03 0.00 - 0.03 X10*3/uL [facility] Lymphocytes Absolute Auto 3.0 1.2 - 4.9 X10*3/uL [facility] Monocytes Absolute Auto 0.9 0.1 - 1.2 X10*3/uL [facility] Eosinophils Absolute Auto 0.3 0.0 - 0.4 X10*3/uL [facility] Basophils Absolute Auto 0.0 0.0 - 0.2 X10*3/uL [facility] NRBC Abs Auto 0.000 0.0 - 0.012 X10*3/uL [facility] Blood Venous blood specimen / Unknown 09/02/2025 12:10 PM EDT 09/02/2025 1:15 PM EDT [facility] LAB BLOOD ORDERABLES Final Re sult Performing Organization Address [facility] Co de Phone Number [facility] [address] [place] [address] [phone] * (ABNORMAL) Prothrombin Time-INR (09/02/2025 12:10 PM EDT) Prothrombin Time 10.7(L) 10.9 - 12.4 SEC [facility] INTERNATIONAL NORM RATIO 0.9 0.9 - 1.1 [facility] Comment:INTERNATIONAL NORMAL IZED RATIO (INR) REFERENCE [...] 12:10 PM EDT 09/02/2025 1:15 PM EDT [facility] LAB BLOOD ORDERABLES Final Re sult Performing Organization Address [facility] Co de Phone Number [facility] [address] [place] [phone] * Vitamin D, 25-Hydroxy, Total, Immunoassay (08/26/2025 10:58 AM EDT) Vitamin D 25-OH Total 37.1 >30 ng/mL [facility] Comment: Health Based Reference Values*< 20 ng/mL Qzcpiizyq52-61 ng/mL Insufficient> 30 ng/mL Sufficient*Regla BROWN. N [...] ORDERAB LES Final Result Performing Organization Address [facility] Co de Phone Number [facility] [address] [place] [phone] * Vitamin B12 (Cobalamin) and Folate Panel, Serum (08/26/2025 10:58 AM EDT) Vitamin B12 452 200 - 900 pg/mL [facility] Comment:NORMAL 200-900 PG/M L INDETERMINATE 160-199 PG/ML DEFICIENT < 160 PG/ML Folate 14.8 > or = 4.0 ng/mL [facility] Comment:Reference Values:> o r = 4.0 ng/mL< 4.0 ng/mL suggests folate deficiency Methotrexate, aminopterin and folinic acid(leucovorin) are chemotherapeutic agents whose molecularstructures are similar to folate; therefore, the Architectfolate assay cannot be used for patients using these drugs. 08/26/2025 10:5 8 AM EDT 08/26/2025 10:58 AM EDT us Generic External Data Provider LAB BLOOD ORDERAB LES Final Result Performing Organization Address [facility] Co de Phone Number [facility] [address] [place] [phone] * TSH W/Reflex to FT4 (08/26/2025 10:58 AM EDT) TSH reflex Free T4 2.74 0.32 - 4.0 uIU/mL [facility] Blood Venous blood specimen / Unknown 08/26/2025 10:58 AM EDT 08/26/2025 10:58 AM EDT [facility] LAB BLOOD ORDERABLES Final Re sult [facility] [address] [place] [address] [phone] * Methylmalonic Acid (08/26/2025 10:58 AM EDT) Methylmalonic Acid 145 55 - 335 nmol/L [facility] Comment: Serum methylmalonic acid (MMA) levels [...] outcomes,such as neural tube defects and intrauterine growthrestriction.3Leaf utilized Multi-Modal Decomposition(MMD) analysis to establish first and second trimester-specific MMA reference intervals in , as givenbelow:MMA, First trimester (<13 wks gestation): 58-167 nmol/LMMA, Second trimester (13-23 wks gestation):63-241 nmol/LThis test was developed and its analytical performancecharacteristics have been determined by [facility]. It has not been cleared or approved by theFDA. This assay has been validated pursuant to the CLIAregulations and is used for clinical purposes.THIS TEST WAS PERFORMED AT:[facility] [place] [address]VIDHPKXTIMOTHY JEFFERSON MD,PHD 08/26/2025 10:5 8 AM EDT 08/26/2025 10:58 AM EDT us Generic External Data Provider LAB BLOOD ORDERAB LES Final Result Performing Organization Address [facility]/ZIP Co de Phone Number [facility] [address] [place] [phone] * Vitamin B1 (08/26/2025 10:58 AM EDT) Vitamin B1 10 8 - 30 nmol/L [facility] Comment:Vitamin supplementat ion within 24 hours prior toblood draw may affect the accuracy of the results.This test was developed and its analytical performancecharacteristics have been determined by [facility] [place], [place]. It hasnot been cleared or approved by the U.S. Food and DrugAdministration. This assay has been validated pursuantto the CLIA regulations and is used for clinicalpurposes.THIS TEST WAS PERFORMED AT:[employer] [id number] [place] [address]JETNYUFTIMOTHY JEFFERSON MD,PHD 08/26/2025 10:5 8 AM EDT 08/26/2025 10:58 AM EDT us Generic External Data Provider LAB BLOOD ORDERAB LES Final Result Performing Organization Address [facility] Co de Phone Number [facility] [address] [place] [phone] * Vitamin B6, Plasma (08/26/2025 10:58 AM EDT) Vitamin B6 12.7 2.1 - 21.7 ng/mL [facility] Comment:Vitamin supplementat ion within 24 hours prior toblood draw may affect the accuracy of the results.This test was developed and its analytical performancecharacteristics have been determined by [facility] [place], [place]. It hasnot been cleared or approved by the U.S. Food and DrugAdministration. This assay has been validated pursuantto the CLIA regulations and is used for clinicalpurposes.THIS TEST WAS PERFORMED AT:[employer] [place] [address]XOTPGSJTIMOTHY JEFFERSON MD,PHD 08/26/2025 10:5 8 AM EDT 08/26/2025 10:58 AM EDT Generic External Data Provider LAB BLOOD ORDERAB LES Final Result Performing Organization Address [facility] Co de Phone Number [facility] [address] [place] [phone] * Homocysteine (08/26/2025 10:58 AM EDT) Homocysteine 9.5 < or = 13.4 umol/L [facility] Comment:Homocysteine is incr eased by functional deficiency offolate or vitamin B12. Testing for methylmalonic aciddifferentiates between these deficiencies. Other causesof increased homocysteine include renal failure, folateantagonists such as methotrexate and phenytoin, andexposure to nitrous oxide.Jennifer Cordoba, et al., [employer]. 1999;131(5):331-9.THIS TEST WAS PERFORMED AT:[facility] [address] [address]BAKENAVA ROSARIO MD 08/26/2025 10:5 8 AM EDT 08/26/2025 10:58 AM EDT Generic External Data Provider LAB BLOOD ORDERAB LES Final Result Performing Organization Address [facility]/ZIP Co de Phone Number [facility] [address] [place] [phone] * Hemoglobin A1c (08/26/2025 10:58 AM EDT) Hemoglobin A1c 5.8 <6.0 % [facility] Comment:Hemoglobin A1C Refer ence Range Adults: 4.8 - 6.0 % Non diabetic: < 6.0 % Goal: < 7.0 %Additional Action Suggested: > 8.0 %Note: Hemoglobin A1c results are invalid for patients with abnormal amounts of HbF. Blood transfusions may impact the HbA1c concentration in the patient sample. Estimated Average Glucose 120 mg/dL [facility] Comment:eAG = Estimated ave rage glucose which is %A1C expressed asaverage glucose, using the formula of the U8H-LvwodtrQqffcvg Glucose study (ADAG), Diabetes Care, Vol.31,#8,Jun. 2007 08/26/2025 10:5 8 AM EDT 08/26/2025 10:58 AM EDT Generic External Data Provider LAB BLOOD ORDERAB LES Final Result Performing Organization Address [facility] Co de Phone Number [facility] [address] [place] [phone] * Ferritin (08/26/2025 10:58 AM EDT) Ferritin 189 10 - 250 ng/mL [facility] 08/26/2025 10:5 8 AM EDT 08/26/2025 10:58 AM EDT Generic External Data Provider LAB BLOOD ORDERAB LES Final Result Performing Organization Address [facility] Co de Phone Number [facility] [address] [place] [phone] * (ABNORMAL) Lipid Panel, Standard (08/26/2025 10:58 AM EDT) Triglycerides 215(H) <150 mg/dL [facility] Comment:Desirable Triglyceri de: less than 150 mg/dLBorderline High Triglyceride 150-199 mg/dLHigh Triglyceride: 200-499 mg/dLVery High Triglyceride: greater than or equal to 5OO mg/dL Cholesterol 226(H) <200 mg/dL [facility] Comment:Desirable Cholestero l: less than 200 mg/dLBorderline High Cholesterol: 200-239 mg/dLHigh Cholesterol: greater than 239 mg/dL LDL Cholesterol Calculated 141(H) <100 mg/dL [facility] Comment:Desirable LDL: less than 100 mg/dLNear Optimal/Above Optimal LDL: 110- 129 mg/dLBorderline High LDL: 130-159 mg/dLHigh LDL: 160-189 mg/dLVery High LDL: greater than or equal to 190 mg/dL HDL Cholesterol 42 >40 mg/dL [facility] Comment:Desirable HDL: great er than 40 mg/dL Note: This HDL assay may give artificially low results in patients with liver disease. Blood Venous blood specimen / Unknown 08/26/2025 10:58 AM EDT 08/26/2025 10:58 AM EDT [facility] FUR FLOOR WORKER LAB BLOOD ORDERABLES Final Re sult [facility] [address] [place] [phone] * (ABNORMAL) Comprehensive Metabolic Panel (08/26/2025 10:58 AM EDT) Sodium 142 135 - 145 mmol/L [facility] Potassium 4.0 3.3 - 5.1 mmol/L [facility] Chloride 108 96 - 108 mmol/L [facility] Carbon Dioxide 26 22 - 29 mmol/L [facility] Anion Gap 12 12 - 20 [facility] Urea Nitrogen (BUN) 16 9 - 16 mg/dL [facility] Creatinine, Serum 0.75 0.5 - 1.4 mg/dL [facility] Estimated Glomerular Filt Rate >60 [facility] Comment:Chronic Kidney Disea se: Estimated GFR < 60 mL/min/1.29p1Bjuvdh Kidney Disease: Estimated GFR < 15 mL/min/1.73m2 Glucose 107 60 - 115 mg/dL [facility] Calcium 9.7 8.4 - 10.2 mg/dL [facility] Bilirubin, Total 0.8 0.0 - 1.0 mg/dL [facility] Aspartate Amino Transferase 47(H) 5 - 31 U/L [facility] Alanine Aminotransferase 68(H) 0 - 31 U/L [facility] Total Protein 8.1(H) 6.5 - 8.0 g/dL [facility] Albumin Level 4.9 3.5 - 5.0 g/dL [facility] Alkaline Phosphatase 98 39 - 117 U/L [facility] Blood Venous blood specimen / Unknown 08/26/2025 10:58 AM EDT 08/26/2025 10:58 AM EDT [facility] LAB BLOOD ORDERABLES Final Re sult [facility] [address] [place] [phone] * POCT Hgb A1c (08/02/2025 10:04 AM EDT) Pathologist [facility] Hemoglobin A1C 5.7 4.0 - 5.7 % Blood 08/02/2025 10:0 4 AM EDT [facility] POINT OF CARE TEST ENTER/EDIT ORDERABLES Final Result * POCT Glucose (08/02/2025 10:04 AM EDT) Pathologist [facility] Glucose Blood, POC 196 60 - 200 mg/dL Blood Capillary blood specimen / Unknown 08/02/2025 10:04 AM EDT [facility] POINT OF CARE TEST ENTER/EDIT ORDERABLES Final Result * HPV mRNA E6/E7 w/Reflex to HPV Genotypes 16, 18/45 (2024 12:30 PM EDT) Pathologist [facility] HPV nRNA E6/E7 Not Detected Not Detected [facility] Comment:Methodology: Transcr iption-Mediated AmplificationThis assay detects E6/E7 viral messenger RNA (mRNA) from 14high-risk HPV types (16,18,31,33,35,39,45,51,52,56,58,59,66,68).Cervical sources are required for HPV testing.If a vaginal source from a patient who has had atotal hysterectomy with removal of cervix wassubmitted, please contact the testing laboratoryfor alternative testing options.For additional information, please refer [email or web address] [employer]/faq/[id number](This link if provided for information/educational purposes only.)THIS TEST WAS PERFORMED AT:[employer] [place] [id number] ROSARIO MD HPV mRNA E6/E7 [facility] HPV 16 RNA [facility] HPV 18/45 RNA [facility] 2024 12:3 0 PM EDT 05/06/2024 11:47 AM EDT [facility] LAB CYTOLOGY ORDERABLES Final Result [facility] [address] [place] [address] [phone] * Pap Smear (2024 12:30 PM EDT) Swab Cervical swab / Unknown 2024 12:30 PM EDT 04/28/2024 9:10 AM EDT Narrative [facility] - 05/11/2024 5:17 PM EDT ----- ------- Name: Radha Nuñez Age/Sex: 49/F : 1975 Unit#: [id number] Attend Dr: Constance Oakes Re04/27/24 Status: DEP REF Location: [facility] Disch: ----- ------- SPEC : [id number] RECD: 04/28/24 STATUS: CHINTAN BUNN NUM: [id number] JUAREZ: 04/27/24-[address]: Constance Oakes [facility] ENTERED: 04/28/24 SP TYPE: Pap Smr OTHR DR: ORDERED: Pap Smear Interpretation Satisfactory for evaluation. Negative for intraepithelial lesion or malignancy. Atrophic. HPV mRNA E6/E7: NOT DETECTED This assay detects E6/E7 viral messenger RNA (mRNA) from 14 high-risk HPV types (16, 18, 31, 33, 35, 39, 45, 51, 52, 56, 58, 59, 66, 68) HPV testing performed by [employer], [place], [place]. See reference laboratory portion of the EMR for entire report. Clinical Information LMP: Postmenopausal Previous PAP test: Unknown date/findings Material Received ThinPrep-Vaginal/Cervical ----- ------- Signed (signature on file) Renea Garland 05/11/24 1717 ----- ------- END OF REPORT [facility] FUR FLOOR WORKER LAB CYTOLOGY ORDERABLES Final Result [facility] [address] [place] [address] [phone] * (ABNORMAL) Colonoscopy (09/09/2023) [facility] Colonoscopy Abnormal(A ) Normal Comment:5years Historical Provider MD HEALTH MAINTENANCE Final Result from Last 3 Months or Most Recently Relevant to Health Maintenance [facility] Address: [facility] [address] [place] [address] [place] ADULT DENTAL - HSN FULL (MEDICAID) Care Teams Shell Fisherman Relationship Specialty Start Date End Date Constance Oakes FNP [address] [place] [phone] PCP - General Family Medicine 07/17/22
--- OUTSIDE RECORDS SUMMARY | 2025-10-18 10:27 | XMS_ITS | Encounter Summary ---
Author Organization [facility] Address [address] [place] [address] Phone Care Team Providers Care Pipe Fittings Molder Name Role Phone Spencer Meyer PAINT ROLLER WINDER Primary Care Provider [phone] Encounter Details Date Type Department Care Team (Late st Contact Info) Description 02/20/2020 Procedure Pass OR Admitting Dept - Virtual Department [address] [place] [phone] Social History Tobacco Use Types Packs/Day Years [...] documented as of this encounter Care Teams Pipe Fittings Molder Relationship Specialty Start Date End Date Spencer Meyer NP [address] [place] [address] PCP - General 09/10/17 documented as of this encounter Additional Source Comments The information contained in this document represents components of the legal health record. It is not the complete legal health record.[facility]
--- OUTSIDE RECORDS SUMMARY | 2025-10-18 10:27 | XMS_ITS | Encounter Summary ---
Author Organization [facility] Address [address] [facility] [address] [place] [phone] Phone Care Team Providers Care Commercial Lending Assistant Name Role Phone Spencer Meyer STRUCTURAL ENGINEER Primary Care Provider [phone] Encounter Details Date Type Department Care Team (Late st Contact Info) Description 01/07/2018 Procedure Pass [facility] [address] [place] [address] Social History Tobacco Use Types Packs/Day Years [...] as of this encounter Care Teams Commercial Lending Assistant Relationship Specialty Start Date End Date Spencer Meyer NP [address] [place] [address] PCP - General 09/10/17 documented as of this encounter Additional Source Comments The information contained in this document represents components of the legal health record. It is not the complete legal health record.[facility]
--- OUTSIDE RECORDS SUMMARY | 2025-10-18 10:27 | XMS_ITS | Encounter Summary ---
Author Organization [employer] Address [address] [facility] [address] [place] [address] Care Team Providers Care Sanitation Director Name Role Phone Constance Oakes [facility] Primary Care Provider [phone] Encounter Details Date Type Department Care Team (Late st Contact Info) Description 03/04/2024 Orders Only [facility] [address] [place] [address] ProviderMeenakshi MD Social History Tobacco Use Types [...] Description 11/22/2025 2:30 PM EST Office Visit [facility] [address] [place], [place] [phone] [facility] [address] [place], [place] [phone] documented as of this encounter Procedures Procedure [...] Free T4 2.78 0.32 - 4.0 uIU/mL [facility] 11/27/2024 11:2 6 AM EST 11/27/2024 12:58 PM EST [facility] LAB BLOOD ORDERABLES Final Re sult Performing Organization Address City/[facility]/ZIP Co de Phone Number [facility] [address] [place] [address] [phone] * Vitamin D, 25-Hydroxy, Total, Immunoassay (11/27/2024 11:26 AM EST) Vitamin D 25-OH Total 40.9 >30 ng/mL [facility] Comment:Health Based Referen ce Values*< 20 ng/mL Wpiughrbi83-65 ng/mL Insufficient> 30 ng/mL Sufficient*Regla BROWN. N [...] 6 AM EST 11/27/2024 12:58 PM EST [facility] LAB BLOOD ORDERABLES Final Re sult Performing Organization Address City/[facility] Co de Phone Number [facility] [address] [place] [address] [phone] * (ABNORMAL) Lipid Panel, Standard (11/27/2024 11:26 AM EST) Triglycerides 300(H) <150 mg/dL [facility] Comment:Desirable Triglyceri de: less than 150 mg/dLBorderline High Triglyceride 150-199 mg/dLHigh Triglyceride: 200-499 mg/dLVery High Triglyceride: greater than or equal to 5OO mg/dL Cholesterol 225(H) <200 mg/dL [facility] Comment:Desirable Cholestero l: less than 200 mg/dLBorderline High Cholesterol: 200-239 mg/dLHigh Cholesterol: greater than 239 mg/dL LDL Cholesterol Calculated 121(H) <100 mg/dL [facility] Comment:Desirable LDL: less than 100 mg/dLNear Optimal/Above Optimal LDL: 110- 129 mg/dLBorderline High LDL: 130-159 mg/dLHigh LDL: 160-189 mg/dLVery High LDL: greater than or equal to 190 mg/dL HDL Cholesterol 44 >40 mg/dL [facility] Comment:Desirable HDL: great er than 40 mg/dL Note: This HDL assay may give artificially low results in patients with liver disease. 11/27/2024 11:2 6 AM EST 11/27/2024 12:58 PM EST [facility] SENIOR CLINICAL CONSULTANT LAB BLOOD ORDERABLES Final Re sult [facility] [address] [place] [phone] * (ABNORMAL) Comprehensive Metabolic Panel (11/27/2024 11:26 AM EST) Sodium 141 135 - 145 mmol/L [facility] Potassium 3.8 3.3 - 5.1 mmol/L [facility] Chloride 110(H) 96 - 108 mmol/L [facility] Carbon Dioxide 26 22 - 29 mmol/L [facility] Anion Gap 9(L) 12 - 20 [facility] Urea Nitrogen (BUN) 16 9 - 16 mg/dL [facility] Creatinine, Serum 0.73 0.5 - 1.4 mg/dL [facility] Estimated Glomerular Filt Rate >60 [facility] Comment:Chronic Kidney Disea se: Estimated GFR < 60 mL/min/1.20b0Bdyung Kidney Disease: Estimated GFR < 15 mL/min/1.73m2 Glucose 104 60 - 115 mg/dL [facility] Calcium 9.3 8.4 - 10.2 mg/dL [facility] Bilirubin, Total 0.4 0.0 - 1.0 mg/dL [facility] Aspartate Amino Transferase 37(H) 5 - 31 U/L [facility] Alanine Aminotransferase 62(H) 0 - 31 U/L [facility] Total Protein 7.6 6.5 - 8.0 g/dL [facility] Albumin Level 4.5 3.5 - 5.0 g/dL [facility] Alkaline Phosphatase 99 39 - 117 U/L [facility] 11/27/2024 11:2 6 AM EST 11/27/2024 12:58 PM EST [facility] LAB BLOOD ORDERABLES Final Re sult [facility] [address] [place] [phone] * Hemoglobin A1c (11/27/2024 11:26 AM EST) Hemoglobin A1c 5.7 <6.0 % [facility] Comment:Hemoglobin A1C Refer ence Range Adults: 4.8 - 6.0 % Non diabetic: < 6.0 % Goal: < 7.0 %Additional Action Suggested: > 8.0 %Note: Hemoglobin A1c results are invalid for patients with abnormal amounts of HbF. Blood transfusions may impact the HbA1c concentration in the patient sample. Estimated Average Glucose 117 mg/dL [facility] Comment:eAG = Estimated ave rage glucose which is %A1C expressed asaverage glucose, using the formula of the G1X-QzaudohJgutqny Glucose study (ADAG), Diabetes Care, Vol.31,#8,Jun. 2007 11/27/2024 11:2 6 AM EST 11/27/2024 12:58 PM EST us Constance Champ SENIOR CLINICAL CONSULTANT LAB BLOOD ORDERABLES Final Re sult [facility] [address], [place] [phone] * (ABNORMAL) CBC auto differential (11/27/2024 11:26 AM EST) White Blood Count 6.4 4.8 - 10.8 X10*3/uL [facility] Red Blood Count 4.68 4.20 - 5.50 X10*6/uL [facility] Hemoglobin 12.9 12.0 - 16.0 g/dl [facility] Hematocrit 39.2 37.0 - 47.0 % [facility] Mean Corpuscular Volume 83.8 80.0 - 98.0 fL [facility] Mean Corpuscular Hemoglobin 27.6 27.0 - 33.0 pg [facility] Mean Corpuscular HGB Conc 32.9 31.0 - 35.0 g/dl [facility] Red Cell Distribution Width 13.4 11.0 - 16.0 % [facility] Platelet Count 250 160 - 400 X10*3/uL [facility] Mean Platelet Volume 10.7 9.4 - 12.3 fL [facility] Neutrophils Percent Auto 41.5(L) 45 - 73 % [facility] Imm Gran Pct Auto 0.5(H) 0.0 - 0.4 % [facility] Lymphocytes Percent Auto 43.2(H) 20 - 40 % [facility] Monocytes Percent Auto 10.5 2 - 11 % [facility] Eosinophils Percent Auto 3.8 0 - 4 % [facility] Basophils Percent Auto 0.5 0 - 2 % [facility] NRBC Pct Auto 0.0 0.0 - 0.2 /100WBC [facility] Neutrophils Absolute Auto 2.6 2.0 - 8.3 x10*3/uL [facility] Imm Gran Abs Auto 0.03 0.00 - 0.03 X10*3/uL [facility] Lymphocytes Absolute Auto 2.8 1.2 - 4.9 X10*3/uL [facility] Monocytes Absolute Auto 0.7 0.1 - 1.2 X10*3/uL [facility] Eosinophils Absolute Auto 0.2 0.0 - 0.4 X10*3/uL [facility] Basophils Absolute Auto 0.0 0.0 - 0.2 X10*3/uL [facility] NRBC Abs Auto 0.000 0.0 - 0.012 X10*3/uL [facility] 11/27/2024 11:2 6 AM EST 11/27/2024 12:58 PM EST [facility] BLOOD ORDERABLES Final Re sult [facility] [address] [place] [phone] [phone] * HPV mRNA E6/E7 w/Reflex to HPV Genotypes 16, 18/45 (2024 12:30 PM EDT) HPV nRNA E6/E7 Not Detected Not Detected [facility] Comment:Methodology: Transcr iption-Mediated AmplificationThis assay detects E6/E7 viral messenger RNA (mRNA) from 14high-risk HPV types (16,18,31,33,35,39,45,51,52,56,58,59,66,68).Cervical sources are required for HPV testing.If a vaginal source from a patient who has had atotal hysterectomy with removal of cervix wassubmitted, please contact the testing laboratoryfor alternative testing options.For additional information, please refer [email or web address]/faq/[email or web address](This link if provided for information/educational purposes only.)THIS TEST WAS PERFORMED AT:[employer] [place] [id number] ROSARIO MD HPV mRNA E6/E7 TNP [facility] HPV 16 RNA TNP [facility] HPV 18/[address] [facility] 2024 12:3 0 PM EDT 05/06/2024 11:47 AM EDT [facility] LAB CYTOLOGY ORDERABLES Final Result [facility] [address] [place] [address] [phone] * Hm Colonoscopy (06/20/2020 7:49 AM EDT) Historical Provider MD HEALTH MAINTENANCE Final Result documented in this encounter Visit Diagnoses Not on filedocumented in this encounter Additional Health Concerns Assessment Noted Time PHQ-9 Depression Total Score: 0 01/15/20 24 4:04 PM EST documented as of this encounter Care Teams Sanitation Director Relationship Specialty Start Date End Date Constance Oakes FNP [address] [place] [phone] PCP - General Family Medicine 07/17/22 documented as of this encounter
--- OUTSIDE RECORDS SUMMARY | 2025-10-18 10:27 | XMS_ITS | Encounter Summary ---
Author Organization [facility] Address [address] [facility] [facility] [address] [place] [address] Phone Care Team Providers Care Paint Line Supervisor Name Role Phone Spencer Meyer BRAND ENGINEER Primary Care Provider Encounter Details Date Type Department Care Team (Latest Contact Info) Description 01/13/2018 Transcribe Orders [facility] Specimen Processing [address] [place] [address] Spencer Meyer, BRAND ENGINEER [address] [place] [address] Hyperlipidemia, unspecified hyperlipidemia type (Primary Dx); Elevated [...] PM EST) WBC 0-4(A) NONE SEEN /hpf [facility] RBC 3-5(A) NONE SEEN /hpf [facility] URINE EPITHELIAL 0-4(A) NONE SEEN [facility] MUCUS Trace(A) NONE SEEN /hpf [facility] BACTERIA 1+(A) NONE SEEN [facility] COLOR Yellow Yellow [facility] CLARITY Clear [facility] GLUCOSE Negative Negative [facility] BILI Negative Negative [facility] KETONES Negative Negative [facility] SPECIFIC GRAVITY 1.020 1.005 - 1.030 [facility] BLOOD 1+(A) Negative [facility] PH 6.0 5.0 - 8.0 [facility] Protein-UA Negative Negative [facility] NITRITE Negative Negative [facility] Leukocyte esterase, ur Negative Negative [facility] Urine (Urine) 01/13/2018 2:1 7 PM EST 01/13/2018 2:24 PM EST us Spencer Meyer BRAND ENGINEER LAB URINE ORDERABLES Final Re sult Performing Organization Address [facility] Co de Phone Number [address] [phone] * Syphilis antibody screen (01/13/2018 2:17 PM EST) RPR NON-REACTIV E NON-REACTI VE [facility] Blood 01/13/2018 2:17 PM EST 01/13/2018 2:23 PM EST us Spencer Meyer BRAND ENGINEER LAB BLOOD BKR ORDERABLES Ce l Result Performing Organization Address [facility] Co de Phone Number [address] [phone] * Microalbumin/creatinine ratio, random urine (01/13/2018 2:17 PM EST) URINE MICROALBUMIN 1.1 0 - 2.3 mg/dL [facility] URINE CREATININE 193 mg/dL [facility] MICROALB/CRE RATIO NOT CALCULATED 0 - 20 mg/g Cre [facility] Comment:due to Microalbumin <1.2 Urine (Urine) 01/13/2018 2:1 7 PM EST 01/13/2018 2:24 PM EST us Spencer Meyer BRAND ENGINEER LAB URINE ORDERABLES Final Re sult Performing Organization Address [facility]/ZIP Co de Phone Number [address] [phone] * (ABNORMAL) Lipid panel (01/13/2018 2:17 PM EST) HDL 54 mg/dL [facility] Comment: Interpretation: Risk Level Females Decreased >55mg/dL Average 50-55 mg/dL Increased <50 mg/dL CHOLESTEROL 214 0 - 240 mg/dL [facility] TRIGLYCERIDES 182(H) 30 - 160 mg/dL [facility] LDL 124 50 - 129 mg/dL [facility] Comment: LDL levels in terms of risk for coronary heart disease: <100 mg/dL: Optimal 100-129 mg/dL: Near or above optimal 130-159 mg/dL: Borderline high 160-189 mg/dL: High >190 mg/dL: Very High CARDIAC RISK RATIO 4.0 3.3 - 4.4 C [facility] Blood 01/13/2018 2:17 PM EST 01/13/2018 2:23 PM EST us Spencer Meyer BRAND ENGINEER LAB BLOOD BKR ORDERABLES Ce l Result Performing Organization Address [facility] Co de Phone Number [address] [phone] * HIV-1/2 antigen/antibody (01/13/2018 2:17 PM EST) HIV Antibod(ies) NON-REACTI VE NON-REACTI VE [facility] HIV-1 ANTIGEN NON-REACTI VE NON-REACTI VE [facility] Blood 01/13/2018 2:17 PM EST 01/13/2018 2:23 PM EST us Spencer Meyer BRAND ENGINEER LAB BLOOD BKR ORDERABLES Ce l Result [address] [address] * Hepatitis C antibody, qualitative (01/13/2018 2:17 PM EST) HCV Negative Negative [facility] Comment: This is a screening test and should be confirmed with molecular testing Blood 01/13/2018 2:17 PM EST 01/13/2018 2:23 PM EST us Spencer S Lauter BRAND ENGINEER LAB BLOOD BKR ORDERABLES Ce l Result [address] [address] * Hepatitis B surface antigen (01/13/2018 2:17 PM EST) HBV SURFACE ANTIGEN Negative Negative [facility] Blood 01/13/2018 2:17 PM EST 01/13/2018 2:23 PM EST us Spencer S Lauter BRAND ENGINEER LAB BLOOD BKR ORDERABLES Ce l Result [address] [address] * Hepatitis B core antibody, total (01/13/2018 2:17 PM EST) HEP B CORE AB, TOT Negative Negative [facility] Blood 01/13/2018 2:17 PM EST 01/13/2018 2:23 PM EST us Spencer S Lauter BRAND ENGINEER LAB BLOOD BKR ORDERABLES Ce l Result [address] [address] * Hemoglobin A1c (01/13/2018 2:17 PM EST) HEMOGLOBIN A1C 5.1 4.3 - 5.8 % [facility] Blood 01/13/2018 2:17 PM EST 01/13/2018 2:23 PM EST us Spencer Meyer BRAND ENGINEER LAB BLOOD BKR ORDERABLES Ce l Result [address] [address] * Comprehensive metabolic panel (01/13/2018 2:17 PM EST) SODIUM 141 133 - 146 mmol/L [facility] POTASSIUM 3.5 3.3 - 5.1 mmol/L [facility] CHLORIDE 105 96 - 108 mmol/L [facility] CO2 23 21 - 35 mmol/L [facility] BUN 17 6 - 19 mg/dL [facility] CREATININE 0.60 0.5 - 1.5 mg/dL [facility] GLUCOSE 84 70 - 99 mg/dL [facility] ALBUMIN 4.3 3.9 - 4.8 g/dL [facility] TOTAL PROTEIN 7.5 6.5 - 8.0 g/dL [facility] CALCIUM 8.8 8.4 - 10.3 mg/dL [facility] ALKALINE PHOSPHATASE 81 39 - 117 U/L [facility] TOTAL BILIRUBIN 0.6 0 - 1.2 mg/dL [facility] AST 17 0 - 37 U/L [facility] ALT 21 0 - 40 U/L [facility] GLOBULIN 3.2 1 - 4.8 g/dL [facility] EGFR >60 >60 mL/min/1.7 3m2 [facility] Comment:Abnormal if <60. If patient is -[place], multiply the result by 1.21. ANION GAP 17 10 - 20 mmol/L [facility] Blood 01/13/2018 2:17 PM EST 01/13/2018 2:23 PM EST us Spencer Meyer BRAND ENGINEER LAB BLOOD BKR ORDERABLES Ce l Result [address] [address] * CBC and differential (01/13/2018 2:17 PM EST) WBC 7.06 3.40 - 11.20 K/uL [facility] RBC 4.35 3.80 - 4.80 M/uL [facility] HGB 12.6 12.0 - 15.0 g/dL [facility] HCT 37.1 36.0 - 46.0 % [facility] PLT 232 130 - 400 K/uL [facility] MCV 85.3 79.0 - 98.0 fL [facility] MCH 29.0 27.0 - 34.8 pg [facility] MCHC 34.0 31.5 - 36.0 g/dL [facility] RDW 13.2 10.8 - 14.6 % [facility] MPV 10.8 9.4 - 12.4 fl [facility] NRBC 0.00 /100 WBCs [facility] ABSOLUTE NRBC 0.00 K/uL [facility] DIFF METHOD Auto [facility] NEUTS 56.9 45.30 - 77.70 % [facility] LYMPHS 31.4 12.30 - 39.70 % [facility] MONOS 7.8 4.10 - 12.80 % [facility] EOS 2.8 0 - 7.2 % [facility] BASOS 0.4 0 - 2.80 % [facility] Granulocytes, immature (%) 0.7 0.0 - 0.9 % [facility] ABSOLUTE NEUTS 4.01 1.40 - 7.70 K/uL [facility] ABSOLUTE LYMPHS 2.22 0.60 - 3.20 K/uL [facility] ABSOLUTE MONOS 0.55 0.11 - 0.59 K/uL [facility] ABSOLUTE EOS 0.20 0.01 - 0.50 K/uL [facility] ABSOLUTE BASOS 0.03 0.00 - 0.08 K/uL [facility] Granulocytes, immature 0.05 0.00 - 0.05 K/uL [facility] Blood 01/13/2018 2:17 PM EST 01/13/2018 2:23 PM EST us Spencer Meyer BRAND ENGINEER LAB BLOOD BKR ORDERABLES Ce l Result [address] [address] * TSH (01/13/2018 2:17 PM EST) TSH 2.91 0.27 - 4.20 uIU/mL [facility] Blood 01/13/2018 2:17 PM EST 01/13/2018 2:23 PM EST us Spencer S Larauter BRAND ENGINEER LAB BLOOD BKR ORDERABLES Ce l Result Performing Organization Address City/[facility]/ZIP Co de Phone Number [address] [address] * Folate (01/13/2018 2:17 PM EST) FOLIC ACID 15.8 4.2 - 19.9 ng/mL [facility] Blood 01/13/2018 2:17 PM EST 01/13/2018 2:23 PM EST us Spencer S Larauter BRAND ENGINEER LAB BLOOD BKR ORDERABLES Ce l Result Performing Organization Address [facility]/ZIP Co de Phone Number [address] [address] * Vitamin B12 (01/13/2018 2:17 PM EST) VITAMIN B12 407 243 - 894 pg/mL [facility] Blood 01/13/2018 2:17 PM EST 01/13/2018 2:23 PM EST us Spencer S Lauter BRAND ENGINEER LAB BLOOD BKR ORDERABLES Ce l Result Performing Organization Address City/[facility]/ZIP Co de Phone Number [address] [phone] * (ABNORMAL) 25-OH vitamin D (01/13/2018 2:17 PM EST) 25 OH VIT D (TOTAL) 14(L) 30 - 1,000 ng/mL [facility] Blood 01/13/2018 2:17 PM EST 01/13/2018 2:23 PM EST us Spencer Meyer NP LAB BLOOD BKR ORDERABLES Ce l Result [facility] [address] [place] [address] documented in this encounter Visit Diagnoses Diagnosis [...] documented as of this encounter Care Teams Paint Line Supervisor Relationship Specialty Start Date End Date Spencer Meyer NP [address] [place] [phone] PCP - General 09/10/17 documented as of this encounter Additional Source Comments The information contained in this document represents components of the legal health record. It is not the complete legal health record.[facility]
--- OUTSIDE RECORDS SUMMARY | 2025-10-18 10:27 | XMS_ITS | Encounter Summary ---
Author Organization [facility] Address [address] [facility] [address] [place] [address] Phone Care Team Providers Care Administrative Volunteer Name Role Phone Spencer Meyer AIR HOIST OPERATOR Primary Care Provider [phone] Reason for Referral * Physical Therapy (Routine) - Closed Specialty Diagnoses / Procedures Referred By Noemi clark Referred To Contact Physical Therapy Diagnoses Encounter for rehabilitation System, Provider Not In, PhD [facility] [id number] [place] [address] [address] [place] [address] Phone: tel: Referral ID Status Reason Start Date Expiration Date Visits Re quested Visits Authorized [id number] Closed 02/24/2018 11/24/2018 9 9 Encounter Details Date Type Department Care Team (Latest Contact Info) Description 12/31/2017 Transcribe Orders [facility] [address] [place] [address] Spencer Meyer, AIR HOIST OPERATOR [address] [place], [place] [phone] Encounter for rehabilitation (Primary Dx) Social History [...] Date/Time Associated Diagnosis Comments AMB REFERRAL TO [facility] PHYSICAL THERAPY Routine 02/24/2018 5:09 PM EDT Encounter for rehabilitation documented in this encounter Results * Ambulatory referral to [facility] Physical Therapy (02/24/2018 5:09 PM EDT) us Provider Not In System PhD AMB [facility] REFERRALS Fin al Result documented in this encounter Visit Diagnoses Diagnosis Encounter for rehabilitation- Primary documented in this encounter Additional Health Concerns Infection Onset Date Last Indicated Resolved Time CoV-Risk 11/27/2023 11/27/2023 12/08/2023 1:23 AM EST Influenza A 11/27/2023 11/27/2023 12/04/2023 1:24 AM EST documented as of this encounter Care Teams Administrative Volunteer Relationship Specialty Start Date End Date Spencer Meyer NP [address] [place] [address] PCP - General 09/10/17 documented as of this encounter Additional Source Comments The information contained in this document represents components of the legal health record. It is not the complete legal health record.[facility]
--- OUTSIDE RECORDS SUMMARY | 2025-10-18 10:27 | XMS_ITS | Encounter Summary ---
Author Organization [employer] Address [address] [facility] 7t [place] [address] Care Team Providers Care Magazine Feeder Name Role Phone Constance Oakes CLERK TO JUSTICE Primary Care Provider [phone] Encounter Details Date Type Department Care Team (Late st Contact Info) Description 10/11/2023 Abstract [facility] [address] [place], [place] [phone] Angela Dick Social History Tobacco Use Types [...] Description 11/22/2025 2:30 PM EST Office Visit [facility] [address] [place] [address] Constance Oakes FNP [address] [place] [address] documented as of this encounter Visit Diagnoses Not on filedocumented in this encounter Additional Health Concerns Assessment Noted Time PHQ-9 Depression Total Score: 0 01/10/20 23 9:23 AM EST documented as of this encounter Care Teams Magazine Feeder Relationship Specialty Start Date End Date Constance Oakes FNP [address] [place] [address] PCP - General Family Medicine 07/17/22 documented as of this encounter
--- OUTSIDE RECORDS SUMMARY | 2025-10-18 10:27 | XMS_ITS | Encounter Summary ---
Author Organization [facility] Address [address] [facility] [address] [place] [address] Phone Care Team Providers Care Clay Carman Name Role Phone Spencer Meyer DRAFTING CLERK Primary Care Provider [phone] Encounter Details Date Type Department Care Team (Late st Contact Info) Description 06/10/2020 Procedure Pass [facility], Ct Scan - [facility] [address] [place] [address] Social History Tobacco Use Types Packs/Day Years [...] documented as of this encounter Care Teams Clay Carman Relationship Specialty Start Date End Date Spencer Meyer NP [address] [place] [address] PCP - General 09/10/17 documented as of this encounter Additional Source Comments The information contained in this document represents components of the legal health record. It is not the complete legal health record.[facility]
--- OUTSIDE RECORDS SUMMARY | 2025-10-18 10:27 | XMS_ITS | Encounter Summary ---
Author Organization [facility] Address [address] [facility] [address] [place] [address] Phone Care Team Providers Care Culturist Name Role Phone Spencer Meyer ENCHILADA MAKER Primary Care Provider [phone] Encounter Details Date Type Department Care Team (Late st Contact Info) Description 09/01/2021 Procedure Pass [facility], Ct Scan - [facility] [address] [place] [address] Social History Tobacco Use Types Packs/Day Years [...] 7:14 PM EDT Tiffany Wharton RN * [place] Suicide Severity Rating Scale (Screener/Recent Self-Report) Question [...] documented as of this encounter Care Teams Culturist Relationship Specialty Start Date End Date Spencer Meyer NP [address] [place] [address] PCP - General 09/10/17 documented as of this encounter Additional Source Comments The information contained in this document represents components of the legal health record. It is not the complete legal health record.[facility]
--- OUTSIDE RECORDS SUMMARY | 2025-10-18 10:27 | XMS_ITS | Encounter Summary ---
Author Organization [facility] Address [address] [facility] [address] [place] [address] Phone Care Team Providers Care Electroencephalograph Technologist Name Role Phone Spencer Meyer CT TECH Primary Care Provider [phone] Encounter Details Date Type Department Care Team (Late st Contact Info) Description 01/07/2018 Ancillary Orders Virtual Department 30 [place] [address] Mary Shrestha NP [address] [place] [address] [phone] [email or web address] Left knee pain, unspecified chronicity Social History [...] documented as of this encounter Care Teams Electroencephalograph Technologist Relationship Specialty Start Date End Date Spencer Meyer NP [address] [place] [address] PCP - General 09/10/17 documented as of this encounter Additional Source Comments The information contained in this document represents components of the legal health record. It is not the complete legal health record.[facility]
--- OUTSIDE RECORDS SUMMARY | 2025-10-18 10:27 | XMS_ITS | Encounter Summary ---
Author Organization [facility] Address [address] [facility] [address] [place] [address] Phone Care Team Providers Care Bd Special Education Teacher Name Role Phone Spencer Meyer REMOTE SENSING TECHNOLOGIST Primary Care Provider [phone] Encounter Details Date Type Department Care Team (Late st Contact Info) Description 01/20/2018 Ancillary Orders [facility],Outside Imaging 30 [place] [address] System, Provider Not In, PhD [address] [address] Social History Tobacco Use Types Packs/Day Years [...] documented as of this encounter Care Teams Bd Special Education Teacher Relationship Specialty Start Date End Date Spencer Meyer NP 230 [place] [address] PCP - General 09/10/17 documented as of this encounter Additional Source Comments The information contained in this document represents components of the legal health record. It is not the complete legal health record.[facility]
--- OUTSIDE RECORDS SUMMARY | 2025-10-18 10:28 | XMS_ITS | Encounter Summary ---
Author Organization [facility] Address [address] [facility] [address] [place] [address] Phone Care Team Providers Care Film Touch Up Inspector Name Role Phone Spencer Meyer [employer] Primary Care Provider [phone] Encounter Details Date Type Department Care Team (Late st Contact Info) Description 01/20/2018 Procedure Pass [facility],Outside Imaging [address] [place] [address] Social History Tobacco Use Types Packs/Day Years [...] documented as of this encounter Care Teams Film Touch Up Inspector Relationship Specialty Start Date End Date Spencer Meyer NP [address] [place] [address] PCP - General 09/10/17 documented as of this encounter Additional Source Comments The information contained in this document represents components of the legal health record. It is not the complete legal health record.[facility]
== END 2025-10-18 10:29 | disposition home or self-care (01) ==
LOC: HO.HOS 09:20
PROVIDERS: PCP Registered Nurse; Visit Provider Physician Assistant
DX: M17.0 Bilateral primary osteoarthritis of knee (principal)
CPT/HCPCS: 20610

== ENCOUNTER → 2025-10-18 09:19 | Outpatient (BNVA) | payer OTHER, SELFPAY | PROVIDERS: PCP Registered Nurse; Visit Provider Physician Assistant | DX: M17.0 Bilateral primary osteoarthritis of knee (principal) | CPT/HCPCS: 20610; J7323 ==

== ENCOUNTER → 2025-11-03 20:30 | Outpatient (REF) | payer OTHER, SELFPAY ==
--- OUTSIDE RECORDS SUMMARY | 2014-06-08 23:00 | XMS_ITS | Encounter Summary ---
Author Organization [facility] Address [address] [employer] [facility] [address] [place] [phone] Phone Care Team Providers Care Roller Inspector Name Role Phone Unavailable Primary Care Provider Unavailabl e Encounter Details Date Type Department Care Team (Late st Contact Info) Description 06/09/2014 Hospital Encounter [facility],Outside Imaging [address] [place] [address] System, Provider Not In, [facility] [address] [address] Unknown, Unknown, Social History Tobacco Use Types Packs/Day Years Used Date Smoking Tobacco: Never Smokeless Tobacco: Never Alcohol Use Standard Drinks/Week Comments No 0 (1 standard drink = 0.6 oz pur e alcohol) Education Answer Date Recorded Are you interested in more education? Not on eamon e 03/22/2023 Are you concerned about learning? Not on file 03/22/2023 No 03/22/2023 No 03/22/2023 Digital Access Answer Date Recorded No 04/19/2023 No 04/19/2023 Reliable internet access at home? Not on file 04/19/2023 Device with a working camera? Not on file Intimate Partner Violence Answer Date R ecorded Are you denied basic needs s uch as food, clothing, or medical care? No 11/27/2023 In the past 12 months have y ou been in a relationship with a person who hurts, threatens, or tries to control you? No 11/27/2023 Are you denied basic needs s uch as food, clothing, or medical care? No 11/27/2023 In the past 12 months have y ou been in a relationship with a person who hurts, threatens, or tries to control you? No 11/27/2023 Comments No Sex and Gender Information Value Date Recorded Sex Assigned at Female 12/02/2017 9:38 AM EST Legal Sex Female 9:30 PM EDT Gender Identity Female 12/02/2017 9:38 AM EST Sexual Orientation Straight 12/02/2017 9: 38 AM EST documented as of this encounter Functional Status * Calculated C-SSRS Risk Score (Lifetime/Recent) Answer Date of Assessment Author No Risk Indicated 11/26/2023 9:29 PM EST Rodo Almodovar RN * [place] Suicide Severity Rating Scale (Screener/Recent Self-Report) Question Answer Date of Assessment Author 1. Wish to be (Past 1 Month) No 024 9:29 PM Rodo Engle RN 2. Non-Specific Active Suici suresh Thoughts (Past 1 Month) No 11/26/2023 9:29 PM EST Alessandro Almodovar RN 6. Suicidal Behavior (Lifetime) No 9:29 PM EST Rodo Almodovar RN documented as of this encounter Plan of Treatment Not on file documented as of this encounter Procedures Procedure Name Priority Date/Time Associated Diagnosis Comments MRI LOWER EXTREMITY OUTSIDE (NO INTERPRETATION) Routine 06/09/2014 12:00 AM EDT documented in this encounter Results * MRI Lower Extremity Outside (No Interpretation) (06/09/2014 12:00 AM EDT) Narrative SYSTEMGENERATED, DOCUMENTATION - 01/20/2018 10:31 AM EST This study is for PACS storage only and not for interpretation. us Provider Not In System PhD IMG OUTSIDE IMAGING W /OUT INTERPRETATION Final Result documented in this encounter Visit Diagnoses Not on filedocumented in this encounter Additional Health Concerns Infection Onset Date Last Indicated Resolved Time CoV-Risk 11/27/2023 11/27/2023 12/08/2023 1:23 AM EST Influenza A 11/27/2023 11/27/2023 12/04/2023 1:24 AM EST documented as of this encounter Additional Source Comments The information contained in this document represents components of the legal health record. It is not the complete legal health record.[facility]
--- OUTSIDE RECORDS SUMMARY | 2025-11-04 01:05 | XMS_ITS | Encounter Summary ---
Author Organization [facility] Address [address] [place] [address] Phone Care Team Providers Care Biology Lecturer Name Role Phone Spencer Meyer OIL AND GAS DRAFTER Primary Care Provider [phone] Encounter Details Date Type Department Care Team (Late st Contact Info) Description 09/01/2021 Procedure Pass [facility], Ct Scan - [facility] 30 [place] [address] Social History Tobacco Use Types Packs/Day Years [...] 7:14 PM EDT Tiffany Wharton RN * [place] Suicide Severity Rating Scale (Screener/Recent Self-Report) Question Answer Date of Assessment Author 1. Wish to be (Past 1 Month) No 09/01/2021 7:14 PM EDT Gabriela Donaldson RN 2. Non-Specific Active Suicidal Thoughts (Past 1 Month) No 09/01/2021 7:14 PM EDT Tiffany Donaldson RN 6. Suicidal Behavior (Lifetime) No 09/01/2021 7:14 PM EDT Tiffany Donaldson RN documented as of this encounter Plan of Treatment Not on file documented as of this encounter Visit Diagnoses Not on filedocumented in this encounter Additional Health Concerns Infection Onset Date Last Indicated Resolved Time CoV-Risk 11/27/2023 11/27/2023 12/08/2023 1:23 AM EST Influenza A 11/27/2023 11/27/2023 12/04/2023 1:24 AM EST documented as of this encounter Care Teams Biology Lecturer Relationship Specialty Start Date End Date Spencre Meyer NP [address] [place] [address] PCP - General 09/10/17 documented as of this encounter Additional Source Comments The information contained in this document represents components of the legal health record. It is not the complete legal health record.[facility]
--- OUTSIDE RECORDS SUMMARY | 2025-11-04 01:05 | XMS_ITS | Encounter Summary ---
Author Organization [employer] Address [address] [facility] [address] [place] [address] Care Team Providers Care Repair Service Clerk Name Role Phone Constance Oakes [facility] Primary Care Provider [phone] Encounter Details Date Type Department Care Team (Late st Contact Info) Description 03/04/2024 Orders Only [facility] MEDICINE [address] [place] [address] ProviderMeenakshi MD Social History Tobacco Use Types [...] Description 11/22/2025 2:30 PM EST Office Visit [facility] [address] [place], [place] [phone] [facility] 230 [place], [place] [phone] documented as of this encounter Procedures Procedure [...] 2.78 0.32 - 4.0 uIU/mL [facility] 11/27/2024 11:2 6 AM EST 11/27/2024 12:58 PM EST [facility] LAB BLOOD ORDERABLES Final Re sult Performing Organization Address City/[facility]/ZIP Co de Phone Number [facility] [address] [place] [address] [phone] * Vitamin D, 25-Hydroxy, Total, Immunoassay (11/27/2024 11:26 AM EST) Vitamin D 25-OH Total 40.9 >30 ng/mL [facility] Comment:Health Based Referen ce Values*< 20 ng/mL Quwwvooqa05-23 ng/mL Insufficient> 30 ng/mL Sufficient*Regla BROWN. N [...] 6 AM EST 11/27/2024 12:58 PM EST [facility] LAB BLOOD ORDERABLES Final Re sult Performing Organization Address City/[facility] Co de Phone Number [facility] [address] [place] [address] [phone] * (ABNORMAL) Lipid Panel, Standard (11/27/2024 11:26 AM EST) Triglycerides 300(H) <150 mg/dL [facility] Comment:Desirable Triglyceri de: less than 150 mg/dLBorderline High Triglyceride 150-199 mg/dLHigh Triglyceride: 200-499 mg/dLVery High Triglyceride: greater than or equal to 5OO mg/dL Cholesterol 225(H) <200 mg/dL [facility] Comment:Desirable Cholestero l: less than 200 mg/dLBorderline High Cholesterol: 200-239 mg/dLHigh Cholesterol: greater than 239 mg/dL LDL Cholesterol Calculated 121(H) <100 mg/dL [facility] Comment:Desirable LDL: less than 100 mg/dLNear Optimal/Above Optimal LDL: 110- 129 mg/dLBorderline High LDL: 130-159 mg/dLHigh LDL: 160-189 mg/dLVery High LDL: greater than or equal to 190 mg/dL HDL Cholesterol 44 >40 mg/dL [facility] Comment:Desirable HDL: great er than 40 mg/dL Note: This HDL assay may give artificially low results in patients with liver disease. 11/27/2024 11:2 6 AM EST 11/27/2024 12:58 PM EST [facility] SCREW MACHINE SETTER LAB BLOOD ORDERABLES Final Re sult [facility] [address] [place] [phone] * (ABNORMAL) Comprehensive Metabolic Panel (11/27/2024 11:26 AM EST) Sodium 141 135 - 145 mmol/L [facility] Potassium 3.8 3.3 - 5.1 mmol/L [facility] Chloride 110(H) 96 - 108 mmol/L [facility] Carbon Dioxide 26 22 - 29 mmol/L [facility] Anion Gap 9(L) 12 - 20 [facility] Urea Nitrogen (BUN) 16 9 - 16 mg/dL [facility] Creatinine, Serum 0.73 0.5 - 1.4 mg/dL [facility] Estimated Glomerular Filt Rate >60 [facility] Comment:Chronic Kidney Disea se: Estimated GFR < 60 mL/min/1.56j5Ytbfre Kidney Disease: Estimated GFR < 15 mL/min/1.73m2 Glucose 104 60 - 115 mg/dL [facility] Calcium 9.3 8.4 - 10.2 mg/dL [facility] Bilirubin, Total 0.4 0.0 - 1.0 mg/dL [facility] Aspartate Amino Transferase 37(H) 5 - 31 U/L [facility] Alanine Aminotransferase 62(H) 0 - 31 U/L [facility] Total Protein 7.6 6.5 - 8.0 g/dL [facility] Albumin Level 4.5 3.5 - 5.0 g/dL [facility] Alkaline Phosphatase 99 39 - 117 U/L [facility] 11/27/2024 11:2 6 AM EST 11/27/2024 12:58 PM EST [facility] LAB BLOOD ORDERABLES Final Re sult [facility] [address] [place] [phone] * Hemoglobin A1c (11/27/2024 11:26 AM EST) Hemoglobin A1c 5.7 <6.0 % [facility] Comment:Hemoglobin A1C Refer ence Range Adults: 4.8 - 6.0 % Non diabetic: < 6.0 % Goal: < 7.0 %Additional Action Suggested: > 8.0 %Note: Hemoglobin A1c results are invalid for patients with abnormal amounts of HbF. Blood transfusions may impact the HbA1c concentration in the patient sample. Estimated Average Glucose 117 mg/dL [facility] Comment:eAG = Estimated ave rage glucose which is %A1C expressed asaverage glucose, using the formula of the Q2E-GalokyaEekbmrk Glucose study (ADAG), Diabetes Care, Vol.31,#8,Jun. 2007 11/27/2024 11:2 6 AM EST 11/27/2024 12:58 PM EST us Constance Champ SCREW MACHINE SETTER LAB BLOOD ORDERABLES Final Re sult [facility] [address] [place], [place] [phone] * (ABNORMAL) CBC auto differential (11/27/2024 11:26 AM EST) White Blood Count 6.4 4.8 - 10.8 X10*3/uL [facility] Red Blood Count 4.68 4.20 - 5.50 X10*6/uL [facility] Hemoglobin 12.9 12.0 - 16.0 g/dl [facility] Hematocrit 39.2 37.0 - 47.0 % [facility] Mean Corpuscular Volume 83.8 80.0 - 98.0 fL [facility] Mean Corpuscular Hemoglobin 27.6 27.0 - 33.0 pg [facility] Mean Corpuscular HGB Conc 32.9 31.0 - 35.0 g/dl [facility] Red Cell Distribution Width 13.4 11.0 - 16.0 % [facility] Platelet Count 250 160 - 400 X10*3/uL [facility] Mean Platelet Volume 10.7 9.4 - 12.3 fL [facility] Neutrophils Percent Auto 41.5(L) 45 - 73 % [facility] Imm Gran Pct Auto 0.5(H) 0.0 - 0.4 % [facility] Lymphocytes Percent Auto 43.2(H) 20 - 40 % [facility] Monocytes Percent Auto 10.5 2 - 11 % [facility] Eosinophils Percent Auto 3.8 0 - 4 % [facility] Basophils Percent Auto 0.5 0 - 2 % [facility] NRBC Pct Auto 0.0 0.0 - 0.2 /100WBC [facility] Neutrophils Absolute Auto 2.6 2.0 - 8.3 x10*3/uL [facility] Imm Gran Abs Auto 0.03 0.00 - 0.03 X10*3/uL [facility] Lymphocytes Absolute Auto 2.8 1.2 - 4.9 X10*3/uL [facility] Monocytes Absolute Auto 0.7 0.1 - 1.2 X10*3/uL [facility] Eosinophils Absolute Auto 0.2 0.0 - 0.4 X10*3/uL [facility] Basophils Absolute Auto 0.0 0.0 - 0.2 X10*3/uL [facility] NRBC Abs Auto 0.000 0.0 - 0.012 X10*3/uL [facility] 11/27/2024 11:2 6 AM EST 11/27/2024 12:58 PM EST [facility] LAB BLOOD ORDERABLES Final Re sult [facility] [address] [place] [address] [phone] * HPV mRNA E6/E7 w/Reflex to HPV Genotypes 16, 18/45 (2024 12:30 PM EDT) HPV nRNA E6/E7 Not Detected Not Detected [facility] Comment:Methodology: Transcr iption-Mediated AmplificationThis assay detects E6/E7 viral messenger RNA (mRNA) from 14high-risk HPV types (16,18,31,33,35,39,45,51,52,56,58,59,66,68).Cervical sources are required for HPV testing.If a vaginal source from a patient who has had atotal hysterectomy with removal of cervix wassubmitted, please contact the testing laboratoryfor alternative testing options.For additional information, please refer [email or web address](This link if provided for information/educational purposes only.)THIS TEST WAS PERFORMED AT:[facility] [place] [id number] ROSARIO MD HPV mRNA E6/E7 TNP [facility] HPV 16 RNA TNP [facility] HPV 18/45 RNA [facility] 2024 12:3 0 PM EDT 05/06/2024 11:47 AM EDT [facility] LAB CYTOLOGY ORDERABLES Final Result [facility] [address] [place] [address] [phone] * Hm Colonoscopy (06/20/2020 7:49 AM EDT) Historical Provider MD HEALTH MAINTENANCE Final Result documented in this encounter Visit Diagnoses Not on filedocumented in this encounter Additional Health Concerns Assessment Noted Time PHQ-9 Depression Total Score: 0 01/15/20 24 4:04 PM EST documented as of this encounter Care Teams Repair Service Clerk Relationship Specialty Start Date End Date Constance Oakes FNP [address] [place] [phone] PCP - General Family Medicine 07/17/22 documented as of this encounter
--- OUTSIDE RECORDS SUMMARY | 2025-11-04 01:05 | XMS_ITS | Encounter Summary ---
Author Organization [facility] Address [address] [facility] [address] [place] [address] Phone Care Team Providers Care Opticianry Teacher Name Role Phone Spencer Meyer MANAGER STYLE Primary Care Provider [phone] Encounter Details Date Type Department Care Team (Late st Contact Info) Description 06/10/2020 Procedure Pass [facility], Ct Scan - [facility] [address] [place] [address] Social History Tobacco Use Types Packs/Day Years [...] documented as of this encounter Care Teams Opticianry Teacher Relationship Specialty Start Date End Date Spencer Meyer NP [address] [place] [address] PCP - General 09/10/17 documented as of this encounter Additional Source Comments The information contained in this document represents components of the legal health record. It is not the complete legal health record.[facility]
--- OUTSIDE RECORDS SUMMARY | 2025-11-04 01:05 | XMS_ITS | Encounter Summary ---
Author Organization [employer] Address [address] [facility] 7t [place] [address] Care Team Providers Care Blood Bank Custodian Name Role Phone Constance Oakes INTEGRATIVE MEDICINE PHYSICIAN Primary Care Provider [phone] Encounter Details Date Type Department Care Team (Late st Contact Info) Description 10/11/2023 Abstract [facility] [address] [place], [place] [phone] Angela Dick Social History Tobacco Use Types [...] Description 11/22/2025 2:30 PM EST Office Visit [facility] [address] [place] [address] Constance Oakes FNP [address] [place] [address] documented as of this encounter Visit Diagnoses Not on filedocumented in this encounter Additional Health Concerns Assessment Noted Time PHQ-9 Depression Total Score: 0 01/10/20 23 9:23 AM EST documented as of this encounter Care Teams Blood Bank Custodian Relationship Specialty Start Date End Date Constance Oakes FNP [address] [place] [address] PCP - General Family Medicine 07/17/22 documented as of this encounter
--- OUTSIDE RECORDS SUMMARY | 2025-11-04 01:05 | XMS_ITS | Clinical Summary ---
Author Organization [facility] Address [address] [facility] [address] [place] [address] Phone Care Team Providers Care Shift Boss Name Role Phone Spencer Meyer APPLICATIONS ADMINISTRATOR Primary Care Provider [phone] Allergies No known active allergies Medications MELATONIN [...] (01/13/2018 2:17 PM EST) HCV Negative Negative [facility] Comment: This is a screening test and should be confirmed with molecular testing Blood 01/13/2018 2:17 PM EST 01/13/2018 2:23 PM EST us Spencer Meyer NP LAB BLOOD BKR ORDERABLES Ce l Result [address] [address] * (ABNORMAL) Lipid panel (01/13/2018 2:17 PM EST) HDL 54 mg/dL [facility] Comment: Interpretation: Risk Level Females Decreased >55mg/dL Average 50-55 mg/dL Increased <50 mg/dL CHOLESTEROL 214 0 - 240 mg/dL [facility] TRIGLYCERIDES 182(H) 30 - 160 mg/dL [facility] LDL 124 50 - 129 mg/dL [facility] Comment: LDL levels in terms of risk for coronary heart disease: <100 mg/dL: Optimal 100-129 mg/dL: Near or above optimal 130-159 mg/dL: Borderline high 160-189 mg/dL: High >190 mg/dL: Very High CARDIAC RISK RATIO 4.0 3.3 - 4.4 C [facility] Blood 01/13/2018 2:17 PM EST 01/13/2018 2:23 PM EST us Spencer Meyer NP LAB BLOOD BKR ORDERABLES Ce l Result [address] [address] * PAP SMEAR FOR RESULT ENTRY ONLY (01/23/2014) Pap smear neg per [facility] us Historical Provider HEALTH MAINTENANCE Final Result from Last 3 Months or Most Recently Relevant to Health Maintenance Insurance [email or web address] WELLSENSE NON NSPG PCP SILVER [employer] CONNECTORCARE AdmitSee [facility] [place] [address] WELLSENSE NON NSPG PCP S[employer]VER [employer]ITY CONNECTORC[employer] AdmitSee SAFETY [place] [address] [facility] SAFETY NET FULL [facility] LIMITED [place] NON NSPG PCP SILVER CLARITY CONNECTORCARE [facility] SAFETY NET FULL [facility] WELLSENSE NON NSPG PCP S[facility] CLARITY CONNECTORCARE [facility] SAFETY NET FULL [facility] NON NSP PCP S[employer] CONNECTORCARE AdmitSee SAFETY NET FULL [facility] WELLSENSE NON NSPG PCP [employer] Member Subscriber Plan / Payer (Ef fective 2023-Present) Name:Radha Garcia Relation to Subscriber:Self Name:Radha Garcia Payer ID:[id number] Type:O Address: [address] FULL [facility] WELLSENSE NON NSPG PCP S[facility] [employer] [facility]ALTH SAFETY NET [place] [address] [facility] NON NSP PCP S[employer]CTORC[employer] [address] SAFETY NET FULL Care Teams Shift Boss Relationship Specialty Start Date End Date Spencer Meyer NP [address] [place] [address] PCP - General 09/10/17 Additional Source Comments The information contained in this document represents components of the legal health record. It is not the complete legal health record.[facility]
--- OUTSIDE RECORDS SUMMARY | 2025-11-04 01:06 | XMS_ITS | Encounter Summary ---
Author Organization [facility] Address [address] [facility] [address] [place] [address] Phone Care Team Providers Care Hand Sewer Name Role Phone Spencer Meyer MOPPER Primary Care Provider [phone] Encounter Details Date Type Department Care Team (Late st Contact Info) Description 01/20/2018 Ancillary Orders [facility],Outside Imaging [address] [place] [address] System, Provider Not In, PhD [address] [address] Social History Tobacco Use Types Packs/Day Years [...] documented as of this encounter Care Teams Hand Sewer Relationship Specialty Start Date End Date Spencer Meyer NP [address] [place] [address] PCP - General 09/10/17 documented as of this encounter Additional Source Comments The information contained in this document represents components of the legal health record. It is not the complete legal health record.[facility]
--- OUTSIDE RECORDS SUMMARY | 2025-11-04 01:06 | XMS_ITS | Encounter Summary ---
Author Organization [facility] Address [address] [facility] [address] [place] [address] Phone Care Team Providers Care Manager Of Pmo Name Role Phone Spencer Meyer HAT BRUSHER MACHINE Primary Care Provider [phone] Reason for Referral * Physical Therapy (Routine) - Closed Specialty Diagnoses / Procedures Referred By Noemi clark Referred To Contact Physical Therapy Diagnoses Encounter for rehabilitation System, Provider Not In, PhD Partners [id number] [place] [address] [address] [place] [address] Phone: tel: Referral ID Status Reason Start Date Expiration Date Visits Re quested Visits Authorized [id number] Closed 02/24/2018 11/24/2018 9 9 Encounter Details Date Type Department Care Team (Latest Contact Info) Description 12/31/2017 Transcribe Orders [facility] [address] [place] [address] Spencer Meyer, HAT BRUSHER MACHINE [address] [place], [place] [phone] Encounter for rehabilitation (Primary Dx) Social History [...] Date/Time Associated Diagnosis Comments AMB REFERRAL TO [facility] PHYSICAL THERAPY Routine 02/24/2018 5:09 PM EDT Encounter for rehabilitation documented in this encounter Results * Ambulatory referral to [facility] Physical Therapy (02/24/2018 5:09 PM EDT) us Provider Not In System PhD AMB [facility] REFERRALS Fin al Result documented in this encounter Visit Diagnoses Diagnosis Encounter for rehabilitation- Primary documented in this encounter Additional Health Concerns Infection Onset Date Last Indicated Resolved Time CoV-Risk 11/27/2023 11/27/2023 12/08/2023 1:23 AM EST Influenza A 11/27/2023 11/27/2023 12/04/2023 1:24 AM EST documented as of this encounter Care Teams Manager Of Pmo Relationship Specialty Start Date End Date Spencer Meyer NP [address] [place] [phone] PCP - General 09/10/17 documented as of this encounter Additional Source Comments The information contained in this document represents components of the legal health record. It is not the complete legal health record.[facility]
--- OUTSIDE RECORDS SUMMARY | 2025-11-04 01:06 | XMS_ITS | Encounter Summary ---
Author Organization [facility] Address [address] [facility] [address] [place] [address] Phone Care Team Providers Care Creel Selector Name Role Phone Spencer Meyer ANALYTICAL TECHNICIAN Primary Care Provider [phone] Encounter Details Date Type Department Care Team (Late st Contact Info) Description 01/07/2018 Procedure Pass [facility], [facility] [address] [place] [address] Social History Tobacco Use Types Packs/Day Years [...] documented as of this encounter Care Teams Creel Selector Relationship Specialty Start Date End Date Spencer Meyer NP [address] [place] [address] PCP - General 09/10/17 documented as of this encounter Additional Source Comments The information contained in this document represents components of the legal health record. It is not the complete legal health record.[facility]
--- OUTSIDE RECORDS SUMMARY | 2025-11-04 01:06 | XMS_ITS | Encounter Summary ---
Author Organization [facility] Address [address] [facility] [address] [place] [address] Phone Care Team Providers Care Precision Lens Grinder Name Role Phone Spencer Meyer RETIREMENT MANAGER Primary Care Provider [phone] Encounter Details Date Type Department Care Team (Latest Contact Info) Description 01/13/2018 Transcribe Orders [facility] Specimen Processing [address] [place] [address] Spencer Meyer, RETIREMENT MANAGER [address] [place] [address] Hyperlipidemia, unspecified hyperlipidemia type (Primary Dx); Elevated [...] PM EST) WBC 0-4(A) NONE SEEN /hpf [facility] RBC 3-5(A) NONE SEEN /hpf [facility] URINE EPITHELIAL 0-4(A) NONE SEEN [facility] MUCUS Trace(A) NONE SEEN /hpf [facility] BACTERIA 1+(A) NONE SEEN [facility] COLOR Yellow Yellow [facility] CLARITY Clear [facility] GLUCOSE Negative Negative [facility] BILI Negative Negative [facility] KETONES Negative Negative [facility] SPECIFIC GRAVITY 1.020 1.005 - 1.030 [facility] BLOOD 1+(A) Negative [facility] PH 6.0 5.0 - 8.0 [facility] Protein-UA Negative Negative [facility] NITRITE Negative Negative [facility] Leukocyte esterase, ur Negative Negative [facility] Urine (Urine) 01/13/2018 2:1 7 PM EST 01/13/2018 2:24 PM EST us Spencer Meyer RETIREMENT MANAGER LAB URINE ORDERABLES Final Re sult Performing Organization Address [facility] Co de Phone Number [address] [address] * Syphilis antibody screen (01/13/2018 2:17 PM EST) RPR NON-REACTIV E NON-REACTI VE [facility] Blood 01/13/2018 2:17 PM EST 01/13/2018 2:23 PM EST us Spencer Meyer RETIREMENT MANAGER LAB BLOOD BKR ORDERABLES Ce l Result Performing Organization Address [facility] Co de Phone Number [address] [address] * Microalbumin/creatinine ratio, random urine (01/13/2018 2:17 PM EST) URINE MICROALBUMIN 1.1 0 - 2.3 mg/dL [facility] URINE CREATININE 193 mg/dL [facility] MICROALB/CRE RATIO NOT CALCULATED 0 - 20 mg/g Cre [facility] Comment:due to Microalbumin <1.2 Urine (Urine) 01/13/2018 2:1 7 PM EST 01/13/2018 2:24 PM EST us Spencer Meyer RETIREMENT MANAGER LAB URINE ORDERABLES Final Re sult Performing Organization Address [facility]/ZIP Co de Phone Number [address] [address] * (ABNORMAL) Lipid panel (01/13/2018 2:17 PM EST) HDL 54 mg/dL [facility] Comment: Interpretation: Risk Level Females Decreased >55mg/dL Average 50-55 mg/dL Increased <50 mg/dL CHOLESTEROL 214 0 - 240 mg/dL [facility] TRIGLYCERIDES 182(H) 30 - 160 mg/dL [facility] LDL 124 50 - 129 mg/dL [facility] Comment: LDL levels in terms of risk for coronary heart disease: <100 mg/dL: Optimal 100-129 mg/dL: Near or above optimal 130-159 mg/dL: Borderline high 160-189 mg/dL: High >190 mg/dL: Very High CARDIAC RISK RATIO 4.0 3.3 - 4.4 C [facility] Blood 01/13/2018 2:17 PM EST 01/13/2018 2:23 PM EST us Spencer Meyer RETIREMENT MANAGER LAB BLOOD BKR ORDERABLES Ce l Result Performing Organization Address [facility] Co de Phone Number [address] [address] * HIV-1/2 antigen/antibody (01/13/2018 2:17 PM EST) HIV Antibod(ies) NON-REACTI VE NON-REACTI VE [facility] HIV-1 ANTIGEN NON-REACTI VE NON-REACTI VE [facility] Blood 01/13/2018 2:17 PM EST 01/13/2018 2:23 PM EST us Spencer Meyer RETIREMENT MANAGER LAB BLOOD BKR ORDERABLES Ce l Result [address] [address] * Hepatitis C antibody, qualitative (01/13/2018 2:17 PM EST) HCV Negative Negative [facility] Comment: This is a screening test and should be confirmed with molecular testing Blood 01/13/2018 2:17 PM EST 01/13/2018 2:23 PM EST us Spencer S Lauter RETIREMENT MANAGER LAB BLOOD BKR ORDERABLES Ce l Result [address] [address] * Hepatitis B surface antigen (01/13/2018 2:17 PM EST) HBV SURFACE ANTIGEN Negative Negative [facility] Blood 01/13/2018 2:17 PM EST 01/13/2018 2:23 PM EST us Spencer S Lauter RETIREMENT MANAGER LAB BLOOD BKR ORDERABLES Ce l Result [address] [address] * Hepatitis B core antibody, total (01/13/2018 2:17 PM EST) HEP B CORE AB, TOT Negative Negative [facility] Blood 01/13/2018 2:17 PM EST 01/13/2018 2:23 PM EST us Spencer S Lauter RETIREMENT MANAGER LAB BLOOD BKR ORDERABLES Ce l Result [address] [address] * Hemoglobin A1c (01/13/2018 2:17 PM EST) HEMOGLOBIN A1C 5.1 4.3 - 5.8 % [facility] Blood 01/13/2018 2:17 PM EST 01/13/2018 2:23 PM EST us Spencer Meyer RETIREMENT MANAGER LAB BLOOD BKR ORDERABLES Ce l Result [address] [address] * Comprehensive metabolic panel (01/13/2018 2:17 PM EST) SODIUM 141 133 - 146 mmol/L [facility] POTASSIUM 3.5 3.3 - 5.1 mmol/L [facility] CHLORIDE 105 96 - 108 mmol/L [facility] CO2 23 21 - 35 mmol/L [facility] BUN 17 6 - 19 mg/dL [facility] CREATININE 0.60 0.5 - 1.5 mg/dL [facility] GLUCOSE 84 70 - 99 mg/dL [facility] ALBUMIN 4.3 3.9 - 4.8 g/dL [facility] TOTAL PROTEIN 7.5 6.5 - 8.0 g/dL [facility] CALCIUM 8.8 8.4 - 10.3 mg/dL [facility] ALKALINE PHOSPHATASE 81 39 - 117 U/L [facility] TOTAL BILIRUBIN 0.6 0 - 1.2 mg/dL [facility] AST 17 0 - 37 U/L [facility] ALT 21 0 - 40 U/L [facility] GLOBULIN 3.2 1 - 4.8 g/dL [facility] EGFR >60 >60 mL/min/1.7 3m2 [facility] Comment:Abnormal if <60. If patient is -Tajik, multiply the result by 1.21. ANION GAP 17 10 - 20 mmol/L [facility] Blood 01/13/2018 2:17 PM EST 01/13/2018 2:23 PM EST us Spencer Meyer RETIREMENT MANAGER LAB BLOOD BKR ORDERABLES Ce l Result [address] [address] * CBC and differential (01/13/2018 2:17 PM EST) WBC 7.06 3.40 - 11.20 K/uL [facility] RBC 4.35 3.80 - 4.80 M/uL [facility] HGB 12.6 12.0 - 15.0 g/dL [facility] HCT 37.1 36.0 - 46.0 % [facility] PLT 232 130 - 400 K/uL [facility] MCV 85.3 79.0 - 98.0 fL [facility] MCH 29.0 27.0 - 34.8 pg [facility] MCHC 34.0 31.5 - 36.0 g/dL [facility] RDW 13.2 10.8 - 14.6 % [facility] MPV 10.8 9.4 - 12.4 fl [facility] NRBC 0.00 /100 WBCs [facility] ABSOLUTE NRBC 0.00 K/uL [facility] DIFF METHOD Auto [facility] NEUTS 56.9 45.30 - 77.70 % [facility] LYMPHS 31.4 12.30 - 39.70 % [facility] MONOS 7.8 4.10 - 12.80 % [facility] EOS 2.8 0 - 7.2 % [facility] BASOS 0.4 0 - 2.80 % [facility] Granulocytes, immature (%) 0.7 0.0 - 0.9 % [facility] ABSOLUTE NEUTS 4.01 1.40 - 7.70 K/uL [facility] ABSOLUTE LYMPHS 2.22 0.60 - 3.20 K/uL [facility] ABSOLUTE MONOS 0.55 0.11 - 0.59 K/uL [facility] ABSOLUTE EOS 0.20 0.01 - 0.50 K/uL [facility] ABSOLUTE BASOS 0.03 0.00 - 0.08 K/uL [facility] Granulocytes, immature 0.05 0.00 - 0.05 K/uL [facility] Blood 01/13/2018 2:17 PM EST 01/13/2018 2:23 PM EST us Spencer Meyer RETIREMENT MANAGER LAB BLOOD BKR ORDERABLES Ce l Result [address] [address] * TSH (01/13/2018 2:17 PM EST) TSH 2.91 0.27 - 4.20 uIU/mL [facility] Blood 01/13/2018 2:17 PM EST 01/13/2018 2:23 PM EST us Spencer S Larauter RETIREMENT MANAGER LAB BLOOD BKR ORDERABLES Ce l Result Performing Organization Address City/[facility]/ZIP Co de Phone Number [address] [address] * Folate (01/13/2018 2:17 PM EST) FOLIC ACID 15.8 4.2 - 19.9 ng/mL [facility] Blood 01/13/2018 2:17 PM EST 01/13/2018 2:23 PM EST us Spencer S Larauter RETIREMENT MANAGER LAB BLOOD BKR ORDERABLES Ce l Result Performing Organization Address [facility]/ZIP Co de Phone Number [address] [address] * Vitamin B12 (01/13/2018 2:17 PM EST) VITAMIN B12 407 243 - 894 pg/mL [facility] Blood 01/13/2018 2:17 PM EST 01/13/2018 2:23 PM EST us Spencer S Lauter RETIREMENT MANAGER LAB BLOOD BKR ORDERABLES Ce l Result Performing Organization Address City/[facility]/ZIP Co de Phone Number [address] [address] * (ABNORMAL) 25-OH vitamin D (01/13/2018 2:17 PM EST) 25 OH VIT D (TOTAL) 14(L) 30 - 1,000 ng/mL [facility] Blood 01/13/2018 2:17 PM EST 01/13/2018 2:23 PM EST us Spencer Meyer NP LAB BLOOD BKR ORDERABLES Ce l Result [facility] [address] [place] [address] documented in this encounter Visit Diagnoses Diagnosis [...] documented as of this encounter Care Teams Precision Lens Grinder Relationship Specialty Start Date End Date Spencer Meyer NP [address] [place] [address] PCP - General 09/10/17 documented as of this encounter Additional Source Comments The information contained in this document represents components of the legal health record. It is not the complete legal health record.[facility]
--- OUTSIDE RECORDS SUMMARY | 2025-11-04 01:06 | XMS_ITS | Clinical Summary ---
Author Organization [employer] Address [address] [facility] [address] [place] [address] Care Team Providers Care R And D Lab Technician Name Role Phone Constance Oakes PROCUREMENT AGENT Primary Care Provider [phone] Allergies No known active allergies Medications * [...] (BMI) of 40.0 to 44.9 in adult ([facility]) Inject 0.5 mL (2.5 mg) under the [...] (BMI) of 40.0 to 44.9 in adult ([facility]) Inject 0.5 mL (5 mg) under the skin 1 (one) time per week. 2 mL 3 09/08/20 25 Active Tirzepatide-Weight Management (Zepbound) 7.5 MG/0.5ML solution auto-injectorIndic ations:Class 3 severe obesity due to excess calories with serious comorbidity and body mass index (BMI) of 40.0 to 44.9 in adult ([facility]) Inject 0.5 mL (7.5 mg) under the [...] Other dysphagia 03/25/2024 Overview (03/25/2024): Followed by [facility]. Last seen 10/2023. Endoscopy/colonoscopy from 08/2023 [...] up - Previously did not tolerate olmesartan. Berino that it caused BP fluctuation Maintenance: - [...] 1 Pap: Overdue, scheduled today C-scope: 05/2020- [facility] [place]. repeat 5 years. BMD: 08/2022, WNL HCV [...] reflux disease 04/22/2013 Overview (12/10/2022): Followed by [facility] Negative endoscopy 01/2022, Dr. Neil Taking [...] Encounters Date Type Department Care Team Description 10/28/2025 Telephone [facility] MEDICINE [address], [place] [phone] Constance Oakes FNP Prior Authorization (PA: Zepbound 15 MG) 10/08/2025 Refill [facility] MEDIC[facility] [address], [place] [phone] Constance Oakes FNP Prediabetes; Class 3 severe obesity due to excess calories with serious comorbidity and body mass index (BMI) of 40.0 to 44.9 in adult (HCC) 10/04/2025 Patient Outreach [facility] MED[facility] [address], [place] [phone] Constance Oakes FNP Pre-visit Planning (SDOH screening was completed on 06/16/2025) 09/08/2025 Refill [facility] MED[facility] [address], [place] [phone] Constance Oakes FNP Class 3 severe obesity due to excess calories with serious comorbidity and body mass index (BMI) of 40.0 to 44.9 in adult (HCC) 09/03/2025 Results Follow-Up [facility] WALK-IN CENTER [address], [place] [phone] Constance Oakes FNP Prothrombin Time-INR, CBC auto differential, Hepatitis A,B,C Profile 09/02/2025 Orders Only [facility] External Provider, 08/30/2025 Orders Only [facility] WALK-IN C[facility] [address], [place] [phone] Constance Oakes FNP Elevated liver enzymes (Primary Dx) 08/30/2025 Results Follow-Up [facility] [address] [place] [address] Constance Oakes FNP POCT Hgb A1c, POCT Glucose, Comprehensive Metabolic Panel, Additional followed-up results: 2 08/26/2025 Orders Only GENERIC EXTERNAL DATA DEPARTMENT Provider, Generic External Data 08/20/2025 Telephone [facility] MEDICINE [address] [place] [address] Constance Oakes FNP Colonoscopy 08/05/2025 Telephone [facility] MEDICINE [address] [place] [address] Josiane Metz, RN Care Coordination from Last 3 Months Immunizations Immunization Administration [...] Description 11/22/2025 2:30 PM EST Office Visit [facility] MED[facility] [address] [place] [address] [place], Constance, PROCUREMENT AGENT [address] [place] [address] Health Maintenance Due Date Last Done Comments [...] Adult catch-up series) 01/19/2025 12/22/2024 COVID-19 Vaccine ( - season) 2025 12/17/2024, 05/01/2021, 04/05/2021 Influenza [...] Tobacco Screening 08/02/2026 08/02/2025 Mammogram 09/20/2026 09/20/2025, 12/2022, 12/27/2022, Additional history exists Dental X-Ray: Full Mouth 01/17/2027 01/16/2024, 04/25 Colonoscopy 09/09/2028 09/09/2023, 06/20/2020 Colorectal Cancer Screening 09/09/2028 Cervical Cancer Screening 2029 HPV/Cotest 2029 2024 Pap Smear 2029 2024 Lipid Panel 08/26/2030 08/26/2025, 01/2025, 01/16/2024, Additional history exists Hepatitis B [...] Routine 08/26/2025 10:58 AM EDT Essential hypertension HPV MRNA E6/E7 REFLEX TO HPV 16, [...] EDT Narrative 09/24/2025 2:57 PM EDT [facility] [address] [place] [address] Mammography Report Signed Patient: Radha Nuñez MR#: [id number] 95 : 1975 Acct:[id number] Age/Sex: 50 / F ADM Date: 09/20/25 Loc: HO.MAMMO Attending Dr: Constance Oakes PROCUREMENT AGENT Ordering Physician: Constance Oakes Results: 1Nega tive Date of Service: 09/20/25 Follow Up: 1 Year From [facility] ina Mammogram Procedure(s): MM tomosynthesis screening BI Accession Number(s): [id number] cc: Constance Oakes Reason For Exam: Routine [...] 09/24/25 1454 DD/ 1145 TD/TT: 09/20/25 1156 Cytology Technologist: Procedure Note Donotuseinterpreter, Image - 09/24/2025 [facility] [address] [place] [address] Mammography Report Signed Patient: Radha Nuñez CMR#: [id number] 95 : 1975Acct:[id number] Age/Sex: 50 / FADM Date: 09/20/25 Loc: HO.MAMMO Attending Dr: Constance MORELOS Ordering Physician: Constance Oakes FNPResults: 1Nega tive Date of Service: 09/20/25Follow Up: 1 Year From Orig inal Mammogram Procedure(s): MM tomosynthesis screening BI Accession Number(s): [id number] cc: Constance Oakes Reason For Exam: Routine [...] 09/24/25 1454 DD/ 1145 TD/TT: 09/20/25 1156 Cytology Technologist: Constance Oakes PROCUREMENT AGENT IMG BI PROCEDURES Final Resul t * XR Knee 1-2 Views Right (09/02/2025 1:41 PM EDT) Anatomical Region Laterality Modality Lower Extremities, Knee Right [facility] 09/02/2025 1:41 PM EDT Narrative 09/02/2025 2:33 PM EDT [facility] [address] [place] [address] Drive [address] [place] [address] XRay Report Signed Patient: Radha Nuñez MR#: [id number] 95 : 1975 Acct:[id number] Age/Sex: 50 / F ADM Date: 09/02/25 Loc: HO.ALEXI Attending Dr: Carlene Manning PA-C Ordering Physician: Carlene Manning PA-C Date of Service: 09/02/25 Procedure(s): XR knee RT 2V Accession Number(s): [id number] cc: Carlene Manning PA-C; [facility] Reason for Exam: M25.569 - Pain in [...] 09/02/25 1431 DD/ 1341 TD/TT: 09/02/25 1345 Cytology Technologist: Procedure Note Donotuseinterpreter, Image - 09/02/2025 [facility] [address] [place] [address] Drive [address] [place] [address] XRay Report Signed Patient: Radha Nuñez CMR#: [id number] 95 : 1975Acct:[id number] Age/Sex: 50 / FADM Date: 09/02/25 Loc: MELA.ALEXI Attending Dr: Carlene Manning PA-C Ordering Physician: Carlene Manning PA-C Date of Service: 09/02/25 Procedure(s): XR knee RT 2V Accession Number(s): [id number] cc: Carlene Manning PA-C; [facility] Reason for Exam: M25.569 - Pain in [...] 09/02/25 1431 DD/ 1341 TD/TT: 09/02/25 1345 Cytology Technologist: [facility] External Provider IMG XR PROCEDURES Final Result * Hepatitis A,B,C Profile (09/02/2025 12:10 PM EDT) Hepatitis A IgM Nonreactive Nonreactive [facility] Comment:IgM antibodies to MCK[place] V not detected; does not exclude earlyacute or recovered HAV infection. ~Hepatitis B Surface Antibody NONREACTIVE Nonreactive [facility] Comment:Nonreactive: < 8.00 mIU/mL Hepatitis B Core Antibody Nonreactive Nonreactive [facility] Hepatitis C Antibody Nonreactive Nonreactive [facility] Comment:Antibodies to HCV no t detected; does not exclude early acuteHCV infection. Hepatitis B Surface Ag Negative Negative [facility] Blood Venous blood specimen / Unknown 09/02/2025 12:10 PM EDT 09/02/2025 4:14 PM EDT [facility] PROCUREMENT AGENT LAB BLOOD ORDERABLES Final Re sult [facility] [address] [place] [address] [phone] * CBC auto differential (09/02/2025 12:10 PM EDT) White Blood Count 8.6 4.8 - 10.8 X10*3/uL [facility] Red Blood Count 4.91 4.20 - 5.50 X10*6/uL [facility] Hemoglobin 13.5 12.0 - 16.0 g/dl [facility] Hematocrit 41.1 37.0 - 47.0 % [facility] Mean Corpuscular Volume 83.7 80.0 - 98.0 fL [facility] Mean Corpuscular Hemoglobin 27.5 27.0 - 33.0 pg [facility] Mean Corpuscular HGB Conc 32.8 31.0 - 35.0 g/dl [facility] Red Cell Distribution Width 13.1 11.0 - 16.0 % [facility] Platelet Count 273 160 - 400 X10*3/uL [facility] Mean Platelet Volume 10.4 9.4 - 12.3 fL [facility] Neutrophils Percent Auto 50.6 45 - 73 % [facility] Imm Gran Pct Auto 0.4 0.0 - 0.4 % [facility] Lymphocytes Percent Auto 35.0 20 - 40 % [facility] Monocytes Percent Auto 10.3 2 - 11 % [facility] Eosinophils Percent Auto 3.3 0 - 4 % [facility] Basophils Percent Auto 0.4 0 - 2 % [facility] NRBC Pct Auto 0.0 0.0 - 0.2 /100WBC [facility] Neutrophils Absolute Auto 4.3 2.0 - 8.3 x10*3/uL [facility] Imm Gran Abs Auto 0.03 0.00 - 0.03 X10*3/uL [facility] Lymphocytes Absolute Auto 3.0 1.2 - 4.9 X10*3/uL [facility] Monocytes Absolute Auto 0.9 0.1 - 1.2 X10*3/uL [facility] Eosinophils Absolute Auto 0.3 0.0 - 0.4 X10*3/uL [facility] Basophils Absolute Auto 0.0 0.0 - 0.2 X10*3/uL [facility] NRBC Abs Auto 0.000 0.0 - 0.012 X10*3/uL [facility] Blood Venous blood specimen / Unknown 09/02/2025 12:10 PM EDT 09/02/2025 1:15 PM EDT [facility] LAB BLOOD ORDERABLES Final Re sult [facility] [address] [place] [phone] * (ABNORMAL) Prothrombin Time-INR (09/02/2025 12:10 PM EDT) Prothrombin Time 10.7(L) 10.9 - 12.4 SEC [facility] INTERNATIONAL NORM RATIO 0.9 0.9 - 1.1 [facility] Comment:INTERNATIONAL NORMAL IZED RATIO (INR) REFERENCE [...] 12:10 PM EDT 09/02/2025 1:15 PM EDT [facility] PROCUREMENT AGENT LAB BLOOD ORDERABLES Final Re sult [facility] [address] [place] [address] [phone] * Vitamin D, 25-Hydroxy, Total, Immunoassay (08/26/2025 10:58 AM EDT) Vitamin D 25-OH Total 37.1 >30 ng/mL [facility] Comment: Health Based Reference Values*< 20 ng/mL Htsxyrosr18-91 ng/mL Insufficient> 30 ng/mL Sufficient*Regla BROWN. N [...] Provider LAB BLOOD ORDERAB LES Final Result [facility] [address] [place] [address] [phone] * Vitamin B12 (Cobalamin) and Folate Panel, Serum (08/26/2025 10:58 AM EDT) Vitamin B12 452 200 - 900 pg/mL [facility] Comment:NORMAL 200-900 PG/ML INDETERMINATE 160-199 PG/ML DEFICIENT < 160 PG/ML Folate 14.8 > or = 4.0 ng/mL [facility] Comment:Reference Values:> o r = 4.0 ng/mL< 4.0 ng/mL suggests folate deficiency Methotrexate, aminopterin and folinic acid(leucovorin) are chemotherapeutic agents whose molecularstructures are similar to folate; therefore, the Architectfolate assay cannot be used for patients using these drugs. 08/26/2025 10:5 8 AM EDT 08/26/2025 10:58 AM EDT Generic External Data Provider LAB BLOOD ORDERAB LES Final Result Performing Organization Address City/[facility]/ZIP Co de Phone Number [facility] [address] [place] [address] [phone] * TSH W/Reflex to FT4 (08/26/2025 10:58 AM EDT) Pathologist [facility] TSH reflex Free T4 2.74 0.32 - 4.0 uIU/mL [facility] Blood Venous blood specimen / Unknown 08/26/2025 10:58 AM EDT 08/26/2025 10:58 AM EDT [facility] PROCUREMENT AGENT LAB BLOOD ORDERABLES Final Re sult [facility] [address] [place] [address] [phone] * Methylmalonic Acid (08/26/2025 10:58 AM EDT) Pathologist [facility] Methylmalonic Acid 145 55 - 335 nmol/L [facility] Comment: Serum methylmalonic acid (MMA) levels [...] outcomes,such as neural tube defects and intrauterine growthrestriction.[employer] utilized Multi-Modal Decomposition(MMD) analysis to establish first and second trimester-specific MMA reference intervals in , as givenbelow:MMA, First trimester (<13 wks gestation): 58-167 nmol/LMMA, Second trimester (13-23 wks gestation):63-241 nmol/LThis test was developed and its analytical performancecharacteristics have been determined by [employer]. It has not been cleared or approved by theFDA. This assay has been validated pursuant to the CLIAregulations and is used for clinical purposes.THIS TEST WAS PERFORMED AT:[id number] [place] [address]RSSMVWNTIMOTHY JEFFERSON MD,PHD 08/26/2025 10:5 8 AM EDT 08/26/2025 10:58 AM EDT us Generic External Data Provider LAB BLOOD ORDERAB LES Final Result [facility] [address] [place] [phone] * Vitamin B1 (08/26/2025 10:58 AM EDT) Vitamin B1 10 8 - 30 nmol/L [facility] Comment:Vitamin supplementat ion within 24 hours prior toblood draw may affect the accuracy of the results.This test was developed and its analytical performancecharacteristics have been determined by [employer] [place], [place]. It hasnot been cleared or approved by the U.S. Food and DrugAdministration. This assay has been validated pursuantto the CLIA regulations and is used for clinicalpurposes.THIS TEST WAS PERFORMED AT:[employer] [id number] [place] [address]DZQDIXDTIMOTHY JEFFERSON MD,PHD 08/26/2025 10:5 8 AM EDT 08/26/2025 10:58 AM EDT Generic External Data Provider LAB BLOOD ORDERAB LES Final Result Performing Organization Address [facility]/ZIP Co de Phone Number [facility] [address] [place] [phone] * Vitamin B6, Plasma (08/26/2025 10:58 AM EDT) Pathologist [facility] Vitamin B6 12.7 2.1 - 21.7 ng/mL [facility] Comment:Vitamin supplementat ion within 24 hours prior toblood draw may affect the accuracy of the results.This test was developed and its analytical performancecharacteristics have been determined by [employer] [place], [place]. It hasnot been cleared or approved by the U.S. Food and DrugAdministration. This assay has been validated pursuantto the CLIA regulations and is used for clinicalpurposes.THIS TEST WAS PERFORMED AT:[id number] [place] [address]KSZHGJHTIMOTHY JEFFERSON MD,PHD 08/26/2025 10:5 8 AM EDT 08/26/2025 10:58 AM EDT us Generic External Data Provider LAB BLOOD ORDERAB LES Final Result Performing Organization Address [facility]/ZIP Co de Phone Number [facility] [address] [place] [phone] * Homocysteine (08/26/2025 10:58 AM EDT) Pathologist [facility] Homocysteine 9.5 < or = 13.4 umol/L [facility] Comment:Homocysteine is incr eased by functional deficiency offolate or vitamin B12. Testing for methylmalonic aciddifferentiates between these deficiencies. Other causesof increased homocysteine include renal failure, folateantagonists such as methotrexate and phenytoin, andexposure to nitrous oxide.Jennifer Cordoba, et al., Raya [employer] Med. 1999;131(5):331-9.THIS TEST WAS PERFORMED AT:[employer] [place] [id number] ROSARIO MD 08/26/2025 10:5 8 AM EDT 08/26/2025 10:58 AM EDT Generic External Data Provider LAB BLOOD ORDERAB LES Final Result Performing Organization Address [facility] Co de Phone Number [facility] [address] [place] [phone] * Hemoglobin A1c (08/26/2025 10:58 AM EDT) Hemoglobin A1c 5.8 <6.0 % [facility] Comment:Hemoglobin A1C Refer ence Range Adults: 4.8 - 6.0 % Non diabetic: < 6.0 % Goal: < 7.0 %Additional Action Suggested: > 8.0 %Note: Hemoglobin A1c results are invalid for patients with abnormal amounts of HbF. Blood transfusions may impact the HbA1c concentration in the patient sample. Estimated Average Glucose 120 mg/dL [facility] Comment:eAG = Estimated ave rage glucose which is %A1C expressed asaverage glucose, using the formula of the Q4A-TytcpwtWpvxxly Glucose study (ADAG), Diabetes Care, Vol.31,#8,Jun. 2007 08/26/2025 10:5 8 AM EDT 08/26/2025 10:58 AM EDT Generic External Data Provider LAB BLOOD ORDERAB LES Final Result Performing Organization Address [facility] Co de Phone Number [facility] [address] [place] [phone] * Ferritin (08/26/2025 10:58 AM EDT) Ferritin 189 10 - 250 ng/mL [facility] 08/26/2025 10:5 8 AM EDT 08/26/2025 10:58 AM EDT us Generic External Data Provider LAB BLOOD ORDERAB LES Final Result Performing Organization Address [facility] Co de Phone Number [facility] [address] [place] [address] [phone] * (ABNORMAL) Lipid Panel, Standard (08/26/2025 10:58 AM EDT) Triglycerides 215(H) <150 mg/dL [facility] Comment:Desirable Triglyceri de: less than 150 mg/dLBorderline High Triglyceride 150-199 mg/dLHigh Triglyceride: 200-499 mg/dLVery High Triglyceride: greater than or equal to 5OO mg/dL Cholesterol 226(H) <200 mg/dL [facility] Comment:Desirable Cholestero l: less than 200 mg/dLBorderline High Cholesterol: 200-239 mg/dLHigh Cholesterol: greater than 239 mg/dL LDL Cholesterol Calculated 141(H) <100 mg/dL [facility] Comment:Desirable LDL: less than 100 mg/dLNear Optimal/Above Optimal LDL: 110- 129 mg/dLBorderline High LDL: 130-159 mg/dLHigh LDL: 160-189 mg/dLVery High LDL: greater than or equal to 190 mg/dL HDL Cholesterol 42 >40 mg/dL [facility] Comment:Desirable HDL: great er than 40 mg/dL Note: This HDL assay may give artificially low results in patients with liver disease. Blood Venous blood specimen / Unknown 08/26/2025 10:58 AM EDT 08/26/2025 10:58 AM EDT us [facility] PROCUREMENT AGENT LAB BLOOD ORDERABLES Final Re sult Performing Organization Address City/[facility]/ZIP Co de Phone Number [facility] [address] [place] [address] [phone] * (ABNORMAL) Comprehensive Metabolic Panel (08/26/2025 10:58 AM EDT) Sodium 142 135 - 145 mmol/L [facility] Potassium 4.0 3.3 - 5.1 mmol/L [facility] Chloride 108 96 - 108 mmol/L [facility] Carbon Dioxide 26 22 - 29 mmol/L [facility] Anion Gap 12 12 - 20 [facility] Urea Nitrogen (BUN) 16 9 - 16 mg/dL [facility] Creatinine, Serum 0.75 0.5 - 1.4 mg/dL [facility] Estimated Glomerular Filt Rate >60 [facility] Comment:Chronic Kidney Disea se: Estimated GFR < 60 mL/min/1.15p5Nzoydb Kidney Disease: Estimated GFR < 15 mL/min/1.73m2 Glucose 107 60 - 115 mg/dL [facility] Calcium 9.7 8.4 - 10.2 mg/dL [facility] Bilirubin, Total 0.8 0.0 - 1.0 mg/dL [facility] Aspartate Amino Transferase 47(H) 5 - 31 U/L [facility] Alanine Aminotransferase 68(H) 0 - 31 U/L [facility] Total Protein 8.1(H) 6.5 - 8.0 g/dL [facility] Albumin Level 4.9 3.5 - 5.0 g/dL [facility] Alkaline Phosphatase 98 39 - 117 U/L [facility] Blood Venous blood specimen / Unknown 08/26/2025 10:58 AM EDT 08/26/2025 10:58 AM EDT [facility] PROCUREMENT AGENT LAB BLOOD ORDERABLES Final Re sult [facility] [address] [place] [phone] * HPV mRNA E6/E7 w/Reflex to HPV Genotypes 16, 18/45 (2024 12:30 PM EDT) HPV nRNA E6/E7 Not Detected Not Detected [facility] Comment:Methodology: Transcr iption-Mediated AmplificationThis assay detects E6/E7 viral messenger RNA (mRNA) from 14high-risk HPV types (16,18,31,33,35,39,45,51,52,56,58,59,66,68).Cervical sources are required for HPV testing.If a vaginal source from a patient who has had atotal hysterectomy with removal of cervix wassubmitted, please contact the testing laboratoryfor alternative testing options.For additional information, please refer [email or web address].[employer]/faq/TVS481y2(This link if provided for information/educational purposes only.)THIS TEST WAS PERFORMED AT:[employer] [place] [id number] ROSARIO MD HPV mRNA E6/E7 [facility] HPV 16 RNA [facility] HPV 18/45 RNA [facility] 2024 12:3 0 PM EDT 05/06/2024 11:47 AM EDT [facility] LAB CYTOLOGY ORDERABLES Final Result Performing Organization Address City/State/[facility] Co de Phone Number [facility] [address] [place] [phone] * Pap Smear (2024 12:30 PM EDT) Swab Cervical swab / Unknown 2024 12:30 PM EDT 04/28/2024 9:10 AM EDT Narrative [facility] - 05/11/2024 5:17 PM EDT ----- ------- Name: Radha Nuñez Age/Sex: 49/F : 1975 Unit#: [id number] Attend Dr: Constance Oakes [facility] Re04/27/24 Status: DEP REF Location: [facility] Disch: ----- ------- SPEC : [id number] RECD: 04/28/24-909 STATUS: CHINTAN BUNN NUM: [id number] JUAREZ: 04/27/24-[address]: Constance Oakes [facility] ENTERED: 04/28/24-948 SP TYPE: Pap Smr OTHR DR: ORDERED: Pap Smear Interpretation Satisfactory for evaluation. Negative for intraepithelial lesion or malignancy. Atrophic. HPV mRNA E6/E7: NOT DETECTED This assay detects E6/E7 viral messenger RNA (mRNA) from 14 high-risk HPV types (16, 18, 31, 33, 35, 39, 45, 51, 52, 56, 58, 59, 66, 68) HPV testing performed by [employer] [place], [place]. See reference laboratory portion of the EMR for entire report. Clinical Information LMP: Postmenopausal Previous PAP test: Unknown date/findings Material Received ThinPrep-Vaginal/Cervical ----- ------- Signed (signature on file) Renea Garland 05/11/24 1717 ----- ------- END OF REPORT [facility] LAB CYTOLOGY ORDERABLES Final Result [facility] [address] [place] [phone] [phone] * (ABNORMAL) Colonoscopy (09/09/2023) Colonoscopy Abnormal(A ) Normal Comment:5years Historical Provider HEALTH MAINTENANCE Final Result from Last 3 Months or Most Recently Relevant to Health Maintenance Insurance [facility] [facility] Address: [facility] [address] [place] [address] [facility] ADULT DENTAL - HSN FULL (MEDICAID) Care Teams R And D Lab Technician Relationship Specialty Start Date End Date Constance Oakes FNP [address] [place] [phone] PCP - General Family Medicine 07/17/22
--- OUTSIDE RECORDS SUMMARY | 2025-11-04 01:06 | XMS_ITS | Encounter Summary ---
Author Organization [facility] Address [address] [facility] [address] [place] [id number] Phone Care Team Providers Care Liquor Rectifier Name Role Phone Spencer Meyer MATHEMATICS TECHNICIAN Primary Care Provider [phone] Encounter Details Date Type Department Care Team (Late st Contact Info) Description 02/20/2020 Procedure Pass [place] Admitting Dept - Virtual Department [address] [place] [id number] Social History Tobacco Use Types Packs/Day Years [...] documented as of this encounter Care Teams Liquor Rectifier Relationship Specialty Start Date End Date Spencer Meyer NP [address] [place] [id number] PCP - General 09/10/17 documented as of this encounter Additional Source Comments The information contained in this document represents components of the legal health record. It is not the complete legal health record.[facility]
--- OUTSIDE RECORDS SUMMARY | 2025-11-04 01:06 | XMS_ITS | Encounter Summary ---
Author Organization [facility] Address [address] [facility] [address] [place] [phone] Phone Care Team Providers Care Cap Sizer Name Role Phone Spencer Meyer DECORATING MACHINE OPERATOR Primary Care Provider [phone] Encounter Details Date Type Department Care Team (Late st Contact Info) Description 01/20/2018 Procedure Pass [facility],Outside Imaging [address] [place] [address] Social History Tobacco Use Types Packs/Day Years [...] documented as of this encounter Care Teams Cap Sizer Relationship Specialty Start Date End Date Spencer Meyer NP [address] [place] [address] PCP - General 09/10/17 documented as of this encounter Additional Source Comments The information contained in this document represents components of the legal health record. It is not the complete legal health record.[facility]
--- OUTSIDE RECORDS SUMMARY | 2025-11-04 01:06 | XMS_ITS | Encounter Summary ---
Author Organization [facility] Address [address] [facility] [address] [place] [phone] Phone Care Team Providers Care General Service Officer Name Role Phone Spencer Meyer SEAFOOD TECHNOLOGY SPECIALIST Primary Care Provider [phone] Encounter Details Date Type Department Care Team (Late st Contact Info) Description 01/07/2018 Ancillary Orders Virtual Department [address] [place] [address] Mary Shrestha NP [address] [place] [phone] [email or web address] knee pain, unspecified chronicity Social History [...] as of this encounter Care Teams General Service Officer Relationship Specialty Start Date End Date Spencer Meyer NP [address] [place] [phone] PCP - General 09/10/17 documented as of this encounter Additional Source Comments The information contained in this document represents components of the legal health record. It is not the complete legal health record.[facility]
== END ==
LOC: HO.SL 20:30
PROVIDERS: PCP Registered Nurse; Visit Provider Physician Assistant Medical
DX: G47.33 Obstructive sleep apnea (adult) (pediatric) (principal); G47.34 Idiopathic sleep related nonobstructive alveolar hypoventilation
CPT/HCPCS: 95811

== ENCOUNTER → 2025-11-03 21:38 | Outpatient (BNV) | payer OTHER, SELFPAY | PROVIDERS: PCP Registered Nurse; Visit Provider Psychiatry & Neurology Neurology | DX: G47.33 Obstructive sleep apnea (adult) (pediatric) (principal) | CPT/HCPCS: 95811 ==

== ENCOUNTER 2025-11-08 10:25 | Outpatient (REF) | payer OTHER, SELFPAY ==
--- NOTE | ~2025-11-08 | US_ITS ---
EXAMINATION: US ABDOMEN LIMITED CLINICAL INFORMATION: Elevated liver enzymes. Concerning hepatic steatosis.. COMPARISON: January 14, 2020. TECHNIQUE: Real-time ultrasound of the right upper quadrant abdomen using grayscale technique. FINDINGS: PANCREAS: No peripancreatic fluid collections. LIVER: Liver measures 14 cm. Increased echotexture. No gross nodular surface. No solid or cystic lesion. No intrahepatic biliary ductal dilatation. GALLBLADDER: Fluid-filled nondistended. No pericholecystic fluid collection or gallbladder wall thickening. COMMON BILE DUCT: 4 mm.. RIGHT KIDNEY: 12 cm. Normal echotexture. Renal cortical thickness is normal. No hydronephrosis. No solid or cystic lesion. FREE FLUID: None. US/US abdomen limited IMPRESSION: Hepatic steatosis. No cholelithiasis or choledocholithiasis. No hydronephrosis, right kidney. No ascites. Electronically signed by: Trevor Isaac MD 11/08/2025 11:01 AM [facility]
== END 2025-11-08 10:26 | disposition home or self-care (01) ==
LOC: HO.US 10:25
PROVIDERS: PCP Registered Nurse; Visit Provider Registered Nurse
DX: R74.8 Abnormal levels of other serum enzymes (principal)
CPT/HCPCS: 76705

== ENCOUNTER → 2025-11-08 10:26 | Outpatient (BNV) | payer OTHER, SELFPAY | PROVIDERS: PCP Registered Nurse; Visit Provider Radiology Diagnostic Radiology | DX: K76.0 Fatty (change of) liver, not elsewhere classified (principal) | CPT/HCPCS: 76705 ==